=== PATIENT | female | born 1950 | race Asian ===

== ENCOUNTER 2018-09-30 20:32 | Inpatient (IN) | payer OTHER ==
[~2018-09-30] VITALS: Ht 144.8 cm; Wt 89.1 kg
[~2018-09-30 20:32] MED LIST: TRAM1TAB4 PO
[2018-09-30] MEDS ORDERED: ASPIRIN CHEWABLE 81 MG TABLET. PO ONE (21:00)
[2018-09-30] MEDS ORDERED: dilTIAZem IV PUSH 25 MG/5 ML VIAL IVP ONE (21:00)
--- NOTE | 2018-09-30 21:03 | PHYS DOC ---
Past Medical History Past Medical History: No Pertinent History Past Surgical History: No Surgical History Alcohol Use: None Drug Use: None Adult General Chief Complaint Chief Complaint: SHORTNESS OF BREATH HPI HPI Patient is a 68 year old female who presents with dyspnea. Patient has reportedly been having increasing dyspnea over the last month. Denies chest pain. No prior hx of similar symptoms. No hx available from the patient. Family member at bedside who speaks minimal Khmer. Phone call to another family member who states the pt has been having increasing symptoms over the last month. Lightheaded, dizzy. Shortness of breath. No recent travel. No Fever, chills, cough. Review of Systems Review of Systems Constitutional: Denies fever Eyes: Denies change in visual acuity HENT: Denies nasal congestion Respiratory: as documented above Cardiovascular: No additional information GI: no n/v, abdominal pain Musculoskeletal: Denies back pain Integument: Denies rash Neurologic: Denies headache Endocrine: Denies polyuria All other systems were reviewed and found to be within normal limits, except as documented in this note. Current Medications Current Medications Current Medications Medications (Trade) Dose Ordered Sig/Amaury Start Time Stop Time Status Last Admin Dose Admin Acetaminophen (Tylenol) 650 mg PRN Q4HRS PRN 09/30/18 22:45 10/01/18 22:44 Aspirin (Children'S Aspirin) 324 mg 1X ONCE 09/30/18 21:00 09/30/18 21:01 DC 09/30/18 21:07 324 MG Diltiazem HCl (Cardizem Iv Push) 10 mg 1X ONCE 09/30/18 21:00 09/30/18 21:01 DC 09/30/18 21:08 10 MG Diltiazem HCl 125 mg/Dextrose 125 ml @ 5 mls/hr 1X ONCE 09/30/18 22:00 10/01/18 22:59 09/30/18 22:11 5 MLS/HR Info (CONTRAST GIVEN -- Rx MONITORING) 1 each PRN DAILY PRN 09/30/18 23:00 10/02/18 22:59 Iohexol (Omnipaque 300 Mg/ml) 100 ml 1X ONCE 09/30/18 23:00 09/30/18 23:01 DC 09/30/18 23:12 100 ML Nitroglycerin (Nitro-Bid Oint) 1 inch 1X ONCE 09/30/18 22:00 09/30/18 22:00 DC Ondansetron HCl (Zofran) 4 mg PRN Q8HRS PRN 09/30/18 22:45 10/01/18 22:44 Allergies Allergies Allergies Coded Allergies Type Severity Reaction Last Updated Verified No Known Drug Allergies 04/26/15 No Physical Exam Physical Exam Constitutional: Well developed, well nourished, mild increased work of breathing HENT: Normocephalic, atraumatic, bilateral external ears normal, oropharynx moist Eyes: PERRLA, EOMI Neck: Normal range of motion Cardiovascular: tachycardic, irregular rhythm Lungs & Thorax: Bilateral breath sounds clear Abdomen: Bowel sounds normal, soft, no tenderness Skin: Warm, dry, no erythema Extremities: + edema bilateral LE's with Right > Left Neurologic: Alert and oriented X 3 Psychologic: Affect normal Current Patient Data Vital Signs Vital Signs Date Time Temp Pulse Resp B/P (MAP) Pulse Ox O2 Delivery O2 Flow Rate FiO2 09/30/18 22:35 115 22 125/83 (97) 93 Nasal Cannula 4.0 09/30/18 20:35 98.2 98.2 Lab Values Laboratory Tests Test 09/30/18 20:57 09/30/18 21:50 White Blood Count 5.1 x10^3/uL (4.0-11.0) Red Blood Count 5.31 x10^6/uL (3.50-5.40) Hemoglobin 15.8 g/dL (12.0-15.5) H Hematocrit 48.2 % (36.0-47.0) H Mean Corpuscular Volume 91 fL (79-100) Mean Corpuscular Hemoglobin 30 pg (25-35) Mean Corpuscular Hemoglobin Concent 33 g/dL (31-37) Red Cell Distribution Width 14.8 % (11.5-14.5) H Platelet Count 157 x10^3/uL (140-400) Neutrophils (%) (Auto) 55 % (31-73) Lymphocytes (%) (Auto) 36 % (24-48) Monocytes (%) (Auto) 7 % (0-9) Eosinophils (%) (Auto) 1 % (0-3) Basophils (%) (Auto) 2 % (0-3) Neutrophils # (Auto) 2.8 x10^3uL (1.8-7.7) Lymphocytes # (Auto) 1.8 x10^3/uL (1.0-4.8) Monocytes # (Auto) 0.4 x10^3/uL (0.0-1.1) Eosinophils # (Auto) 0.1 x10^3/uL (0.0-0.7) Basophils # (Auto) 0.1 x10^3/uL (0.0-0.2) Lactic Acid Level 1.9 mmol/L (0.4-2.0) Prothrombin Time 15.2 SEC (11.7-14.0) H Prothrombin Time INR 1.3 (0.8-1.1) H PTT 31 SEC (24-38) D-Dimer (Giselle) 3.07 ug/mlFEU (0.00-0.50) H Sodium Level 145 mmol/L (136-145) Potassium Level 4.1 mmol/L (3.5-5.1) Chloride Level 106 mmol/L (98-107) Carbon Dioxide Level 33 mmol/L (21-32) H Anion Gap 6 (6-14) Blood Urea Nitrogen 14 mg/dL (7-20) Creatinine 0.9 mg/dL (0.6-1.0) Estimated GFR (Cockcroft-Gault) 62.1 Glucose Level 143 mg/dL (70-99) H Calcium Level 8.9 mg/dL (8.5-10.1) Total Bilirubin 1.2 mg/dL (0.2-1.0) H Direct Bilirubin 0.4 mg/dL (0.0-0.2) H Aspartate Amino Transferase (AST) 22 U/L (15-37) Alanine Aminotransferase (ALT) 36 U/L (14-59) Alkaline Phosphatase 70 U/L (46-116) Troponin I Quantitative < 0.017 ng/mL (0.000-0.055) SS-Tjv-N-Type Natriuretic Peptide 4052 pg/mL (0-124) H Total Protein 7.2 g/dL (6.4-8.2) Albumin 3.5 g/dL (3.4-5.0) Procalcitonin < 0.10 ng/mL (0.00-0.10) Thyroid Stimulating Hormone (TSH) 2.647 uIU/mL (0.358-3.74) Laboratory Tests 09/30/18 20:57 Laboratory Tests 09/30/18 21:50 EKG EKG Atrial fibrillation with RVR, rate 167 Interpretation Time: 20:50 Radiology/Procedures Radiology/Procedures INDINGS: Low lung volumes and technique accentuates heart size and pulmonary vascularity. Moderate cardiomegaly. Right lung base airspace opacities likely pneumonia or atelectasis. IMPRESSION: Right lung base airspace opacities likely atelectasis or pneumonia. Follow-up to resolution. CTA Chest: IMPRESSION: 1. No evidence of central pulmonary embolism. 2. Enlarged appearing main pulmonary artery probably pulmonary arterial hypertension. 3. Cardiomegaly with reflux of contrast into the IVC and hepatic veins probably due to elevated right heart pressure. 4. Consolidation changes identified in the right middle lobe, right lower lobe lung within probably respiratory pneumonia or atelectasis. Mild to moderate right pleural effusion. Patchy airspace opacities identified in the left lingula and left lower lobe lung likely atelectasis or infiltrates. Course & Med Decision Making Course & Med Decision Making Pertinent Labs and Imaging studies reviewed. (See chart for details) 20:45: Patient is seen and examined. Mild increased work of breathing. Tachy on the monitor with a-fib. ACS work-up ordered. Diltiazem 10 mg IV ordered. SBP 170's. Patient presented to the emergency department with shortness of breath and mild hypoxia. She had edema in the lower extremities. She was found to have atrial fibrillation with a heart rate in the 160s on arrival. It is unclear if she has had A. fib in the past. In the ER, she was given a bolus dose of Cardizem which did not appreciably improve her heart rate. Following this, she was started on a diltiazem drip. Her troponin was not elevated. Her BNP was mildly elevated. Chest x-ray was questionable for pneumonia. CT angiography of the chest was completed because her d-dimer was elevated. This was revealing for probable pneumonia. No pulmonary embolism was present. The patient had no acute events in the emergency department. At the time of admission, her heart rate was improved to the 110's. Cardiology consult is requested. Rocephin and azithromycin were started for antibiotic coverage. Dragon Disclaimer Dragon Disclaimer This electronic medical record was generated, in whole or in part, using a voice recognition dictation system. Departure Departure Disposition: ADMITTED INPATIENT Condition: IMPROVED Referrals: NO PCP (PCP) ANDRES CASTREJON DO Sep 30, 2018 21:03
[2018-09-30 21:09] LABS: BASO # 0.1 x10^3/uL (0.0-0.2); BASO % 2 % (0-3); EOS # 0.1 x10^3/uL (0.0-0.7); EOS % 1 % (0-3); HEMATOCRIT 48.2 % (36.0-47.0); HEMOGLOBIN 15.8 g/dL (12.0-15.5); LYMPH # 1.8 x10^3/uL (1.0-4.8); LYMPH % 36 % (24-48); MEAN CORPUSCULAR HEMOGLOBIN 30 pg (25-35); MEAN CORPUSCULAR HGB CONC 33 g/dL (31-37); MEAN CORPUSCULAR VOLUME 91 fL (79-100); MONO # 0.4 x10^3/uL (0.0-1.1); MONO % 7 % (0-9); NEUT # 2.8 x10^3uL (1.8-7.7); NEUT % 55 % (31-73); PLATELET COUNT 157 x10^3/uL (140-400); RED BLOOD COUNT 5.31 x10^6/uL (3.50-5.40); RED CELL DISTRIBUTION WIDTH 14.8 % (11.5-14.5); WHITE BLOOD COUNT 5.1 x10^3/uL (4.0-11.0)
--- NOTE | 2018-09-30 21:15 | RAD ---
EXAM: CHEST 1 VIEW History: Dyspnea, tachycardia COMPARISON: 04/26/2015 TECHNIQUE: Single portable radiograph of the chest FINDINGS: Low lung volumes and technique accentuates heart size and pulmonary vascularity. Moderate cardiomegaly. Right lung base airspace opacities likely pneumonia or atelectasis. IMPRESSION: Right lung base airspace opacities likely atelectasis or pneumonia. Follow-up to resolution. Electronically signed by: Jagjit Dillon MD (09/30/2018 9:11 PM) [facility]
[2018-09-30] MEDS ORDERED: dilTIAZem INJ 125 MG in IV DEXTROSE 5% 100ML 100 ML IV ONE (22:00)
[2018-09-30] MEDS ORDERED: NITROGLYCERIN OINT 1 GM PACKET. TP ONE (22:00)
[2018-09-30 22:19] LABS: PROTHROMBIN TIME PATIENT 15.2 SEC (11.7-14.0)
[2018-09-30 22:24] LABS: CALCIUM 8.9 mg/dL (8.5-10.1); CREATININE 0.9 mg/dL (0.6-1.0); GFR 62.1; POTASSIUM 4.1 mmol/L (3.5-5.1)
[2018-09-30 22:25] LABS: D-DIMER 3.07 ug/mlFEU (0.00-0.50)
[2018-09-30 22:30] LABS: ALBUMIN 3.5 g/dL (3.4-5.0); DIRECT BILIRUBIN 0.4 mg/dL (0.0-0.2); TOTAL BILIRUBIN 1.2 mg/dL (0.2-1.0); TOTAL PROTEIN 7.2 g/dL (6.4-8.2)
[2018-09-30] MEDS ORDERED: ACETAMINOPHEN 325 MG TABLET. PO PRN (22:45)
[2018-09-30] MEDS ORDERED: ONDANSETRON PF 4 MG/2 ML VIAL. IV PRN (22:45)
[2018-09-30] MEDS ORDERED: CONTRAST GIVEN. MC PRN (23:00)
[2018-09-30] MEDS ORDERED: IOHEXOL 300 MG/ML 100ML VIAL. IV ONE (23:00)
[2018-09-30] MEDS ORDERED: cefTRIAXone IV Push 1 GM VIAL. IVP ONE (23:30)
[2018-09-30] MEDS ORDERED: AZITHRMYCN 500MG IVPB FOR OMNI 250 ML IV ONE (23:30)
--- NOTE | 2018-09-30 23:31 | RAD ---
Examination: CT angiography chest HISTORY: History of dyspnea, tachycardia COMPARISON: None available Technique: Axial CT angiographic images of the chest were performed with IV contrast. Coronal and sagittal 3-D MIP reformats are performed Exposure: One or more of the following individualized dose reduction techniques were utilized for this examination: 1. Automated exposure control 2. Adjustment of the mA and/or kV according to patient size 3. Use of iterative reconstruction technique FINDINGS: Moderate cardiomegaly. The caliber of the aorta grossly appears unremarkable. Main pulmonary artery likely pulmonary arterial hypertension. No evidence of filling defect identified in the main pulmonary artery, right and left main pulmonary arteries. The evaluation the distal segmental branches of the pulmonary arteries is limited. There is reflux of contrast into the hepatic veins and the IVC. Focal consolidation identified in the right middle lobe of the lung and right lower lobe of the lung with air bronchograms likely pneumonia or atelectasis. Patchy airspace opacities identified in the left lingula and left lower lobe lung likely atelectasis or infiltrates. Mild to moderate right-sided pleural effusion identified. The visualized liver, spleen, adrenals grossly appears unremarkable. Mild degenerative changes thoracic spine. IMPRESSION: 1. No evidence of central pulmonary embolism. 2. Enlarged appearing main pulmonary artery probably pulmonary arterial hypertension. 3. Cardiomegaly with reflux of contrast into the IVC and hepatic veins probably due to elevated right heart pressure. 4. Consolidation changes identified in the right middle lobe, right lower lobe lung within probably respiratory pneumonia or atelectasis. Mild to moderate right pleural effusion. Patchy airspace opacities identified in the left lingula and left lower lobe lung likely atelectasis or infiltrates. Electronically signed by: Jagjit Dillon MD (09/30/2018 11:28 PM) [facility]
[2018-10-01] VITALS (12 sets, daily range): BP systolic 101–147; BP diastolic 67–82
[2018-10-01] MEDS ORDERED: dilTIAZem INJ 125 MG in IV DEXTROSE 5% 100ML 100 ML IV PRN (04:15)
[2018-10-01 06:36] LABS: BASO # 0.1 x10^3/uL (0.0-0.2); BASO % 1 % (0-3); EOS % 1 % (0-3); HEMATOCRIT 43.5 % (36.0-47.0); LYMPH % 20 % (24-48); MEAN CORPUSCULAR HEMOGLOBIN 29 pg (25-35); MEAN CORPUSCULAR HGB CONC 32 g/dL (31-37); MEAN CORPUSCULAR VOLUME 91 fL (79-100); MONO # 0.4 x10^3/uL (0.0-1.1); MONO % 7 % (0-9); NEUT # 3.5 x10^3uL (1.8-7.7); NEUT % 70 % (31-73); PLATELET COUNT 144 x10^3/uL (140-400); RED BLOOD COUNT 4.77 x10^6/uL (3.50-5.40); RED CELL DISTRIBUTION WIDTH 14.4 % (11.5-14.5); WHITE BLOOD COUNT 4.9 x10^3/uL (4.0-11.0)
--- NOTE | 2018-10-01 06:41 | EKG ---
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
--- NOTE | 2018-10-01 06:41 | EKG ---
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
[2018-10-01 06:50] LABS: CALCIUM 8.6 mg/dL (8.5-10.1); CREATININE 0.9 mg/dL (0.6-1.0); GFR 62.1; POTASSIUM 4.1 mmol/L (3.5-5.1)
[2018-10-01 06:54] LABS: CHOLESTEROL/HDL RATIO 3.3
--- NOTE | 2018-10-01 07:40 | EKG ---
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
--- NOTE | 2018-10-01 10:12 | PDOC2 ---
LEONA PETER DIESEL FLEET MECHANIC 10/01/18 1012: CARDIAC CONSULT DATE OF CONSULT Date of Consult DATE: 10/01/18 TIME: 09:47 REASON FOR CONSULT Reason for Consult: AFIB RVR REFERRING PHYSICIAN Referring Physician: Ray SOURCE Source: Chart review, Patient HISTORY OF PRESENT ILLNESS HISTORY OF PRESENT ILLNESS This is a 68 yo Richa female admitted for complains of SOA. Pt has been having symptoms of palpitations for about a month. she could not speak solomon islander but her daughter in law is familiar of the details of her symptoms. Reports that she has been coughing for about a month and in the last weekend this has increased and so as her SOA. Positive for PND and wheezing and nonproductive cough. Denies any chills or reported fever. She was given antibiotics this weekend per the daughter in law but this was not working. Also noted with increasing leg edema. She has not see any PCP in the last 5 yrs. No prior VTE , CAD, arrhythmias. Prior to the antibiotics she has not been taking any medications. She was told of HTn in the past but no medications. Denies any bleeding or clotting history. No family hx of cardiopulmonary health problems. No tobacco, ETOH or recreational drug use. she has been increasingly getting weak, with REAL. No typical CP. No recent falls, injury or passing out. No hx of GI bleed, or head injury. PAST MEDICAL HISTORY Past Medical History HTN otherwise no other pertinent history PAST SURGICAL HISTORY Past Surgical History: No pertinent history FAMILY HISTORY Family History noncontributory to CV SOCIAL HISTORY Smoke: No ALCOHOL: none Drugs: None Lives: with Family (son) CURRENT MEDICATIONS CURRENT MEDICATIONS Current Medications Medications (Trade) Dose Ordered Sig/Amaury Route PRN Reason Start Time Stop Time Status Last Admin Dose Admin Aspirin (Children'S Aspirin) 324 mg 1X ONCE PO 09/30/18 21:00 09/30/18 21:01 DC 09/30/18 21:07 Diltiazem HCl (Cardizem Iv Push) 10 mg 1X ONCE IVP 09/30/18 21:00 09/30/18 21:01 DC 09/30/18 21:08 Diltiazem HCl 125 mg/Dextrose 125 ml @ 5 mls/hr 1X ONCE IV 09/30/18 22:00 10/01/18 22:59 09/30/18 22:11 Iohexol (Omnipaque 300 Mg/ml) 100 ml 1X ONCE IV 09/30/18 23:00 09/30/18 23:01 DC 09/30/18 23:12 Azithromycin 250 ml @ 250 mls/hr 1X ONCE IV 09/30/18 23:30 10/01/18 00:29 DC 10/01/18 02:06 Ceftriaxone Sodium (Rocephin) 1 gm ONCE ONCE IVP 09/30/18 23:30 09/30/18 23:31 DC 10/01/18 02:06 Diltiazem HCl 125 mg/Dextrose 125 ml @ 0 mls/hr CONT PRN IV SEE I/O RECORD 10/01/18 04:15 10/01/18 04:40 ALLERGIES ALLERGIES: Coded Allergies: No Known Drug Allergies (Unverified , 04/26/15) ROS Review of System Dtails through daughter in law, language barrier PHYSICAL EXAM General: Alert, Oriented X3, Cooperative, mild distress HEENT: Atraumatic, Mucous membr. moist/pink Lungs: Other (diffuse crackles) Heart: Other (AFIB RVR) Abdomen: Soft, No tenderness, Other (obese) Extremities: Other (1+ bilateral LE pitting edema) Skin: No breakdown, No significant lesion Neuro: Normal speech, Sensation intact Psych/Mental Status: Mental status NL, Other (flat affect) MUSCULOSKELETAL: Osteoarthritic changes both hands VITALS VITALS Vital Signs Date Time Temp Pulse Resp B/P (MAP) Pulse Ox O2 Delivery O2 Flow Rate FiO2 10/01/18 07:00 97.7 99 18 104/77 (86) 92 Nasal Cannula 4.0 97.7 LABS Lab: Laboratory Tests Test 09/30/18 20:57 09/30/18 21:50 10/01/18 01:40 10/01/18 06:22 White Blood Count 5.1 x10^3/uL (4.0-11.0) 4.9 x10^3/uL (4.0-11.0) Red Blood Count 5.31 x10^6/uL (3.50-5.40) 4.77 x10^6/uL (3.50-5.40) Hemoglobin 15.8 g/dL (12.0-15.5) 14.0 g/dL (12.0-15.5) Hematocrit 48.2 % (36.0-47.0) 43.5 % (36.0-47.0) Mean Corpuscular Volume 91 fL (79-100) 91 fL (79-100) Mean Corpuscular Hemoglobin 30 pg (25-35) 29 pg (25-35) Mean Corpuscular Hemoglobin Concent 33 g/dL (31-37) 32 g/dL (31-37) Red Cell Distribution Width 14.8 % (11.5-14.5) 14.4 % (11.5-14.5) Platelet Count 157 x10^3/uL (140-400) 144 x10^3/uL (140-400) Neutrophils (%) (Auto) 55 % (31-73) 70 % (31-73) Lymphocytes (%) (Auto) 36 % (24-48) 20 % (24-48) Monocytes (%) (Auto) 7 % (0-9) 7 % (0-9) Eosinophils (%) (Auto) 1 % (0-3) 1 % (0-3) Basophils (%) (Auto) 2 % (0-3) 1 % (0-3) Neutrophils # (Auto) 2.8 x10^3uL (1.8-7.7) 3.5 x10^3uL (1.8-7.7) Lymphocytes # (Auto) 1.8 x10^3/uL (1.0-4.8) 1.0 x10^3/uL (1.0-4.8) Monocytes # (Auto) 0.4 x10^3/uL (0.0-1.1) 0.4 x10^3/uL (0.0-1.1) Eosinophils # (Auto) 0.1 x10^3/uL (0.0-0.7) 0.0 x10^3/uL (0.0-0.7) Basophils # (Auto) 0.1 x10^3/uL (0.0-0.2) 0.1 x10^3/uL (0.0-0.2) Lactic Acid Level 1.9 mmol/L (0.4-2.0) Prothrombin Time 15.2 SEC (11.7-14.0) Prothromb Time International Ratio 1.3 (0.8-1.1) Activated Partial Thromboplast Time 31 SEC (24-38) D-Dimer (Giselle) 3.07 ug/mlFEU (0.00-0.50) Sodium Level 145 mmol/L (136-145) 144 mmol/L (136-145) Potassium Level 4.1 mmol/L (3.5-5.1) 4.1 mmol/L (3.5-5.1) Chloride Level 106 mmol/L (98-107) 107 mmol/L (98-107) Carbon Dioxide Level 33 mmol/L (21-32) 31 mmol/L (21-32) Anion Gap 6 (6-14) 6 (6-14) Blood Urea Nitrogen 14 mg/dL (7-20) 14 mg/dL (7-20) Creatinine 0.9 mg/dL (0.6-1.0) 0.9 mg/dL (0.6-1.0) Estimated GFR (Cockcroft-Gault) 62.1 62.1 Glucose Level 143 mg/dL (70-99) 111 mg/dL (70-99) Calcium Level 8.9 mg/dL (8.5-10.1) 8.6 mg/dL (8.5-10.1) Total Bilirubin 1.2 mg/dL (0.2-1.0) Direct Bilirubin 0.4 mg/dL (0.0-0.2) Aspartate Amino Transf (AST/SGOT) 22 U/L (15-37) Alanine Aminotransferase (ALT/SGPT) 36 U/L (14-59) Alkaline Phosphatase 70 U/L (46-116) Troponin I Quantitative < 0.017 ng/mL (0.000-0.055) < 0.017 ng/mL (0.000-0.055) 0.018 ng/mL (0.000-0.055) ZZ-Jef-W-Type Natriuretic Peptide 4052 pg/mL (0-124) Total Protein 7.2 g/dL (6.4-8.2) Albumin 3.5 g/dL (3.4-5.0) Procalcitonin < 0.10 ng/mL (0.00-0.10) Thyroid Stimulating Hormone (TSH) 2.647 uIU/mL (0.358-3.74) Magnesium Level 1.9 mg/dL (1.8-2.4) Triglycerides Level 45 mg/dL (0-150) Cholesterol Level 105 mg/dL (0-200) LDL Cholesterol, Calculated 64 mg/dL (0-100) VLDL Cholesterol, Calculated 9 mg/dL (0-40) Non-HDL Cholesterol Calculated 73 mg/dL (0-129) HDL Cholesterol 32 mg/dL (40-60) Cholesterol/HDL Ratio 3.3 ASSESSMENT/PLAN ASSESSMENT/PLAN 1. Accelerated HTN: improved with cardizem 2. Acute diastolic CHF/pulmonary HTN. NEW. Likely exacerbated by uncontrolled HTN and RVR. 3. AFIB RVR: rate improved with cardizem drip. NEW Recommendations 1. Transition cardizem to PO CD. Start on Eliquis for stroke prevention 2. TTE today. Lasix therapy. 3. Awaiting workup will consider for cardioversion possibly as an outpt JESUS COOPER MD 10/01/186: CARDIAC CONSULT ASSESSMENT/PLAN ASSESSMENT/PLAN Pt. seen and examined. AGree with above FURNACE PUNCHER note. Continue rate control. Rate not yet optimally controlled. Continue anticoagulation. Continue BP control. LEONA PETER APRN Oct 01, 2018 10:12 JESUS COOPER MD Oct 01, 2018 19:46
[2018-10-01] MEDS: APIXABAN 5 MG TABLET. PO SCH ×2 (10:34→21:31)
[2018-10-01] MEDS: POTASSIUM CHLORIDE 20 MEQ TABLET.ER. PO SCH (10:37)
[2018-10-01] MEDS: FUROSEMIDE 40 MG/4 ML VIAL. IVP SCH ×2 (10:40→16:41)
--- NOTE | 2018-10-01 11:27 | CARD ---
MR#: [id number] Date of Study: 10/01/2018 Ordering Physician: LEONA PETER, Referring Physician: MARK FINK, Tech: Elizabeth William APPROVED REPORT EXAM: Two-dimensional and M-mode echocardiogram with Doppler and color Doppler. Other Information Quality : GoodHR: 92bpm INDICATION Congenital Heart Disease 2D DIMENSIONS RVDd3.1 (2.9-3.5cm)Left Atrium(2D)4.8 (1.6-4.0cm) IVSd1.5 (0.7-1.1cm)Aortic Root(2D)3.1 (2.0-3.7cm) LVDd5.4 (3.9-5.9cm)LVOT Diameter2.2 (1.8-2.4cm) PWd1.3 (0.7-1.1cm)LVDs3.4 (2.5-4.0cm) FS (%) 36.7 %SV92.0 ml LVEF(%)66.0 (>50%) Aortic Valve AoV Peak Winston.169.9cm/sAoV VTI31.8cm AO Peak GR.11.5mmHgAO Mean GR.9mmHg AI P 1/2 [id number] TDI Lateral E' P. V11.07cm/sMedial E' P. V7.34cm/s Tricuspid Valve TR P. [id number]/sRAP [id number] TR Peak Gr.[id number] Pulmonary Vein S1 Hserxuff14.5cm/sS2 Ekgeddqb81.14cm/s D2 Pmplwnhm91.1cm/s LEFT VENTRICLE The left ventricle is normal size. There is moderate concentric left ventricular hypertrophy. The lef t ventricular systolic function is normal and the ejection fraction is within normal range. The Eject ion Fraction is >55%. There is normal LV segmental wall motion. Tissue Doppler imaging reveals modera te left ventricular diastolic dysfunction. RIGHT VENTRICLE The right ventricle is normal size. There is normal right ventricular wall thickness. The right ventr icular systolic function is normal. ATRIA The left atrium size is normal. The right atrium size is normal. The interatrial septum is intact wit h no evidence for an atrial septal defect or patent foramen ovale as noted on 2-D or Doppler imaging. AORTIC VALVE The aortic valve is calcified but opens well. Doppler and Color Flow revealed mild aortic regurgitati on. Calculated aortic valve area is 3.8 cm2 with maximum pressure gradient of 12 mmHg and mean pressu re gradient of 9 mmHg. MITRAL VALVE The mitral valve is thickened but opens well. There is no mitral valve stenosis. Doppler and Color-fl ow revealed trace mitral regurgitation. TRICUSPID VALVE The tricuspid valve is normal in structure and function. Doppler and Color Flow revealed trace tricus pid regurgitation. There is no tricuspid valve stenosis. PULMONIC VALVE The pulmonic valve is not well visualized. Doppler and Color Flow revealed mild pulmonic valvular reg urgitation. GREAT VESSELS The aortic root is normal in size. The IVC is dilated and collapses >50% with inspiration. PERICARDIAL EFFUSION There is small left pleural effusion. There is a small pericardial effusion. Critical Notification Critical Value: No <Conclusion> The left ventricular systolic function is normal and the ejection fraction is within normal range. Th e Ejection Fraction is >55%. There is normal LV segmental wall motion. Signed by : Michael Jarvis, Electronically Approved : 10/01/2018 11:26:27
--- NOTE | 2018-10-01 12:16 | PDOC ---
PULMONARY PROGRESS NOTES Vitals Vital Signs Date Time Temp Pulse Resp B/P (MAP) Pulse Ox O2 Delivery O2 Flow Rate FiO2 10/01/18 10:46 97.5 81 22 147/82 (103) 89 Nasal Cannula 4.0 97.5 Labs Laboratory Tests Test 09/30/18 20:57 09/30/18 21:50 10/01/18 01:40 10/01/18 06:22 White Blood Count 5.1 x10^3/uL (4.0-11.0) 4.9 x10^3/uL (4.0-11.0) Red Blood Count 5.31 x10^6/uL (3.50-5.40) 4.77 x10^6/uL (3.50-5.40) Hemoglobin 15.8 g/dL (12.0-15.5) 14.0 g/dL (12.0-15.5) Hematocrit 48.2 % (36.0-47.0) 43.5 % (36.0-47.0) Mean Corpuscular Volume 91 fL (79-100) 91 fL (79-100) Mean Corpuscular Hemoglobin 30 pg (25-35) 29 pg (25-35) Mean Corpuscular Hemoglobin Concent 33 g/dL (31-37) 32 g/dL (31-37) Red Cell Distribution Width 14.8 % (11.5-14.5) 14.4 % (11.5-14.5) Platelet Count 157 x10^3/uL (140-400) 144 x10^3/uL (140-400) Neutrophils (%) (Auto) 55 % (31-73) 70 % (31-73) Lymphocytes (%) (Auto) 36 % (24-48) 20 % (24-48) Monocytes (%) (Auto) 7 % (0-9) 7 % (0-9) Eosinophils (%) (Auto) 1 % (0-3) 1 % (0-3) Basophils (%) (Auto) 2 % (0-3) 1 % (0-3) Neutrophils # (Auto) 2.8 x10^3uL (1.8-7.7) 3.5 x10^3uL (1.8-7.7) Lymphocytes # (Auto) 1.8 x10^3/uL (1.0-4.8) 1.0 x10^3/uL (1.0-4.8) Monocytes # (Auto) 0.4 x10^3/uL (0.0-1.1) 0.4 x10^3/uL (0.0-1.1) Eosinophils # (Auto) 0.1 x10^3/uL (0.0-0.7) 0.0 x10^3/uL (0.0-0.7) Basophils # (Auto) 0.1 x10^3/uL (0.0-0.2) 0.1 x10^3/uL (0.0-0.2) Lactic Acid Level 1.9 mmol/L (0.4-2.0) Prothrombin Time 15.2 SEC (11.7-14.0) Prothromb Time International Ratio 1.3 (0.8-1.1) Activated Partial Thromboplast Time 31 SEC (24-38) D-Dimer (Giselle) 3.07 ug/mlFEU (0.00-0.50) Sodium Level 145 mmol/L (136-145) 144 mmol/L (136-145) Potassium Level 4.1 mmol/L (3.5-5.1) 4.1 mmol/L (3.5-5.1) Chloride Level 106 mmol/L (98-107) 107 mmol/L (98-107) Carbon Dioxide Level 33 mmol/L (21-32) 31 mmol/L (21-32) Anion Gap 6 (6-14) 6 (6-14) Blood Urea Nitrogen 14 mg/dL (7-20) 14 mg/dL (7-20) Creatinine 0.9 mg/dL (0.6-1.0) 0.9 mg/dL (0.6-1.0) Estimated GFR (Cockcroft-Gault) 62.1 62.1 Glucose Level 143 mg/dL (70-99) 111 mg/dL (70-99) Calcium Level 8.9 mg/dL (8.5-10.1) 8.6 mg/dL (8.5-10.1) Total Bilirubin 1.2 mg/dL (0.2-1.0) Direct Bilirubin 0.4 mg/dL (0.0-0.2) Aspartate Amino Transf (AST/SGOT) 22 U/L (15-37) Alanine Aminotransferase (ALT/SGPT) 36 U/L (14-59) Alkaline Phosphatase 70 U/L (46-116) Troponin I Quantitative < 0.017 ng/mL (0.000-0.055) < 0.017 ng/mL (0.000-0.055) 0.018 ng/mL (0.000-0.055) ZP-Exw-Y-Type Natriuretic Peptide 4052 pg/mL (0-124) Total Protein 7.2 g/dL (6.4-8.2) Albumin 3.5 g/dL (3.4-5.0) Procalcitonin < 0.10 ng/mL (0.00-0.10) Thyroid Stimulating Hormone (TSH) 2.647 uIU/mL (0.358-3.74) Magnesium Level 1.9 mg/dL (1.8-2.4) Triglycerides Level 45 mg/dL (0-150) Cholesterol Level 105 mg/dL (0-200) LDL Cholesterol, Calculated 64 mg/dL (0-100) VLDL Cholesterol, Calculated 9 mg/dL (0-40) Non-HDL Cholesterol Calculated 73 mg/dL (0-129) HDL Cholesterol 32 mg/dL (40-60) Cholesterol/HDL Ratio 3.3 Laboratory Tests Test 09/30/18 20:57 09/30/18 21:50 10/01/18 01:40 10/01/18 06:22 White Blood Count 5.1 x10^3/uL (4.0-11.0) 4.9 x10^3/uL (4.0-11.0) Red Blood Count 5.31 x10^6/uL (3.50-5.40) 4.77 x10^6/uL (3.50-5.40) Hemoglobin 15.8 g/dL (12.0-15.5) 14.0 g/dL (12.0-15.5) Hematocrit 48.2 % (36.0-47.0) 43.5 % (36.0-47.0) Mean Corpuscular Volume 91 fL (79-100) 91 fL (79-100) Mean Corpuscular Hemoglobin 30 pg (25-35) 29 pg (25-35) Mean Corpuscular Hemoglobin Concent 33 g/dL (31-37) 32 g/dL (31-37) Red Cell Distribution Width 14.8 % (11.5-14.5) 14.4 % (11.5-14.5) Platelet Count 157 x10^3/uL (140-400) 144 x10^3/uL (140-400) Neutrophils (%) (Auto) 55 % (31-73) 70 % (31-73) Lymphocytes (%) (Auto) 36 % (24-48) 20 % (24-48) Monocytes (%) (Auto) 7 % (0-9) 7 % (0-9) Eosinophils (%) (Auto) 1 % (0-3) 1 % (0-3) Basophils (%) (Auto) 2 % (0-3) 1 % (0-3) Neutrophils # (Auto) 2.8 x10^3uL (1.8-7.7) 3.5 x10^3uL (1.8-7.7) Lymphocytes # (Auto) 1.8 x10^3/uL (1.0-4.8) 1.0 x10^3/uL (1.0-4.8) Monocytes # (Auto) 0.4 x10^3/uL (0.0-1.1) 0.4 x10^3/uL (0.0-1.1) Eosinophils # (Auto) 0.1 x10^3/uL (0.0-0.7) 0.0 x10^3/uL (0.0-0.7) Basophils # (Auto) 0.1 x10^3/uL (0.0-0.2) 0.1 x10^3/uL (0.0-0.2) Lactic Acid Level 1.9 mmol/L (0.4-2.0) Prothrombin Time 15.2 SEC (11.7-14.0) Prothromb Time International Ratio 1.3 (0.8-1.1) Activated Partial Thromboplast Time 31 SEC (24-38) D-Dimer (Giselle) 3.07 ug/mlFEU (0.00-0.50) Sodium Level 145 mmol/L (136-145) 144 mmol/L (136-145) Potassium Level 4.1 mmol/L (3.5-5.1) 4.1 mmol/L (3.5-5.1) Chloride Level 106 mmol/L (98-107) 107 mmol/L (98-107) Carbon Dioxide Level 33 mmol/L (21-32) 31 mmol/L (21-32) Anion Gap 6 (6-14) 6 (6-14) Blood Urea Nitrogen 14 mg/dL (7-20) 14 mg/dL (7-20) Creatinine 0.9 mg/dL (0.6-1.0) 0.9 mg/dL (0.6-1.0) Estimated GFR (Cockcroft-Gault) 62.1 62.1 Glucose Level 143 mg/dL (70-99) 111 mg/dL (70-99) Calcium Level 8.9 mg/dL (8.5-10.1) 8.6 mg/dL (8.5-10.1) Total Bilirubin 1.2 mg/dL (0.2-1.0) Direct Bilirubin 0.4 mg/dL (0.0-0.2) Aspartate Amino Transf (AST/SGOT) 22 U/L (15-37) Alanine Aminotransferase (ALT/SGPT) 36 U/L (14-59) Alkaline Phosphatase 70 U/L (46-116) Troponin I Quantitative < 0.017 ng/mL (0.000-0.055) < 0.017 ng/mL (0.000-0.055) 0.018 ng/mL (0.000-0.055) QH-Mcx-S-Type Natriuretic Peptide 4052 pg/mL (0-124) Total Protein 7.2 g/dL (6.4-8.2) Albumin 3.5 g/dL (3.4-5.0) Procalcitonin < 0.10 ng/mL (0.00-0.10) Thyroid Stimulating Hormone (TSH) 2.647 uIU/mL (0.358-3.74) Magnesium Level 1.9 mg/dL (1.8-2.4) Triglycerides Level 45 mg/dL (0-150) Cholesterol Level 105 mg/dL (0-200) LDL Cholesterol, Calculated 64 mg/dL (0-100) VLDL Cholesterol, Calculated 9 mg/dL (0-40) Non-HDL Cholesterol Calculated 73 mg/dL (0-129) HDL Cholesterol 32 mg/dL (40-60) Cholesterol/HDL Ratio 3.3 Medications Active Scripts Medications Dose Route/Sig Max Daily Dose Days Date Category Tramadol-Acetaminophn 37.5-325 (Tramadol Hcl/Acetaminophen) 1 Each Tablet 1 Tab PO Q6H 07/14/16 Rx No Known Medications Prior To Admisstion (Info) Each 1 Each 04/26/15 Reported Impression . NOTE DICTATED AGREE WITH CURRENT RX ADD ROCEPHIN SUSPECT SEC PULMONARY HTN WILL NEED 02 AT HOME UPON D/C BINDU GRIJALVA MD Oct 01, 2018 12:16
--- NOTE | 2018-10-01 12:27 | CONS ---
DATE OF CONSULTATION: 10/01/2018 ATTENDING PHYSICIAN: Dr. Haro. REASON FOR CONSULTATION: The patient seen in pulmonary consultation at the request of Dr. Haro for hypoxemia, shortness of breath. HISTORY OF PRESENT ILLNESS: The patient is a 68-year-old female that has been in the [place] now for approximately 15 years. He has been having some symptoms of increasing shortness of breath over the last 1-2 weeks. She was actually seen in the Urgent Care center, was treated for what sounds like pneumonia, bronchitis, did not improve. She presents with paroxysmal nocturnal dyspnea, wheezing and cough. Her owbvysmn-eb-pkt who is at the bedside was translating. 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 The patient has never smoked. She was evaluated with a CT angiogram, which I reviewed. CT revealed no evidence of pulmonary emboli. There was cardiomegaly with evidence of elevated right heart filling pressure. The pulmonary arteries were markedly enlarged. There was consolidation identified in the right lower lobe and right middle lobe. There was also some patchy airspace opacities in the lingula. PAST MEDICAL HISTORY: Hypertension, otherwise no prior history. PAST SURGICAL HISTORY: None. FAMILY HISTORY: No family history of lung disorders. SOCIAL HISTORY: She has never smoked. REVIEW OF SYSTEMS: As indicated above, otherwise, a 10-point system was reviewed and negative. CONSTITUTIONAL: No fever or chills. EYES: No change in visual acuity. HEENT: No nasal congestion or sore throat. PULMONARY: As indicated above. Sleep hygiene reveals that she snores intermittently. No excessive daytime sleepiness. She awakens refreshed from her sleep. The family has not noted apnea spells. GASTROINTESTINAL: No nausea, vomiting, diarrhea. GENITOURINARY: No dysuria or frequency. MUSCULOSKELETAL: No localized muscle aches or joint pain. SKIN: No new skin rashes. NEUROLOGIC: No headaches, diplopia or blurred vision. PHYSICAL EXAMINATION: GENERAL: She is currently on 4 L of oxygen, saturation greater than 92%. HEENT: Eyes, the sclerae were nonicteric. NECK: Jugular venous distention could not be assessed secondary to body habitus. CHEST: Full expansion. LUNGS: Crackles, poor airway flow. CARDIOVASCULAR: Regular rate and rhythm with S1, S2, no S3. ABDOMEN: Obese. EXTREMITIES: 1+ edema. NEUROLOGIC: The patient was awake, alert, following commands. A detailed neuro exam was not performed. LABORATORY DATA: White count was normal, hemoglobin and hematocrit were noted. Electrolytes were noted. BNP was elevated. Troponin was not elevated. Procalcitonin was less than 0.10. IMPRESSION: 1. Acute hypoxemic respiratory failure, multifactorial. 2. Suspect severe secondary pulmonary hypertension. 3. Suspect obstructive sleep apnea. 4. Pneumonia, Gram-negative. 5. Morbid obesity. 6. Accelerated hypertension. 7. Kobfy-es-dcdfzve diastolic heart failure. 8. Atrial fibrillation with rapid ventricular response. PLAN: 1. Recommend diuresis. 2. Continue Cardizem. 3. Eliquis for anticoagulation. 4. Antibiotics. 5. Unfortunately her insurance carrier precludes a polysomnogram. 6. The patient instructed on the importance of weight reduction. I do appreciate the privilege in sharing in the patient's care. BINDU GRIJALVA MD DR: ANITA/ila JOB#: [id number] / [id number]
--- NOTE | 2018-10-01 18:41 | HP ---
ADMIT DATE: 10/01/2018 CHIEF COMPLAINT: Shortness of breath, palpitations, weakness. HISTORY OF PRESENT ILLNESS: The patient is a pleasant 68-year-old female who presented to the ER with shortness of breath, palpitation, weakness, describes it as 9/10. She has associated anxiety. This has been occurring for several days. Rates it at 9/10. While in the ER, she was noted to be in AFib with RVR. I have discussed the case with the ER physician. She also has accelerated hypertension and heart failure. We are going to admit the patient and consult Cardiology. PAST MEDICAL HISTORY: 1. Probable noncompliance. 2. Hypertension. ALLERGIES: None. FAMILY HISTORY: Hypertension. SOCIAL HISTORY: She does not drink, smoke or take drugs. MEDICATIONS: Reviewed, please refer to the MRAD. REVIEW OF SYSTEMS: GENERAL: No history of weight change, weakness or fevers. SKIN: No bruising, hair changes or rashes. EYES: No blurred, double or loss of vision. NOSE AND THROAT: No history of nosebleeds, hoarseness or sore throat. HEART: No history of palpitations, chest pain or shortness of breath on exertion. LUNGS: Denies cough, hemoptysis, wheezing or shortness of breath. GASTROINTESTINAL: Denies changes in appetite, nausea, vomiting, diarrhea or constipation. GENITOURINARY: No history of frequency, urgency, hesitancy or nocturia. NEUROLOGIC: Denies history of numbness, tingling, tremor or weakness. PSYCHIATRIC: No history of panic, anxiety or depression. ENDOCRINE: No history of heat or cold intolerance, polyuria or polydipsia. EXTREMITIES: Denies muscle weakness, joint pain, pain on walking or stiffness. PHYSICAL EXAMINATION: VITAL SIGNS: Temperature afebrile, pulse 110, respirations 18, blood pressure ranging from 234/144-139/98. HEART: Irregular, S1, S2. LUNGS: Clear to auscultation. ABDOMEN: Soft, distended, positive bowel sounds. EXTREMITIES: 1+ edema. SKIN: No rashes. ENDOCRINE: No thyromegaly. LYMPHATICS: No cervical nodes. HEMATOPOIETIC: No bruising. GENITOURINARY: Normal. LABORATORY DATA: Hematology is normal. Electrolytes are normal. EKG shows AFib. ASSESSMENT AND PLAN: Atrial fibrillation with rapid ventricular response, congestive heart failure and accelerated hypertension. The patient is being admitted. We will consult Cardiology. Serial enzymes, serial EKGs, IV antihypertensives, IV Cardizem, p.o. Eliquis home meds, frequent labs. PROGNOSIS: Guarded. KRISTOPHER GONZALES DO DR: LUIGI/ila JOB#: [id number] / [id number]
[2018-10-01] MEDS: cefTRIAXone IV Push 1 GM VIAL. IVP SCH (21:32)
[2018-10-02 03:15] VITALS: BP 143/67
[2018-10-02 07:00] VITALS: BP 127/78
[2018-10-02] MEDS: POTASSIUM CHLORIDE 20 MEQ TABLET.ER. PO SCH (08:28)
[2018-10-02] MEDS: FUROSEMIDE 40 MG/4 ML VIAL. IVP SCH ×2 (08:28→16:00)
--- NOTE | 2018-10-02 08:28 | PDOC ---
PULMONARY PROGRESS NOTES Subjective PT BETTER LESS SOA AND COUGH Vitals Vital Signs Date Time Temp Pulse Resp B/P (MAP) Pulse Ox O2 Delivery O2 Flow Rate FiO2 10/02/18 03:15 97.7 122 20 143/67 (92) 92 Nasal Cannula 4.0 97.7 ROS: No Nausea, No Chest Pain, No Abdominal Pain, No Increase Cough General: Alert Lungs: Clear Cardiovascular: S1, S2 Abdomen: Soft, Other (OBESE) Neuro Exam: Alert Extremities: Other (EDEMA) Skin: Warm Labs Laboratory Tests Test 09/30/18 20:57 09/30/18 21:50 10/01/18 01:40 10/01/18 06:22 White Blood Count 5.1 x10^3/uL (4.0-11.0) 4.9 x10^3/uL (4.0-11.0) Red Blood Count 5.31 x10^6/uL (3.50-5.40) 4.77 x10^6/uL (3.50-5.40) Hemoglobin 15.8 g/dL (12.0-15.5) 14.0 g/dL (12.0-15.5) Hematocrit 48.2 % (36.0-47.0) 43.5 % (36.0-47.0) Mean Corpuscular Volume 91 fL (79-100) 91 fL (79-100) Mean Corpuscular Hemoglobin 30 pg (25-35) 29 pg (25-35) Mean Corpuscular Hemoglobin Concent 33 g/dL (31-37) 32 g/dL (31-37) Red Cell Distribution Width 14.8 % (11.5-14.5) 14.4 % (11.5-14.5) Platelet Count 157 x10^3/uL (140-400) 144 x10^3/uL (140-400) Neutrophils (%) (Auto) 55 % (31-73) 70 % (31-73) Lymphocytes (%) (Auto) 36 % (24-48) 20 % (24-48) Monocytes (%) (Auto) 7 % (0-9) 7 % (0-9) Eosinophils (%) (Auto) 1 % (0-3) 1 % (0-3) Basophils (%) (Auto) 2 % (0-3) 1 % (0-3) Neutrophils # (Auto) 2.8 x10^3uL (1.8-7.7) 3.5 x10^3uL (1.8-7.7) Lymphocytes # (Auto) 1.8 x10^3/uL (1.0-4.8) 1.0 x10^3/uL (1.0-4.8) Monocytes # (Auto) 0.4 x10^3/uL (0.0-1.1) 0.4 x10^3/uL (0.0-1.1) Eosinophils # (Auto) 0.1 x10^3/uL (0.0-0.7) 0.0 x10^3/uL (0.0-0.7) Basophils # (Auto) 0.1 x10^3/uL (0.0-0.2) 0.1 x10^3/uL (0.0-0.2) Lactic Acid Level 1.9 mmol/L (0.4-2.0) Prothrombin Time 15.2 SEC (11.7-14.0) Prothromb Time International Ratio 1.3 (0.8-1.1) Activated Partial Thromboplast Time 31 SEC (24-38) D-Dimer (Giselle) 3.07 ug/mlFEU (0.00-0.50) Sodium Level 145 mmol/L (136-145) 144 mmol/L (136-145) Potassium Level 4.1 mmol/L (3.5-5.1) 4.1 mmol/L (3.5-5.1) Chloride Level 106 mmol/L (98-107) 107 mmol/L (98-107) Carbon Dioxide Level 33 mmol/L (21-32) 31 mmol/L (21-32) Anion Gap 6 (6-14) 6 (6-14) Blood Urea Nitrogen 14 mg/dL (7-20) 14 mg/dL (7-20) Creatinine 0.9 mg/dL (0.6-1.0) 0.9 mg/dL (0.6-1.0) Estimated GFR (Cockcroft-Gault) 62.1 62.1 Glucose Level 143 mg/dL (70-99) 111 mg/dL (70-99) Calcium Level 8.9 mg/dL (8.5-10.1) 8.6 mg/dL (8.5-10.1) Total Bilirubin 1.2 mg/dL (0.2-1.0) Direct Bilirubin 0.4 mg/dL (0.0-0.2) Aspartate Amino Transf (AST/SGOT) 22 U/L (15-37) Alanine Aminotransferase (ALT/SGPT) 36 U/L (14-59) Alkaline Phosphatase 70 U/L (46-116) Troponin I Quantitative < 0.017 ng/mL (0.000-0.055) < 0.017 ng/mL (0.000-0.055) 0.018 ng/mL (0.000-0.055) IJ-Csq-Q-Type Natriuretic Peptide 4052 pg/mL (0-124) Total Protein 7.2 g/dL (6.4-8.2) Albumin 3.5 g/dL (3.4-5.0) Procalcitonin < 0.10 ng/mL (0.00-0.10) Thyroid Stimulating Hormone (TSH) 2.647 uIU/mL (0.358-3.74) Magnesium Level 1.9 mg/dL (1.8-2.4) Triglycerides Level 45 mg/dL (0-150) Cholesterol Level 105 mg/dL (0-200) LDL Cholesterol, Calculated 64 mg/dL (0-100) VLDL Cholesterol, Calculated 9 mg/dL (0-40) Non-HDL Cholesterol Calculated 73 mg/dL (0-129) HDL Cholesterol 32 mg/dL (40-60) Cholesterol/HDL Ratio 3.3 Medications Active Scripts Medications Dose Route/Sig Max Daily Dose Days Date Category Tramadol-Acetaminophn 37.5-325 (Tramadol Hcl/Acetaminophen) 1 Each Tablet 1 Tab PO Q6H 07/14/16 Rx No Known Medications Prior To Admisstion (Info) Each 1 Each 04/26/15 Reported Impression . IMPRESSION: 1. Acute hypoxemic respiratory failure, multifactorial. 2. Suspect severe secondary pulmonary hypertension. 3. Suspect obstructive sleep apnea. 4. Pneumonia, Gram-negative. 5. Morbid obesity. 6. Accelerated hypertension. 7. Tnxim-sg-feokqau diastolic heart failure. 8. Atrial fibrillation with rapid ventricular response. Plan . SPOKE WITH DAUGHTER RN AT [facility] PT TO UNDER GO NOCT DESAT AND 6 MW PRIOR TO DC POSSIBLE OUTPT RIGHT HEARTH CATH WILL D/W CARD DIURESE FOR NOW AND ANTIBX REPEAT CT IN 6-8 WEEKS 1. Recommend diuresis. 2. Continue Cardizem. 3. Eliquis for anticoagulation. 4. Antibiotics. 5. Unfortunately her insurance carrier precludes a polysomnogram. 6. The patient instructed on the importance of weight reduction. BINDU GRIJALVA MD Oct 02, 2018 08:28
[2018-10-02] MEDS: APIXABAN 5 MG TABLET. PO SCH ×2 (08:29→21:07)
[2018-10-02 09:38] LABS: BASO # 0.1 x10^3/uL (0.0-0.2); BASO % 1 % (0-3); EOS % 1 % (0-3); HEMOGLOBIN 15.5 g/dL (12.0-15.5); LYMPH # 0.9 x10^3/uL (1.0-4.8); LYMPH % 17 % (24-48); MEAN CORPUSCULAR HEMOGLOBIN 30 pg (25-35); MEAN CORPUSCULAR HGB CONC 33 g/dL (31-37); MEAN CORPUSCULAR VOLUME 91 fL (79-100); MONO # 0.3 x10^3/uL (0.0-1.1); MONO % 5 % (0-9); NEUT # 4.3 x10^3uL (1.8-7.7); NEUT % 77 % (31-73); PLATELET COUNT 159 x10^3/uL (140-400); RED BLOOD COUNT 5.19 x10^6/uL (3.50-5.40); RED CELL DISTRIBUTION WIDTH 14.4 % (11.5-14.5); WHITE BLOOD COUNT 5.6 x10^3/uL (4.0-11.0)
[2018-10-02] MEDS ORDERED: DIGOXIN IV 500 MCG/2 ML AMPUL. IV ONE (10:00)
[2018-10-02 10:05] LABS: CALCIUM 9.2 mg/dL (8.5-10.1); CREATININE 0.8 mg/dL (0.6-1.0); GFR 71.1; POTASSIUM 3.6 mmol/L (3.5-5.1)
--- NOTE | 2018-10-02 10:36 | PDOC ---
LEONA PETER BRAILLE TYPIST 10/02/18 1036: CARDIO Progress Notes Date and Time Date of Service 10/02/2018 Time of Evaluation 1010 Subjective Subjective: No Chest Pain, No shortness of breath, No Palpitations, Other ( sitting up feeling better) Vitals Vitals Vital Signs Date Time Temp Pulse Resp B/P (MAP) Pulse Ox O2 Delivery O2 Flow Rate FiO2 10/02/18 10:19 140 10/02/18 08:29 143/67 10/02/18 07:00 98.8 18 92 Nasal Cannula 4.0 98.8 Weight Weight [ ] Input and Output Intake and Output Intake and Output 10/02/18 07:00 Intake Total 1000 ml Output Total 3450 ml Balance -2450 ml Intake Oral 1000 ml Output Urine Total 3450 ml Laboratory Labs Laboratory Tests Test 10/02/18 09:00 10/02/18 09:10 Sodium Level 146 mmol/L (136-145) Potassium Level 3.6 mmol/L (3.5-5.1) Chloride Level 100 mmol/L (98-107) Carbon Dioxide Level 39 mmol/L (21-32) Anion Gap 7 (6-14) Blood Urea Nitrogen 10 mg/dL (7-20) Creatinine 0.8 mg/dL (0.6-1.0) Estimated GFR (Cockcroft-Gault) 71.1 Glucose Level 103 mg/dL (70-99) Calcium Level 9.2 mg/dL (8.5-10.1) White Blood Count 5.6 x10^3/uL (4.0-11.0) Red Blood Count 5.19 x10^6/uL (3.50-5.40) Hemoglobin 15.5 g/dL (12.0-15.5) Hematocrit 47.0 % (36.0-47.0) Mean Corpuscular Volume 91 fL (79-100) Mean Corpuscular Hemoglobin 30 pg (25-35) Mean Corpuscular Hemoglobin Concent 33 g/dL (31-37) Red Cell Distribution Width 14.4 % (11.5-14.5) Platelet Count 159 x10^3/uL (140-400) Neutrophils (%) (Auto) 77 % (31-73) Lymphocytes (%) (Auto) 17 % (24-48) Monocytes (%) (Auto) 5 % (0-9) Eosinophils (%) (Auto) 1 % (0-3) Basophils (%) (Auto) 1 % (0-3) Neutrophils # (Auto) 4.3 x10^3uL (1.8-7.7) Lymphocytes # (Auto) 0.9 x10^3/uL (1.0-4.8) Monocytes # (Auto) 0.3 x10^3/uL (0.0-1.1) Eosinophils # (Auto) 0.0 x10^3/uL (0.0-0.7) Basophils # (Auto) 0.1 x10^3/uL (0.0-0.2) Magnesium Level 1.8 mg/dL (1.8-2.4) Microbiology Micro Microbiology 09/30/18 Blood Culture - Preliminary, Resulted NO GROWTH AFTER 1 DAY Physical Exam HEENT: Neck Supple W Full Motion Chest: Symmetric LUNGS: Other (faint basilar crackles) Heart: irregularly irregular (AFIB RVR) Abdomen: Soft N/T, Other (obese) Extremities: Other (1+ bilateral LE pitting edema) Neurology: alert, oriented, follow commands Assessment Assessment 1. Accelerated HTN: controlled. EF and WM nml 2. Acute diastolic CHF/pulmonary HTN. improved. 3. AFIB RVR: RVR remains refractory Recommendations 1. Increase cardziem. x1 digoxin. If remains in RVR then will consider BB. Eliquis for stroke prevention 2. Continue lasix therapy. 3. Will consider cardioversion as an outpt 4. Pulmonary following for PHTN and will need outpt SELVIN w/u JESUS COOPER MD 10/02/18 1406: CARDIO Progress Notes Plan Plan Pt. seen and examined. 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 Family and patient want medical therapy Continue cardizem and eliquis f/u on an outpt basis and consider CVN if needed. Thanks. Pls call with questions. LEONA PETER BRAILLE TYPIST Oct 02, 2018 10:36 JESUS COOPER MD Oct 02, 2018 14:06
--- NOTE | 2018-10-02 10:58 | PDOC ---
PROGRESS NOTES Chief Complaint Chief Complaint Afib with RVR History of Present Illness History of Present Illness Pt seen on Cardiac floor at bedside, sitting up, 4L NC, and accompanied by son who speaks mongolian. Afib with rate in 120's refractory to rate control meds. No current complaints. JOSE 10/01 with EF 55%, Per cardio- Cardizem IV switch to PO, lasix, eliquis, considering cardioversion as OP if continued non responsive rate to medications. Pulmonology on board for PNA on antibiotics. ROMI RN and son Followed by Cardio, pulm Vitals Vitals Vital Signs Date Time Temp Pulse Resp B/P (MAP) Pulse Ox O2 Delivery O2 Flow Rate FiO2 10/02/18 10:19 140 10/02/18 08:29 143/67 10/02/18 07:00 98.8 18 92 Nasal Cannula 4.0 98.8 Physical Exam General: Alert, Oriented X3, Cooperative, mild distress Heart: No murmurs, Other (AFIB RVR rate 120's) Lungs: Crackles Abdomen: Soft, No tenderness, Other (obese) Extremities: Other (1+ bilateral LE pitting edema) Skin: No breakdown, No significant lesion Labs LABS Laboratory Tests Test 10/02/18 09:00 10/02/18 09:10 Sodium Level 146 mmol/L (136-145) Potassium Level 3.6 mmol/L (3.5-5.1) Chloride Level 100 mmol/L (98-107) Carbon Dioxide Level 39 mmol/L (21-32) Anion Gap 7 (6-14) Blood Urea Nitrogen 10 mg/dL (7-20) Creatinine 0.8 mg/dL (0.6-1.0) Estimated GFR (Cockcroft-Gault) 71.1 Glucose Level 103 mg/dL (70-99) Calcium Level 9.2 mg/dL (8.5-10.1) White Blood Count 5.6 x10^3/uL (4.0-11.0) Red Blood Count 5.19 x10^6/uL (3.50-5.40) Hemoglobin 15.5 g/dL (12.0-15.5) Hematocrit 47.0 % (36.0-47.0) Mean Corpuscular Volume 91 fL (79-100) Mean Corpuscular Hemoglobin 30 pg (25-35) Mean Corpuscular Hemoglobin Concent 33 g/dL (31-37) Red Cell Distribution Width 14.4 % (11.5-14.5) Platelet Count 159 x10^3/uL (140-400) Neutrophils (%) (Auto) 77 % (31-73) Lymphocytes (%) (Auto) 17 % (24-48) Monocytes (%) (Auto) 5 % (0-9) Eosinophils (%) (Auto) 1 % (0-3) Basophils (%) (Auto) 1 % (0-3) Neutrophils # (Auto) 4.3 x10^3uL (1.8-7.7) Lymphocytes # (Auto) 0.9 x10^3/uL (1.0-4.8) Monocytes # (Auto) 0.3 x10^3/uL (0.0-1.1) Eosinophils # (Auto) 0.0 x10^3/uL (0.0-0.7) Basophils # (Auto) 0.1 x10^3/uL (0.0-0.2) Magnesium Level 1.8 mg/dL (1.8-2.4) Review of Systems Review of Systems General: Denies fever, chills, night sweats Cardio: Denies chest pain, palpitations has AFIB with RVR Pulm; Denies soa on 4LNC, Assessment and Plan Assessmemt and Plan Assessment Accelerated HTN: controlled. EF 55% Acute diastolic CHF pulmonary HTN AFIB RVR: RVR remains refractory rate 120's Obesity SELVIN? Plan Lasix Antibiotics Eliquis stroke prevention CBC BMP O2 Supplementation Rate control per cardio consider cardioversion as an outpt per cardio OP follow up for SELVIN Home O2 upon discharge PT/OT Home meds Appreciate Cardiology input Appreciate Pulmonology input Comment Review of Relevant I have reviewed the following items pepe (where applicable) has been applied. Labs Laboratory Tests Test 09/30/18 20:57 09/30/18 21:50 10/01/18 01:40 10/01/18 06:22 White Blood Count 5.1 x10^3/uL (4.0-11.0) 4.9 x10^3/uL (4.0-11.0) Red Blood Count 5.31 x10^6/uL (3.50-5.40) 4.77 x10^6/uL (3.50-5.40) Hemoglobin 15.8 g/dL (12.0-15.5) 14.0 g/dL (12.0-15.5) Hematocrit 48.2 % (36.0-47.0) 43.5 % (36.0-47.0) Mean Corpuscular Volume 91 fL (79-100) 91 fL (79-100) Mean Corpuscular Hemoglobin 30 pg (25-35) 29 pg (25-35) Mean Corpuscular Hemoglobin Concent 33 g/dL (31-37) 32 g/dL (31-37) Red Cell Distribution Width 14.8 % (11.5-14.5) 14.4 % (11.5-14.5) Platelet Count 157 x10^3/uL (140-400) 144 x10^3/uL (140-400) Neutrophils (%) (Auto) 55 % (31-73) 70 % (31-73) Lymphocytes (%) (Auto) 36 % (24-48) 20 % (24-48) Monocytes (%) (Auto) 7 % (0-9) 7 % (0-9) Eosinophils (%) (Auto) 1 % (0-3) 1 % (0-3) Basophils (%) (Auto) 2 % (0-3) 1 % (0-3) Neutrophils # (Auto) 2.8 x10^3uL (1.8-7.7) 3.5 x10^3uL (1.8-7.7) Lymphocytes # (Auto) 1.8 x10^3/uL (1.0-4.8) 1.0 x10^3/uL (1.0-4.8) Monocytes # (Auto) 0.4 x10^3/uL (0.0-1.1) 0.4 x10^3/uL (0.0-1.1) Eosinophils # (Auto) 0.1 x10^3/uL (0.0-0.7) 0.0 x10^3/uL (0.0-0.7) Basophils # (Auto) 0.1 x10^3/uL (0.0-0.2) 0.1 x10^3/uL (0.0-0.2) Lactic Acid Level 1.9 mmol/L (0.4-2.0) Prothrombin Time 15.2 SEC (11.7-14.0) Prothromb Time International Ratio 1.3 (0.8-1.1) Activated Partial Thromboplast Time 31 SEC (24-38) D-Dimer (Giselle) 3.07 ug/mlFEU (0.00-0.50) Sodium Level 145 mmol/L (136-145) 144 mmol/L (136-145) Potassium Level 4.1 mmol/L (3.5-5.1) 4.1 mmol/L (3.5-5.1) Chloride Level 106 mmol/L (98-107) 107 mmol/L (98-107) Carbon Dioxide Level 33 mmol/L (21-32) 31 mmol/L (21-32) Anion Gap 6 (6-14) 6 (6-14) Blood Urea Nitrogen 14 mg/dL (7-20) 14 mg/dL (7-20) Creatinine 0.9 mg/dL (0.6-1.0) 0.9 mg/dL (0.6-1.0) Estimated GFR (Cockcroft-Gault) 62.1 62.1 Glucose Level 143 mg/dL (70-99) 111 mg/dL (70-99) Calcium Level 8.9 mg/dL (8.5-10.1) 8.6 mg/dL (8.5-10.1) Total Bilirubin 1.2 mg/dL (0.2-1.0) Direct Bilirubin 0.4 mg/dL (0.0-0.2) Aspartate Amino Transf (AST/SGOT) 22 U/L (15-37) Alanine Aminotransferase (ALT/SGPT) 36 U/L (14-59) Alkaline Phosphatase 70 U/L (46-116) Troponin I Quantitative < 0.017 ng/mL (0.000-0.055) < 0.017 ng/mL (0.000-0.055) 0.018 ng/mL (0.000-0.055) LJ-Gej-X-Type Natriuretic Peptide 4052 pg/mL (0-124) Total Protein 7.2 g/dL (6.4-8.2) Albumin 3.5 g/dL (3.4-5.0) Procalcitonin < 0.10 ng/mL (0.00-0.10) Thyroid Stimulating Hormone (TSH) 2.647 uIU/mL (0.358-3.74) Magnesium Level 1.9 mg/dL (1.8-2.4) Triglycerides Level 45 mg/dL (0-150) Cholesterol Level 105 mg/dL (0-200) LDL Cholesterol, Calculated 64 mg/dL (0-100) VLDL Cholesterol, Calculated 9 mg/dL (0-40) Non-HDL Cholesterol Calculated 73 mg/dL (0-129) HDL Cholesterol 32 mg/dL (40-60) Cholesterol/HDL Ratio 3.3 Test 10/02/18 09:00 10/02/18 09:10 Sodium Level 146 mmol/L (136-145) Potassium Level 3.6 mmol/L (3.5-5.1) Chloride Level 100 mmol/L (98-107) Carbon Dioxide Level 39 mmol/L (21-32) Anion Gap 7 (6-14) Blood Urea Nitrogen 10 mg/dL (7-20) Creatinine 0.8 mg/dL (0.6-1.0) Estimated GFR (Cockcroft-Gault) 71.1 Glucose Level 103 mg/dL (70-99) Calcium Level 9.2 mg/dL (8.5-10.1) White Blood Count 5.6 x10^3/uL (4.0-11.0) Red Blood Count 5.19 x10^6/uL (3.50-5.40) Hemoglobin 15.5 g/dL (12.0-15.5) Hematocrit 47.0 % (36.0-47.0) Mean Corpuscular Volume 91 fL (79-100) Mean Corpuscular Hemoglobin 30 pg (25-35) Mean Corpuscular Hemoglobin Concent 33 g/dL (31-37) Red Cell Distribution Width 14.4 % (11.5-14.5) Platelet Count 159 x10^3/uL (140-400) Neutrophils (%) (Auto) 77 % (31-73) Lymphocytes (%) (Auto) 17 % (24-48) Monocytes (%) (Auto) 5 % (0-9) Eosinophils (%) (Auto) 1 % (0-3) Basophils (%) (Auto) 1 % (0-3) Neutrophils # (Auto) 4.3 x10^3uL (1.8-7.7) Lymphocytes # (Auto) 0.9 x10^3/uL (1.0-4.8) Monocytes # (Auto) 0.3 x10^3/uL (0.0-1.1) Eosinophils # (Auto) 0.0 x10^3/uL (0.0-0.7) Basophils # (Auto) 0.1 x10^3/uL (0.0-0.2) Magnesium Level 1.8 mg/dL (1.8-2.4) Laboratory Tests Test 10/02/18 09:00 10/02/18 09:10 Sodium Level 146 mmol/L (136-145) Potassium Level 3.6 mmol/L (3.5-5.1) Chloride Level 100 mmol/L (98-107) Carbon Dioxide Level 39 mmol/L (21-32) Anion Gap 7 (6-14) Blood Urea Nitrogen 10 mg/dL (7-20) Creatinine 0.8 mg/dL (0.6-1.0) Estimated GFR (Cockcroft-Gault) 71.1 Glucose Level 103 mg/dL (70-99) Calcium Level 9.2 mg/dL (8.5-10.1) White Blood Count 5.6 x10^3/uL (4.0-11.0) Red Blood Count 5.19 x10^6/uL (3.50-5.40) Hemoglobin 15.5 g/dL (12.0-15.5) Hematocrit 47.0 % (36.0-47.0) Mean Corpuscular Volume 91 fL (79-100) Mean Corpuscular Hemoglobin 30 pg (25-35) Mean Corpuscular Hemoglobin Concent 33 g/dL (31-37) Red Cell Distribution Width 14.4 % (11.5-14.5) Platelet Count 159 x10^3/uL (140-400) Neutrophils (%) (Auto) 77 % (31-73) Lymphocytes (%) (Auto) 17 % (24-48) Monocytes (%) (Auto) 5 % (0-9) Eosinophils (%) (Auto) 1 % (0-3) Basophils (%) (Auto) 1 % (0-3) Neutrophils # (Auto) 4.3 x10^3uL (1.8-7.7) Lymphocytes # (Auto) 0.9 x10^3/uL (1.0-4.8) Monocytes # (Auto) 0.3 x10^3/uL (0.0-1.1) Eosinophils # (Auto) 0.0 x10^3/uL (0.0-0.7) Basophils # (Auto) 0.1 x10^3/uL (0.0-0.2) Magnesium Level 1.8 mg/dL (1.8-2.4) Microbiology 09/30/18 Blood Culture - Preliminary, Resulted NO GROWTH AFTER 1 DAY Medications Current Medications Aspirin (Children'S Aspirin) 324 mg 1X ONCE PO Last administered on 09/30/18at 21:07; Start 09/30/18 at 21:00; Stop 09/30/18 at 21:01; Status DC Diltiazem HCl (Cardizem Iv Push) 10 mg 1X ONCE IVP Last administered on at 21:08; Start 09/30/18 at 21:00; Stop 09/30/18 at 21:01; Status DC Diltiazem HCl 125 mg/Dextrose 125 ml @ 5 mls/hr 1X ONCE IV Last administered on 09/30/18at 22:11; Start 09/30/18 at 22:00; Stop 10/01/18 at 22:59; Status DC Nitroglycerin (Nitro-Bid Oint) 1 inch 1X ONCE TP ; Start 09/30/18 at 22:00; Stop 09/30/18 at 22:00; Status DC Ondansetron HCl (Zofran) 4 mg PRN Q8HRS PRN IV NAUSEA/VOMITING; Start 09/30/18 at 22:45; Stop 10/01/18 at 22:44; Status DC Acetaminophen (Tylenol) 650 mg PRN Q4HRS PRN PO FEVER Last administered on 10/01at 21:31; Start 09/30/18 at 22:45; Stop 10/01/18 at 22:44; Status DC Iohexol (Omnipaque 300 Mg/ml) 100 ml 1X ONCE IV Last administered on at 23:12; Start 09/30/18 at 23:00; Stop 09/30/18 at 23:01; Status DC Info (CONTRAST GIVEN -- Rx MONITORING) 1 each PRN DAILY PRN MC SEE COMMENTS; Start 09/30/18 at 23:00; Stop 10/02/18 at 22:59 Ceftriaxone Sodium 50 ml @ 100 mls/hr 1X ONCE IV ; Start 09/30/18 at 23:30; Stop 09/30/18 at 23:59; Status UNV Azithromycin 250 ml @ 250 mls/hr 1X ONCE IV Last administered on 10/01/18at 02 :06; Start 09/30/18 at 23:30; Stop 10/01/18 at 00:29; Status DC Ceftriaxone Sodium (Rocephin) 1 gm ONCE ONCE IVP Last administered on at 02:06; Start 09/30/18 at 23:30; Stop 09/30/18 at 23:31; Status DC Diltiazem HCl 125 mg/Dextrose 125 ml @ 0 mls/hr CONT PRN IV SEE I/O RECORD Last administered on 10/01/18at 04:40; Start 10/01/18 at 04:15; Stop 10/01/18 at 10:03; Status DC Furosemide (Lasix) 40 mg [id number] IVP Last administered on 10/02/18at 08:28; Start 10/01/18 at 10:00 Potassium Chloride (Klor-Con) 20 meq [id number] PO Last administered on at 08:28; Start 10/01/18 at 10:00 Diltiazem HCl (Cardizem 24hr Cd) 180 mg DAILY PO Last administered on at 10:36; Start 10/01/18 at 10:30; Stop 10/02/18 at 06:49; Status DC Apixaban (Eliquis) 5 mg BID PO Last administered on 10/02/18at 08:29; Start 10/01/18 at 10:15 Info (Anti-Coagulation Monitoring By Pharmacy) 1 each PRN DAILY PRN MC SEE COMMENTS; Start 10/01/18 at 10:15 Ceftriaxone Sodium (Rocephin) 1 gm Q24H IVP Last administered on 10/01/18at 21: 32; Start 10/01/18 at 21:00 Diltiazem HCl (Cardizem 24hr Cd) 240 mg DAILY PO Last administered on at 08:29; Start 10/02/18 at 09:00 Lactobacillus Rhamnosus (Culturelle) 1 cap BID PO ; Start 10/02/18 at 21:00 Digoxin (Lanoxin) 500 mcg 1X ONCE IV Last administered on 10/02/18at 10:19; Start 10/02/18 at 10:00; Stop 10/02/18 at 10:05; Status DC Active Scripts Active Tramadol-Acetaminophn 37.5-325 (Tramadol Hcl/Acetaminophen) 1 Each Tablet 1 Tab PO Q6H Reported No Known Medications Prior To Admisstion (Info) Each 1 Each Vitals/I & O Vital Sign - Last 24 Hours 10/01/18 10/01/18 10/01/18 10/01/18 10:46 14:53 16:40 19:25 Temp 97.5 97.9 98.2 97.5 97.9 98.2 Pulse 81 90 82 109 Resp 22 22 18 B/P (MAP) 147/82 (103) 140/74 (96) 126/72 (90) 110/76 (87) Pulse Ox 89 92 94 O2 Delivery Nasal Cannula Nasal Cannula Nasal Cannula Nasal Cannula O2 Flow Rate 4.0 4.0 4.0 10/01/18 10/01/18 10/02/18 10/02/18 20:03 23:15 03:15 07:00 Temp 98.3 97.7 98.8 98.3 97.7 98.8 Pulse 122 122 92 Resp 18 20 18 B/P (MAP) 111/77 (88) 143/67 (92) 127/78 (94) Pulse Ox 94 92 92 O2 Delivery Nasal Cannula Nasal Cannula Nasal Cannula Nasal Cannula O2 Flow Rate 4.0 2.0 4.0 4.0 10/02/18 10/02/18 08:29 10:19 Pulse 122 140 B/P (MAP) 143/67 Intake and Output 10/01/18 10/01/18 10/02/18 15:00 23:00 07:00 Intake Total 800 ml 200 ml Output Total 750 ml 2300 ml 400 ml Balance -750 ml -1500 ml -200 ml KRISTOPHER GONZALES K III DO Oct 02, 2018 10:58
[2018-10-02 11:00] VITALS: BP 116/75
[2018-10-02] MEDS: ANTI-COAG MONITOR BY PHARMACY. MC PRN (12:41)
[2018-10-02 15:00] VITALS: BP 91/75
[2018-10-02 19:30] VITALS: BP 121/71
[2018-10-02] MEDS: LACTOBACILLUS RHAMNOSUS GG 1 CAPSULE. PO SCH (21:07)
[2018-10-02] MEDS: cefTRIAXone IV Push 1 GM VIAL. IVP SCH (21:08)
[2018-10-02 23:21] VITALS: BP 138/76
[2018-10-03 03:25] VITALS: BP 126/74
[2018-10-03 07:00] VITALS: BP 129/92
[2018-10-03 08:13] LABS: BASO # 0.1 x10^3/uL (0.0-0.2); BASO % 1 % (0-3); EOS # 0.1 x10^3/uL (0.0-0.7); EOS % 1 % (0-3); HEMATOCRIT 46.5 % (36.0-47.0); HEMOGLOBIN 15.2 g/dL (12.0-15.5); LYMPH # 0.9 x10^3/uL (1.0-4.8); LYMPH % 15 % (24-48); MEAN CORPUSCULAR HEMOGLOBIN 30 pg (25-35); MEAN CORPUSCULAR HGB CONC 33 g/dL (31-37); MEAN CORPUSCULAR VOLUME 91 fL (79-100); MONO # 0.4 x10^3/uL (0.0-1.1); MONO % 6 % (0-9); NEUT % 78 % (31-73); PLATELET COUNT 138 x10^3/uL (140-400); RED BLOOD COUNT 5.14 x10^6/uL (3.50-5.40); RED CELL DISTRIBUTION WIDTH 13.8 % (11.5-14.5); WHITE BLOOD COUNT 6.4 x10^3/uL (4.0-11.0)
[2018-10-03] MEDS ORDERED: ACETAMINOPHEN 325 MG TABLET. PO PRN (08:15)
[2018-10-03 08:40] LABS: CALCIUM 9.2 mg/dL (8.5-10.1); CREATININE 0.7 mg/dL (0.6-1.0); POTASSIUM 3.5 mmol/L (3.5-5.1)
[2018-10-03] MEDS: POTASSIUM CHLORIDE 20 MEQ TABLET.ER. PO SCH (08:57)
[2018-10-03] MEDS: APIXABAN 5 MG TABLET. PO SCH (08:58)
[2018-10-03] MEDS: LACTOBACILLUS RHAMNOSUS GG 1 CAPSULE. PO SCH (08:58)
[2018-10-03] MEDS: FUROSEMIDE 40 MG/4 ML VIAL. IVP SCH ×2 (08:59→11:36)
[2018-10-03] MEDS ORDERED: DIGOXIN IV 500 MCG/2 ML AMPUL. IV ONE (10:15)
[2018-10-03 10:48] VITALS: BP 125/78
--- NOTE | 2018-10-03 10:49 | PDOC ---
CARDIO Progress Notes Date and Time Date of Service 10/03/2018 Time of Evaluation 1000 Subjective Subjective: No Chest Pain, No shortness of breath, No Palpitations Vitals Vitals Vital Signs Date Time Temp Pulse Resp B/P (MAP) Pulse Ox O2 Delivery O2 Flow Rate FiO2 10/03/18 10:26 116 129/92 10/03/18 07:53 Nasal Cannula 4.0 10/03/18 07:00 97.5 18 94 97.5 Weight Weight [ ] Input and Output Intake and Output Intake and Output 10/03/18 07:00 Intake Total 300 ml Output Total 2100 ml Balance -1800 ml Intake Oral 300 ml Output Urine Total 2100 ml # Voids 2 Laboratory Labs Laboratory Tests Test 10/03/18 07:35 White Blood Count 6.4 x10^3/uL (4.0-11.0) Red Blood Count 5.14 x10^6/uL (3.50-5.40) Hemoglobin 15.2 g/dL (12.0-15.5) Hematocrit 46.5 % (36.0-47.0) Mean Corpuscular Volume 91 fL (79-100) Mean Corpuscular Hemoglobin 30 pg (25-35) Mean Corpuscular Hemoglobin Concent 33 g/dL (31-37) Red Cell Distribution Width 13.8 % (11.5-14.5) Platelet Count 138 x10^3/uL (140-400) Neutrophils (%) (Auto) 78 % (31-73) Lymphocytes (%) (Auto) 15 % (24-48) Monocytes (%) (Auto) 6 % (0-9) Eosinophils (%) (Auto) 1 % (0-3) Basophils (%) (Auto) 1 % (0-3) Neutrophils # (Auto) 5.0 x10^3uL (1.8-7.7) Lymphocytes # (Auto) 0.9 x10^3/uL (1.0-4.8) Monocytes # (Auto) 0.4 x10^3/uL (0.0-1.1) Eosinophils # (Auto) 0.1 x10^3/uL (0.0-0.7) Basophils # (Auto) 0.1 x10^3/uL (0.0-0.2) Sodium Level 143 mmol/L (136-145) Potassium Level 3.5 mmol/L (3.5-5.1) Chloride Level 100 mmol/L (98-107) Carbon Dioxide Level 40 mmol/L (21-32) Anion Gap 3 (6-14) Blood Urea Nitrogen 10 mg/dL (7-20) Creatinine 0.7 mg/dL (0.6-1.0) Estimated GFR (Cockcroft-Gault) 83.0 Glucose Level 98 mg/dL (70-99) Calcium Level 9.2 mg/dL (8.5-10.1) Microbiology Micro Microbiology 09/30/18 Blood Culture - Preliminary, Resulted NO GROWTH AFTER 2 DAYS Physical Exam HEENT: Neck Supple W Full Motion Chest: Symmetric LUNGS: Clear to Auscultation Heart: irregularly irregular (AFIB RVR) Abdomen: Soft N/T, Other (obese) Extremities: Other (1+ bilateral LE pitting edema) Neurology: alert, oriented, follow commands Assessment Assessment 1. Accelerated HTN: BP with labile episodes but much better. EF and WM nml 2. Acute diastolic CHF/pulmonary HTN. compensated 3. AFIB RVR: RVR remains refractory Recommendations 1. Responded well with Dig. Will start on po dig. Will continue on 240 mg of cardizem. Eliquis for stroke prevention. Unable to start on amiodarone with prolonged QTc. 2. Continue lasix therapy. 3. Will consider cardioversion as an outpt 4. Pulmonary following for PHTN and will need outpt SELVIN w/u 5. If rate is better this afternoon and tolerating ambulation without significant rise in HR then may DC Follow up in office in 3-4 weeks. LEONA PETER APRN Oct 03, 2018 10:49
[2018-10-03] MEDS ORDERED: POTASSIUM CHLORIDE 20 MEQ TABLET.ER. PO ONE (11:00)
[2018-10-03] MEDS ORDERED: FUROSEMIDE 40 MG TABLET. PO SCH (11:00)
[2018-10-03] MEDS ORDERED: DILTIAZEM HCL PO (11:41)
[2018-10-03] MEDS ORDERED: APIX5TAB PO (11:41)
--- NOTE | 2018-10-03 11:44 | PDOC ---
PULMONARY PROGRESS NOTES Subjective PT BETTER LESS SOA AND COUGH Vitals Vital Signs Date Time Temp Pulse Resp B/P (MAP) Pulse Ox O2 Delivery O2 Flow Rate FiO2 10/03/18 11:00 100 125/78 10/03/18 10:48 97.3 18 95 Nasal Cannula 4.0 97.3 ROS: No Nausea, No Chest Pain, No Abdominal Pain, No Increase Cough General: Alert Lungs: Clear Cardiovascular: S1, S2 Abdomen: Soft, Other (OBESE) Neuro Exam: Alert Extremities: Other (EDEMA) Skin: Warm Labs Laboratory Tests Test 10/02/18 09:00 10/02/18 09:10 10/03/18 07:35 Sodium Level 146 mmol/L (136-145) 143 mmol/L (136-145) Potassium Level 3.6 mmol/L (3.5-5.1) 3.5 mmol/L (3.5-5.1) Chloride Level 100 mmol/L (98-107) 100 mmol/L (98-107) Carbon Dioxide Level 39 mmol/L (21-32) 40 mmol/L (21-32) Anion Gap 7 (6-14) 3 (6-14) Blood Urea Nitrogen 10 mg/dL (7-20) 10 mg/dL (7-20) Creatinine 0.8 mg/dL (0.6-1.0) 0.7 mg/dL (0.6-1.0) Estimated GFR (Cockcroft-Gault) 71.1 83.0 Glucose Level 103 mg/dL (70-99) 98 mg/dL (70-99) Calcium Level 9.2 mg/dL (8.5-10.1) 9.2 mg/dL (8.5-10.1) White Blood Count 5.6 x10^3/uL (4.0-11.0) 6.4 x10^3/uL (4.0-11.0) Red Blood Count 5.19 x10^6/uL (3.50-5.40) 5.14 x10^6/uL (3.50-5.40) Hemoglobin 15.5 g/dL (12.0-15.5) 15.2 g/dL (12.0-15.5) Hematocrit 47.0 % (36.0-47.0) 46.5 % (36.0-47.0) Mean Corpuscular Volume 91 fL (79-100) 91 fL (79-100) Mean Corpuscular Hemoglobin 30 pg (25-35) 30 pg (25-35) Mean Corpuscular Hemoglobin Concent 33 g/dL (31-37) 33 g/dL (31-37) Red Cell Distribution Width 14.4 % (11.5-14.5) 13.8 % (11.5-14.5) Platelet Count 159 x10^3/uL (140-400) 138 x10^3/uL (140-400) Neutrophils (%) (Auto) 77 % (31-73) 78 % (31-73) Lymphocytes (%) (Auto) 17 % (24-48) 15 % (24-48) Monocytes (%) (Auto) 5 % (0-9) 6 % (0-9) Eosinophils (%) (Auto) 1 % (0-3) 1 % (0-3) Basophils (%) (Auto) 1 % (0-3) 1 % (0-3) Neutrophils # (Auto) 4.3 x10^3uL (1.8-7.7) 5.0 x10^3uL (1.8-7.7) Lymphocytes # (Auto) 0.9 x10^3/uL (1.0-4.8) 0.9 x10^3/uL (1.0-4.8) Monocytes # (Auto) 0.3 x10^3/uL (0.0-1.1) 0.4 x10^3/uL (0.0-1.1) Eosinophils # (Auto) 0.0 x10^3/uL (0.0-0.7) 0.1 x10^3/uL (0.0-0.7) Basophils # (Auto) 0.1 x10^3/uL (0.0-0.2) 0.1 x10^3/uL (0.0-0.2) Magnesium Level 1.8 mg/dL (1.8-2.4) 1.9 mg/dL (1.8-2.4) Laboratory Tests Test 10/03/18 07:35 White Blood Count 6.4 x10^3/uL (4.0-11.0) Red Blood Count 5.14 x10^6/uL (3.50-5.40) Hemoglobin 15.2 g/dL (12.0-15.5) Hematocrit 46.5 % (36.0-47.0) Mean Corpuscular Volume 91 fL (79-100) Mean Corpuscular Hemoglobin 30 pg (25-35) Mean Corpuscular Hemoglobin Concent 33 g/dL (31-37) Red Cell Distribution Width 13.8 % (11.5-14.5) Platelet Count 138 x10^3/uL (140-400) Neutrophils (%) (Auto) 78 % (31-73) Lymphocytes (%) (Auto) 15 % (24-48) Monocytes (%) (Auto) 6 % (0-9) Eosinophils (%) (Auto) 1 % (0-3) Basophils (%) (Auto) 1 % (0-3) Neutrophils # (Auto) 5.0 x10^3uL (1.8-7.7) Lymphocytes # (Auto) 0.9 x10^3/uL (1.0-4.8) Monocytes # (Auto) 0.4 x10^3/uL (0.0-1.1) Eosinophils # (Auto) 0.1 x10^3/uL (0.0-0.7) Basophils # (Auto) 0.1 x10^3/uL (0.0-0.2) Sodium Level 143 mmol/L (136-145) Potassium Level 3.5 mmol/L (3.5-5.1) Chloride Level 100 mmol/L (98-107) Carbon Dioxide Level 40 mmol/L (21-32) Anion Gap 3 (6-14) Blood Urea Nitrogen 10 mg/dL (7-20) Creatinine 0.7 mg/dL (0.6-1.0) Estimated GFR (Cockcroft-Gault) 83.0 Glucose Level 98 mg/dL (70-99) Calcium Level 9.2 mg/dL (8.5-10.1) Magnesium Level 1.9 mg/dL (1.8-2.4) Medications Active Scripts Medications Dose Route/Sig Max Daily Dose Days Date Category Tramadol-Acetaminophn 37.5-325 (Tramadol Hcl/Acetaminophen) 1 Each Tablet 1 Tab PO Q6H 07/14/16 Rx No Known Medications Prior To Admisstion (Info) Each 1 Each 04/26/15 Reported Impression . IMPRESSION: 1. Acute hypoxemic respiratory failure, multifactorial. 2. Suspect severe secondary pulmonary hypertension. 3. Suspect obstructive sleep apnea. 4. Pneumonia, Gram-negative. 5. Morbid obesity. 6. Accelerated hypertension. 7. [id number] diastolic heart failure. 8. Atrial fibrillation with rapid ventricular response. Plan . SPOKE WITH DAUGHTER AT BEDSIDE PT TO UNDER GO 6 MW PRIOR TO DC NOCT OX STUDY OP ECHO WITH MODERATE PULMONARY HTN(SECONDARY)/ NO NEED FOR RIGHT HEART CATH DIURESE FOR NOW AND ANTIBX REPEAT CT IN 6-8 WEEKS F/U WITH DR GRIJALVA IN FEW MONTHS 1. Eliquis for anticoagulation. 2 Antibiotics. 3. Unfortunately her insurance carrier precludes a polysomnogram. 4. The patient instructed on the importance of weight reduction. JEWEL CHRISTIANSEN MD Oct 03, 2018 11:44
--- NOTE | 2018-10-03 12:09 | PDOC ---
PROGRESS NOTES Chief Complaint Chief Complaint Afib with RVR History of Present Illness History of Present Illness Pt seen on Cardiac floor at bedside, sitting up, 4L NC, and accompanied by daughter who speaks ukrainian, pt speaks "jeri". Afib with rate in 100-108 refractory to rate control meds but seems to be improving. No current complaints, no acute overnight events. Per Cardio: JOSE 10/01 with EF 55%, Per cardio- Cardizem IV switch to PO, lasix, eliquis, considering cardioversion as OP if continued non responsive rate to medications, cleared to Pulmonology on board for PNA on antibiotics, plan to do 6mwt and ok to go if no desaturation. DW RN and daughter, hope to DC today if ok with pulmonology Followed by Dennis pulm Vitals Vitals Vital Signs Date Time Temp Pulse Resp B/P (MAP) Pulse Ox O2 Delivery O2 Flow Rate FiO2 10/03/18 11:00 100 125/78 10/03/18 10:48 97.3 18 95 Nasal Cannula 4.0 97.3 Physical Exam General: Alert, Oriented X3, Cooperative, mild distress Heart: No murmurs, Other (AFIB RVR rate 100's) Lungs: Crackles, Other (no wheezes appreciated on ascultation, on 4LNC) Abdomen: Soft, No tenderness, Other (obese) Extremities: No clubbing, No cyanosis, Other (1+ bilateral LE pitting edema) Skin: No breakdown, No significant lesion Labs LABS Laboratory Tests Test 10/03/18 07:35 White Blood Count 6.4 x10^3/uL (4.0-11.0) Red Blood Count 5.14 x10^6/uL (3.50-5.40) Hemoglobin 15.2 g/dL (12.0-15.5) Hematocrit 46.5 % (36.0-47.0) Mean Corpuscular Volume 91 fL (79-100) Mean Corpuscular Hemoglobin 30 pg (25-35) Mean Corpuscular Hemoglobin Concent 33 g/dL (31-37) Red Cell Distribution Width 13.8 % (11.5-14.5) Platelet Count 138 x10^3/uL (140-400) Neutrophils (%) (Auto) 78 % (31-73) Lymphocytes (%) (Auto) 15 % (24-48) Monocytes (%) (Auto) 6 % (0-9) Eosinophils (%) (Auto) 1 % (0-3) Basophils (%) (Auto) 1 % (0-3) Neutrophils # (Auto) 5.0 x10^3uL (1.8-7.7) Lymphocytes # (Auto) 0.9 x10^3/uL (1.0-4.8) Monocytes # (Auto) 0.4 x10^3/uL (0.0-1.1) Eosinophils # (Auto) 0.1 x10^3/uL (0.0-0.7) Basophils # (Auto) 0.1 x10^3/uL (0.0-0.2) Sodium Level 143 mmol/L (136-145) Potassium Level 3.5 mmol/L (3.5-5.1) Chloride Level 100 mmol/L (98-107) Carbon Dioxide Level 40 mmol/L (21-32) Anion Gap 3 (6-14) Blood Urea Nitrogen 10 mg/dL (7-20) Creatinine 0.7 mg/dL (0.6-1.0) Estimated GFR (Cockcroft-Gault) 83.0 Glucose Level 98 mg/dL (70-99) Calcium Level 9.2 mg/dL (8.5-10.1) Magnesium Level 1.9 mg/dL (1.8-2.4) Review of Systems Review of Systems General: Denies fever, chills, night sweats Cardio: AFIB, denies chest pain, dizziness Pulm: 4LNC, denies current soa, cough Assessment and Plan Assessmemt and Plan Assessment Accelerated HTN: controlled. EF 55% Acute diastolic CHF pulmonary HTN AFIB RVR: RVR remains refractory rate 100's Obesity SELVIN? Plan Lasix Antibiotics Eliquis stroke prevention CBC BMP 6MWT today O2 Supplementation Rate control per cardio consider cardioversion as an outpt per cardio OP follow up for SELVIN Home O2 upon discharge PT/OT Home meds Appreciate Cardiology input Appreciate Pulmonology input Hope to DC today if cleared by pulmonology Comment Review of Relevant I have reviewed the following items pepe (where applicable) has been applied. Labs Laboratory Tests Test 10/02/18 09:00 10/02/18 09:10 10/03/18 07:35 Sodium Level 146 mmol/L (136-145) 143 mmol/L (136-145) Potassium Level 3.6 mmol/L (3.5-5.1) 3.5 mmol/L (3.5-5.1) Chloride Level 100 mmol/L (98-107) 100 mmol/L (98-107) Carbon Dioxide Level 39 mmol/L (21-32) 40 mmol/L (21-32) Anion Gap 7 (6-14) 3 (6-14) Blood Urea Nitrogen 10 mg/dL (7-20) 10 mg/dL (7-20) Creatinine 0.8 mg/dL (0.6-1.0) 0.7 mg/dL (0.6-1.0) Estimated GFR (Cockcroft-Gault) 71.1 83.0 Glucose Level 103 mg/dL (70-99) 98 mg/dL (70-99) Calcium Level 9.2 mg/dL (8.5-10.1) 9.2 mg/dL (8.5-10.1) White Blood Count 5.6 x10^3/uL (4.0-11.0) 6.4 x10^3/uL (4.0-11.0) Red Blood Count 5.19 x10^6/uL (3.50-5.40) 5.14 x10^6/uL (3.50-5.40) Hemoglobin 15.5 g/dL (12.0-15.5) 15.2 g/dL (12.0-15.5) Hematocrit 47.0 % (36.0-47.0) 46.5 % (36.0-47.0) Mean Corpuscular Volume 91 fL (79-100) 91 fL (79-100) Mean Corpuscular Hemoglobin 30 pg (25-35) 30 pg (25-35) Mean Corpuscular Hemoglobin Concent 33 g/dL (31-37) 33 g/dL (31-37) Red Cell Distribution Width 14.4 % (11.5-14.5) 13.8 % (11.5-14.5) Platelet Count 159 x10^3/uL (140-400) 138 x10^3/uL (140-400) Neutrophils (%) (Auto) 77 % (31-73) 78 % (31-73) Lymphocytes (%) (Auto) 17 % (24-48) 15 % (24-48) Monocytes (%) (Auto) 5 % (0-9) 6 % (0-9) Eosinophils (%) (Auto) 1 % (0-3) 1 % (0-3) Basophils (%) (Auto) 1 % (0-3) 1 % (0-3) Neutrophils # (Auto) 4.3 x10^3uL (1.8-7.7) 5.0 x10^3uL (1.8-7.7) Lymphocytes # (Auto) 0.9 x10^3/uL (1.0-4.8) 0.9 x10^3/uL (1.0-4.8) Monocytes # (Auto) 0.3 x10^3/uL (0.0-1.1) 0.4 x10^3/uL (0.0-1.1) Eosinophils # (Auto) 0.0 x10^3/uL (0.0-0.7) 0.1 x10^3/uL (0.0-0.7) Basophils # (Auto) 0.1 x10^3/uL (0.0-0.2) 0.1 x10^3/uL (0.0-0.2) Magnesium Level 1.8 mg/dL (1.8-2.4) 1.9 mg/dL (1.8-2.4) Laboratory Tests Test 10/03/18 07:35 White Blood Count 6.4 x10^3/uL (4.0-11.0) Red Blood Count 5.14 x10^6/uL (3.50-5.40) Hemoglobin 15.2 g/dL (12.0-15.5) Hematocrit 46.5 % (36.0-47.0) Mean Corpuscular Volume 91 fL (79-100) Mean Corpuscular Hemoglobin 30 pg (25-35) Mean Corpuscular Hemoglobin Concent 33 g/dL (31-37) Red Cell Distribution Width 13.8 % (11.5-14.5) Platelet Count 138 x10^3/uL (140-400) Neutrophils (%) (Auto) 78 % (31-73) Lymphocytes (%) (Auto) 15 % (24-48) Monocytes (%) (Auto) 6 % (0-9) Eosinophils (%) (Auto) 1 % (0-3) Basophils (%) (Auto) 1 % (0-3) Neutrophils # (Auto) 5.0 x10^3uL (1.8-7.7) Lymphocytes # (Auto) 0.9 x10^3/uL (1.0-4.8) Monocytes # (Auto) 0.4 x10^3/uL (0.0-1.1) Eosinophils # (Auto) 0.1 x10^3/uL (0.0-0.7) Basophils # (Auto) 0.1 x10^3/uL (0.0-0.2) Sodium Level 143 mmol/L (136-145) Potassium Level 3.5 mmol/L (3.5-5.1) Chloride Level 100 mmol/L (98-107) Carbon Dioxide Level 40 mmol/L (21-32) Anion Gap 3 (6-14) Blood Urea Nitrogen 10 mg/dL (7-20) Creatinine 0.7 mg/dL (0.6-1.0) Estimated GFR (Cockcroft-Gault) 83.0 Glucose Level 98 mg/dL (70-99) Calcium Level 9.2 mg/dL (8.5-10.1) Magnesium Level 1.9 mg/dL (1.8-2.4) Microbiology 09/30/18 Blood Culture - Preliminary, Resulted NO GROWTH AFTER 2 DAYS Medications Current Medications Aspirin (Children'S Aspirin) 324 mg 1X ONCE PO Last administered on 09/30/18at 21:07; Start 09/30/18 at 21:00; Stop 09/30/18 at 21:01; Status DC Diltiazem HCl (Cardizem Iv Push) 10 mg 1X ONCE IVP Last administered on at 21:08; Start 09/30/18 at 21:00; Stop 09/30/18 at 21:01; Status DC Diltiazem HCl 125 mg/Dextrose 125 ml @ 5 mls/hr 1X ONCE IV Last administered on 09/30/18at 22:11; Start 09/30/18 at 22:00; Stop 10/01/18 at 22:59; Status DC Nitroglycerin (Nitro-Bid Oint) 1 inch 1X ONCE TP ; Start 09/30/18 at 22:00; Stop 09/30/18 at 22:00; Status DC Ondansetron HCl (Zofran) 4 mg PRN Q8HRS PRN IV NAUSEA/VOMITING; Start 09/30/18 at 22:45; Stop 10/01/18 at 22:44; Status DC Acetaminophen (Tylenol) 650 mg PRN Q4HRS PRN PO FEVER Last administered on 10/01at 21:31; Start 09/30/18 at 22:45; Stop 10/01/18 at 22:44; Status DC Iohexol (Omnipaque 300 Mg/ml) 100 ml 1X ONCE IV Last administered on at 23:12; Start 09/30/18 at 23:00; Stop 09/30/18 at 23:01; Status DC Info (CONTRAST GIVEN -- Rx MONITORING) 1 each PRN DAILY PRN MC SEE COMMENTS; Start 09/30/18 at 23:00; Stop 10/02/18 at 22:59; Status DC Ceftriaxone Sodium 50 ml @ 100 mls/hr 1X ONCE IV ; Start 09/30/18 at 23:30; Stop 09/30/18 at 23:59; Status UNV Azithromycin 250 ml @ 250 mls/hr 1X ONCE IV Last administered on 10/01/18at 02 :06; Start 09/30/18 at 23:30; Stop 10/01/18 at 00:29; Status DC Ceftriaxone Sodium (Rocephin) 1 gm ONCE ONCE IVP Last administered on at 02:06; Start 09/30/18 at 23:30; Stop 09/30/18 at 23:31; Status DC Diltiazem HCl 125 mg/Dextrose 125 ml @ 0 mls/hr CONT PRN IV SEE I/O RECORD Last administered on 10/01/18at 04:40; Start 10/01/18 at 04:15; Stop 10/01/18 at 10:03; Status DC Furosemide (Lasix) 40 mg BID94 IVP Last administered on 10/03/18at 08:59; Start 10/01/18 at 10:00; Stop 10/03/18 at 18:00 Potassium Chloride (Klor-Con) 20 meq DAILYWBKFT PO Last administered on 08:57; Start 10/01/18 at 10:00 Diltiazem HCl (Cardizem 24hr Cd) 180 mg DAILY PO Last administered on at 10:36; Start 10/01/18 at 10:30; Stop 10/02/18 at 06:49; Status DC Apixaban (Eliquis) 5 mg BID PO Last administered on 10/03/18 08:58; Start 10/01/18 at 10:15 Info (Anti-Coagulation Monitoring By Pharmacy) 1 each PRN DAILY PRN MC SEE COMMENTS Last administered on 10/02/18at 12:41; Start 10/01/18 at 10:15 Ceftriaxone Sodium (Rocephin) 1 gm Q24H IVP Last administered on 10/02/18 21: 08; Start 10/01/18 at 21:00 Diltiazem HCl (Cardizem 24hr Cd) 240 mg DAILY PO Last administered on 08:58; Start 10/02/18 at 09:00; Stop 10/03/18 at 10:49; Status DC Lactobacillus Rhamnosus (Culturelle) 1 cap BID PO Last administered on 08:58; Start 10/02/18 at 21:00 Digoxin (Lanoxin) 500 mcg 1X ONCE IV Last administered on 10/02/18 10:19; Start 10/02/18 at 10:00; Stop 10/02/18 at 10:05; Status DC Acetaminophen (Tylenol) 650 mg PRN Q6HRS PRN PO HEADACHE Last administered on 10/03/18 08:57; Start 10/03/18 at 08:15 Digoxin (Lanoxin) 250 mcg 1X ONCE IV Last administered on 10/03/18at 10:26; Start 10/03/18 at 10:15; Stop 10/03/18 at 10:16; Status DC Diltiazem HCl (Cardizem 24hr Cd) 300 mg DAILY PO ; Start 10/03/18 at 11:00 Furosemide (Lasix) 40 mg DAILY PO ; Start 10/03/18 at 11:00 Potassium Chloride (Klor-Con) 20 meq 1X ONCE PO ; Start 10/03/18 at 11:00; Stop 10/03/18 at 11:01; Status DC Active Scripts Active [Diltiazem Hcl] 240 MG Cap.er.24h 300 Mg PO DAILY 30 Days Eliquis (Apixaban) 5 Mg Tablet 5 Mg PO BID MDD 5 30 Days Tramadol-Acetaminophn 37.5-325 (Tramadol Hcl/Acetaminophen) 1 Each Tablet 1 Tab PO Q6H Reported No Known Medications Prior To Admisstion (Info) Each 1 Each Vitals/I & O Vital Sign - Last 24 Hours 10/02/18 10/02/18 10/02/18 10/02/18 13:00 15:00 19:30 20:00 Temp 97.1 97.7 97.1 97.7 Pulse 86 108 Resp 18 21 B/P (MAP) 91/75 (80) 121/71 (88) Pulse Ox 94 96 O2 Delivery Nasal Cannula Nasal Cannula Nasal Cannula Nasal Cannula O2 Flow Rate 4.0 4.0 4.0 4.0 10/02/18 10/03/18 10/03/18 10/03/18 23:21 03:25 07:00 07:53 Temp 98.0 98.3 97.5 98.0 98.3 97.5 Pulse 101 107 86 Resp 18 18 18 B/P (MAP) 138/76 (96) 126/74 (91) 129/92 (104) Pulse Ox 96 96 94 O2 Delivery Nasal Cannula Nasal Cannula Nasal Cannula Nasal Cannula O2 Flow Rate 4.0 4.0 4.0 10/03/18 10/03/18 10/03/18 10/03/18 08:58 10:26 10:48 11:00 Temp 97.3 97.3 Pulse 86 116 100 100 Resp 18 B/P (MAP) 129/92 129/92 125/78 (94) 125/78 Pulse Ox 95 O2 Delivery Nasal Cannula O2 Flow Rate 4.0 Intake and Output 10/02/18 10/02/18 10/03/18 15:00 23:00 07:00 Intake Total 300 ml Output Total 1100 ml 500 ml 500 ml Balance -1100 ml -500 ml -200 ml KRISTOPHER GONZALES III DO Oct 03, 2018 12:09
[2018-10-03] MEDS: ANTI-COAG MONITOR BY PHARMACY. MC PRN (14:30)
[2018-10-03 14:45] VITALS: BP 126/95
--- NOTE | 2018-10-03 15:09 | EKG ---
[facility] [address] [place] [address] Test Date: 2018-10-03 Test Time: 15:07:18 Pat Name: [facility] Department: Room: 208 1 Gender: F Casing In Line Feeder: AT : 1950 Requested By: LEONA PETER Order Number: [id number] Reading MD: Measurements Intervals [place] Rate: 92 P: AR: QRS: 6 QRSD: 92 T: 118 QT: 396 QTc: 495 Interpretive Statements IRREGULAR RHYTHM, NO P-WAVE FOUND R-S TRANSITION ZONE IN V LEADS DISPLACED TO THE LEFT ST & T ABNORMALITY, CONSIDER HIGH LATERAL ISCHEMIA OR LEFT VENTRICULAR STRAIN ABNORMAL ECG RI6.01 Compared to ECG 10/01/2018 07:31:03 T-wave abnormality now present Possible ischemia now present Atrial fibrillation no longer present
== END 2018-10-03 15:50 | disposition home or self-care (01) | DRG 871 ==
LOC: ER 20:32 → 2 NORTH 23:10
PROVIDERS: ADMIT Family Medicine; ATTEND Family Medicine
DX: A41.9 Sepsis, unspecified organism (principal); J15.6 Pneumonia due to other Gram-negative bacteria; I50.33 Acute on chronic diastolic (congestive) heart failure; J96.01 Acute respiratory failure with hypoxia; Z68.41 Body mass index [BMI] 40.0-44.9, adult; I48.91 Unspecified atrial fibrillation; I11.0 Hypertensive heart disease with heart failure; I27.21 Secondary pulmonary arterial hypertension; E66.01 Morbid (severe) obesity due to excess calories; F41.9 Anxiety disorder, unspecified; G47.33 Obstructive sleep apnea (adult) (pediatric); Z82.49 Family history of ischemic heart disease and other diseases of the circulatory system; Z79.01 Long term (current) use of anticoagulants; Z91.19 Patient's noncompliance with other medical treatment and regimen
CPT/HCPCS: 36415; 71045; 71275; 80048; 80061; 80076; 83605; 83735; 83880; 84145; 84443; 84484; 85025; 85379; 85610; 85730; 87040; 93005; 93306; 94618; 96365; 96375; J0456; J0696; J1160; J1940; J3490; Q9967; 99285-25

== ENCOUNTER → 2018-11-17 | Outpatient (CLI) | payer MEDICAID, OTHER ==
[~2018-11-17] MED LIST changes: +APIX5TAB PO; +DILTIAZEM HCL PO
[2018-11-17 13:29] LABS: BASO % 1 % (0-3); EOS # 0.1 x10^3/uL (0.0-0.7); EOS % 2 % (0-3); HEMATOCRIT 44.8 % (36.0-47.0); HEMOGLOBIN 15.2 g/dL (12.0-15.5); LYMPH # 1.6 x10^3/uL (1.0-4.8); LYMPH % 32 % (24-48); MEAN CORPUSCULAR HEMOGLOBIN 30 pg (25-35); MEAN CORPUSCULAR HGB CONC 34 g/dL (31-37); MEAN CORPUSCULAR VOLUME 88 fL (79-100); MONO # 0.3 x10^3/uL (0.0-1.1); MONO % 6 % (0-9); NEUT % 60 % (31-73); PLATELET COUNT 197 x10^3/uL (140-400); RED BLOOD COUNT 5.07 x10^6/uL (3.50-5.40); RED CELL DISTRIBUTION WIDTH 13.8 % (11.5-14.5); WHITE BLOOD COUNT 5.1 x10^3/uL (4.0-11.0)
[2018-11-17 13:40] LABS: CALCIUM 9.4 mg/dL (8.5-10.1); CREATININE 0.8 mg/dL (0.6-1.0); GFR 71.1; POTASSIUM 3.9 mmol/L (3.5-5.1)
--- NOTE | 2018-11-17 15:55 | CARD ---
MR#: [id number] Date of Study: 11/17/2018 Ordering Physician: JESUS COOPER, Referring Physician: JESUS COOPER, Tech: Elizabeth William APPROVED REPORT EXAM: Two-dimensional and M-mode echocardiogram with Doppler and color Doppler. Other Information Quality : AverageHR: 85bpm INDICATION Atrial Fibrillation 2D DIMENSIONS RVDd3.0 (2.9-3.5cm)Left Atrium(2D)4.6 (1.6-4.0cm) IVSd1.3 (0.7-1.1cm)Aortic Root(2D)2.6 (2.0-3.7cm) LVDd5.2 (3.9-5.9cm)LVOT Diameter2.3 (1.8-2.4cm) PWd1.0 (0.7-1.1cm)LVDs2.9 (2.5-4.0cm) FS (%) 43.8 %SV98.5 ml Aortic Valve AoV Peak Winston.154.0cm/sAoV VTI28.1cm AO Peak GR.9.5mmHgLVOT Peak Winston.119.9cm/s LVOT VTI 20.28cmAO Mean GR.5mmHg AMARILYS (VMAX)2.69jf0DHZ (VTI)2.93cm2 AI P 1/2 Frai253nt Pulmonary Valve PV Peak Yicxiggn273.8cm/sPV Peak Grad.5mmHg Tricuspid Valve TR P. Kvapvuei835on/sRAP MEYOTCKZ7lxRu TR Peak Gr.00obLmUSLY73tiBv LEFT VENTRICLE The left ventricle is normal size. There is mild concentric left ventricular hypertrophy. The left ve ntricular systolic function is normal and the ejection fraction is within normal range. The Ejection Fraction is 55-60%. There is normal LV segmental wall motion. Diastology indeterminent due to atrial fibrillation. RIGHT VENTRICLE The right ventricle is normal size. There is normal right ventricular wall thickness. The right ventr icular systolic function is normal. ATRIA The left atrium size is normal. The right atrium size is normal. The interatrial septum is intact wit h no evidence for an atrial septal defect or patent foramen ovale as noted on 2-D or Doppler imaging. AORTIC VALVE The aortic valve is calcified but opens well. Doppler and Color Flow revealed moderate aortic regurgi tation. There is no significant aortic valvular stenosis. Calculated aortic valve area is 2.93 cm2 wi th maximum pressure gradient of 10 mmHg and mean pressure gradient of 5 mmHg. MITRAL VALVE The mitral valve is thickened but opens well. There is no evidence of mitral valve prolapse. There is no mitral valve stenosis. Doppler and Color-flow revealed mild mitral regurgitation. TRICUSPID VALVE The tricuspid valve is normal in structure and function. Doppler and Color Flow revealed trace to mil d tricuspid regurgitation. There is no tricuspid valve stenosis. PULMONIC VALVE The pulmonic valve is not well visualized. Doppler and Color Flow revealed trace to mild pulmonic bibi vular regurgitation. GREAT VESSELS The aortic root is normal in size. The IVC is normal in size and collapses >50% with inspiration. PERICARDIAL EFFUSION There is no evidence of significant pericardial effusion. Critical Notification Critical Value: No <Conclusion> The left ventricle is normal size. The left ventricular systolic function is normal and the ejection fraction is within normal range. The Ejection Fraction is 55-60%. There is mild concentric left ventricular hypertrophy. There is no significant aortic valvular stenosis. Calculated aortic valve area is 2.93 cm2 with maximum pressure gradient of 10 mmHg and mean pressure gradient of 5 mmHg. Doppler and Color Flow revealed moderate aortic regurgitation. Doppler and Color-flow revealed mild mitral regurgitation. Doppler and Color Flow revealed trace to mild tricuspid regurgitation. Signed by : Stanley Rodríguez MD Electronically Approved : 11/17/2018 15:53:54
== END | disposition home or self-care (01) ==
LOC: ECHO 12:43
PROVIDERS: ATTEND Internal Medicine Cardiovascular Disease
DX: I48.0 Paroxysmal atrial fibrillation (principal); I08.8 Other rheumatic multiple valve diseases
CPT/HCPCS: 36415; 80048; 83880; 85025; 93306

== ENCOUNTER → 2019-05-04 | Outpatient (CLI) | payer MEDICAID ==
--- NOTE | 2019-05-04 16:32 | RAD ---
Examination: CT CHEST WO CONTRAST History: Hypoxemia, respiratory failure Comparison/Correlation: 09/30/2018 CTA of the chest Findings: Axial images of chest were obtained without contrast. Sagittal and coronal reformatted images were provided. Main pulmonary artery diameter 4.75 cm is present. Cardiomegaly noted. Linear atelectasis involving the lung bases noted. Mosaic attenuation of the lung ba. No dense consolidations. No suspicious pulmonary nodule or masses. No enlarged thoracic lymph nodes. No pleural or pericardial effusion. Nodular involvement of the adrenal glands is similar to prior exam. Moderate quantity of retained debris is noted in the stomach. Bony structures are unremarkable. Impression: No focal consolidation. Mosaic attenuation of lung ba which may represent small airways disease. Enlarged main pulmonary artery diameter of concern for pulmonary artery hypertension again seen. Cardiomegaly. PQRS Compliance Statement: One or more of the following individualized dose reduction techniques were utilized for this examination: 1. Automated exposure control 2. Adjustment of the mA and/or kV according to patient size 3. Use of iterative reconstruction technique Electronically signed by: Chuy Huston MD (05/04/2019 4:29 PM) [facility]
== END | disposition home or self-care (01) ==
LOC: CT 15:54
PROVIDERS: ATTEND Internal Medicine Pulmonary Disease
DX: J96.91 Respiratory failure, unspecified with hypoxia (principal); I51.7 Cardiomegaly; J98.11 Atelectasis; I27.20 Pulmonary hypertension, unspecified
CPT/HCPCS: 71250

== ENCOUNTER → 2019-06-26 | Outpatient (CLI) | payer MEDICAID ==
[2019-06-26 11:24] LABS: BASO # 0.1 x10^3/uL (0.0-0.2); BASO % 1 % (0-3); EOS # 0.1 x10^3/uL (0.0-0.7); EOS % 2 % (0-3); HEMATOCRIT 50.6 % (36.0-47.0); HEMOGLOBIN 16.6 g/dL (12.0-15.5); LYMPH # 1.4 x10^3/uL (1.0-4.8); LYMPH % 23 % (24-48); MEAN CORPUSCULAR HEMOGLOBIN 30 pg (25-35); MEAN CORPUSCULAR HGB CONC 33 g/dL (31-37); MEAN CORPUSCULAR VOLUME 90 fL (79-100); MONO # 0.5 x10^3/uL (0.0-1.1); MONO % 9 % (0-9); NEUT # 3.9 x10^3/uL (1.8-7.7); NEUT % 65 % (31-73); PLATELET COUNT 213 x10^3/uL (140-400); RED BLOOD COUNT 5.61 x10^6/uL (3.50-5.40); RED CELL DISTRIBUTION WIDTH 14.1 % (11.5-14.5)
[2019-06-26 11:38] LABS: ALBUMIN 4.1 g/dL (3.4-5.0); ALK PHOS 91 U/L (46-116); ALT (SGPT) 23 U/L (14-59); ANION GAP 9 (6-14); AST (SGOT) 16 U/L (15-37); BLOOD UREA NITROGEN 14 mg/dL (7-20); BUN/CREATININE RATIO 14 (6-20); CALCIUM 9.1 mg/dL (8.5-10.1); CARBON DIOXIDE 33 mmol/L (21-32); CHLORIDE 103 mmol/L (98-107); DIG 0.4 ng/mL (0.9-2.0); GFR 54.8; GLUCOSE 102 mg/dL (70-99); POTASSIUM 3.8 mmol/L (3.5-5.1); SODIUM 145 mmol/L (136-145); TOTAL BILIRUBIN 1.3 mg/dL (0.2-1.0); TOTAL PROTEIN 8.4 g/dL (6.4-8.2)
== END | disposition home or self-care (01) ==
LOC: LAB 10:48
PROVIDERS: ATTEND Internal Medicine Cardiovascular Disease
DX: I48.2 Chronic atrial fibrillation (principal)
CPT/HCPCS: 36415; 80053; 80162; 85025

== ENCOUNTER → 2019-09-08 | Outpatient (CLI) | payer MEDICAID ==
--- NOTE | 2019-09-09 16:32 | CARD ---
MR#: [id number] Date of Study: 09/08/2019 Ordering Physician: JESUS COOPER, Referring Physician: JESUS COOPER, Tech: Gaviota Cunningham SUELLEN APPROVED REPORT EXAM: Two-dimensional and M-mode echocardiogram with Doppler and color Doppler. Other Information Quality : Good Rhythm : Atrial Fibrillation INDICATION Atrial Fibrillation 2D DIMENSIONS RVDd3.2 (2.9-3.5cm)Left Atrium(2D)4.4 (1.6-4.0cm) IVSd0.9 (0.7-1.1cm)Aortic Root(2D)3.0 (2.0-3.7cm) LVDd5.0 (3.9-5.9cm)LVOT Diameter2.1 (1.8-2.4cm) PWd0.9 (0.7-1.1cm)LVDs3.2 (2.5-4.0cm) FS (%) 35.3 %SV74.5 ml LVEF(%)64.4 (>50%) Aortic Valve AoV Peak Winston.160.1cm/sAoV VTI27.9cm AO Peak GR.10.3mmHgLVOT Peak Winston.142.1cm/s LVOT VTI 29.40cmAO Mean GR.5mmHg AMARILYS (VMAX)3.39sw6JJY (VTI)3.82cm2 AI P 1/2 Suiq243te Mitral Valve MV E Jiulewtv01.8cm/sMV DECEL [id number] MV QCJ91foMKP (PHT)6.51cm2 TDI E/Lateral E'7.1E/Medial E'9.1 Tricuspid Valve TR P. Uhyxehtu269eb/sRAP TJOXTGSA7xgJt TR Peak Gr.51xzPyMVVX03meQr Pulmonary Vein S1 Acdwaait06.5cm/sD2 Pglntvfe13.9cm/s LEFT VENTRICLE The left ventricle is normal size. There is normal left ventricular wall thickness. The left ventricu lar systolic function is normal. The Ejection Fraction is 60-65%. There is normal LV segmental wall m otion. RIGHT VENTRICLE The right ventricle is normal size. The right ventricular systolic function is normal. ATRIA The left atrium is mildly dilated. The right atrium size is normal. The interatrial septum is intact with no evidence for an atrial septal defect or patent foramen ovale as noted on 2-D or Doppler imagi ng. AORTIC VALVE The aortic valve is moderately thickened but opens well. Doppler and Color Flow revealed mild to mode rate aortic regurgitation. There is no significant aortic valvular stenosis. MITRAL VALVE The mitral valve is calcified but opens well. There is no evidence of mitral valve prolapse. There is no mitral valve stenosis. Doppler and Color-flow revealed trace to mild mitral regurgitation. TRICUSPID VALVE The tricuspid valve is normal in structure and function. Doppler and Color Flow revealed mild eccentr ic tricuspid regurgitation. There is mild pulmonary hypertension. The PA pressure was estimated at 37 mmHg. There is no tricuspid valve stenosis. PULMONIC VALVE The pulmonic valve is not well visualized. Doppler and Color Flow revealed mild pulmonic valvular reg urgitation. There is no pulmonic valvular stenosis. GREAT VESSELS The aortic root is normal in size. The ascending aorta is moderately dilated at 3.7 cm. The IVC is no rmal in size and collapses >50% with inspiration. PERICARDIAL EFFUSION There is no evidence of significant pericardial effusion. Critical Notification Critical Value: No <Conclusion> The left ventricular systolic function is normal. The Ejection Fraction is 60-65%. There is normal LV segmental wall motion. Mild to moderate aortic regurgitation. Trace to mild mitral regurgitation. Mild eccentric tricuspid regurgitation. The PA pressure was estimated at 37 mmHg. There is no evidence of significant pericardial effusion. Signed by : Randal Nieves, Electronically Approved : 09/08/2019 12:41:08
== END ==
LOC: ECHO 11:07
PROVIDERS: ATTEND Internal Medicine Cardiovascular Disease
DX: I08.8 Other rheumatic multiple valve diseases (principal); I48.21 Permanent atrial fibrillation; I27.20 Pulmonary hypertension, unspecified; E66.9 Obesity, unspecified
CPT/HCPCS: 93306

== ENCOUNTER 2019-10-02 16:57 | Inpatient (IN) | payer MEDICAID ==
[~2019-10-02] VITALS: Ht 147.3 cm; Wt 81.6 kg
[2019-10-02 18:18] LABS: BASO % 1 % (0-3); EOS # 0.2 x10^3/uL (0.0-0.7); EOS % 3 % (0-3); HEMATOCRIT 45.5 % (36.0-47.0); HEMOGLOBIN 15.2 g/dL (12.0-15.5); LYMPH % 13 % (24-48); MEAN CORPUSCULAR HEMOGLOBIN 30 pg (25-35); MEAN CORPUSCULAR HGB CONC 33 g/dL (31-37); MEAN CORPUSCULAR VOLUME 90 fL (79-100); MONO # 0.6 x10^3/uL (0.0-1.1); MONO % 7 % (0-9); NEUT # 5.9 x10^3/uL (1.8-7.7); NEUT % 76 % (31-73); PLATELET COUNT 226 x10^3/uL (140-400); RED BLOOD COUNT 5.07 x10^6/uL (3.50-5.40); RED CELL DISTRIBUTION WIDTH 13.7 % (11.5-14.5); WHITE BLOOD COUNT 7.7 x10^3/uL (4.0-11.0)
[2019-10-02] MEDS ORDERED: IPRATRPIUM/ALBUTEROL 0.5/2.5MG 3 ML NEBU. NEB ONE (18:30)
[2019-10-02] MEDS ORDERED: AZITHROMYCIN 250 MG TABLET. PO ONE ×2 (19:00→20:00)
[2019-10-02] MEDS ORDERED: cefTRIAXone IV Push 1 GM VIAL. IVP ONE (19:00)
--- NOTE | 2019-10-02 19:04 | RAD ---
CHEST PA LATERAL History: Shortness of breath Comparison: September 30, 2018 chest x-ray. CT May 04, 2019. Findings: Right midlung consolidation. Cardiomegaly, unchanged. No pneumothorax. No pleural effusion. Patchy left basilar opacity. Impression: 1. Right midlung consolidation, concerning for pneumonia. Recommend follow-up to ensure resolution. 2. Patchy left basilar opacity, may represent atelectasis or additional consolidation. Electronically signed by: Larry Hannon DO (10/02/2019 7:01 PM) [facility]
[2019-10-02 19:10] LABS: INFLUENZA A PATIENT NEGATIVE (NEGATIVE); INFLUENZA B PATIENT NEGATIVE (NEGATIVE)
[2019-10-02] MEDS ORDERED: guaiFENesin DM 200MG/20MG 10 ML SYRUP PO PRN (19:30)
[2019-10-02] MEDS ORDERED: CALCIUM CARBONATE 500 MG TAB.CHEW PO PRN (19:30)
[2019-10-02] MEDS ORDERED: ALBUTEROL SULFATE 2.5 MG/3 ML NEBU. NEB PRN (19:30)
[2019-10-02] MEDS ORDERED: TEMAZEPAM 7.5 MG CAPSULE PO PRN (19:30)
[2019-10-02] MEDS ORDERED: traMADol 50 MG TABLET PO PRN (19:30)
[2019-10-02] MEDS ORDERED: ACETAMINOPHEN 325 MG TABLET. PO PRN (19:30)
[2019-10-02] MEDS ORDERED: BENZOCAINE/MENTHOL LOZENGE. PO PRN (19:30)
[2019-10-02] MEDS ORDERED: NON FORMULARY ITEM (Tramadol Hcl/Acetaminophen (Tramadol-Acetaminophn 37.5-325) 1 TAB) PO SCH (19:30)
[2019-10-02 19:31] LABS: CALCIUM 9.2 mg/dL (8.5-10.1); CREATININE 0.8 mg/dL (0.6-1.0); GFR 70.9; POTASSIUM 4.3 mmol/L (3.5-5.1)
[2019-10-02 19:37] LABS: ALBUMIN 3.6 g/dL (3.4-5.0); ALBUMIN/GLOBULIN RATIO 0.8 (1.0-1.7); TOTAL BILIRUBIN 1.1 mg/dL (0.2-1.0); TOTAL PROTEIN 8.2 g/dL (6.4-8.2)
[2019-10-02] MEDS ORDERED: FUROSEMIDE 20 MG/2 ML VIAL. IVP ONE ×2 (20:00→21:00)
--- NOTE | 2019-10-02 20:52 | PHYS DOC ---
Past Medical History Past Medical History: A-Fib, Hypertension Past Surgical History: No Surgical History Alcohol Use: None Drug Use: None Adult General Chief Complaint Chief Complaint: FLU SYMPTOM HPI HPI Patient is a 69 year old [place] female female with history of hypertension and A. fib who presents with shortness of breath, cough and wheezing for the past week with increased shortness breath and fatigue today. Ports generalized recent sweats.. Patient does not currently have a primary care physician has not been evaluated for her symptoms. Reports chest tightness, no chest pain. Patient is non-Irish speaking. Translation assisted by her son.[] Review of Systems Review of Systems ReView symptoms as per history of present illness. All other review symptoms are negative. All other systems were reviewed and found to be within normal limits, except as documented in this note. Current Medications Current Medications Current Medications Medications (Trade) Dose Ordered Sig/Amaury Start Time Stop Time Status Last Admin Dose Admin Acetaminophen (Tylenol) 325 mg PRN Q6HRS PRN 10/02/19 19:30 Albuterol Sulfate (Ventolin Neb Soln) 2.5 mg PRN Q4HRS PRN 10/02/19 19:30 Albuterol/ Ipratropium (Duoneb) 3 ml 1X ONCE 10/02/19 18:30 10/02/19 18:31 DC 10/02/19 18:44 3 ML Azithromycin (Zithromax) 500 mg 1X ONCE 10/02/19 19:00 10/02/19 19:01 DC 10/02/19 19:26 500 MG Calcium Carbonate/ Glycine (Tums) 500 mg PRN AFTMEALHC PRN 10/02/19 19:30 Ceftriaxone Sodium (Rocephin) 1 gm 1X ONCE 10/02/19 19:00 10/02/19 19:01 DC 10/02/19 19:26 1 GM Guaifenesin (Robitussin Dm) 10 ml PRN Q6HRS PRN 10/02/19 19:30 Non-Formulary Medication (Tramadol Hcl/ Acetaminophen (Tramadol-Acetaminophn 37.5-325)) 1 tab Q6H 10/02/19 19:30 UNV Temazepam (Restoril) 7.5 mg PRN QHS PRN 10/02/19 19:30 Throat Lozenges (Cepacol Sore Throat Lozenge) 1 criselda PRN Q2HRS PRN 10/02/19 19:30 Tramadol HCl (Ultram) 37.5 mg PRN Q6HRS PRN 10/02/19 19:30 Allergies Allergies Allergies Coded Allergies Type Severity Reaction Last Updated Verified No Known Drug Allergies 04/26/15 No Physical Exam Physical Exam Constitutional: Well developed, well nourished, no acute distress, non-toxic appearance. [] HENT: Normocephalic, atraumatic, bilateral external ears normal, oropharynx moist, no oral exudates, nose normal. [] Eyes: PERRLA, EOMI, conjunctiva normal, no discharge. [] Neck: Normal range of motion, no tenderness, supple, no stridor. [] Cardiovascular:Heart rate regular rhythm, no murmur [] Lungs & Thorax: Patient's nonlabored, coarse breath sounds throughout rales pre sent.[] Abdomen: Bowel sounds normal, soft, no tenderness, no masses, no pulsatile masses. [] Skin: Warm, dry, no erythema, no rash. [] Back: No tenderness. [] Extremities: No tenderness, no clubbing, ROM intact, no edema. [] Neurologic: Alert and oriented, normal motor function, normal sensory function, no focal deficits noted. [] Psychologic: Affect normal, judgement normal, mood normal. [] Current Patient Data Vital Signs Vital Signs Date Time Temp Pulse Resp B/P (MAP) Pulse Ox O2 Delivery O2 Flow Rate FiO2 10/02/19 18:47 93 Room Air 10/02/19 17:51 76 18 131/70 (90) 10/02/19 17:25 98.0 98.0 Lab Values Laboratory Tests Test 10/02/19 17:43 10/02/19 18:30 10/02/19 19:00 White Blood Count 7.7 x10^3/uL (4.0-11.0) Red Blood Count 5.07 x10^6/uL (3.50-5.40) Hemoglobin 15.2 g/dL (12.0-15.5) Hematocrit 45.5 % (36.0-47.0) Mean Corpuscular Volume 90 fL (79-100) Mean Corpuscular Hemoglobin 30 pg (25-35) Mean Corpuscular Hemoglobin Concent 33 g/dL (31-37) Red Cell Distribution Width 13.7 % (11.5-14.5) Platelet Count 226 x10^3/uL (140-400) Neutrophils (%) (Auto) 76 % (31-73) H Lymphocytes (%) (Auto) 13 % (24-48) L Monocytes (%) (Auto) 7 % (0-9) Eosinophils (%) (Auto) 3 % (0-3) Basophils (%) (Auto) 1 % (0-3) Neutrophils # (Auto) 5.9 x10^3/uL (1.8-7.7) Lymphocytes # (Auto) 1.0 x10^3/uL (1.0-4.8) Monocytes # (Auto) 0.6 x10^3/uL (0.0-1.1) Eosinophils # (Auto) 0.2 x10^3/uL (0.0-0.7) Basophils # (Auto) 0.0 x10^3/uL (0.0-0.2) Influenza Type A Antigen Negative (NEGATIVE) Influenza Type B Antigen Negative (NEGATIVE) Sodium Level 141 mmol/L (136-145) Potassium Level 4.3 mmol/L (3.5-5.1) Chloride Level 103 mmol/L (98-107) Carbon Dioxide Level 32 mmol/L (21-32) Anion Gap 6 (6-14) Blood Urea Nitrogen 10 mg/dL (7-20) Creatinine 0.8 mg/dL (0.6-1.0) Estimated GFR (Cockcroft-Gault) 70.9 BUN/Creatinine Ratio 13 (6-20) Glucose Level 116 mg/dL (70-99) H Calcium Level 9.2 mg/dL (8.5-10.1) Total Bilirubin 1.1 mg/dL (0.2-1.0) H Aspartate Amino Transferase (AST) 16 U/L (15-37) Alanine Aminotransferase (ALT) 21 U/L (14-59) Alkaline Phosphatase 80 U/L (46-116) TC-Tem-S-Type Natriuretic Peptide 1281 pg/mL (0-124) H Total Protein 8.2 g/dL (6.4-8.2) Albumin 3.6 g/dL (3.4-5.0) Albumin/Globulin Ratio 0.8 (1.0-1.7) L Laboratory Tests 10/02/19 17:43 Laboratory Tests 10/02/19 19:00 EKG EKG [EKG: A. fib rate controlled.] Radiology/Procedures Radiology/Procedures [Chest x-ray: R pulmonary infiltrate with pulmonary vascular congestion] Course & Med Decision Making Course & Med Decision Making Pertinent Labs and Imaging studies reviewed. (See chart for details) [Breathing treatment, Lasix and antibiotics given. Will admit to the hospitalist service.] Dragon Disclaimer Dragon Disclaimer This electronic medical record was generated, in whole or in part, using a voice recognition dictation system. Departure Departure Impression: Primary Impression: Congestive heart failure Additional Impressions: Atrial fibrillation Pneumonia Disposition: ADMITTED INPATIENT Condition: STABLE Referrals: Jacob PINA MD (PCP) Problem Qualifiers CORNELIUS KIRKLAND DO Oct 02, 2019 20:52
[2019-10-02] MEDS: APIXABAN 5 MG TABLET. PO SCH (21:00)
[2019-10-02 21:30] VITALS: BP 133/88
[2019-10-02] MEDS: FAMOTIDINE 20 MG TABLET. PO SCH (21:53)
[2019-10-02] MEDS: BENZONATATE 100 MG CAPSULE. PO SCH (21:53)
[2019-10-02 23:15] VITALS: BP 112/56
[2019-10-02] MEDS ORDERED: FURO20TA3 PO (23:45)
[2019-10-02] MEDS ORDERED: DIGO125T3 PO (23:47)
[2019-10-03 03:40] VITALS: BP 131/80
[2019-10-03 04:51] LABS: BASO # 0.1 x10^3/uL (0.0-0.2); BASO % 1 % (0-3); EOS # 0.1 x10^3/uL (0.0-0.7); EOS % 1 % (0-3); HEMATOCRIT 46.2 % (36.0-47.0); HEMOGLOBIN 15.4 g/dL (12.0-15.5); LYMPH # 0.9 x10^3/uL (1.0-4.8); LYMPH % 11 % (24-48); MEAN CORPUSCULAR HEMOGLOBIN 30 pg (25-35); MEAN CORPUSCULAR HGB CONC 33 g/dL (31-37); MEAN CORPUSCULAR VOLUME 90 fL (79-100); MONO # 0.6 x10^3/uL (0.0-1.1); MONO % 7 % (0-9); NEUT # 6.7 x10^3/uL (1.8-7.7); NEUT % 81 % (31-73); PLATELET COUNT 223 x10^3/uL (140-400); RED BLOOD COUNT 5.13 x10^6/uL (3.50-5.40); RED CELL DISTRIBUTION WIDTH 13.6 % (11.5-14.5); WHITE BLOOD COUNT 8.3 x10^3/uL (4.0-11.0)
[2019-10-03 05:04] LABS: CALCIUM 9.2 mg/dL (8.5-10.1); CREATININE 0.7 mg/dL (0.6-1.0); GFR 82.7; POTASSIUM 3.9 mmol/L (3.5-5.1)
[2019-10-03 07:00] VITALS: BP 130/84
[2019-10-03] MEDS: IPRATRPIUM/ALBUTEROL 0.5/2.5MG 3 ML NEBU. NEB SCH ×2 (07:57→11:45)
[2019-10-03] MEDS: BENZONATATE 100 MG CAPSULE. PO SCH ×2 (08:32→14:57)
[2019-10-03] MEDS: FAMOTIDINE 20 MG TABLET. PO SCH (08:33)
[2019-10-03] MEDS: APIXABAN 5 MG TABLET. PO SCH (08:33)
[2019-10-03] MEDS ORDERED: AZITHROMYCIN 250 MG TABLET. PO SCH (09:00)
[2019-10-03] MEDS ORDERED: CETIRIZINE HCL 10 MG TABLET. PO SCH (09:00)
[2019-10-03] MEDS ORDERED: FLU VAX QS 2019-20 (36MOS+)/PF 0.5 ML SYRINGE. VAX IM ONE (09:00)
[2019-10-03] MEDS ORDERED: FUROSEMIDE 20 MG/2 ML VIAL. IVP SCH (09:00)
[2019-10-03] MEDS ORDERED: ANTI-COAG MONITOR BY PHARMACY. MC PRN (09:30)
[2019-10-03 11:00] VITALS: BP 89/76
[2019-10-03] MEDS ORDERED: BENZ-8 PO (11:59)
[2019-10-03] MEDS ORDERED: AMOX1TAB58 PO (11:59)
[2019-10-03] MEDS ORDERED: ALBU2.5V8 NEB (11:59)
--- NOTE | 2019-10-03 12:04 | PDOC1 ---
History and Physical Date of Admission Date of Admission DATE: 10/03/19 TIME: 12:00 Identification/Chief Complaint Chief Complaint cough soa Source Source: Caregiver, Chart review, Patient History of Present Illness History of Present Illness 69 female, son translates for me, soa and cough triage note: * PT TO ED POV WITH SON FOR C/O NON-PRODUCTIVE COUGH, CP AFTER COUGH, SUBJECTIVE FEVER, AND SOA FOR ONE WEEK. 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 and HTN Past Medical History Cardiovascular: AFIB, HTN Past Surgical History Past Surgical History: No pertinent history Family History Family History: Hypertension Social History Smoke: No ALCOHOL: none Drugs: None Current Problem List Problem List Problems Medical Problems: (1) Atrial fibrillation Status: Acute (2) Congestive heart failure Status: Acute (3) Pneumonia Status: Acute Current Medications Current Medications Current Medications Albuterol/ Ipratropium (Duoneb) 3 ml 1X ONCE NEB Last administered on 10/02/19at 18:44; Start 10/02/19 at 18:30; Stop 10/02/19 at 18:31; Status DC Ceftriaxone Sodium (Rocephin) 1 gm 1X ONCE IVP Last administered on 10/02/19at 19:26; Start 10/02/19 at 19:00; Stop 10/02/19 at 19:01; Status DC Azithromycin (Zithromax) 500 mg 1X ONCE PO Last administered on 10/02/19at 19:26; Start 10/02/19 at 19:00; Stop 10/02/19 at 19:01; Status DC Benzonatate (Tessalon Perle) 100 mg [id number] PO Last administered on 10/03/19at 08:32; Start 10/02/19 at 21:00 Guaifenesin (Robitussin Dm) 10 ml PRN Q6HRS PRN PO COUGH; Start 10/02/19 at 19:30 Calcium Carbonate/ Glycine (Tums) 500 mg PRN AFTMEALHC PRN PO INDIGESTION; Start 10/02/19 at 19:30 Temazepam (Restoril) 7.5 mg PRN QHS PRN PO INSOMNIA; Start 10/02/19 at 19:30 Apixaban (Eliquis) 5 mg BID PO Last administered on 10/03/19at 08:33; Start 10/02/19 at 21:00 Non-Formulary Medication (Tramadol Hcl/ Acetaminophen (Tramadol-Acetaminophn 37.5-325)) 1 tab Q6H PO ; Start 10/02/19 at 19:30; Status UNV Diltiazem HCl (Cardizem 24hr Cd) 300 mg DAILY PO Last administered on 10/03/19at 08:33; Start 10/03/19 at 09:00 Albuterol Sulfate (Ventolin Neb Soln) 2.5 mg PRN Q4HRS PRN NEB SHORTNESS OF BREATH; Start 10/02/19 at 19:30 Ceftriaxone Sodium (Rocephin) 1 gm Q24H IVP ; Start 10/03/19 at 18:00 Azithromycin (Zithromax) 250 mg DAILY PO Last administered on 10/03/19at 08:33; Start 10/03/19 at 09:00 Azithromycin (Zithromax) 500 mg 1X ONCE PO ; Start 10/02/19 at 20:00; Stop 10/02/19 at 20:01; Status Cancel Throat Lozenges (Cepacol Sore Throat Lozenge) 1 criselda PRN Q2HRS PRN PO SORE THROAT; Start 10/02/19 at 19:30 Cetirizine HCl (ZyrTEC) 10 mg DAILY PO Last administered on 10/03/19at 08:33; Start 10/03/19 at 09:00 Famotidine (Pepcid) 20 mg BID PO Last administered on 10/03/19at 08:33; Start 10/02/19 at 21:00 Tramadol HCl (Ultram) 37.5 mg PRN Q6HRS PRN PO MODERATE PAIN; Start 10/02/19 at 19:30 Acetaminophen (Tylenol) 325 mg PRN Q6HRS PRN PO MILD PAIN 1-3; Start 10/02/19 at 19:30 Furosemide (Lasix) 40 mg 1X ONCE IVP Last administered on 10/02/19at 20:27; Start 10/02/19 at 20:00; Stop 10/02/19 at 20:26; Status DC Furosemide (Lasix) 20 mg 1X ONCE IVP ; Start 10/02/19 at 21:00; Stop 10/02/19 at 21:01; Status DC Albuterol/ Ipratropium (Duoneb) 3 ml RTQID NEB Last administered on 10/03/19at 11:45; Start 10/03/19 at 08:00; Stop 10/04/19 at 07:59 Furosemide (Lasix) 20 mg BID92 IVP Last administered on 10/03/19at 08:32; Start 10/03/19 at 09:00 Influenza Virus Vaccine Quadrival (Afluria Quad 2019-20 (3yr Up) Syringe) 0.5 ml ONCE ONCE VAX IM Last administered on 10/03/19at 11:25; Start 10/03/19 at 09:00; Stop 10/03/19 at 09:01; Status DC Info (Anti-Coagulation Monitoring By Pharmacy) 1 each PRN DAILY PRN MC SEE COMMENTS Last administered on 10/03/19at 09:26; Start 10/03/19 at 09:30 Lactobacillus Rhamnosus (Culturelle) 1 cap BID PO ; Start 10/03/19 at 21:00 Active Scripts Active [Diltiazem Hcl] 240 MG Cap.er.24h 300 Mg PO DAILY 30 Days Eliquis (Apixaban) 5 Mg Tablet 5 Mg PO BID MDD 5 30 Days Tramadol-Acetaminophn 37.5-325 (Tramadol Hcl/Acetaminophen) 1 Each Tablet 1 Tab PO Q6H Reported Digoxin 125 Mcg Tablet 125 Mcg PO DAILY Furosemide 20 Mg Tablet 1 Tab PO DAILY No Known Medications Prior To Admisstion (Info) Each 1 Each MC Allergies Allergies: Coded Allergies: No Known Drug Allergies (Unverified , 04/26/15) ROS Review of System as per HPI, all else is neg Physical Exam General: Alert, Oriented X3, Cooperative, No acute distress HEENT: Atraumatic, PERRLA, EOMI Lungs: Clear to auscultation, Normal air movement Heart: S1S2, RRR, no thrills, no rubs, no gallops, no murmurs Cardiovascular: S1, S2 Breasts: Normal, Rt breast nml w/o mass, Lt breast nml w/o mass, Nipples normal Abdomen: Normal bowel sounds, Soft, No tenderness, No hepatosplenomegaly, No masses Rectal Exam: not examined PELVIC: Nml ext genitalia Extremities: No clubbing, No cyanosis, No edema, Normal pulses, No tenderness/swelling Skin: No rashes, No breakdown, No significant lesion Neuro: Normal gait, Normal speech, Strength at 5/5 X4 ext, Normal tone, Sensation intact, Cranial nerves 3-12 NL, Reflexes 2+ Psych/Mental Status: Mental status NL, Mood NL Vitals Vitals Vital Signs Date Time Temp Pulse Resp B/P (MAP) Pulse Ox O2 Delivery O2 Flow Rate FiO2 10/03/19 11:46 96 Room Air 10/03/19 08:33 102 131/80 10/03/19 07:00 97.5 22 97.5 Labs Labs Laboratory Tests Test 10/02/19 17:43 10/02/19 18:30 10/02/19 19:00 10/03/19 03:30 White Blood Count 7.7 x10^3/uL (4.0-11.0) 8.3 x10^3/uL (4.0-11.0) Red Blood Count 5.07 x10^6/uL (3.50-5.40) 5.13 x10^6/uL (3.50-5.40) Hemoglobin 15.2 g/dL (12.0-15.5) 15.4 g/dL (12.0-15.5) Hematocrit 45.5 % (36.0-47.0) 46.2 % (36.0-47.0) Mean Corpuscular Volume 90 fL (79-100) 90 fL (79-100) Mean Corpuscular Hemoglobin 30 pg (25-35) 30 pg (25-35) Mean Corpuscular Hemoglobin Concent 33 g/dL (31-37) 33 g/dL (31-37) Red Cell Distribution Width 13.7 % (11.5-14.5) 13.6 % (11.5-14.5) Platelet Count 226 x10^3/uL (140-400) 223 x10^3/uL (140-400) Neutrophils (%) (Auto) 76 % (31-73) 81 % (31-73) Lymphocytes (%) (Auto) 13 % (24-48) 11 % (24-48) Monocytes (%) (Auto) 7 % (0-9) 7 % (0-9) Eosinophils (%) (Auto) 3 % (0-3) 1 % (0-3) Basophils (%) (Auto) 1 % (0-3) 1 % (0-3) Neutrophils # (Auto) 5.9 x10^3/uL (1.8-7.7) 6.7 x10^3/uL (1.8-7.7) Lymphocytes # (Auto) 1.0 x10^3/uL (1.0-4.8) 0.9 x10^3/uL (1.0-4.8) Monocytes # (Auto) 0.6 x10^3/uL (0.0-1.1) 0.6 x10^3/uL (0.0-1.1) Eosinophils # (Auto) 0.2 x10^3/uL (0.0-0.7) 0.1 x10^3/uL (0.0-0.7) Basophils # (Auto) 0.0 x10^3/uL (0.0-0.2) 0.1 x10^3/uL (0.0-0.2) Influenza Type A Antigen Negative (NEGATIVE) Influenza Type B Antigen Negative (NEGATIVE) Sodium Level 141 mmol/L (136-145) 142 mmol/L (136-145) Potassium Level 4.3 mmol/L (3.5-5.1) 3.9 mmol/L (3.5-5.1) Chloride Level 103 mmol/L (98-107) 103 mmol/L (98-107) Carbon Dioxide Level 32 mmol/L (21-32) 31 mmol/L (21-32) Anion Gap 6 (6-14) 8 (6-14) Blood Urea Nitrogen 10 mg/dL (7-20) 11 mg/dL (7-20) Creatinine 0.8 mg/dL (0.6-1.0) 0.7 mg/dL (0.6-1.0) Estimated GFR (Cockcroft-Gault) 70.9 82.7 BUN/Creatinine Ratio 13 (6-20) Glucose Level 116 mg/dL (70-99) 109 mg/dL (70-99) Calcium Level 9.2 mg/dL (8.5-10.1) 9.2 mg/dL (8.5-10.1) Total Bilirubin 1.1 mg/dL (0.2-1.0) Aspartate Amino Transf (AST/SGOT) 16 U/L (15-37) Alanine Aminotransferase (ALT/SGPT) 21 U/L (14-59) Alkaline Phosphatase 80 U/L (46-116) AH-Bsz-S-Type Natriuretic Peptide 1281 pg/mL (0-124) Total Protein 8.2 g/dL (6.4-8.2) Albumin 3.6 g/dL (3.4-5.0) Albumin/Globulin Ratio 0.8 (1.0-1.7) Laboratory Tests Test 10/02/19 17:43 10/02/19 18:30 10/02/19 19:00 10/03/19 03:30 White Blood Count 7.7 x10^3/uL (4.0-11.0) 8.3 x10^3/uL (4.0-11.0) Red Blood Count 5.07 x10^6/uL (3.50-5.40) 5.13 x10^6/uL (3.50-5.40) Hemoglobin 15.2 g/dL (12.0-15.5) 15.4 g/dL (12.0-15.5) Hematocrit 45.5 % (36.0-47.0) 46.2 % (36.0-47.0) Mean Corpuscular Volume 90 fL (79-100) 90 fL (79-100) Mean Corpuscular Hemoglobin 30 pg (25-35) 30 pg (25-35) Mean Corpuscular Hemoglobin Concent 33 g/dL (31-37) 33 g/dL (31-37) Red Cell Distribution Width 13.7 % (11.5-14.5) 13.6 % (11.5-14.5) Platelet Count 226 x10^3/uL (140-400) 223 x10^3/uL (140-400) Neutrophils (%) (Auto) 76 % (31-73) 81 % (31-73) Lymphocytes (%) (Auto) 13 % (24-48) 11 % (24-48) Monocytes (%) (Auto) 7 % (0-9) 7 % (0-9) Eosinophils (%) (Auto) 3 % (0-3) 1 % (0-3) Basophils (%) (Auto) 1 % (0-3) 1 % (0-3) Neutrophils # (Auto) 5.9 x10^3/uL (1.8-7.7) 6.7 x10^3/uL (1.8-7.7) Lymphocytes # (Auto) 1.0 x10^3/uL (1.0-4.8) 0.9 x10^3/uL (1.0-4.8) Monocytes # (Auto) 0.6 x10^3/uL (0.0-1.1) 0.6 x10^3/uL (0.0-1.1) Eosinophils # (Auto) 0.2 x10^3/uL (0.0-0.7) 0.1 x10^3/uL (0.0-0.7) Basophils # (Auto) 0.0 x10^3/uL (0.0-0.2) 0.1 x10^3/uL (0.0-0.2) Influenza Type A Antigen Negative (NEGATIVE) Influenza Type B Antigen Negative (NEGATIVE) Sodium Level 141 mmol/L (136-145) 142 mmol/L (136-145) Potassium Level 4.3 mmol/L (3.5-5.1) 3.9 mmol/L (3.5-5.1) Chloride Level 103 mmol/L (98-107) 103 mmol/L (98-107) Carbon Dioxide Level 32 mmol/L (21-32) 31 mmol/L (21-32) Anion Gap 6 (6-14) 8 (6-14) Blood Urea Nitrogen 10 mg/dL (7-20) 11 mg/dL (7-20) Creatinine 0.8 mg/dL (0.6-1.0) 0.7 mg/dL (0.6-1.0) Estimated GFR (Cockcroft-Gault) 70.9 82.7 BUN/Creatinine Ratio 13 (6-20) Glucose Level 116 mg/dL (70-99) 109 mg/dL (70-99) Calcium Level 9.2 mg/dL (8.5-10.1) 9.2 mg/dL (8.5-10.1) Total Bilirubin 1.1 mg/dL (0.2-1.0) Aspartate Amino Transf (AST/SGOT) 16 U/L (15-37) Alanine Aminotransferase (ALT/SGPT) 21 U/L (14-59) Alkaline Phosphatase 80 U/L (46-116) JL-Fjf-W-Type Natriuretic Peptide 1281 pg/mL (0-124) Total Protein 8.2 g/dL (6.4-8.2) Albumin 3.6 g/dL (3.4-5.0) Albumin/Globulin Ratio 0.8 (1.0-1.7) VTE Prophylaxis Ordered VTE Prophylaxis Devices: Yes VTE Pharmacological Prophylaxi: Yes Assessment/Plan Assessment/Plan RML CAP HX afib on cardizem and eliquis CHF, CP Full code fall risk PLAn: PO augmentin and tessalon perle and pro air on chart COnt cardiac meds await cards rounds wants to go home RONALD JERRY MD Oct 03, 2019 12:04
--- NOTE | 2019-10-03 13:48 | PDOC2 ---
CONSULT Date of Consult Date of Consult DATE: 10/03/19 TIME: 13:48 Reason for Consult Reason for Consult: Atrial fibrillation Referring Physician Referring Physician: Dr. Marquez Identification/Chief Complaint Chief Complaint Shortness of breath Source Source: Chart review, Patient History of Present Illness Reason for Visit: 69-year-old female with history of atrial fibrillation presented with cough, shortness of breath and fatigue. She was diagnosed with pneumonia and admitted for further management. She was in atrial fibrillation and her BNP level was elevated prompting cardiology consultation. She is presently feeling better. She denied any chest pain, orthopnea/PND, palpitations or syncope. Past Medical History Cardiovascular: AFIB, HTN Past Surgical History Past Surgical History: No pertinent history Family History Family History: Hypertension Social History No ALCOHOL: none Drugs: None Lives: with Family Current Problem List Problem List Problems Medical Problems: (1) Atrial fibrillation Status: Acute (2) Congestive heart failure Status: Acute (3) Pneumonia Status: Acute Current Medications Current Medications Current Medications Albuterol/ Ipratropium (Duoneb) 3 ml 1X ONCE NEB Last administered on 10/02/19at 18:44; Start 10/02/19 at 18:30; Stop 10/02/19 at 18:31; Status DC Ceftriaxone Sodium (Rocephin) 1 gm 1X ONCE IVP Last administered on 10/02/19at 19:26; Start 10/02/19 at 19:00; Stop 10/02/19 at 19:01; Status DC Azithromycin (Zithromax) 500 mg 1X ONCE PO Last administered on 10/02/19at 19:26; Start 10/02/19 at 19:00; Stop 10/02/19 at 19:01; Status DC Benzonatate (Tessalon Perle) 100 mg [id number] PO Last administered on 10/03/19at 08:32; Start 10/02/19 at 21:00 Guaifenesin (Robitussin Dm) 10 ml PRN Q6HRS PRN PO COUGH; Start 10/02/19 at 19: 30 Calcium Carbonate/ Glycine (Tums) 500 mg PRN AFTMEALHC PRN PO INDIGESTION; Start 10/02/19 at 19:30 Temazepam (Restoril) 7.5 mg PRN QHS PRN PO INSOMNIA; Start 10/02/19 at 19:30 Apixaban (Eliquis) 5 mg BID PO Last administered on 10/03/19 08:33; Start 10/02/19 at 21:00 Non-Formulary Medication (Tramadol Hcl/ Acetaminophen (Tramadol-Acetaminophn 37.5-325)) 1 tab Q6H PO ; Start 10/02/19 at 19:30; Status UNV Diltiazem HCl (Cardizem 24hr Cd) 300 mg DAILY PO Last administered on 10/03/19at 08:33; Start 10/03/19 at 09:00 Albuterol Sulfate (Ventolin Neb Soln) 2.5 mg PRN Q4HRS PRN NEB SHORTNESS OF BREATH; Start 10/02/19 at 19:30 Ceftriaxone Sodium (Rocephin) 1 gm Q24H IVP ; Start 10/03/19 at 18:00 Azithromycin (Zithromax) 250 mg DAILY PO Last administered on 10/03/19at 08:33; Start 10/03/19 at 09:00 Azithromycin (Zithromax) 500 mg 1X ONCE PO ; Start 10/02/19 at 20:00; Stop 10/02/19 at 20:01; Status Cancel Throat Lozenges (Cepacol Sore Throat Lozenge) 1 criselda PRN Q2HRS PRN PO SORE THROAT; Start 10/02/19 at 19:30 Cetirizine HCl (ZyrTEC) 10 mg DAILY PO Last administered on 10/03/19at 08:33; Start 10/03/19 at 09:00 Famotidine (Pepcid) 20 mg BID PO Last administered on 10/03/19at 08:33; Start 10/02/19 at 21:00 Tramadol HCl (Ultram) 37.5 mg PRN Q6HRS PRN PO MODERATE PAIN; Start 10/02/19 at 19:30 Acetaminophen (Tylenol) 325 mg PRN Q6HRS PRN PO MILD PAIN 1-3; Start 10/02/19 at 19:30 Furosemide (Lasix) 40 mg 1X ONCE IVP Last administered on 10/02/19at 20:27; Start 10/02/19 at 20:00; Stop 10/02/19 at 20:26; Status DC Furosemide (Lasix) 20 mg 1X ONCE IVP ; Start 10/02/19 at 21:00; Stop 10/02/19 at 21:01; Status DC Albuterol/ Ipratropium (Duoneb) 3 ml RTQID NEB Last administered on 10/03/19at 11:45; Start 10/03/19 at 08:00; Stop 10/04/19 at 07:59 Furosemide (Lasix) 20 mg [id number] IVP Last administered on 10/03/19at 08:32; Start 10/03/19 at 09:00 Influenza Virus Vaccine Quadrival (Afluria Quad 2019-20 (3yr Up) Syringe) 0.5 ml ONCE ONCE VAX IM Last administered on 10/03/19at 11:25; Start 10/03/19 at 09:00; Stop 10/03/19 at 09:01; Status DC Info (Anti-Coagulation Monitoring By Pharmacy) 1 each PRN DAILY PRN MC SEE COMMENTS Last administered on 10/03/19at 09:26; Start 10/03/19 at 09:30 Lactobacillus Rhamnosus (Culturelle) 1 cap BID PO ; Start 10/03/19 at 21:00 Active Scripts Active Augmentin 500-125 Tablet (Amoxicillin/Potassium Clav) 1 Each Tablet 1 Tab PO BID 7 Days Benzonatate 100 Mg Capsule 100 Mg PO [id number] Proair Hfa (Albuterol Sulfate) 8.5 Gm Hfa.aer.ad 2.5 Mg NEB PRN Q4HRS PRN 30 Days [Diltiazem Hcl] 240 MG Cap.er.24h 300 Mg PO DAILY 30 Days Eliquis (Apixaban) 5 Mg Tablet 5 Mg PO BID MDD 5 30 Days Tramadol-Acetaminophn 37.5-325 (Tramadol Hcl/Acetaminophen) 1 Each Tablet 1 Tab PO Q6H Reported Digoxin 125 Mcg Tablet 125 Mcg PO DAILY Furosemide 20 Mg Tablet 1 Tab PO DAILY No Known Medications Prior To Admisstion (Info) Each 1 Each MC Allergies Allergies: Coded Allergies: No Known Drug Allergies (Unverified , 04/26/15) ROS PSYCHOLOGICAL ROS: No: Hallucinations Eyes: No Loss of vision HEENT: No: Epistaxis Respiratory: YES: Cough, Shortness of breath; No: Hemoptysis Cardiovascular: No Chest Pain Gastrointestinal: No Vomiting Genitourinary: No Hematuria Neurological: No Seizures Skin: No Rash Physical Exam General: Alert, Oriented X3 HEENT: Atraumatic Lungs: Other (scattered crepitations bilaterally) Heart: Other (heart rate irregular) Abdomen: Soft, No tenderness Extremities: No edema Psych/Mental Status: Mood NL Vitals VITALS Vital Signs Date Time Temp Pulse Resp B/P (MAP) Pulse Ox O2 Delivery O2 Flow Rate FiO2 10/03/19 11:46 96 Room Air 10/03/19 11:00 97.6 89 22 89/76 (80) 97.6 Labs Labs Laboratory Tests Test 10/02/19 17:43 10/02/19 18:30 10/02/19 19:00 10/03/19 03:30 White Blood Count 7.7 x10^3/uL (4.0-11.0) 8.3 x10^3/uL (4.0-11.0) Red Blood Count 5.07 x10^6/uL (3.50-5.40) 5.13 x10^6/uL (3.50-5.40) Hemoglobin 15.2 g/dL (12.0-15.5) 15.4 g/dL (12.0-15.5) Hematocrit 45.5 % (36.0-47.0) 46.2 % (36.0-47.0) Mean Corpuscular Volume 90 fL (79-100) 90 fL (79-100) Mean Corpuscular Hemoglobin 30 pg (25-35) 30 pg (25-35) Mean Corpuscular Hemoglobin Concent 33 g/dL (31-37) 33 g/dL (31-37) Red Cell Distribution Width 13.7 % (11.5-14.5) 13.6 % (11.5-14.5) Platelet Count 226 x10^3/uL (140-400) 223 x10^3/uL (140-400) Neutrophils (%) (Auto) 76 % (31-73) 81 % (31-73) Lymphocytes (%) (Auto) 13 % (24-48) 11 % (24-48) Monocytes (%) (Auto) 7 % (0-9) 7 % (0-9) Eosinophils (%) (Auto) 3 % (0-3) 1 % (0-3) Basophils (%) (Auto) 1 % (0-3) 1 % (0-3) Neutrophils # (Auto) 5.9 x10^3/uL (1.8-7.7) 6.7 x10^3/uL (1.8-7.7) Lymphocytes # (Auto) 1.0 x10^3/uL (1.0-4.8) 0.9 x10^3/uL (1.0-4.8) Monocytes # (Auto) 0.6 x10^3/uL (0.0-1.1) 0.6 x10^3/uL (0.0-1.1) Eosinophils # (Auto) 0.2 x10^3/uL (0.0-0.7) 0.1 x10^3/uL (0.0-0.7) Basophils # (Auto) 0.0 x10^3/uL (0.0-0.2) 0.1 x10^3/uL (0.0-0.2) Influenza Type A Antigen Negative (NEGATIVE) Influenza Type B Antigen Negative (NEGATIVE) Sodium Level 141 mmol/L (136-145) 142 mmol/L (136-145) Potassium Level 4.3 mmol/L (3.5-5.1) 3.9 mmol/L (3.5-5.1) Chloride Level 103 mmol/L (98-107) 103 mmol/L (98-107) Carbon Dioxide Level 32 mmol/L (21-32) 31 mmol/L (21-32) Anion Gap 6 (6-14) 8 (6-14) Blood Urea Nitrogen 10 mg/dL (7-20) 11 mg/dL (7-20) Creatinine 0.8 mg/dL (0.6-1.0) 0.7 mg/dL (0.6-1.0) Estimated GFR (Cockcroft-Gault) 70.9 82.7 BUN/Creatinine Ratio 13 (6-20) Glucose Level 116 mg/dL (70-99) 109 mg/dL (70-99) Calcium Level 9.2 mg/dL (8.5-10.1) 9.2 mg/dL (8.5-10.1) Total Bilirubin 1.1 mg/dL (0.2-1.0) Aspartate Amino Transf (AST/SGOT) 16 U/L (15-37) Alanine Aminotransferase (ALT/SGPT) 21 U/L (14-59) Alkaline Phosphatase 80 U/L (46-116) AX-Rgm-V-Type Natriuretic Peptide 1281 pg/mL (0-124) Total Protein 8.2 g/dL (6.4-8.2) Albumin 3.6 g/dL (3.4-5.0) Albumin/Globulin Ratio 0.8 (1.0-1.7) Laboratory Tests Test 10/02/19 17:43 10/02/19 18:30 10/02/19 19:00 10/03/19 03:30 White Blood Count 7.7 x10^3/uL (4.0-11.0) 8.3 x10^3/uL (4.0-11.0) Red Blood Count 5.07 x10^6/uL (3.50-5.40) 5.13 x10^6/uL (3.50-5.40) Hemoglobin 15.2 g/dL (12.0-15.5) 15.4 g/dL (12.0-15.5) Hematocrit 45.5 % (36.0-47.0) 46.2 % (36.0-47.0) Mean Corpuscular Volume 90 fL (79-100) 90 fL (79-100) Mean Corpuscular Hemoglobin 30 pg (25-35) 30 pg (25-35) Mean Corpuscular Hemoglobin Concent 33 g/dL (31-37) 33 g/dL (31-37) Red Cell Distribution Width 13.7 % (11.5-14.5) 13.6 % (11.5-14.5) Platelet Count 226 x10^3/uL (140-400) 223 x10^3/uL (140-400) Neutrophils (%) (Auto) 76 % (31-73) 81 % (31-73) Lymphocytes (%) (Auto) 13 % (24-48) 11 % (24-48) Monocytes (%) (Auto) 7 % (0-9) 7 % (0-9) Eosinophils (%) (Auto) 3 % (0-3) 1 % (0-3) Basophils (%) (Auto) 1 % (0-3) 1 % (0-3) Neutrophils # (Auto) 5.9 x10^3/uL (1.8-7.7) 6.7 x10^3/uL (1.8-7.7) Lymphocytes # (Auto) 1.0 x10^3/uL (1.0-4.8) 0.9 x10^3/uL (1.0-4.8) Monocytes # (Auto) 0.6 x10^3/uL (0.0-1.1) 0.6 x10^3/uL (0.0-1.1) Eosinophils # (Auto) 0.2 x10^3/uL (0.0-0.7) 0.1 x10^3/uL (0.0-0.7) Basophils # (Auto) 0.0 x10^3/uL (0.0-0.2) 0.1 x10^3/uL (0.0-0.2) Influenza Type A Antigen Negative (NEGATIVE) Influenza Type B Antigen Negative (NEGATIVE) Sodium Level 141 mmol/L (136-145) 142 mmol/L (136-145) Potassium Level 4.3 mmol/L (3.5-5.1) 3.9 mmol/L (3.5-5.1) Chloride Level 103 mmol/L (98-107) 103 mmol/L (98-107) Carbon Dioxide Level 32 mmol/L (21-32) 31 mmol/L (21-32) Anion Gap 6 (6-14) 8 (6-14) Blood Urea Nitrogen 10 mg/dL (7-20) 11 mg/dL (7-20) Creatinine 0.8 mg/dL (0.6-1.0) 0.7 mg/dL (0.6-1.0) Estimated GFR (Cockcroft-Gault) 70.9 82.7 BUN/Creatinine Ratio 13 (6-20) Glucose Level 116 mg/dL (70-99) 109 mg/dL (70-99) Calcium Level 9.2 mg/dL (8.5-10.1) 9.2 mg/dL (8.5-10.1) Total Bilirubin 1.1 mg/dL (0.2-1.0) Aspartate Amino Transf (AST/SGOT) 16 U/L (15-37) Alanine Aminotransferase (ALT/SGPT) 21 U/L (14-59) Alkaline Phosphatase 80 U/L (46-116) PV-Vvw-T-Type Natriuretic Peptide 1281 pg/mL (0-124) Total Protein 8.2 g/dL (6.4-8.2) Albumin 3.6 g/dL (3.4-5.0) Albumin/Globulin Ratio 0.8 (1.0-1.7) Assessment/Plan Assessment/Plan 1. Community-acquired pneumonia: Continue antibiotics per primary team 2. Persistent atrial fibrillation: Heart rate slightly elevated probably secondary to pneumonia. Resume home medication digoxin for better control. 2-D echo in August 2019 showed LVEF 60-65%. Continue eliquis for stroke prophylaxis. 3. Elevated BNP level probably secondary to pneumonia. Chest x-ray and physical exam not consistent with congestive heart failure. Okay for discharge from cardiac standpoint. Follow-up with our office as previously scheduled. Thank you for your consultation. SERVANDO TABOR MD Oct 03, 2019 13:48
--- NOTE | 2019-10-03 15:30 | NUR ---
Discharge Note: KAVITA,SAO2 [place] Discharge instructions and discharge home medications reviewed family member and translated to patient and a copy given. All questions have been answered and understanding verbalized. Prescriptions for augmentin, tessalon perle, and albuterol given to patient. The following instructions and handouts were given: Pneumonia Discontinued lines and drains: Peripheral IV intact. Patient discharged to Home with self care with Family Member via Wheelchair
[2019-10-03] MEDS ORDERED: cefTRIAXone IV Push 1 GM VIAL. IVP SCH (18:00)
[2019-10-03] MEDS ORDERED: LACTOBACILLUS RHAMNOSUS GG 1 CAPSULE. PO SCH (21:00)
--- NOTE | 2019-10-04 15:12 | EKG ---
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
== END 2019-10-03 15:30 | disposition home or self-care (01) | DRG 194 ==
LOC: ER 16:57 → 2 NORTH 19:58
PROVIDERS: ADMIT Internal Medicine; ATTEND Internal Medicine
DX: J18.9 Pneumonia, unspecified organism (principal); I48.19 Other persistent atrial fibrillation; I10 Essential (primary) hypertension; Z91.81 History of falling; Z82.49 Family history of ischemic heart disease and other diseases of the circulatory system
CPT/HCPCS: 36415; 71046; 80048; 80053; 83880; 85025; 87804; 90471; 90686; 93005; 94640; J0696; J1940; J7620; Q0144; G0378

== ENCOUNTER 2021-01-05 21:12 | Inpatient (IN) | payer MEDICAID ==
[~2021-01-05] VITALS: Ht 152.4 cm; Wt 101.4 kg
[~2021-01-05 21:12] MED LIST changes: +ALBU2.5V8 NEB; +AMOX1TAB58 PO; +BENZ-8 PO; +DIGO125T3 PO; +FURO20TA3 PO
[2021-01-05] MEDS ORDERED: dilTIAZem IV PUSH 25 MG/5 ML VIAL IVP ONE (22:00)
[2021-01-05 22:03] LABS: BASO % 0 % (0-3); EOS % 0 % (0-3); HEMATOCRIT 53.2 % (36.0-47.0); HEMOGLOBIN 17.2 g/dL (12.0-15.5); LYMPH # 0.4 x10^3/uL (1.0-4.8); LYMPH % 6 % (24-48); MEAN CORPUSCULAR HEMOGLOBIN 30 pg (25-35); MEAN CORPUSCULAR HGB CONC 32 g/dL (31-37); MEAN CORPUSCULAR VOLUME 91 fL (79-100); MONO # 0.3 x10^3/uL (0.0-1.1); MONO % 4 % (0-9); NEUT # 6.7 x10^3/uL (1.8-7.7); NEUT % 90 % (31-73); PLATELET COUNT 119 x10^3/uL (140-400); RED BLOOD COUNT 5.83 x10^6/uL (3.50-5.40); RED CELL DISTRIBUTION WIDTH 14.7 % (11.5-14.5); WHITE BLOOD COUNT 7.4 x10^3/uL (4.0-11.0)
--- NOTE | 2021-01-05 22:06 | ED.ADGEN ---
Past Medical History Past Medical History: A-Fib, Hypertension Past Surgical History: No Surgical History Smoking Status: Never Smoker Alcohol Use: None Drug Use: None General Adult EDM: Chief Complaint: SHORTNESS OF BREATH HPI: HPI: Patient is a 70 year old female brought back emergently for elevated heart rate and O2 sats. Was 60% on room air. Patient did smoke screening and history provided by translating system patient has been feeling worse more short of breath since this morning. Had a fever and a cough. Does not use home oxygen. Per patient's [id number] patient has been worsening over the past few days with cough, fevers, shortness of breath. Has had multiple members of their family tested positive for Covid. Patient has a history of CHF, A. fib, hypertension. Patient's daughter states she has been compliant on her medications as far she knows but has had decreased p.o. intake recently. Review of Systems: Review of Systems: All other systems within normal limits except for as noted in the HPI Current Medications: Current Medications Medications (Trade) Dose Ordered Sig/Amaury Start Time Stop Time Status Last Admin Dose Admin Dexamethasone Sodium Phosphate (Decadron) 10 mg 1X ONCE 01/05/21 22:30 01/05/21 22:31 DC 01/05/21 21:58 10 MG Diltiazem HCl (Cardizem Iv Push) 20 mg 1X ONCE 01/05/21 22:00 01/05/21 22:01 DC 01/05/21 21:55 20 MG Diltiazem HCl 125 mg/Sodium Chloride 125 ml @ 5 mls/hr 1X ONCE 01/05/21 22:30 01/06/21 23:29 01/05/21 22:24 5 MLS/HR Allergies: Allergies: Allergies Coded Allergies Type Severity Reaction Last Updated Verified No Known Drug Allergies 04/26/15 No Physical Exam: PE: Constitutional: Well developed, well nourished, acute distress, ill-appearing [] HENT: Normocephalic, atraumatic, bilateral external ears normal, nose normal. [] Eyes: PERRLA, conjunctiva normal, no discharge. [] Neck: No rigidity, supple, no stridor. [] Cardiovascular: Tachycardic with a regular rhythm, brisk cap refill [] Lungs & Thorax: Tachypneic in the 40s to 50s breaths per minute [] Abdomen: Soft, nondistended. Skin: Warm, dry, no erythema, no rash. [] Back: Unremarkable Extremities: No deformities, range of motion grossly intact, no lower extremity edema [] Neurologic: Alert and oriented X 3, no focal deficits noted. [] Psychologic: Affect normal, judgement normal, mood normal. [] Current Patient Data: Labs: Laboratory Tests Test 01/05/21 15:33 01/05/21 21:44 01/05/21 21:52 Urine Collection Type Unknown Urine Color Yellow Urine Clarity Clear Urine pH 5.5 (<5.0-8.0) Urine Specific [place] 1.010 (1.000-1.030) Urine Protein Negative mg/dL (NEG-TRACE) Urine Glucose (UA) Negative mg/dL (NEG) Urine Ketones (Stick) Negative mg/dL (NEG) Urine Blood Negative (NEG) Urine Nitrite Negative (NEG) Urine Bilirubin Negative (NEG) Urine Urobilinogen Dipstick 0.2 mg/dL (0.2 mg/dL) Urine Leukocyte Esterase Negative (NEG) Urine RBC Rare /HPF (0-2) Urine WBC Rare /HPF (0-4) Urine Squamous Epithelial Cells Few /LPF Urine Amorphous Sediment Present /HPF Urine Bacteria 0 /HPF (0-FEW) Urine Hyaline Casts Few /HPF Urine Mucus Slight /LPF O2 Saturation 85 % (92-99) L Arterial Blood pH 7.32 (7.35-7.45) L Arterial Blood pCO2 at Patient Temp 47 mmHg (35-46) H Arterial Blood pO2 at Patient Temp 51 mmHg (65-108) L Arterial Blood HCO3 24 mmol/L (21-28) FiO2 100 White Blood Count 7.4 x10^3/uL (4.0-11.0) Red Blood Count 5.83 x10^6/uL (3.50-5.40) H Hemoglobin 17.2 g/dL (12.0-15.5) H Hematocrit 53.2 % (36.0-47.0) H Mean Corpuscular Volume 91 fL (79-100) Mean Corpuscular Hemoglobin 30 pg (25-35) Mean Corpuscular Hemoglobin Concent 32 g/dL (31-37) Red Cell Distribution Width 14.7 % (11.5-14.5) H Platelet Count 119 x10^3/uL (140-400) L Neutrophils (%) (Auto) 90 % (31-73) H Lymphocytes (%) (Auto) 6 % (24-48) L Monocytes (%) (Auto) 4 % (0-9) Eosinophils (%) (Auto) 0 % (0-3) Basophils (%) (Auto) 0 % (0-3) Neutrophils # (Auto) 6.7 x10^3/uL (1.8-7.7) Lymphocytes # (Auto) 0.4 x10^3/uL (1.0-4.8) L Monocytes # (Auto) 0.3 x10^3/uL (0.0-1.1) Eosinophils # (Auto) 0.0 x10^3/uL (0.0-0.7) Basophils # (Auto) 0.0 x10^3/uL (0.0-0.2) Segmented Neutrophils % 81 % (35-66) H Band Neutrophils % 10 % (0-9) H Lymphocytes % 4 % (24-48) L Monocytes % 5 % (0-10) Platelet Estimate Decreased (ADEQUATE) D-Dimer (Giselle) 1.21 ug/mlFEU (0.00-0.50) H Sodium Level 139 mmol/L (136-145) Potassium Level 5.0 mmol/L (3.5-5.1) Chloride Level 96 mmol/L (98-107) L Carbon Dioxide Level 31 mmol/L (21-32) Anion Gap 12 (6-14) Blood Urea Nitrogen 25 mg/dL (7-20) H Creatinine 1.7 mg/dL (0.6-1.0) H Estimated GFR (Cockcroft-Gault) 29.6 BUN/Creatinine Ratio 15 (6-20) Glucose Level 182 mg/dL (70-99) H Lactic Acid Level 5.3 mmol/L (0.4-2.0) *H Calcium Level 8.5 mg/dL (8.5-10.1) Magnesium Level 2.0 mg/dL (1.8-2.4) Total Bilirubin 1.9 mg/dL (0.2-1.0) H Aspartate Amino Transferase (AST) 38 U/L (15-37) H Alanine Aminotransferase (ALT) 29 U/L (14-59) Alkaline Phosphatase 87 U/L (46-116) Troponin I Quantitative 0.031 ng/mL (0.000-0.055) MX-Amq-R-Type Natriuretic Peptide 4647 pg/mL (0-124) H Total Protein 7.4 g/dL (6.4-8.2) Albumin 3.2 g/dL (3.4-5.0) L Albumin/Globulin Ratio 0.8 (1.0-1.7) L Laboratory Tests 01/05/21 21:52 Laboratory Tests 01/05/21 21:52 Vital Signs: Vital Signs Date Time Temp Pulse Resp B/P (MAP) Pulse Ox O2 Delivery O2 Flow Rate FiO2 01/05/21 22:40 122 138/67 (90) 85 BiPAP/CPAP 01/05/21 21:17 99.8 44 99.8 EKG: EKG: Regular regular rhythm, heart rate 119 bpm, lateral ST depression [] Heart Score: C/O Chest Pain: N/A Risk Factors: Risk Factors: DM, Current or recent (<one month) smoker, HTN, HLP, family history of CAD, obesity. Risk Scores: Score 0 - 3: 2.5% MACE over next 6 weeks - Discharge Home Score 4 - 6: 20.3% MACE over next 6 weeks - Admit for Clinical Observation Score 7 - 10: 72.7% MACE over next 6 weeks - Early Invasive Strategies Radiology/Procedures: Radiology/Procedures: XR CHEST 1V 01/05/2021 10:23 PM INDICATION: Hypoxic COMPARISON: 10/02/2019 TECHNIQUE: Portable frontal view of the chest is provided. FINDINGS: The cardiomediastinal silhouette is similar in appearance. Improved aeration of the right upper lobe. Mild perihilar interstitial airspace disease noted. No significant pleural effusions or pneumothorax. No suspicious osseous abnormality. IMPRESSION: Cardiomegaly with perihilar interstitial changes as may be seen with congestive heart failure. Interstitial pneumonitis may have similar appearance. Short-term follow-up radiographic assessment could be of benefit. [] Course & Med Decision Making: Course & Med Decision Making Pertinent Labs and Imaging studies reviewed. (See chart for details) Patient tolerating BiPAP well and oxygen titration proving. Placed on diltiazem drip maintaining heart rate below 120 with a steady blood pressure. Transfer to the ICU. Gentle hydration due to history of CHF. Given dexamethasone and swab for COVID-19. Transfer to the ICU under Dr. Haro's care [] Total critical care time: 75 min The time involved in the performance of separately reportable/billable procedures was not counted toward critical care time. Due to a high probability of clinically significant, life-threatening deterioration the patient required a high level of care to intervene emergently and I personally spent this critical time directly and personally managing the p atient. The critical care time included obtaining a history, examination of the patient, assessment of vital signs, ordering and review of studies, arranging urgent treatment with development of a management plan, evaluation of patient's response to treatment, frequent reassessment, and discussions with other providers and/or family members. Patient's oxygen saturation dropping when she is asleep to lower 80s. Discussed intubation with patient, patient does not want to and she is fearful when patient woke up on talking to her oxygen saturation went to 90 to 91%. History of sleep apnea. Asked patient to take some deep breaths and we will hold off on intubation until absolutely necessary since patient tolerating BiPAP without any air leak Dragon Disclaimer: Dragjudi Disclaimer: This electronic medical record was generated, in whole or in part, using a voice recognition dictation system. Departure Departure Impression: Primary Impression: Atrial fibrillation with RVR Additional Impressions: Person under investigation for COVID-19 Respiratory failure with hypoxia Disposition: 09 ADMITTED INPT THIS HOSP Admitting Physician: RAJESH Condition: CRITICAL Referrals: Jacob PINA MD (PCP) Problem Qualifiers LEAH TENA MD Jan 05, 2021 22:06
[2021-01-05 22:13] LABS: CALCIUM 8.5 mg/dL (8.5-10.1); CREATININE 1.7 mg/dL (0.6-1.0); GFR 29.6
[2021-01-05 22:19] LABS: ALBUMIN 3.2 g/dL (3.4-5.0); ALBUMIN/GLOBULIN RATIO 0.8 (1.0-1.7); TOTAL BILIRUBIN 1.9 mg/dL (0.2-1.0); TOTAL PROTEIN 7.4 g/dL (6.4-8.2)
[2021-01-05 22:23] LABS: % BANDS 10 % (0-9); % LYMPHS 4 % (24-48); % MONOS 5 % (0-10); % SEGS 81 % (35-66); PLT ESTIMATE DECREASED (ADEQUATE)
--- NOTE | 2021-01-05 22:27 | RAD ---
XR CHEST 1V 01/05/2021 10:23 PM INDICATION: Hypoxic COMPARISON: 10/02/2019 TECHNIQUE: Portable frontal view of the chest is provided. FINDINGS: The cardiomediastinal silhouette is similar in appearance. Improved aeration of the right upper lobe. Mild perihilar interstitial airspace disease noted. No significant pleural effusions or pneumothorax. No suspicious osseous abnormality. IMPRESSION: Cardiomegaly with perihilar interstitial changes as may be seen with congestive heart failure. Inters titial pneumonitis may have similar appearance. Short-term follow-up radiographic assessment could be of benefit. Electronically signed by: Neeta Rosales MD (01/05/2021 10:25 PM) [facility]
[2021-01-05] MEDS ORDERED: DEXAMETHASONE SOD PHOS 20 MG/5 ML VIAL. IV ONE (22:30)
[2021-01-05] MEDS ORDERED: IPRATRPIUM/ALBUTEROL 0.5/2.5MG 3 ML NEBU. NEB ONE (23:00)
[2021-01-05] MEDS ORDERED: IV NORMAL SALINE 500ML BAG 500 ML IV ONE (23:00)
--- NOTE | 2021-01-05 23:09 | EKG ---
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
[2021-01-05] MEDS ORDERED: ACETAMINOPHEN 325 MG TABLET. PO PRN (23:30)
[2021-01-05] MEDS ORDERED: ONDANSETRON PF 4 MG/2 ML VIAL. IV PRN (23:30)
[2021-01-05] MEDS: IV NORMAL SALINE 1000ML BAG 1,000 ML IV SCH (23:58)
[2021-01-06] VITALS (33 sets, daily range): BP systolic 84–123; BP diastolic 57–87
[2021-01-06] MEDS ORDERED: ATROPINE 0.5 MG/5 ML DISP.SYRINGE. IV PRN (00:30)
[2021-01-06] MEDS ORDERED: DEXMEDETOMIDINE 400 MCG in IV NORMAL SALINE 100ML 96 ML IV PRN (00:30)
[2021-01-06] MEDS ORDERED: MIDAZOLAM HCL/PF 5 MG/5 ML VIAL. NS ONE (00:30)
[2021-01-06] MEDS ORDERED: fentaNYL PF VIAL 100 MCG/2 ML VIAL IV PRN (00:30)
[2021-01-06] MEDS ORDERED: SUCCINYLCHOLINE 200 MG/10 ML VIAL. IV ONE (00:30)
[2021-01-06] MEDS ORDERED: IV NORMAL SALINE 500ML BAG 500 ML IV PRN (00:30)
[2021-01-06] MEDS ORDERED: ETOMIDATE 20 MG/10 ML VIAL. IV ONE (00:30)
[2021-01-06 01:53] LABS: HCO3 ABG 24 mmol/L (21-28); PCO2 ABG 47 mmHg (35-46); PO2 ABG 51 mmHg (65-108)
[2021-01-06 01:54] LABS: FIO2 ABG 100; SAT O2 ABG 85 % (92-99)
[2021-01-06 01:59] LABS: FIO2 ABG 100; HCO3 ABG 24 mmol/L (21-28); PCO2 ABG 51 mmHg (35-46); PO2 ABG 50 mmHg (65-108); SAT O2 ABG 83 % (92-99)
--- NOTE | 2021-01-06 04:26 | EKG ---
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
[2021-01-06 04:36] LABS: BASE EXCESS ABG 0 mmol/L (-3-3); HCO3 ABG 28 mmol/L (21-28); PCO2 ABG 56 mmHg (35-46); PO2 ABG 57 mmHg (65-108); SAT O2 ABG 88 % (92-99)
[2021-01-06 04:56] LABS: BASO % 0 % (0-3); EOS % 0 % (0-3); HEMATOCRIT 51.1 % (36.0-47.0); HEMOGLOBIN 16.5 g/dL (12.0-15.5); LYMPH # 0.3 x10^3/uL (1.0-4.8); LYMPH % 5 % (24-48); MEAN CORPUSCULAR HEMOGLOBIN 30 pg (25-35); MEAN CORPUSCULAR HGB CONC 32 g/dL (31-37); MEAN CORPUSCULAR VOLUME 92 fL (79-100); MONO # 0.2 x10^3/uL (0.0-1.1); MONO % 3 % (0-9); NEUT # 5.9 x10^3/uL (1.8-7.7); NEUT % 93 % (31-73); PLATELET COUNT 115 x10^3/uL (140-400); RED BLOOD COUNT 5.57 x10^6/uL (3.50-5.40); WHITE BLOOD COUNT 6.3 x10^3/uL (4.0-11.0)
[2021-01-06 05:15] LABS: ALBUMIN 2.8 g/dL (3.4-5.0); ALBUMIN/GLOBULIN RATIO 0.7 (1.0-1.7); CALCIUM 7.7 mg/dL (8.5-10.1); CREATININE 1.5 mg/dL (0.6-1.0); GFR 34.2; POTASSIUM 4.9 mmol/L (3.5-5.1); TOTAL BILIRUBIN 1.7 mg/dL (0.2-1.0); TOTAL PROTEIN 6.8 g/dL (6.4-8.2)
[2021-01-06 06:48] LABS: FIO2 ABG 100
[2021-01-06 07:47] LABS: BASE EXCESS ABG -1 mmol/L (-3-3); HCO3 ABG 26 mmol/L (21-28); PCO2 ABG 50 mmHg (35-46); PO2 ABG 57 mmHg (65-108); SAT O2 ABG 89 % (92-99)
[2021-01-06] MEDS: IPRATRPIUM/ALBUTEROL 0.5/2.5MG 3 ML NEBU. NEB SCH ×4 (08:00→20:00)
[2021-01-06 08:15] LABS: FIO2 ABG 100
--- NOTE | 2021-01-06 09:42 | PDOC ---
PULMONARY PROGRESS NOTES DATE: 01/06/21 TIME: 09:42 Vitals Vital Signs Date Time Temp Pulse Resp B/P (MAP) Pulse Ox O2 Delivery O2 Flow Rate FiO2 01/06/21 09:00 88 26 116/80 (92) 93 BiPAP/CPAP 01/06/21 08:00 98.0 98.0 General: Alert Lungs: Crackles, Other Cardiovascular: S1, S2 Abdomen: Soft, Other Extremities: Other Labs Laboratory Tests Test 01/05/21 21:44 01/05/21 21:52 01/06/21 00:03 01/06/21 00:55 O2 Saturation 85 % (92-99) 83 % (92-99) Arterial Blood pH 7.32 (7.35-7.45) 7.28 (7.35-7.45) Arterial Blood pCO2 at Patient Temp 47 mmHg (35-46) 51 mmHg (35-46) Arterial Blood pO2 at Patient Temp 51 mmHg (65-108) 50 mmHg (65-108) Arterial Blood HCO3 24 mmol/L (21-28) 24 mmol/L (21-28) FiO2 100 100 White Blood Count 7.4 x10^3/uL (4.0-11.0) Red Blood Count 5.83 x10^6/uL (3.50-5.40) Hemoglobin 17.2 g/dL (12.0-15.5) Hematocrit 53.2 % (36.0-47.0) Mean Corpuscular Volume 91 fL (79-100) Mean Corpuscular Hemoglobin 30 pg (25-35) Mean Corpuscular Hemoglobin Concent 32 g/dL (31-37) Red Cell Distribution Width 14.7 % (11.5-14.5) Platelet Count 119 x10^3/uL (140-400) Neutrophils (%) (Auto) 90 % (31-73) Lymphocytes (%) (Auto) 6 % (24-48) Monocytes (%) (Auto) 4 % (0-9) Eosinophils (%) (Auto) 0 % (0-3) Basophils (%) (Auto) 0 % (0-3) Neutrophils # (Auto) 6.7 x10^3/uL (1.8-7.7) Lymphocytes # (Auto) 0.4 x10^3/uL (1.0-4.8) Monocytes # (Auto) 0.3 x10^3/uL (0.0-1.1) Eosinophils # (Auto) 0.0 x10^3/uL (0.0-0.7) Basophils # (Auto) 0.0 x10^3/uL (0.0-0.2) Segmented Neutrophils % 81 % (35-66) Band Neutrophils % 10 % (0-9) Lymphocytes % 4 % (24-48) Monocytes % 5 % (0-10) Platelet Estimate Decreased (ADEQUATE) D-Dimer (Giselle) 1.21 ug/mlFEU (0.00-0.50) Sodium Level 139 mmol/L (136-145) Potassium Level 5.0 mmol/L (3.5-5.1) Chloride Level 96 mmol/L (98-107) Carbon Dioxide Level 31 mmol/L (21-32) Anion Gap 12 (6-14) Blood Urea Nitrogen 25 mg/dL (7-20) Creatinine 1.7 mg/dL (0.6-1.0) Estimated GFR (Cockcroft-Gault) 29.6 BUN/Creatinine Ratio 15 (6-20) Glucose Level 182 mg/dL (70-99) Lactic Acid Level 5.3 mmol/L (0.4-2.0) 2.4 mmol/L (0.4-2.0) Calcium Level 8.5 mg/dL (8.5-10.1) Magnesium Level 2.0 mg/dL (1.8-2.4) Total Bilirubin 1.9 mg/dL (0.2-1.0) Aspartate Amino Transf (AST/SGOT) 38 U/L (15-37) Alanine Aminotransferase (ALT/SGPT) 29 U/L (14-59) Alkaline Phosphatase 87 U/L (46-116) Troponin I Quantitative 0.031 ng/mL (0.000-0.055) RN-Pij-W-Type Natriuretic Peptide 4647 pg/mL (0-124) Total Protein 7.4 g/dL (6.4-8.2) Albumin 3.2 g/dL (3.4-5.0) Albumin/Globulin Ratio 0.8 (1.0-1.7) Test 01/06/21 03:00 01/06/21 04:00 01/06/21 07:43 O2 Saturation 88 % (92-99) 89 % (92-99) Arterial Blood pH 7.32 (7.35-7.45) 7.34 (7.35-7.45) Arterial Blood pCO2 at Patient Temp 56 mmHg (35-46) 50 mmHg (35-46) Arterial Blood pO2 at Patient Temp 57 mmHg (65-108) 57 mmHg (65-108) Arterial Blood HCO3 28 mmol/L (21-28) 26 mmol/L (21-28) Arterial Blood Base Excess 0 mmol/L (-3-3) -1 mmol/L (-3-3) FiO2 100 100 White Blood Count 6.3 x10^3/uL (4.0-11.0) Red Blood Count 5.57 x10^6/uL (3.50-5.40) Hemoglobin 16.5 g/dL (12.0-15.5) Hematocrit 51.1 % (36.0-47.0) Mean Corpuscular Volume 92 fL (79-100) Mean Corpuscular Hemoglobin 30 pg (25-35) Mean Corpuscular Hemoglobin Concent 32 g/dL (31-37) Red Cell Distribution Width 15.0 % (11.5-14.5) Platelet Count 115 x10^3/uL (140-400) Neutrophils (%) (Auto) 93 % (31-73) Lymphocytes (%) (Auto) 5 % (24-48) Monocytes (%) (Auto) 3 % (0-9) Eosinophils (%) (Auto) 0 % (0-3) Basophils (%) (Auto) 0 % (0-3) Neutrophils # (Auto) 5.9 x10^3/uL (1.8-7.7) Lymphocytes # (Auto) 0.3 x10^3/uL (1.0-4.8) Monocytes # (Auto) 0.2 x10^3/uL (0.0-1.1) Eosinophils # (Auto) 0.0 x10^3/uL (0.0-0.7) Basophils # (Auto) 0.0 x10^3/uL (0.0-0.2) Sodium Level 139 mmol/L (136-145) Potassium Level 4.9 mmol/L (3.5-5.1) Chloride Level 99 mmol/L (98-107) Carbon Dioxide Level 26 mmol/L (21-32) Anion Gap 14 (6-14) Blood Urea Nitrogen 32 mg/dL (7-20) Creatinine 1.5 mg/dL (0.6-1.0) Estimated GFR (Cockcroft-Gault) 34.2 BUN/Creatinine Ratio 21 (6-20) Glucose Level 179 mg/dL (70-99) Calcium Level 7.7 mg/dL (8.5-10.1) Total Bilirubin 1.7 mg/dL (0.2-1.0) Aspartate Amino Transf (AST/SGOT) 39 U/L (15-37) Alanine Aminotransferase (ALT/SGPT) 28 U/L (14-59) Alkaline Phosphatase 72 U/L (46-116) Troponin I Quantitative 0.073 ng/mL (0.000-0.055) Total Protein 6.8 g/dL (6.4-8.2) Albumin 2.8 g/dL (3.4-5.0) Albumin/Globulin Ratio 0.7 (1.0-1.7) Laboratory Tests Test 01/05/21 21:44 01/05/21 21:52 01/06/21 00:03 01/06/21 00:55 O2 Saturation 85 % (92-99) 83 % (92-99) Arterial Blood pH 7.32 (7.35-7.45) 7.28 (7.35-7.45) Arterial Blood pCO2 at Patient Temp 47 mmHg (35-46) 51 mmHg (35-46) Arterial Blood pO2 at Patient Temp 51 mmHg (65-108) 50 mmHg (65-108) Arterial Blood HCO3 24 mmol/L (21-28) 24 mmol/L (21-28) FiO2 100 100 White Blood Count 7.4 x10^3/uL (4.0-11.0) Red Blood Count 5.83 x10^6/uL (3.50-5.40) Hemoglobin 17.2 g/dL (12.0-15.5) Hematocrit 53.2 % (36.0-47.0) Mean Corpuscular Volume 91 fL (79-100) Mean Corpuscular Hemoglobin 30 pg (25-35) Mean Corpuscular Hemoglobin Concent 32 g/dL (31-37) Red Cell Distribution Width 14.7 % (11.5-14.5) Platelet Count 119 x10^3/uL (140-400) Neutrophils (%) (Auto) 90 % (31-73) Lymphocytes (%) (Auto) 6 % (24-48) Monocytes (%) (Auto) 4 % (0-9) Eosinophils (%) (Auto) 0 % (0-3) Basophils (%) (Auto) 0 % (0-3) Neutrophils # (Auto) 6.7 x10^3/uL (1.8-7.7) Lymphocytes # (Auto) 0.4 x10^3/uL (1.0-4.8) Monocytes # (Auto) 0.3 x10^3/uL (0.0-1.1) Eosinophils # (Auto) 0.0 x10^3/uL (0.0-0.7) Basophils # (Auto) 0.0 x10^3/uL (0.0-0.2) Segmented Neutrophils % 81 % (35-66) Band Neutrophils % 10 % (0-9) Lymphocytes % 4 % (24-48) Monocytes % 5 % (0-10) Platelet Estimate Decreased (ADEQUATE) D-Dimer (Giselle) 1.21 ug/mlFEU (0.00-0.50) Sodium Level 139 mmol/L (136-145) Potassium Level 5.0 mmol/L (3.5-5.1) Chloride Level 96 mmol/L (98-107) Carbon Dioxide Level 31 mmol/L (21-32) Anion Gap 12 (6-14) Blood Urea Nitrogen 25 mg/dL (7-20) Creatinine 1.7 mg/dL (0.6-1.0) Estimated GFR (Cockcroft-Gault) 29.6 BUN/Creatinine Ratio 15 (6-20) Glucose Level 182 mg/dL (70-99) Lactic Acid Level 5.3 mmol/L (0.4-2.0) 2.4 mmol/L (0.4-2.0) Calcium Level 8.5 mg/dL (8.5-10.1) Magnesium Level 2.0 mg/dL (1.8-2.4) Total Bilirubin 1.9 mg/dL (0.2-1.0) Aspartate Amino Transf (AST/SGOT) 38 U/L (15-37) Alanine Aminotransferase (ALT/SGPT) 29 U/L (14-59) Alkaline Phosphatase 87 U/L (46-116) Troponin I Quantitative 0.031 ng/mL (0.000-0.055) LK-Zhu-M-Type Natriuretic Peptide 4647 pg/mL (0-124) Total Protein 7.4 g/dL (6.4-8.2) Albumin 3.2 g/dL (3.4-5.0) Albumin/Globulin Ratio 0.8 (1.0-1.7) Test 01/06/21 03:00 01/06/21 04:00 01/06/21 07:43 O2 Saturation 88 % (92-99) 89 % (92-99) Arterial Blood pH 7.32 (7.35-7.45) 7.34 (7.35-7.45) Arterial Blood pCO2 at Patient Temp 56 mmHg (35-46) 50 mmHg (35-46) Arterial Blood pO2 at Patient Temp 57 mmHg (65-108) 57 mmHg (65-108) Arterial Blood HCO3 28 mmol/L (21-28) 26 mmol/L (21-28) Arterial Blood Base Excess 0 mmol/L (-3-3) -1 mmol/L (-3-3) FiO2 100 100 White Blood Count 6.3 x10^3/uL (4.0-11.0) Red Blood Count 5.57 x10^6/uL (3.50-5.40) Hemoglobin 16.5 g/dL (12.0-15.5) Hematocrit 51.1 % (36.0-47.0) Mean Corpuscular Volume 92 fL (79-100) Mean Corpuscular Hemoglobin 30 pg (25-35) Mean Corpuscular Hemoglobin Concent 32 g/dL (31-37) Red Cell Distribution Width 15.0 % (11.5-14.5) Platelet Count 115 x10^3/uL (140-400) Neutrophils (%) (Auto) 93 % (31-73) Lymphocytes (%) (Auto) 5 % (24-48) Monocytes (%) (Auto) 3 % (0-9) Eosinophils (%) (Auto) 0 % (0-3) Basophils (%) (Auto) 0 % (0-3) Neutrophils # (Auto) 5.9 x10^3/uL (1.8-7.7) Lymphocytes # (Auto) 0.3 x10^3/uL (1.0-4.8) Monocytes # (Auto) 0.2 x10^3/uL (0.0-1.1) Eosinophils # (Auto) 0.0 x10^3/uL (0.0-0.7) Basophils # (Auto) 0.0 x10^3/uL (0.0-0.2) Sodium Level 139 mmol/L (136-145) Potassium Level 4.9 mmol/L (3.5-5.1) Chloride Level 99 mmol/L (98-107) Carbon Dioxide Level 26 mmol/L (21-32) Anion Gap 14 (6-14) Blood Urea Nitrogen 32 mg/dL (7-20) Creatinine 1.5 mg/dL (0.6-1.0) Estimated GFR (Cockcroft-Gault) 34.2 BUN/Creatinine Ratio 21 (6-20) Glucose Level 179 mg/dL (70-99) Calcium Level 7.7 mg/dL (8.5-10.1) Total Bilirubin 1.7 mg/dL (0.2-1.0) Aspartate Amino Transf (AST/SGOT) 39 U/L (15-37) Alanine Aminotransferase (ALT/SGPT) 28 U/L (14-59) Alkaline Phosphatase 72 U/L (46-116) Troponin I Quantitative 0.073 ng/mL (0.000-0.055) Total Protein 6.8 g/dL (6.4-8.2) Albumin 2.8 g/dL (3.4-5.0) Albumin/Globulin Ratio 0.7 (1.0-1.7) Medications Active Scripts Medications Dose Route/Sig Max Daily Dose Days Date Category Augmentin 500-125 Tablet (Amoxicillin/Potassium Clav) 1 Each Tablet 1 Tab PO BID 7 10/03/19 Rx Benzonatate 100 Mg Capsule 100 Mg PO [id number] 10/03/19 Rx Proair Hfa (Albuterol Sulfate) 8.5 Gm Hfa.aer.ad 2.5 Mg NEB PRN Q4HRS PRN 30 10/03/19 Rx Digoxin 125 Mcg Tablet 125 Mcg PO DAILY 10/02/19 Reported Furosemide 20 Mg Tablet 1 Tab PO DAILY 10/02/19 Reported [Diltiazem Hcl] 240 MG Cap.er.24h 300 Mg PO DAILY 30 10/03/18 Rx Eliquis (Apixaban) 5 Mg Tablet 5 Mg PO BID MDD 5 30 10/03/18 Rx Tramadol-Acetaminophn 37.5-325 (Tramadol Hcl/Acetaminophen) 1 Each Tablet 1 Tab PO Q6H 07/14/16 Rx No Known Medications Prior To Admisstion (Info) Each 1 Each 04/26/15 Reported Impression . Full note dictated Acute hypoxemic respiratory failure suspect CHF Difficult to rule out COVID-19, await SARS Covid 2 next empiric antibiotics for possible bacterial pneumonia BINDU GRIJALVA MD Jan 06, 2021 09:42
--- NOTE | 2021-01-06 11:58 | PDOC1 ---
History and Physical Date of Service: DOS: DATE: 01/06/21 TIME: 11:55 Chief Complaint: Problems: (1) Pyelonephritis (2) Elbow sprain (3) Shoulder pain (4) CAP (community acquired pneumonia) (5) Atrial fibrillation with RVR (6) Respiratory failure with hypoxia (7) Person under investigation for COVID-19 Chief Complain: Shortness of breath History of Present Illness: HPI: This is an elderly collaboration lady who presents with shortness of breath when she got to the ER she was 60% sat on room air She has been exposed to several family members who have had COVID-19 She had a fever and a cough as well I discussed the case with ER physician patient is be admitted to the ICU We plan to rule out COVID-19 and treat her with IV antibiotics breathing treatments oxygen etc. Past Medical/Surgical History: PMH/PSH: Carmen whittington hypertension Allergies: Allergies: Coded Allergies: No Known Drug Allergies (Unverified , 04/26/15) Family History: Family History: Hypertension COVID-19 in the family Social History: Social History: She does not drink smoke or take drug Current Medications: Current Medications Current Medications Diltiazem HCl (Cardizem Iv Push) 20 mg 1X ONCE IVP Last administered on 01/05/21at 21:55; Start 01/05/21 at 22:00; Stop 01/05/21 at 22:01; Status DC Dexamethasone Sodium Phosphate (Decadron) 10 mg 1X ONCE IV Last administered on 01/05/21at 21:58; Start 01/05/21 at 22:30; Stop 01/05/21 at 22:31; Status DC Diltiazem HCl 125 mg/Sodium Chloride 125 ml @ 5 mls/hr 1X ONCE IV Last administered on 01/05/21at 22:24; Start 01/05/21 at 22:30; Stop 01/06/21 at 23:29 Sodium Chloride 500 ml @ 500 mls/hr 1X ONCE IV Last administered on 01/05/21at 23:01; Start 01/05/21 at 23:00; Stop 01/05/21 at 23:59; Status DC Albuterol/ Ipratropium (Duoneb) 3 ml 1X ONCE NEB ; Start 01/05/21 at 23:00; Stop 01/05/21 at 23:01; Status DC Ondansetron HCl (Zofran) 4 mg PRN Q8HRS PRN IV NAUSEA/VOMITING 1ST CHOICE; Start 01/05/21 at 23:30; Stop 01/06/21 at 23:29 Sodium Chloride 1,000 ml @ 75 mls/hr [id number] IV Last administered on 01/05/21at 23:58; Start 01/05/21 at 23:45; Stop 01/06/21 at 23:44 Acetaminophen (Tylenol) 650 mg PRN Q4HRS PRN PO FEVER > 100.3'F; Start 01/05/21 at 23:30; Stop 01/06/21 at 23:29 Albuterol/ Ipratropium (Duoneb) 3 ml RTQID NEB ; Start 01/06/21 at 08:00; Stop 01/07/21 at 07:59 Etomidate (Amidate) 30 mg 1X ONCE IV ; Start 01/06/21 at 00:30; Stop 01/06/21 at 00:31; Status DC Succinylcholine Chloride (Anectine) 100 mg 1X ONCE IV ; Start 01/06/21 at 00:30; Stop 01/06/21 at 00:31; Status DC Midazolam HCl (Versed) 5 mg 1X ONCE NS ; Start 01/06/21 at 00:30; Stop 01/06/21 at 00:31; Status DC Dexmedetomidine HCl 400 mcg/ Sodium Chloride 100 ml @ 0 mls/hr CONT PRN IV PER PROTOCOL; Start 01/06/21 at 00:30 Fentanyl Citrate (Fentanyl 2ml Vial) 25 mcg PRN Q1HR PRN IV SEVERE PAIN 7-10; Start 01/06/21 at 00:30 Lorazepam (Ativan Inj) 0.5 mg PRN Q2HRS PRN IV AGITATION; Start 01/06/21 at 00:30 Sodium Chloride 500 ml @ 500 mls/hr 1X PRN PRN IV SEE COMMENTS; Start 01/06/21 at 00:30 Atropine Sulfate (ATROPINE 0.5mg SYRINGE) 0.5 mg PRN Q5MIN PRN IV SEE COMMENTS; Start 01/06/21 at 00:30 Diltiazem HCl 125 mg/Sodium Chloride 125 ml @ 5 mls/hr CONT PRN IV SEE I/O RECORD Last administered on 01/06/21at 10:02; Start 01/06/21 at 08:30 Active Scripts Active Augmentin 500-125 Tablet (Amoxicillin/Potassium Clav) 1 Each Tablet 1 Tab PO BID 7 Days Benzonatate 100 Mg Capsule 100 Mg PO [id number] Proair Hfa (Albuterol Sulfate) 8.5 Gm Hfa.aer.ad 2.5 Mg NEB PRN Q4HRS PRN 30 Days [Diltiazem Hcl] 240 MG Cap.er.24h 300 Mg PO DAILY 30 Days Eliquis (Apixaban) 5 Mg Tablet 5 Mg PO BID MDD 5 30 Days Tramadol-Acetaminophn 37.5-325 (Tramadol Hcl/Acetaminophen) 1 Each Tablet 1 Tab PO Q6H Reported Digoxin 125 Mcg Tablet 125 Mcg PO DAILY Furosemide 20 Mg Tablet 1 Tab PO DAILY No Known Medications Prior To Admisstion (Info) Each 1 Each ROS: Review of Systems Review of System REVIEW OF SYSTEMS: GENERAL: Denies weakness SKIN: No bruising, hair changes or rashes. EYES: No blurred, double or loss of vision. NOSE AND THROAT: No history of nosebleeds, hoarseness or sore throat. HEART: No history of palpitations, chest pain or shortness of breath on exertion. LUNGS: Complains of cough shortness of breath and fevers GASTROINTESTINAL: Denies changes in appetite, nausea, vomiting, diarrhea or constipation. GENITOURINARY: No history of frequency, urgency, hesitancy or nocturia. NEUROLOGIC: Denies history of numbness, tingling, or tremor. PSYCHIATRIC: No history of panic, anxiety or depression. ENDOCRINE: No history of heat or cold intolerance, polyuria or polydipsia. EXTREMITIES: Denies joint pain, pain on walking or stiffness. Physical Exam: Vital Signs: Vital Signs Date Time Temp Pulse Resp B/P (MAP) Pulse Ox O2 Delivery O2 Flow Rate FiO2 01/06/21 11:00 87 26 102/87 (92) 94 BiPAP/CPAP 01/06/21 08:00 98.0 98.0 Physcial Exam: GEN: Very weak HEENT: Normal cephalic, atraumatic, external auditory canals are patent EYES: Extraocular muscles are intact, pupil are equally round and reactive to light and accommodation MUSCULOSKELETAL: Well developed , well nourished, good range of motion ENDOCRINE: No thyromegaly was palpated LYMPHATICS: No cervical chain or axillary nodes were noted HEMATOPOIETIC: No bruising NECK: Supple, no JVD, no thyromegaly was noted LUNGS: Coarse breath sounds HEART: RRR, S!, S2 present. Peripheral pulses intact, no obvious murmurs noted ABDOMEN: Soft, nontender. Positive bowel sounds, no organomegaly, normal b owel sounds EXTREMITIES: Without clubbing, cyanosis, or edema. Pedal pulses intact. Negative Homans sign NEUROLOGIC: Normal speech and tone. A&O x 3, moves all extremities, no obvious focal deficits PSYCHIATRIC: Normal affect, normal mood. Stable SKIN: No ulcerations or rashes, good skin turgor, no jaundice VASCULAR: Good capillary refill, neurovascular bundle appears to be intact Labs: Labs: Laboratory Tests Test 01/05/21 21:44 01/05/21 21:52 01/06/21 00:03 01/06/21 00:55 O2 Saturation 85 % (92-99) 83 % (92-99) Arterial Blood pH 7.32 (7.35-7.45) 7.28 (7.35-7.45) Arterial Blood pCO2 at Patient Temp 47 mmHg (35-46) 51 mmHg (35-46) Arterial Blood pO2 at Patient Temp 51 mmHg (65-108) 50 mmHg (65-108) Arterial Blood HCO3 24 mmol/L (21-28) 24 mmol/L (21-28) FiO2 100 100 White Blood Count 7.4 x10^3/uL (4.0-11.0) Red Blood Count 5.83 x10^6/uL (3.50-5.40) Hemoglobin 17.2 g/dL (12.0-15.5) Hematocrit 53.2 % (36.0-47.0) Mean Corpuscular Volume 91 fL (79-100) Mean Corpuscular Hemoglobin 30 pg (25-35) Mean Corpuscular Hemoglobin Concent 32 g/dL (31-37) Red Cell Distribution Width 14.7 % (11.5-14.5) Platelet Count 119 x10^3/uL (140-400) Neutrophils (%) (Auto) 90 % (31-73) Lymphocytes (%) (Auto) 6 % (24-48) Monocytes (%) (Auto) 4 % (0-9) Eosinophils (%) (Auto) 0 % (0-3) Basophils (%) (Auto) 0 % (0-3) Neutrophils # (Auto) 6.7 x10^3/uL (1.8-7.7) Lymphocytes # (Auto) 0.4 x10^3/uL (1.0-4.8) Monocytes # (Auto) 0.3 x10^3/uL (0.0-1.1) Eosinophils # (Auto) 0.0 x10^3/uL (0.0-0.7) Basophils # (Auto) 0.0 x10^3/uL (0.0-0.2) Segmented Neutrophils % 81 % (35-66) Band Neutrophils % 10 % (0-9) Lymphocytes % 4 % (24-48) Monocytes % 5 % (0-10) Platelet Estimate Decreased (ADEQUATE) D-Dimer (Giselle) 1.21 ug/mlFEU (0.00-0.50) Sodium Level 139 mmol/L (136-145) Potassium Level 5.0 mmol/L (3.5-5.1) Chloride Level 96 mmol/L (98-107) Carbon Dioxide Level 31 mmol/L (21-32) Anion Gap 12 (6-14) Blood Urea Nitrogen 25 mg/dL (7-20) Creatinine 1.7 mg/dL (0.6-1.0) Estimated GFR (Cockcroft-Gault) 29.6 BUN/Creatinine Ratio 15 (6-20) Glucose Level 182 mg/dL (70-99) Lactic Acid Level 5.3 mmol/L (0.4-2.0) 2.4 mmol/L (0.4-2.0) Calcium Level 8.5 mg/dL (8.5-10.1) Magnesium Level 2.0 mg/dL (1.8-2.4) Total Bilirubin 1.9 mg/dL (0.2-1.0) Aspartate Amino Transf (AST/SGOT) 38 U/L (15-37) Alanine Aminotransferase (ALT/SGPT) 29 U/L (14-59) Alkaline Phosphatase 87 U/L (46-116) Troponin I Quantitative 0.031 ng/mL (0.000-0.055) [id number]-Type Natriuretic Peptide 4647 pg/mL (0-124) Total Protein 7.4 g/dL (6.4-8.2) Albumin 3.2 g/dL (3.4-5.0) Albumin/Globulin Ratio 0.8 (1.0-1.7) Test 01/06/21 03:00 01/06/21 04:00 01/06/21 07:43 O2 Saturation 88 % (92-99) 89 % (92-99) Arterial Blood pH 7.32 (7.35-7.45) 7.34 (7.35-7.45) Arterial Blood pCO2 at Patient Temp 56 mmHg (35-46) 50 mmHg (35-46) Arterial Blood pO2 at Patient Temp 57 mmHg (65-108) 57 mmHg (65-108) Arterial Blood HCO3 28 mmol/L (21-28) 26 mmol/L (21-28) Arterial Blood Base Excess 0 mmol/L (-3-3) -1 mmol/L (-3-3) FiO2 100 100 White Blood Count 6.3 x10^3/uL (4.0-11.0) Red Blood Count 5.57 x10^6/uL (3.50-5.40) Hemoglobin 16.5 g/dL (12.0-15.5) Hematocrit 51.1 % (36.0-47.0) Mean Corpuscular Volume 92 fL (79-100) Mean Corpuscular Hemoglobin 30 pg (25-35) Mean Corpuscular Hemoglobin Concent 32 g/dL (31-37) Red Cell Distribution Width 15.0 % (11.5-14.5) Platelet Count 115 x10^3/uL (140-400) Neutrophils (%) (Auto) 93 % (31-73) Lymphocytes (%) (Auto) 5 % (24-48) Monocytes (%) (Auto) 3 % (0-9) Eosinophils (%) (Auto) 0 % (0-3) Basophils (%) (Auto) 0 % (0-3) Neutrophils # (Auto) 5.9 x10^3/uL (1.8-7.7) Lymphocytes # (Auto) 0.3 x10^3/uL (1.0-4.8) Monocytes # (Auto) 0.2 x10^3/uL (0.0-1.1) Eosinophils # (Auto) 0.0 x10^3/uL (0.0-0.7) Basophils # (Auto) 0.0 x10^3/uL (0.0-0.2) Sodium Level 139 mmol/L (136-145) Potassium Level 4.9 mmol/L (3.5-5.1) Chloride Level 99 mmol/L (98-107) Carbon Dioxide Level 26 mmol/L (21-32) Anion Gap 14 (6-14) Blood Urea Nitrogen 32 mg/dL (7-20) Creatinine 1.5 mg/dL (0.6-1.0) Estimated GFR (Cockcroft-Gault) 34.2 BUN/Creatinine Ratio 21 (6-20) Glucose Level 179 mg/dL (70-99) Calcium Level 7.7 mg/dL (8.5-10.1) Total Bilirubin 1.7 mg/dL (0.2-1.0) Aspartate Amino Transf (AST/SGOT) 39 U/L (15-37) Alanine Aminotransferase (ALT/SGPT) 28 U/L (14-59) Alkaline Phosphatase 72 U/L (46-116) Troponin I Quantitative 0.073 ng/mL (0.000-0.055) Total Protein 6.8 g/dL (6.4-8.2) Albumin 2.8 g/dL (3.4-5.0) Albumin/Globulin Ratio 0.7 (1.0-1.7) Laboratory Tests Test 01/05/21 21:44 01/05/21 21:52 01/06/21 00:03 01/06/21 00:55 O2 Saturation 85 % (92-99) 83 % (92-99) Arterial Blood pH 7.32 (7.35-7.45) 7.28 (7.35-7.45) Arterial Blood pCO2 at Patient Temp 47 mmHg (35-46) 51 mmHg (35-46) Arterial Blood pO2 at Patient Temp 51 mmHg (65-108) 50 mmHg (65-108) Arterial Blood HCO3 24 mmol/L (21-28) 24 mmol/L (21-28) FiO2 100 100 White Blood Count 7.4 x10^3/uL (4.0-11.0) Red Blood Count 5.83 x10^6/uL (3.50-5.40) Hemoglobin 17.2 g/dL (12.0-15.5) Hematocrit 53.2 % (36.0-47.0) Mean Corpuscular Volume 91 fL (79-100) Mean Corpuscular Hemoglobin 30 pg (25-35) Mean Corpuscular Hemoglobin Concent 32 g/dL (31-37) Red Cell Distribution Width 14.7 % (11.5-14.5) Platelet Count 119 x10^3/uL (140-400) Neutrophils (%) (Auto) 90 % (31-73) Lymphocytes (%) (Auto) 6 % (24-48) Monocytes (%) (Auto) 4 % (0-9) Eosinophils (%) (Auto) 0 % (0-3) Basophils (%) (Auto) 0 % (0-3) Neutrophils # (Auto) 6.7 x10^3/uL (1.8-7.7) Lymphocytes # (Auto) 0.4 x10^3/uL (1.0-4.8) Monocytes # (Auto) 0.3 x10^3/uL (0.0-1.1) Eosinophils # (Auto) 0.0 x10^3/uL (0.0-0.7) Basophils # (Auto) 0.0 x10^3/uL (0.0-0.2) Segmented Neutrophils % 81 % (35-66) Band Neutrophils % 10 % (0-9) Lymphocytes % 4 % (24-48) Monocytes % 5 % (0-10) Platelet Estimate Decreased (ADEQUATE) D-Dimer (Giselle) 1.21 ug/mlFEU (0.00-0.50) Sodium Level 139 mmol/L (136-145) Potassium Level 5.0 mmol/L (3.5-5.1) Chloride Level 96 mmol/L (98-107) Carbon Dioxide Level 31 mmol/L (21-32) Anion Gap 12 (6-14) Blood Urea Nitrogen 25 mg/dL (7-20) Creatinine 1.7 mg/dL (0.6-1.0) Estimated GFR (Cockcroft-Gault) 29.6 BUN/Creatinine Ratio 15 (6-20) Glucose Level 182 mg/dL (70-99) Lactic Acid Level 5.3 mmol/L (0.4-2.0) 2.4 mmol/L (0.4-2.0) Calcium Level 8.5 mg/dL (8.5-10.1) Magnesium Level 2.0 mg/dL (1.8-2.4) Total Bilirubin 1.9 mg/dL (0.2-1.0) Aspartate Amino Transf (AST/SGOT) 38 U/L (15-37) Alanine Aminotransferase (ALT/SGPT) 29 U/L (14-59) Alkaline Phosphatase 87 U/L (46-116) Troponin I Quantitative 0.031 ng/mL (0.000-0.055) MX-Gvt-T-Type Natriuretic Peptide 4647 pg/mL (0-124) Total Protein 7.4 g/dL (6.4-8.2) Albumin 3.2 g/dL (3.4-5.0) Albumin/Globulin Ratio 0.8 (1.0-1.7) Test 01/06/21 03:00 01/06/21 04:00 01/06/21 07:43 O2 Saturation 88 % (92-99) 89 % (92-99) Arterial Blood pH 7.32 (7.35-7.45) 7.34 (7.35-7.45) Arterial Blood pCO2 at Patient Temp 56 mmHg (35-46) 50 mmHg (35-46) Arterial Blood pO2 at Patient Temp 57 mmHg (65-108) 57 mmHg (65-108) Arterial Blood HCO3 28 mmol/L (21-28) 26 mmol/L (21-28) Arterial Blood Base Excess 0 mmol/L (-3-3) -1 mmol/L (-3-3) FiO2 100 100 White Blood Count 6.3 x10^3/uL (4.0-11.0) Red Blood Count 5.57 x10^6/uL (3.50-5.40) Hemoglobin 16.5 g/dL (12.0-15.5) Hematocrit 51.1 % (36.0-47.0) Mean Corpuscular Volume 92 fL (79-100) Mean Corpuscular Hemoglobin 30 pg (25-35) Mean Corpuscular Hemoglobin Concent 32 g/dL (31-37) Red Cell Distribution Width 15.0 % (11.5-14.5) Platelet Count 115 x10^3/uL (140-400) Neutrophils (%) (Auto) 93 % (31-73) Lymphocytes (%) (Auto) 5 % (24-48) Monocytes (%) (Auto) 3 % (0-9) Eosinophils (%) (Auto) 0 % (0-3) Basophils (%) (Auto) 0 % (0-3) Neutrophils # (Auto) 5.9 x10^3/uL (1.8-7.7) Lymphocytes # (Auto) 0.3 x10^3/uL (1.0-4.8) Monocytes # (Auto) 0.2 x10^3/uL (0.0-1.1) Eosinophils # (Auto) 0.0 x10^3/uL (0.0-0.7) Basophils # (Auto) 0.0 x10^3/uL (0.0-0.2) Sodium Level 139 mmol/L (136-145) Potassium Level 4.9 mmol/L (3.5-5.1) Chloride Level 99 mmol/L (98-107) Carbon Dioxide Level 26 mmol/L (21-32) Anion Gap 14 (6-14) Blood Urea Nitrogen 32 mg/dL (7-20) Creatinine 1.5 mg/dL (0.6-1.0) Estimated GFR (Cockcroft-Gault) 34.2 BUN/Creatinine Ratio 21 (6-20) Glucose Level 179 mg/dL (70-99) Calcium Level 7.7 mg/dL (8.5-10.1) Total Bilirubin 1.7 mg/dL (0.2-1.0) Aspartate Amino Transf (AST/SGOT) 39 U/L (15-37) Alanine Aminotransferase (ALT/SGPT) 28 U/L (14-59) Alkaline Phosphatase 72 U/L (46-116) Troponin I Quantitative 0.073 ng/mL (0.000-0.055) Total Protein 6.8 g/dL (6.4-8.2) Albumin 2.8 g/dL (3.4-5.0) Albumin/Globulin Ratio 0.7 (1.0-1.7) Images: Images Chest x-ray showing pleural effusion Assessment/Plan Assessment/Plan Respiratory failure Plan ICU monitoring IV antibiotics O2 per nasal cannula Beta agonist COVID-19 swab Trend labs Subspecialist consults please see orders Home meds DVT prophylaxis Full code Prognosis guarded Justifications for Admission Other Justification KRISTOPHER GONZALES III DO Jan 06, 2021 11:58
[2021-01-06] MEDS ORDERED: DOXYCYCLINE HYCLATE 100 MG in IV DEXTROSE 5% 100ML 100 ML IV ONE (13:00)
[2021-01-06] MEDS: cefTRIAXone IV Push 1 GM VIAL. IVP SCH (13:07)
[2021-01-06] MEDS: methylPREDNISolone SOD SUCC PF 125 MG/2 ML VIAL. IV SCH ×2 (13:08→21:06)
[2021-01-06] MEDS: IV NORMAL SALINE 1000ML BAG 1,000 ML IV SCH (13:08)
[2021-01-06] MEDS ORDERED: FUROSEMIDE 40 MG/4 ML VIAL. IVP ONE (13:15)
[2021-01-06] MEDS: ANTI-COAG MONITOR BY PHARMACY. MC PRN (13:41)
--- NOTE | 2021-01-06 14:07 | PDOC2 ---
LEONA PETER SOCIAL MEDIA SPECIALIST 01/06/21 1407: CARDIAC CONSULT DATE OF CONSULT Date of Consult DATE: 01/06/21 TIME: 13:35 REASON FOR CONSULT Reason for Consult: afib rvr, chf REFERRING PHYSICIAN Referring Physician: Jte SOURCE Source: Chart review, Patient HISTORY OF PRESENT ILLNESS HISTORY OF PRESENT ILLNESS This is a 70 yo female admitted for complains of shortness of breath. She was noted in ED with O2 sat in the 60s. I could not get much details from pt as she is utilizing the bipap. I talked to Ayana her daughter and told me that she has been SOA since and actually used oxygen supplement in the last 2 days and still SOA. Positive for coughing and fever as high as at 101. Pt was then brought to her daughter and noted her fingertips slightly blue and does not look good and was sent to ED. No appetite, weak and reported that she went to her niece 2 weekends ago who was later noted with covid-19. Her son was tested positive on Saturday. She has been compliant with her medications. No recent falls or injury. She takes digoxin and eliquis for her AFIB. PAST MEDICAL HISTORY Cardiovascular: AFIB, CHF, HTN Pulmonary: Asthma GI: No pertinent hx Heme/Onc: No pertinent hx Hepatobiliary: No pertinent hx Psych: No pertinent hx Musculoskeletal: Osteoarthritis Rheumatologic: No pertinent hx Infectious disease: No pertinent hx ENT: No pertinent hx Renal/: No pertinent hx Endocrine: No pertinent hx Dermatology: No pertinent hx PAST SURGICAL HISTORY Past Surgical History: No pertinent history FAMILY HISTORY Family History noncontributory to CV SOCIAL HISTORY Smoke: No ALCOHOL: none Drugs: None Lives: with Family CURRENT MEDICATIONS CURRENT MEDICATIONS Current Medications Medications (Trade) Dose Ordered Sig/Amaury Route PRN Reason Start Time Stop Time Status Last Admin Dose Admin Diltiazem HCl (Cardizem Iv Push) 20 mg 1X ONCE IVP 01/05/21 22:00 01/05/21 22:01 DC 01/05/21 21:55 Dexamethasone Sodium Phosphate (Decadron) 10 mg 1X ONCE IV 01/05/21 22:30 01/05/21 22:31 DC 01/05/21 21:58 Diltiazem HCl 125 mg/Sodium Chloride 125 ml @ 5 mls/hr 1X ONCE IV 01/05/21 22:30 01/06/21 23:29 01/05/21 22:24 Sodium Chloride 500 ml @ 500 mls/hr 1X ONCE IV 01/05/21 23:00 01/05/21 23:59 DC 01/05/21 23:01 Sodium Chloride 1,000 ml @ 75 mls/hr [id number] IV 01/05/21 23:45 01/06/21 23:44 01/06/21 13:08 Diltiazem HCl 125 mg/Sodium Chloride 125 ml @ 5 mls/hr CONT PRN IV SEE I/O RECORD 01/06/21 08:30 01/06/21 10:02 Methylprednisolone Sodium Succinate (SOLU-Medrol 125MG VIAL) 60 mg BID IV 01/06/21 13:00 01/06/21 13:08 Ceftriaxone Sodium (Rocephin) 1 gm Q24H IVP 01/06/21 13:00 01/06/21 13:07 Doxycycline Hyclate 100 mg/ Dextrose 100 ml @ 50 mls/hr 1X ONCE IV 01/06/21 13:00 01/06/21 14:59 01/06/21 13:08 Furosemide (Lasix) 40 mg 1X ONCE IVP 01/06/21 13:15 01/06/21 13:17 DC 01/06/21 13:15 ALLERGIES ALLERGIES: Coded Allergies: No Known Drug Allergies (Unverified , 04/26/15) ROS Review of System limited, on bipap PHYSICAL EXAM General: Alert, Oriented X3, Cooperative, moderate distress HEENT: Atraumatic, Mucous membr. moist/pink Lungs: Other (diminished, bipap in place) Heart: Other (AFIB) Abdomen: Soft Extremities: No cyanosis Skin: No breakdown, No significant lesion Neuro: Normal speech, Sensation intact Psych/Mental Status: Mental status NL, Other (lethargic) MUSCULOSKELETAL: Osteoarthritic changes both hands VITALS/I&O VITALS/I&O: Vital Signs Date Time Temp Pulse Resp B/P (MAP) Pulse Ox O2 Delivery O2 Flow Rate FiO2 01/06/21 12:00 Bi-pap 01/06/21 11:00 87 26 102/87 (92) 94 01/06/21 08:00 98.0 98.0 I & O 01/05/21 01/05/21 01/06/21 15:00 23:00 07:00 Intake Total 503 ml Balance 503 ml LABS Lab: Laboratory Tests Test 01/05/21 21:44 01/05/21 21:52 01/06/21 00:03 01/06/21 00:55 O2 Saturation 85 % (92-99) L 83 % (92-99) L Arterial Blood pH 7.32 (7.35-7.45) L 7.28 (7.35-7.45) L Arterial Blood pCO2 at Patient Temp 47 mmHg (35-46) H 51 mmHg (35-46) H Arterial Blood pO2 at Patient Temp 51 mmHg (65-108) L 50 mmHg (65-108) *L Arterial Blood HCO3 24 mmol/L (21-28) 24 mmol/L (21-28) FiO2 100 100 White Blood Count 7.4 x10^3/uL (4.0-11.0) Red Blood Count 5.83 x10^6/uL (3.50-5.40) H Hemoglobin 17.2 g/dL (12.0-15.5) H Hematocrit 53.2 % (36.0-47.0) H Mean Corpuscular Volume 91 fL (79-100) Mean Corpuscular Hemoglobin 30 pg (25-35) Mean Corpuscular Hemoglobin Concent 32 g/dL (31-37) Red Cell Distribution Width 14.7 % (11.5-14.5) H Platelet Count 119 x10^3/uL (140-400) L Neutrophils (%) (Auto) 90 % (31-73) H Lymphocytes (%) (Auto) 6 % (24-48) L Monocytes (%) (Auto) 4 % (0-9) Eosinophils (%) (Auto) 0 % (0-3) Basophils (%) (Auto) 0 % (0-3) Neutrophils # (Auto) 6.7 x10^3/uL (1.8-7.7) Lymphocytes # (Auto) 0.4 x10^3/uL (1.0-4.8) L Monocytes # (Auto) 0.3 x10^3/uL (0.0-1.1) Eosinophils # (Auto) 0.0 x10^3/uL (0.0-0.7) Basophils # (Auto) 0.0 x10^3/uL (0.0-0.2) Segmented Neutrophils % 81 % (35-66) H Band Neutrophils % 10 % (0-9) H Lymphocytes % 4 % (24-48) L Monocytes % 5 % (0-10) Platelet Estimate Decreased (ADEQUATE) D-Dimer (Giselle) 1.21 ug/mlFEU (0.00-0.50) H Sodium Level 139 mmol/L (136-145) Potassium Level 5.0 mmol/L (3.5-5.1) Chloride Level 96 mmol/L (98-107) L Carbon Dioxide Level 31 mmol/L (21-32) Anion Gap 12 (6-14) Blood Urea Nitrogen 25 mg/dL (7-20) H Creatinine 1.7 mg/dL (0.6-1.0) H Estimated GFR (Cockcroft-Gault) 29.6 BUN/Creatinine Ratio 15 (6-20) Glucose Level 182 mg/dL (70-99) H Lactic Acid Level 5.3 mmol/L (0.4-2.0) *H 2.4 mmol/L (0.4-2.0) H Calcium Level 8.5 mg/dL (8.5-10.1) Magnesium Level 2.0 mg/dL (1.8-2.4) Total Bilirubin 1.9 mg/dL (0.2-1.0) H Aspartate Amino Transferase (AST) 38 U/L (15-37) H Alanine Aminotransferase (ALT) 29 U/L (14-59) Alkaline Phosphatase 87 U/L (46-116) Troponin I Quantitative 0.031 ng/mL (0.000-0.055) EI-Upp-X-Type Natriuretic Peptide 4647 pg/mL (0-124) H Total Protein 7.4 g/dL (6.4-8.2) Albumin 3.2 g/dL (3.4-5.0) L Albumin/Globulin Ratio 0.8 (1.0-1.7) L Test 01/06/21 03:00 01/06/21 04:00 01/06/21 07:43 O2 Saturation 88 % (92-99) L 89 % (92-99) L Arterial Blood pH 7.32 (7.35-7.45) L 7.34 (7.35-7.45) L Arterial Blood pCO2 at Patient Temp 56 mmHg (35-46) H 50 mmHg (35-46) H Arterial Blood pO2 at Patient Temp 57 mmHg (65-108) L 57 mmHg (65-108) L Arterial Blood HCO3 28 mmol/L (21-28) 26 mmol/L (21-28) Arterial Blood Base Excess 0 mmol/L (-3-3) -1 mmol/L (-3-3) FiO2 100 100 White Blood Count 6.3 x10^3/uL (4.0-11.0) Red Blood Count 5.57 x10^6/uL (3.50-5.40) H Hemoglobin 16.5 g/dL (12.0-15.5) H Hematocrit 51.1 % (36.0-47.0) H Mean Corpuscular Volume 92 fL (79-100) Mean Corpuscular Hemoglobin 30 pg (25-35) Mean Corpuscular Hemoglobin Concent 32 g/dL (31-37) Red Cell Distribution Width 15.0 % (11.5-14.5) H Platelet Count 115 x10^3/uL (140-400) L Neutrophils (%) (Auto) 93 % (31-73) H Lymphocytes (%) (Auto) 5 % (24-48) L Monocytes (%) (Auto) 3 % (0-9) Eosinophils (%) (Auto) 0 % (0-3) Basophils (%) (Auto) 0 % (0-3) Neutrophils # (Auto) 5.9 x10^3/uL (1.8-7.7) Lymphocytes # (Auto) 0.3 x10^3/uL (1.0-4.8) L Monocytes # (Auto) 0.2 x10^3/uL (0.0-1.1) Eosinophils # (Auto) 0.0 x10^3/uL (0.0-0.7) Basophils # (Auto) 0.0 x10^3/uL (0.0-0.2) Sodium Level 139 mmol/L (136-145) Potassium Level 4.9 mmol/L (3.5-5.1) Chloride Level 99 mmol/L (98-107) Carbon Dioxide Level 26 mmol/L (21-32) Anion Gap 14 (6-14) Blood Urea Nitrogen 32 mg/dL (7-20) H Creatinine 1.5 mg/dL (0.6-1.0) H Estimated GFR (Cockcroft-Gault) 34.2 BUN/Creatinine Ratio 21 (6-20) H Glucose Level 179 mg/dL (70-99) H Calcium Level 7.7 mg/dL (8.5-10.1) L Total Bilirubin 1.7 mg/dL (0.2-1.0) H Aspartate Amino Transferase (AST) 39 U/L (15-37) H Alanine Aminotransferase (ALT) 28 U/L (14-59) Alkaline Phosphatase 72 U/L (46-116) Troponin I Quantitative 0.073 ng/mL (0.000-0.055) Total Protein 6.8 g/dL (6.4-8.2) Albumin 2.8 g/dL (3.4-5.0) L Albumin/Globulin Ratio 0.7 (1.0-1.7) L Laboratory Tests 01/05/21 21:52 01/06/21 04:00 Laboratory Tests 01/05/21 21:52 01/06/21 04:00 ECHOCARDIOGRAM ECHOCARDIOGRAM <Conclusion> The left ventricular systolic function is normal. The Ejection Fraction is 60-65%. There is normal LV segmental wall motion. Mild to moderate aortic regurgitation. Trace to mild mitral regurgitation. Mild eccentric tricuspid regurgitation. The PA pressure was estimated at 37 mmHg. There is no evidence of significant pericardial effusion. DATE: 09/08/19 1207 STRESS TEST STRESS TEST Conclusion 1. Regadenoson cardioisotope stress test did not show any evidence of ischemia or infarct. 2. Low normal left ventricle systolic function with ejection fraction calculated at 51%. 3. Low risk for cardiac events. DATE: 05/12/20 1108 ASSESSMENT/PLAN ASSESSMENT/PLAN 1. Acute respiratory failure: highly suspect covid-19 pneumonia. Exposed to niece and son tested positive 2. Persistent AFIB with RVR: recent MCOT with 100% burden 3. Sepsis/fever 4. JUSTINE: prerenal 5. Acute diastolic CHF 6. HTN: controlled 7. Mild troponin elevation: suspect demand mediated, type 2 8. Obesity Recommendations 1. IVF while unable to eat. DC cardizem and start on metoprolol PO. IV PRN. Eliquis for stroke prevention 2. TTE as an outpt once recovered 3. Bipap in place 4. Lasix PRN, x1 dose today 5. Antibiotics ongoing JESUS COOPER MD 01/06/21 1735: CARDIAC CONSULT ASSESSMENT/PLAN ASSESSMENT/PLAN The patient was seen and interviewed as well as examined at the bedside. The chart was reviewed. The case was discussed. Agree with the plan of care. LEONA PETER APRN Jan 06, 2021 14:07 JESUS COOPER MD Jan 06, 2021 17:35
--- NOTE | 2021-01-06 15:07 | CONS ---
DATE OF CONSULTATION: 01/06/2021 ATTENDING PHYSICIAN: Jacob Haro DO CONSULTING PHYSICIAN: Bindu Grijalva MD REASON FOR CONSULTATION: The patient is seen in pulmonary consultation at the request of Dr. Haro for abnormal x-ray. HISTORY OF PRESENT ILLNESS: The patient is a 70-year-old that does not speak Upper Sorbian. There are no family members at the bedside. I have reviewed the current documentation in the Emergency Room record indicates that the patient now was brought to the Emergency Room for decrease saturation. She had O2 saturation of 60%. The patient does have a history of tobacco use. She had a fever and a cough. There are some family members that tested positive for COVID. She was admitted. She had a chest x-ray, which revealed bilateral infiltrates. I was asked to see her in consultation. Her SARS-CoV-2 is currently pending. The patient is currently on BiPAP. She does not appear to be in any respiratory distress. I reviewed her labs. Her white count is normal. Arterial blood gas revealed a pH of 7.32, PaCO2 47, pO2 of 51. Initially, this morning, pH 7.34, PaCO2 of 50 and pO2 of 57 on 100% BiPAP. D-dimer was elevated. Electrolytes were noted. BUN was elevated, creatinine was elevated. Lactic acid level initially was elevated. Troponin was initially not elevated, it is currently elevated. Chest x-ray was personally reviewed. There is cardiomegaly with perihilar interstitial changes compatible with pulmonary edema or atypical viral pneumonia. PAST MEDICAL HISTORY: Otherwise remarkable for chronic AFib, previous history of heart failure. PAST SURGICAL HISTORY: None. ALLERGIES: No known drug allergies. SOCIAL HISTORY: Apparently, the patient smokes. REVIEW OF SYSTEMS: Unobtainable secondary to the patient's condition. CURRENT MEDICATIONS: List was reviewed. She is currently receiving IV Cardizem drip for atrial fibrillation with rapid ventricular response. She is receiving dexamethasone x 1, fentanyl p.r.n. for pain, nebulized treatments. PHYSICAL EXAMINATION: VITAL SIGNS: Noted. Since admission, she has been afebrile. BMI was 37. GENERAL: The patient is on BiPAP, in no respiratory distress. HEENT: Eyes, the sclerae were nonicteric. NECK: Jugular venous distention could not be assessed secondary to body habitus. CHEST: Full expansion. LUNGS: Adequate flow with no wheezes. CARDIOVASCULAR: Regular rate and rhythm with S1, S2, no S3. ABDOMEN: Soft. EXTREMITIES: No clubbing, cyanosis. Minimal edema. LABORATORY DATA: As indicated above. IMPRESSION: 1. Acute hypoxemic respiratory failure. 2. Abnormal x-ray compatible with pulmonary edema, possible COVID-19. 3. Obesity. 4. Acute on chronic systolic and diastolic heart failure. 5. Possible bacterial pneumonia. 6. Atrial fibrillation with rapid ventricular response. 7. History of tobacco dependent, suspect chronic obstructive pulmonary disease. PLAN: 1. Continue current BiPAP. 2. Initiate steroids and empiric antibiotics. 3. Follow up on SARS-CoV-2. 4. Follow Cardiology input. We will defer Cardizem use to Cardiology. 5. P.r.n. sedation. 6. Nebulized treatments. I do appreciate the privilege in sharing in the patient's care. Total cumulative critical care time from 11:25 a.m. to 12:16 p.m. BINDU GRIJALVA MD DR: ANITA/ila JOB#: [id number] / [id number]
[2021-01-06 15:43] LABS: BILIRUBIN,URINE NEGATIVE (NEG); CLARITY,URINE CLEAR; COLOR,URINE YELLOW; NITRITE,URINE NEGATIVE (NEG); PH,URINE 5.5 (<5.0-8.0); PROTEIN,URINE NEGATIVE (NEG-TRACE); UROBILINOGEN,URINE 0.2 mg/dL (0.2 mg/dL)
[2021-01-06 16:23] LABS: AMORPHOUS SEDIMENT,UR PRESENT /HPF; HYALINE CASTS, URINE FEW /HPF; RBC,URINE RARE /HPF (0-2); WBC,URINE RARE /HPF (0-4)
[2021-01-06 16:26] LABS: BACTERIA,URINE 0 /HPF (0-FEW)
[2021-01-06] MEDS ORDERED: STERILE WATER for RESP 1,000 ML BAG. INH PRN (16:45)
[2021-01-06] MEDS ORDERED: APIXABAN 5 MG TABLET. PO SCH ×2 (21:00)
[2021-01-06] MEDS: DOXYCYCLINE HYCLATE 100 MG in IV DEXTROSE 5% 100ML 100 ML IV SCH (21:05)
[2021-01-06] MEDS: APIXABAN 5 MG TABLET. PO SCH (21:06)
[2021-01-06] MEDS: METOPROLOL TART IMMED RELEASE 25 MG TABLET. PO SCH (21:06)
[2021-01-07] VITALS (35 sets, daily range): BP systolic 79–140; BP diastolic 57–89
[2021-01-07] MEDS ORDERED: PROPOFOL 100 ML IV PRN (05:30)
[2021-01-07] MEDS ORDERED: SUCCINYLCHOLINE 200 MG/10 ML VIAL. ONE (05:47)
[2021-01-07] MEDS ORDERED: ETOMIDATE 20 MG/10 ML VIAL. IV ONE ×2 (05:47→06:45)
[2021-01-07] MEDS: MIDAZOLAM 100mg/100ml NS BAG 100 ML IV PRN (06:21)
[2021-01-07] MEDS ORDERED: SUCCINYLCHOLINE 200 MG/10 ML VIAL. IV ONE (06:45)
[2021-01-07 06:56] LABS: BASE EXCESS ABG 2 mmol/L (-3-3); HCO3 ABG 29 mmol/L (21-28); PCO2 ABG 52 mmHg (35-46); SAT O2 ABG 82 % (92-99)
[2021-01-07 06:58] LABS: FIO2 ABG 100; PO2 ABG 47 mmHg (65-108)
[2021-01-07] MEDS ORDERED: NOREPINEPHRINE VIAL 8 MG in IV DEXTROSE 5% 250 ML IV PRN (07:00)
--- NOTE | 2021-01-07 07:04 | RAD ---
XR CHEST 1V, XR ABDOMEN 1V INDICATION: Reason: ETT PLACEMENT / Spl. Instructions: / History: . COMPARISON STUDY: 01/05/2021. FINDINGS: Rotation to the right Endotracheal tube terminates 1 cm above the moni. Enteric tube terminates in the stomach. Lungs: Progression of diffuse bilateral opacities. Pleura: No pleural effusion or pneumothorax. Heart and Mediastinum: The cardiomediastinal silhouette is normal. The great vessels of the thorax ar e normal. Abdomen: Paucity of bowel gas. No free air. IMPRESSION: Endotracheal tube terminates 1 cm above the moni. Enteric tube terminates in the stomach. Progression of diffuse bilateral opacities Electronically signed by: Mio Michelle MD (01/07/2021 7:02 AM) [id number]
--- NOTE | 2021-01-07 09:33 | PDOC ---
CARDIOLOGY PROGRESS NOTE SUBJECTIVE: Intubated due to worsening resp failure. No new CV issues. HR stable. OBJECTIVE: Vital Signs/I&O: Vital Signs Date Time Temp Pulse Resp B/P (MAP) Pulse Ox O2 Delivery O2 Flow Rate FiO2 01/07/21 08:05 99 Ventilator 01/07/21 08:00 100 132/86 (101) 01/07/21 06:59 26 01/07/21 04:02 40.0 01/07/21 04:00 98.6 98.6 I & O 01/06/21 01/06/21 01/07/21 15:00 23:00 07:00 Intake Total 150 ml 983 ml 200 ml Output Total 245 ml 700 ml 265 ml Balance -95 ml 283 ml -65 ml Objective: Exam deferred due to covid precautions. CURRENT MEDICATIONS: Current Medications Medications (Trade) Dose Ordered Sig/Amaury Route PRN Reason Start Time Stop Time Status Last Admin Dose Admin Methylprednisolone Sodium Succinate (SOLU-Medrol 125MG VIAL) 60 mg BID IV 01/06/21 13:00 01/06/21 21:06 Ceftriaxone Sodium (Rocephin) 1 gm Q24H IVP 01/06/21 13:00 01/06/21 13:07 Doxycycline Hyclate 100 mg/ Dextrose 100 ml @ 50 mls/hr Q12HR IV 01/06/21 21:00 01/06/21 21:05 Doxycycline Hyclate 100 mg/ Dextrose 100 ml @ 50 mls/hr 1X ONCE IV 01/06/21 13:00 01/06/21 14:59 DC 01/06/21 13:08 Furosemide (Lasix) 40 mg 1X ONCE IVP 01/06/21 13:15 01/06/21 13:17 DC 01/06/21 13:15 Info (Anti-Coagulation Monitoring By Pharmacy) 1 each PRN DAILY PRN MC SEE COMMENTS 01/06/21 13:45 01/06/21 13:41 Metoprolol Tartrate (Lopressor) 25 mg BID PO 01/06/21 21:00 01/06/21 21:06 Apixaban (Eliquis) 5 mg BID PO 01/06/21 21:00 01/06/21 21:06 Fentanyl Citrate 30 ml @ 0 mls/hr CONT PRN IV SEE PROTOCOL 01/07/21 05:30 01/07/21 06:29 Midazolam HCl 100 ml @ 0 mls/hr CONT PRN IV SEE PROTOCOL 01/07/21 05:30 01/07/21 06:21 Succinylcholine Chloride (Anectine) 100 mg 1X ONCE IV 01/07/21 06:45 01/07/21 06:46 DC 01/07/21 06:43 Etomidate (Amidate) 12 mg 1X ONCE IV 01/07/21 06:45 01/07/21 06:46 DC 01/07/21 06:42 Norepinephrine Bitartrate 8 mg/ Dextrose 258 ml @ 8.388 mls/ hr CONT PRN IV PER PROTOCOL 01/07/21 07:00 01/07/21 07:18 DIAGNOSTIC TESTING: Labs reviewed. ASSESSMENT: 1. Afib with RVR in the setting of resp failure and COVID 2. Diastolic HF 3. HTN 4. JUSTINE 5. Type 2 NSTEMI PLAN: 1. Continue tx of sepsis. 2. No aggressive rate control. May hold anticoagulation given acuity if any procedures needed. 3. Supportive care. Justicifation of Admission Dx: Justifications for Admission: Justification of Admission Dx: Yes CHF: Cardiac Arrhythmias JESUS COOPER MD Jan 07, 2021 09:33
[2021-01-07] MEDS: DOXYCYCLINE HYCLATE 100 MG in IV DEXTROSE 5% 100ML 100 ML IV SCH ×2 (09:53→21:28)
[2021-01-07] MEDS: IV NORMAL SALINE 1000ML BAG 1,000 ML IV SCH (09:54)
[2021-01-07] MEDS ORDERED: VANCOMYCIN 2 GM in IV NORMAL SALINE 500ML BAG 500 ML IV ONE (10:00)
[2021-01-07] MEDS: METOPROLOL TART IMMED RELEASE 25 MG TABLET. PO SCH ×2 (10:12→21:27)
[2021-01-07] MEDS: methylPREDNISolone SOD SUCC PF 125 MG/2 ML VIAL. IV SCH ×2 (10:13→21:28)
[2021-01-07] MEDS: APIXABAN 5 MG TABLET. PO SCH ×2 (10:13→21:26)
[2021-01-07] MEDS ORDERED: PHENYLEPHRINE 10 MG/ML VIAL. ONE (10:18)
[2021-01-07] MEDS ORDERED: SEVOFLURANE > 120 MINUTES. IH ONE (10:18)
[2021-01-07] MEDS ORDERED: ONDANSETRON PF 4 MG/2 ML VIAL. ONE (10:18)
[2021-01-07] MEDS ORDERED: PROPOFOL 10 MG/ML (20ML) VIAL. IV ONE (10:18)
[2021-01-07] MEDS ORDERED: REMDESIVIR LOAD in IV NORMAL SALINE 250ML TV IV ONE (11:00)
[2021-01-07] MEDS: FUROSEMIDE 40 MG/4 ML VIAL. IVP PRN (11:13)
--- NOTE | 2021-01-07 11:49 | PDOC ---
[facility] PROGRESS NOTE Date of Service DOS: DATE: 01/07/21 TIME: 11:47 Chief Complaint Chief Complaint Fulminant respiratory failure secondary to COVID-19 requiring intubation A. fib hypertension History of Present Illness History of Present Illness 01/07/2021 Patient seen and examined in the COVID-19 ICU She had to be intubated this morning She is currently on assist-control/26/450 with 100% FiO2 and 10 of PEEP Has SCDs in [place] to bedside drainage Sedated with fentanyl Versed and also on IV doxycycline OG feeds running at 20 cc an hour Chart reviewed Discussed with RN She remains critically ill Vitals/I&O Vitals/I&O: Vital Signs Date Time Temp Pulse Resp B/P (MAP) Pulse Ox O2 Delivery O2 Flow Rate FiO2 01/07/21 11:16 100 Ventilator 01/07/21 11:00 106 26 122/82 (95) 01/07/21 08:00 99.9 99.9 01/07/21 04:02 40.0 I & O 01/06/21 01/06/21 01/07/21 15:00 23:00 07:00 Intake Total 150 ml 983 ml 200 ml Output Total 245 ml 700 ml 265 ml Balance -95 ml 283 ml -65 ml Physical Exam General: Other (Sedated on the vent) Heart: Other (AFIB) Lungs: Crackles, Other Abdomen: Soft Extremities: No cyanosis Skin: No breakdown, No significant lesion Labs Labs: Laboratory Tests Test 01/07/21 07:00 O2 Saturation 82 % (92-99) Arterial Blood pH 7.37 (7.35-7.45) Arterial Blood pCO2 at Patient Temp 52 mmHg (35-46) Arterial Blood pO2 at Patient Temp 47 mmHg (65-108) Arterial Blood HCO3 29 mmol/L (21-28) Arterial Blood Base Excess 2 mmol/L (-3-3) FiO2 100 Review of Systems Review of Systems: Unable to obtain she is sedated on the ventilator Assessment and Plan Assessmemt and Plan Problems Medical Problems: (1) Person under investigation for COVID-19 Status: Acute (2) Respiratory failure with hypoxia Status: Acute Fulminant respiratory failure secondary to COVID-19 requiring intubation A. fib hypertension Plan ICU monitoring Vent weaning Covid protocol IV antibiotics IV steroids IV remdesivir IV doxycycline Vitamins and minerals Beta agonist Aspirin Trend labs DVT prophylaxis Full code Home meds if possible Prognosis extremely guarded at best I am concerned she may not survive CC time 31 minutes Comment Review of Relevant I have reviewed the following items pepe (where applicable) has been applied. Medications: Current Medications Medications (Trade) Dose Ordered Sig/Amaury Route PRN Reason Start Time Stop Time Status Last Admin Dose Admin Methylprednisolone Sodium Succinate (SOLU-Medrol 125MG VIAL) 60 mg BID IV 01/06/21 13:00 01/07/21 10:13 Ceftriaxone Sodium (Rocephin) 1 gm Q24H IVP 01/06/21 13:00 01/06/21 13:07 Doxycycline Hyclate 100 mg/ Dextrose 100 ml @ 50 mls/hr Q12HR IV 01/06/21 21:00 01/07/21 09:53 Doxycycline Hyclate 100 mg/ Dextrose 100 ml @ 50 mls/hr 1X ONCE IV 01/06/21 13:00 01/06/21 14:59 DC 01/06/21 13:08 Furosemide (Lasix) 40 mg 1X ONCE IVP 01/06/21 13:15 01/06/21 13:17 DC 01/06/21 13:15 Info (Anti-Coagulation Monitoring By Pharmacy) 1 each PRN DAILY PRN MC SEE COMMENTS 01/06/21 13:45 01/06/21 13:41 Metoprolol Tartrate (Lopressor) 25 mg BID PO 01/06/21 21:00 01/07/21 10:12 Apixaban (Eliquis) 5 mg BID PO 01/06/21 21:00 01/07/21 10:13 Fentanyl Citrate 30 ml @ 0 mls/hr CONT PRN IV SEE PROTOCOL 01/07/21 05:30 01/07/21 06:29 Midazolam HCl 100 ml @ 0 mls/hr CONT PRN IV SEE PROTOCOL 01/07/21 05:30 01/07/21 06:21 Succinylcholine Chloride (Anectine) 100 mg 1X ONCE IV 01/07/21 06:45 01/07/21 06:46 DC 01/07/21 06:43 Etomidate (Amidate) 12 mg 1X ONCE IV 01/07/21 06:45 01/07/21 06:46 DC 01/07/21 06:42 Norepinephrine Bitartrate 8 mg/ Dextrose 258 ml @ 8.388 mls/ hr CONT PRN IV PER PROTOCOL 01/07/21 07:00 01/07/21 07:18 Sodium Chloride 1,000 ml @ 75 mls/hr [id number] IV 01/07/21 09:30 01/07/21 09:54 Furosemide (Lasix) 40 mg PRN Q6HRS PRN IVP Fluid Overload 01/07/21 09:30 01/07/21 11:13 Justifications for Admission Other Justification KRISTOPHER GONZALES III DO Jan 07, 2021 11:49
--- NOTE | 2021-01-07 12:39 | PDOC ---
PULMONARY PROGRESS NOTES DATE: 01/07/21 TIME: 12:37 Vitals Vital Signs Date Time Temp Pulse Resp B/P (MAP) Pulse Ox O2 Delivery O2 Flow Rate FiO2 01/07/21 12:00 Mechanical Ventilator 01/07/21 12:00 104 136/82 (100) 01/07/21 11:16 100 01/07/21 11:00 26 01/07/21 08:00 99.9 99.9 01/07/21 04:02 40.0 General: Alert Lungs: Crackles, Other Cardiovascular: S1, S2 Abdomen: Soft, Other Extremities: Other Labs Laboratory Tests Test 01/05/21 15:33 01/05/21 21:44 01/05/21 21:52 01/05/21 23:42 Urine Collection Type Unknown Urine Color Yellow Urine Clarity Clear Urine pH 5.5 (<5.0-8.0) Urine Specific [place] 1.010 (1.000-1.030) Urine Protein Negative mg/dL (NEG-TRACE) Urine Glucose (UA) Negative mg/dL (NEG) Urine Ketones (Stick) Negative mg/dL (NEG) Urine Blood Negative (NEG) Urine Nitrite Negative (NEG) Urine Bilirubin Negative (NEG) Urine Urobilinogen Dipstick 0.2 mg/dL (0.2 mg/dL) Urine Leukocyte Esterase Negative (NEG) Urine RBC Rare /HPF (0-2) Urine WBC Rare /HPF (0-4) Urine Squamous Epithelial Cells Few /LPF Urine Amorphous Sediment Present /HPF Urine Bacteria 0 /HPF (0-FEW) Urine Hyaline Casts Few /HPF Urine Mucus Slight /LPF O2 Saturation 85 % (92-99) Arterial Blood pH 7.32 (7.35-7.45) Arterial Blood pCO2 at Patient Temp 47 mmHg (35-46) Arterial Blood pO2 at Patient Temp 51 mmHg (65-108) Arterial Blood HCO3 24 mmol/L (21-28) FiO2 100 White Blood Count 7.4 x10^3/uL (4.0-11.0) Red Blood Count 5.83 x10^6/uL (3.50-5.40) Hemoglobin 17.2 g/dL (12.0-15.5) Hematocrit 53.2 % (36.0-47.0) Mean Corpuscular Volume 91 fL (79-100) Mean Corpuscular Hemoglobin 30 pg (25-35) Mean Corpuscular Hemoglobin Concent 32 g/dL (31-37) Red Cell Distribution Width 14.7 % (11.5-14.5) Platelet Count 119 x10^3/uL (140-400) Neutrophils (%) (Auto) 90 % (31-73) Lymphocytes (%) (Auto) 6 % (24-48) Monocytes (%) (Auto) 4 % (0-9) Eosinophils (%) (Auto) 0 % (0-3) Basophils (%) (Auto) 0 % (0-3) Neutrophils # (Auto) 6.7 x10^3/uL (1.8-7.7) Lymphocytes # (Auto) 0.4 x10^3/uL (1.0-4.8) Monocytes # (Auto) 0.3 x10^3/uL (0.0-1.1) Eosinophils # (Auto) 0.0 x10^3/uL (0.0-0.7) Basophils # (Auto) 0.0 x10^3/uL (0.0-0.2) Segmented Neutrophils % 81 % (35-66) Band Neutrophils % 10 % (0-9) Lymphocytes % 4 % (24-48) Monocytes % 5 % (0-10) Platelet Estimate Decreased (ADEQUATE) D-Dimer (Giselle) 1.21 ug/mlFEU (0.00-0.50) Sodium Level 139 mmol/L (136-145) Potassium Level 5.0 mmol/L (3.5-5.1) Chloride Level 96 mmol/L (98-107) Carbon Dioxide Level 31 mmol/L (21-32) Anion Gap 12 (6-14) Blood Urea Nitrogen 25 mg/dL (7-20) Creatinine 1.7 mg/dL (0.6-1.0) Estimated GFR (Cockcroft-Gault) 29.6 BUN/Creatinine Ratio 15 (6-20) Glucose Level 182 mg/dL (70-99) Lactic Acid Level 5.3 mmol/L (0.4-2.0) Calcium Level 8.5 mg/dL (8.5-10.1) Magnesium Level 2.0 mg/dL (1.8-2.4) Total Bilirubin 1.9 mg/dL (0.2-1.0) Aspartate Amino Transf (AST/SGOT) 38 U/L (15-37) Alanine Aminotransferase (ALT/SGPT) 29 U/L (14-59) Alkaline Phosphatase 87 U/L (46-116) Troponin I Quantitative 0.031 ng/mL (0.000-0.055) YM-Bfg-O-Type Natriuretic Peptide 4647 pg/mL (0-124) Total Protein 7.4 g/dL (6.4-8.2) Albumin 3.2 g/dL (3.4-5.0) Albumin/Globulin Ratio 0.8 (1.0-1.7) Coronavirus (PCR) Detected (Not Detected) Test 01/06/21 00:03 01/06/21 00:55 01/06/21 03:00 01/06/21 04:00 O2 Saturation 83 % (92-99) 88 % (92-99) Arterial Blood pH 7.28 (7.35-7.45) 7.32 (7.35-7.45) Arterial Blood pCO2 at Patient Temp 51 mmHg (35-46) 56 mmHg (35-46) Arterial Blood pO2 at Patient Temp 50 mmHg (65-108) 57 mmHg (65-108) Arterial Blood HCO3 24 mmol/L (21-28) 28 mmol/L (21-28) FiO2 100 100 Lactic Acid Level 2.4 mmol/L (0.4-2.0) Arterial Blood Base Excess 0 mmol/L (-3-3) White Blood Count 6.3 x10^3/uL (4.0-11.0) Red Blood Count 5.57 x10^6/uL (3.50-5.40) Hemoglobin 16.5 g/dL (12.0-15.5) Hematocrit 51.1 % (36.0-47.0) Mean Corpuscular Volume 92 fL (79-100) Mean Corpuscular Hemoglobin 30 pg (25-35) Mean Corpuscular Hemoglobin Concent 32 g/dL (31-37) Red Cell Distribution Width 15.0 % (11.5-14.5) Platelet Count 115 x10^3/uL (140-400) Neutrophils (%) (Auto) 93 % (31-73) Lymphocytes (%) (Auto) 5 % (24-48) Monocytes (%) (Auto) 3 % (0-9) Eosinophils (%) (Auto) 0 % (0-3) Basophils (%) (Auto) 0 % (0-3) Neutrophils # (Auto) 5.9 x10^3/uL (1.8-7.7) Lymphocytes # (Auto) 0.3 x10^3/uL (1.0-4.8) Monocytes # (Auto) 0.2 x10^3/uL (0.0-1.1) Eosinophils # (Auto) 0.0 x10^3/uL (0.0-0.7) Basophils # (Auto) 0.0 x10^3/uL (0.0-0.2) Sodium Level 139 mmol/L (136-145) Potassium Level 4.9 mmol/L (3.5-5.1) Chloride Level 99 mmol/L (98-107) Carbon Dioxide Level 26 mmol/L (21-32) Anion Gap 14 (6-14) Blood Urea Nitrogen 32 mg/dL (7-20) Creatinine 1.5 mg/dL (0.6-1.0) Estimated GFR (Cockcroft-Gault) 34.2 BUN/Creatinine Ratio 21 (6-20) Glucose Level 179 mg/dL (70-99) Calcium Level 7.7 mg/dL (8.5-10.1) Total Bilirubin 1.7 mg/dL (0.2-1.0) Aspartate Amino Transf (AST/SGOT) 39 U/L (15-37) Alanine Aminotransferase (ALT/SGPT) 28 U/L (14-59) Alkaline Phosphatase 72 U/L (46-116) Troponin I Quantitative 0.073 ng/mL (0.000-0.055) Total Protein 6.8 g/dL (6.4-8.2) Albumin 2.8 g/dL (3.4-5.0) Albumin/Globulin Ratio 0.7 (1.0-1.7) Test 01/06/21 07:43 01/07/21 07:00 O2 Saturation 89 % (92-99) 82 % (92-99) Arterial Blood pH 7.34 (7.35-7.45) 7.37 (7.35-7.45) Arterial Blood pCO2 at Patient Temp 50 mmHg (35-46) 52 mmHg (35-46) Arterial Blood pO2 at Patient Temp 57 mmHg (65-108) 47 mmHg (65-108) Arterial Blood HCO3 26 mmol/L (21-28) 29 mmol/L (21-28) Arterial Blood Base Excess -1 mmol/L (-3-3) 2 mmol/L (-3-3) FiO2 100 100 Laboratory Tests Test 01/07/21 07:00 O2 Saturation 82 % (92-99) Arterial Blood pH 7.37 (7.35-7.45) Arterial Blood pCO2 at Patient Temp 52 mmHg (35-46) Arterial Blood pO2 at Patient Temp 47 mmHg (65-108) Arterial Blood HCO3 29 mmol/L (21-28) Arterial Blood Base Excess 2 mmol/L (-3-3) FiO2 100 Medications Active Scripts Medications Dose Route/Sig Max Daily Dose Days Date Category Augmentin 500-125 Tablet (Amoxicillin/Potassium Clav) 1 Each Tablet 1 Tab PO BID 7 10/03/19 Rx Benzonatate 100 Mg Capsule 100 Mg PO [id number] 10/03/19 Rx Proair Hfa (Albuterol Sulfate) 8.5 Gm Hfa.aer.ad 2.5 Mg NEB PRN Q4HRS PRN 30 10/03/19 Rx Digoxin 125 Mcg Tablet 125 Mcg PO DAILY 10/02/19 Reported Furosemide 20 Mg Tablet 1 Tab PO DAILY 10/02/19 Reported [Diltiazem Hcl] 240 MG Cap.er.24h 300 Mg PO DAILY 30 10/03/18 Rx Eliquis (Apixaban) 5 Mg Tablet 5 Mg PO BID MDD 5 30 10/03/18 Rx Tramadol-Acetaminophn 37.5-325 (Tramadol Hcl/Acetaminophen) 1 Each Tablet 1 Tab PO Q6H 07/14/16 Rx No Known Medications Prior To Admisstion (Info) Each 1 Each 04/26/15 Reported Impression . IMPRESSION: 1. Acute hypoxemic respiratory failure. 2. Abnormal x-ray compatible with a viral pneumonia 3. Obesity. 4. Acute on chronic systolic and diastolic heart failure. 5. Possible bacterial pneumonia. 6. Atrial fibrillation with rapid ventricular response. 7. History of tobacco dependent, suspect chronic obstructive pulmonary disease. 8. SARS Covid 2+ compatible with COVID-19 Plan . Updated 01/07 Overnight events noted Patient intubated overnight secondary to poor oxygenation We will initiate remdesivir Continue steroids Continue empiric antibiotics Follow cardiology input Critical care time from 10:05 AM to 10:37 AM. Discussed with RN PLAN: 1. Continue current BiPAP. 2. Initiate steroids and empiric antibiotics. 3. Follow up on SARS-CoV-2. 4. Follow Cardiology input. We will defer Cardizem use to Cardiology. 5. P.r.n. sedation. 6. Nebulized treatments. I do appreciate the privilege in sharing in the patient's care. Total cumulative critical care time from 11:25 a.m. to 12:16 p.m. BINDU GRIJALVA MD Jan 07, 2021 12:39
[2021-01-07] MEDS: cefTRIAXone IV Push 1 GM VIAL. IVP SCH (13:51)
[2021-01-07 14:27] LABS: CALCIUM 8.4 mg/dL (8.5-10.1); CREATININE 1.3 mg/dL (0.6-1.0); GFR 40.4; MAGNESIUM 1.9 mg/dL (1.8-2.4); PHOSPHORUS 1.2 mg/dL (2.6-4.7); POTASSIUM 3.8 mmol/L (3.5-5.1)
[2021-01-07] MEDS ORDERED: ACETAMINOPHEN 325 MG TABLET. PO PRN (16:00)
[2021-01-07] MEDS: VANCOMYCIN PER PHARMACY MC PRN (16:31)
--- NOTE | 2021-01-07 17:05 | RAD ---
AP portable chest 01/07/2021. Reason for exam: PICC line placement. Comparison is made with a study of earlier in the day. ET and NG remain in place. A left-sided PICC line is now seen. Its tip is near the brachiocephalic ve in confluence at the upper SVC. Extensive bilateral infiltrates or edema persist. IMPRESSION: Placement of PICC line as described above. Electronically signed by: Stalney Tobin Jr., MD (01/07/2021 5:03 PM) [facility]
[2021-01-07] MEDS ORDERED: DEXTROSE 50% 25 GM / 50ML DISP.SYRIN. IV PRN (19:15)
[2021-01-08] VITALS (23 sets, daily range): BP systolic 98–119; BP diastolic 60–74
[2021-01-08] MEDS: INSULIN LISPRO 300 UNITS/3 ML VIAL. SQ SCH ×5 (00:57→23:41)
[2021-01-08] MEDS: MIDAZOLAM 100mg/100ml NS BAG 100 ML IV PRN (00:59)
[2021-01-08] MEDS: IV NORMAL SALINE 1000ML BAG 1,000 ML IV SCH (06:12)
[2021-01-08] MEDS: methylPREDNISolone SOD SUCC PF 125 MG/2 ML VIAL. IV SCH ×2 (08:29→20:32)
[2021-01-08] MEDS: REMDESIVIR 100mg in NORMAL SALINE 250ML X 4 DAYS IV SCH (08:29)
[2021-01-08] MEDS: FAMOTIDINE 20 MG/2 ML VIAL IVP SCH (08:29)
[2021-01-08] MEDS: APIXABAN 5 MG TABLET. PO SCH ×2 (08:32→20:31)
[2021-01-08] MEDS: DOXYCYCLINE HYCLATE 100 MG in IV DEXTROSE 5% 100ML 100 ML IV SCH ×2 (08:33→20:33)
[2021-01-08] MEDS: METOPROLOL TART IMMED RELEASE 25 MG TABLET. PO SCH ×2 (08:33→20:32)
[2021-01-08 08:43] LABS: BASE EXCESS ABG 4 mmol/L (-3-3); HCO3 ABG 29 mmol/L (21-28); PCO2 ABG 42 mmHg (35-46); SAT O2 ABG 71 % (92-99)
[2021-01-08 09:08] LABS: CREATININE 1.1 mg/dL (0.6-1.0)
[2021-01-08 09:11] LABS: PO2 ABG < 42 mmHg (65-108)
[2021-01-08] MEDS: VANCOMYCIN PER PHARMACY MC PRN (09:28)
--- NOTE | 2021-01-08 11:42 | PDOC ---
PULMONARY PROGRESS NOTES DATE: 01/08/21 TIME: 11:37 Subjective Patient currently on assist control ventilation, i.e. ratio 1:1, 10 PEEP 100% FiO2 Saturation monitor indicates 97%, does not correlate with ABG T-max yesterday 100.2. Vitals Vital Signs Date Time Temp Pulse Resp B/P (MAP) Pulse Ox O2 Delivery O2 Flow Rate FiO2 01/08/21 11:15 100 Ventilator 01/08/21 10:00 92 26 104/71 (82) 01/08/21 08:00 98.1 98.1 General: Alert Lungs: Crackles, Other Cardiovascular: S1, S2 Abdomen: Soft, Other Extremities: Other Labs Laboratory Tests Test 01/07/21 07:00 01/07/21 13:20 01/08/21 00:44 01/08/21 05:21 O2 Saturation 82 % (92-99) Arterial Blood pH 7.37 (7.35-7.45) Arterial Blood pCO2 at Patient Temp 52 mmHg (35-46) Arterial Blood pO2 at Patient Temp 47 mmHg (65-108) Arterial Blood HCO3 29 mmol/L (21-28) Arterial Blood Base Excess 2 mmol/L (-3-3) FiO2 100 Sodium Level 140 mmol/L (136-145) Potassium Level 3.8 mmol/L (3.5-5.1) Chloride Level 103 mmol/L (98-107) Carbon Dioxide Level 28 mmol/L (21-32) Anion Gap 9 (6-14) Blood Urea Nitrogen 45 mg/dL (7-20) Creatinine 1.3 mg/dL (0.6-1.0) Estimated GFR (Cockcroft-Gault) 40.4 Glucose Level 189 mg/dL (70-99) Calcium Level 8.4 mg/dL (8.5-10.1) Phosphorus Level 1.2 mg/dL (2.6-4.7) Magnesium Level 1.9 mg/dL (1.8-2.4) Glucose (Fingerstick) 189 mg/dL (70-99) 162 mg/dL (70-99) Test 01/08/21 08:00 01/08/21 08:35 O2 Saturation 71 % (92-99) Arterial Blood pH 7.45 (7.35-7.45) Arterial Blood pCO2 at Patient Temp 42 mmHg (35-46) Arterial Blood pO2 at Patient Temp < 42 mmHg (65-108) Arterial Blood HCO3 29 mmol/L (21-28) Arterial Blood Base Excess 4 mmol/L (-3-3) FiO2 100/vent Creatinine 1.1 mg/dL (0.6-1.0) Estimated GFR (Cockcroft-Gault) 49.0 Laboratory Tests Test 01/07/21 13:20 01/08/21 00:44 01/08/21 05:21 01/08/21 08:00 Sodium Level 140 mmol/L (136-145) Potassium Level 3.8 mmol/L (3.5-5.1) Chloride Level 103 mmol/L (98-107) Carbon Dioxide Level 28 mmol/L (21-32) Anion Gap 9 (6-14) Blood Urea Nitrogen 45 mg/dL (7-20) Creatinine 1.3 mg/dL (0.6-1.0) Estimated GFR (Cockcroft-Gault) 40.4 Glucose Level 189 mg/dL (70-99) Calcium Level 8.4 mg/dL (8.5-10.1) Phosphorus Level 1.2 mg/dL (2.6-4.7) Magnesium Level 1.9 mg/dL (1.8-2.4) Glucose (Fingerstick) 189 mg/dL (70-99) 162 mg/dL (70-99) O2 Saturation 71 % (92-99) Arterial Blood pH 7.45 (7.35-7.45) Arterial Blood pCO2 at Patient Temp 42 mmHg (35-46) Arterial Blood pO2 at Patient Temp < 42 mmHg (65-108) Arterial Blood HCO3 29 mmol/L (21-28) Arterial Blood Base Excess 4 mmol/L (-3-3) FiO2 100/vent Test 01/08/21 08:35 Creatinine 1.1 mg/dL (0.6-1.0) Estimated GFR (Cockcroft-Gault) 49.0 Medications Active Scripts Medications Dose Route/Sig Max Daily Dose Days Date Category Augmentin 500-125 Tablet (Amoxicillin/Potassium Clav) 1 Each Tablet 1 Tab PO BID 7 10/03/19 Rx Benzonatate 100 Mg Capsule 100 Mg PO [id number] 10/03/19 Rx Proair Hfa (Albuterol Sulfate) 8.5 Gm Hfa.aer.ad 2.5 Mg NEB PRN Q4HRS PRN 30 10/03/19 Rx Digoxin 125 Mcg Tablet 125 Mcg PO DAILY 10/02/19 Reported Furosemide 20 Mg Tablet 1 Tab PO DAILY 10/02/19 Reported [Diltiazem Hcl] 240 MG Cap.er.24h 300 Mg PO DAILY 30 10/03/18 Rx Eliquis (Apixaban) 5 Mg Tablet 5 Mg PO BID MDD 5 30 10/03/18 Rx Tramadol-Acetaminophn 37.5-325 (Tramadol Hcl/Acetaminophen) 1 Each Tablet 1 Tab PO Q6H 07/14/16 Rx No Known Medications Prior To Admisstion (Info) Each 1 Each 04/26/15 Reported Impression . IMPRESSION: 1. Acute hypoxemic respiratory failure. 2. Abnormal x-ray compatible with a viral pneumonia 3. Obesity. 4. Acute on chronic systolic and diastolic heart failure. 5. Possible bacterial pneumonia. 6. Atrial fibrillation with rapid ventricular response. 7. History of tobacco dependent, suspect chronic obstructive pulmonary disease. 8. SARS Covid 2+ compatible with COVID-19 9. Fever secondary to above Plan . Updated 01/08 Patient intubated on 01/07 ABG noted Increase i.e. ratio to 2-1 increase PEEP to 12 Continue current support Started on remdesivir 01/07 Follow cardiology input Empiric antibiotics Follow RASS score for sedation Total cumulative critical care time from 9:15 AM to 9:50 AM Updated 01/07 Overnight events noted Patient intubated overnight secondary to poor oxygenation We will initiate remdesivir Continue steroids Continue empiric antibiotics Follow cardiology input Critical care time from 10:05 AM to 10:37 AM. Discussed with BINDU STANLEY MD Jan 08, 2021 11:42
--- NOTE | 2021-01-08 12:44 | PDOC ---
[employer] PROGRESS NOTE Date of Service DOS: DATE: 01/08/21 TIME: 12:43 Chief Complaint Chief Complaint Fulminant respiratory failure secondary to COVID-19 requiring intubation A. fib hypertension History of Present Illness History of Present Illness 01/08/2021 Patient seen and examined in the [place] [id number] ICU She is in respiratory isolation On the vent AC//1 100% FiO2 with 12 of PEEP He has SCDs on Has [place] to bedside drainage Sedated with fentanyl Versed OG feeds running at 40 cc an hour Has an art line Discussed with RN Chart reviewed She remains critically ill 01/07/2021 Patient seen and examined in the [place] [address] ICU She had to be intubated this morning She is currently on assist-control/ with 100% FiO2 and 10 of PEEP Has SCDs in Smith to bedside drainage Sedated with fentanyl Versed and also on IV doxycycline OG feeds running at 20 cc an hour Chart reviewed Discussed with RN She remains critically ill Vitals/I&O Vitals/I&O: Vital Signs Date Time Temp Pulse Resp B/P (MAP) Pulse Ox O2 Delivery O2 Flow Rate FiO2 01/08/21 12:00 98.6 86 26 104/68 (80) 100 Ventilator 98.6 I & O 01/07/21 01/07/21 01/08/21 15:00 23:00 07:00 Intake Total 100 ml 1175 ml Output Total 700 ml 465 ml 335 ml Balance -600 ml 710 ml -335 ml Physical Exam General: Other (Sedated on the vent) Heart: Other (AFIB) Lungs: Crackles, Other Abdomen: Soft Extremities: No cyanosis Skin: No breakdown, No significant lesion Labs Labs: Laboratory Tests Test 01/07/21 13:20 01/08/21 00:44 01/08/21 05:21 01/08/21 08:00 Sodium Level 140 mmol/L (136-145) Potassium Level 3.8 mmol/L (3.5-5.1) Chloride Level 103 mmol/L (98-107) Carbon Dioxide Level 28 mmol/L (21-32) Anion Gap 9 (6-14) Blood Urea Nitrogen 45 mg/dL (7-20) Creatinine 1.3 mg/dL (0.6-1.0) Estimated GFR (Cockcroft-Gault) 40.4 Glucose Level 189 mg/dL (70-99) Calcium Level 8.4 mg/dL (8.5-10.1) Phosphorus Level 1.2 mg/dL (2.6-4.7) Magnesium Level 1.9 mg/dL (1.8-2.4) Glucose (Fingerstick) 189 mg/dL (70-99) 162 mg/dL (70-99) O2 Saturation 71 % (92-99) Arterial Blood pH 7.45 (7.35-7.45) Arterial Blood pCO2 at Patient Temp 42 mmHg (35-46) Arterial Blood pO2 at Patient Temp < 42 mmHg (65-108) Arterial Blood HCO3 29 mmol/L (21-28) Arterial Blood Base Excess 4 mmol/L (-3-3) FiO2 100/vent Test 01/08/21 08:35 01/08/21 11:41 Creatinine 1.1 mg/dL (0.6-1.0) Estimated GFR (Cockcroft-Gault) 49.0 Glucose (Fingerstick) 198 mg/dL (70-99) Assessment and Plan Assessmemt and Plan Problems Medical Problems: (1) Person under investigation for COVID-19 Status: Acute (2) Respiratory failure with hypoxia Status: Acute Fulminant respiratory failure secondary to COVID-19 requiring intubation A. fib hypertension Plan ICU monitoring Vent weaning Covid protocol IV antibiotics IV steroids IV remdesivir IV doxycycline Vitamins and minerals Beta agonist Aspirin Trend labs DVT prophylaxis Full code Home meds if possible Prognosis seems poor as she is requiring 100% oxygen and 12 of PEEP but will give it some time CC time 32 minutes Comment Review of Relevant I have reviewed the following items pepe (where applicable) has been applied. Medications: Current Medications Medications (Trade) Dose Ordered Sig/Amaury Route PRN Reason Start Time Stop Time Status Last Admin Dose Admin Remdesivir 100 mg/ Sodium Chloride 230 ml @ 460 mls/hr Q24H IV 01/08/21 09:00 01/11/21 09:29 01/08/21 08:29 Famotidine (Pepcid Vial) 20 mg DAILY IVP 01/08/21 09:00 01/08/21 08:29 Acetaminophen (Tylenol) 650 mg PRN Q6HRS PRN PO MILD PAIN / TEMP > 100.3'F 01/07/21 16:00 01/07/21 16:51 Insulin Human Lispro (HumaLOG) 0-5 UNITS Q6HRS SQ 01/08/21 00:00 01/08/21 11:49 Justifications for Admission Other Justification KRISTOPHER GONZALES III DO Jan 08, 2021 12:44
[2021-01-08] MEDS: cefTRIAXone IV Push 1 GM VIAL. IVP SCH (13:19)
[2021-01-08] MEDS: POTASSIUM PHOSPHATE DIBASIC IV SCH ×2 (13:33→16:01)
[2021-01-08] MEDS: NS IV SCH ×2 (13:33→16:01)
[2021-01-08] MEDS: VANCOMYCIN 1.25 GM in IV NORMAL SALINE 250ML 250 ML IV SCH (17:13)
[2021-01-09] VITALS (24 sets, daily range): BP systolic 111–139; BP diastolic 68–82
[2021-01-09] MEDS: IV NORMAL SALINE 1000ML BAG 1,000 ML IV SCH ×3 (02:22→19:47)
[2021-01-09] MEDS: MIDAZOLAM 100mg/100ml NS BAG 100 ML IV PRN (02:24)
[2021-01-09] MEDS: INSULIN LISPRO 300 UNITS/3 ML VIAL. SQ SCH ×3 (06:30→17:28)
[2021-01-09 06:52] LABS: CREATININE 0.9 mg/dL (0.6-1.0); GFR 61.7
[2021-01-09] MEDS: methylPREDNISolone SOD SUCC PF 125 MG/2 ML VIAL. IV SCH ×2 (07:31→20:43)
[2021-01-09] MEDS: MULTIVITAMINS,THERAPEUTIC 5 ML ORAL LIQUID. FT SCH (07:31)
[2021-01-09] MEDS: APIXABAN 5 MG TABLET. PO SCH ×2 (07:31→20:43)
[2021-01-09] MEDS: METOPROLOL TART IMMED RELEASE 25 MG TABLET. PO SCH ×2 (07:31→20:43)
[2021-01-09] MEDS: FAMOTIDINE 20 MG/2 ML VIAL IVP SCH (07:31)
[2021-01-09] MEDS: DOXYCYCLINE HYCLATE 100 MG in IV DEXTROSE 5% 100ML 100 ML IV SCH ×2 (07:32→20:44)
[2021-01-09 09:07] LABS: BASE EXCESS ABG 0 mmol/L (-3-3); HCO3 ABG 22 mmol/L (21-28); PCO2 ABG 31 mmHg (35-46); PO2 ABG 226 mmHg (65-108); SAT O2 ABG 99 % (92-99)
[2021-01-09 09:11] LABS: FIO2 ABG 100%+12
[2021-01-09] MEDS: REMDESIVIR 100mg in NORMAL SALINE 250ML X 4 DAYS IV SCH (09:22)
--- NOTE | 2021-01-09 11:06 | PDOC ---
PULMONARY PROGRESS NOTES DATE: 01/09/21 TIME: 11:04 Subjective Patient currently on assist control ventilation, i.e. ratio 1:1, 10 PEEP 90% FiO2 Vitals Vital Signs Date Time Temp Pulse Resp B/P (MAP) Pulse Ox O2 Delivery O2 Flow Rate FiO2 01/09/21 10:00 98 26 119/74 (89) 100 Ventilator 01/09/21 08:00 99.0 99.0 01/09/21 01:19 40.0 Comments visual exam done due to covid 19 no resp distress no leg edema Lungs: Crackles, Other Cardiovascular: S1, S2 Abdomen: Soft, Other Extremities: Other Labs Laboratory Tests Test 01/07/21 13:20 01/08/21 00:44 01/08/21 05:21 01/08/21 08:00 Sodium Level 140 mmol/L (136-145) Potassium Level 3.8 mmol/L (3.5-5.1) Chloride Level 103 mmol/L (98-107) Carbon Dioxide Level 28 mmol/L (21-32) Anion Gap 9 (6-14) Blood Urea Nitrogen 45 mg/dL (7-20) Creatinine 1.3 mg/dL (0.6-1.0) Estimated GFR (Cockcroft-Gault) 40.4 Glucose Level 189 mg/dL (70-99) Calcium Level 8.4 mg/dL (8.5-10.1) Phosphorus Level 1.2 mg/dL (2.6-4.7) Magnesium Level 1.9 mg/dL (1.8-2.4) Glucose (Fingerstick) 189 mg/dL (70-99) 162 mg/dL (70-99) O2 Saturation 71 % (92-99) Arterial Blood pH 7.45 (7.35-7.45) Arterial Blood pCO2 at Patient Temp 42 mmHg (35-46) Arterial Blood pO2 at Patient Temp < 42 mmHg (65-108) Arterial Blood HCO3 29 mmol/L (21-28) Arterial Blood Base Excess 4 mmol/L (-3-3) FiO2 100/vent Test 01/08/21 08:35 01/08/21 11:41 01/08/21 23:34 01/09/21 06:15 Creatinine 1.1 mg/dL (0.6-1.0) 0.9 mg/dL (0.6-1.0) Estimated GFR (Cockcroft-Gault) 49.0 61.7 Glucose (Fingerstick) 198 mg/dL (70-99) 224 mg/dL (70-99) Phosphorus Level 3.0 mg/dL (2.6-4.7) Test 01/09/21 06:25 01/09/21 09:00 Glucose (Fingerstick) 165 mg/dL (70-99) O2 Saturation 99 % (92-99) Arterial Blood pH 7.48 (7.35-7.45) Arterial Blood pCO2 at Patient Temp 31 mmHg (35-46) Arterial Blood pO2 at Patient Temp 226 mmHg (65-108) Arterial Blood HCO3 22 mmol/L (21-28) Arterial Blood Base Excess 0 mmol/L (-3-3) FiO2 100%+12 Laboratory Tests Test 01/08/21 11:41 01/08/21 23:34 01/09/21 06:15 01/09/21 06:25 Glucose (Fingerstick) 198 mg/dL (70-99) 224 mg/dL (70-99) 165 mg/dL (70-99) Creatinine 0.9 mg/dL (0.6-1.0) Estimated GFR (Cockcroft-Gault) 61.7 Phosphorus Level 3.0 mg/dL (2.6-4.7) Test 01/09/21 09:00 O2 Saturation 99 % (92-99) Arterial Blood pH 7.48 (7.35-7.45) Arterial Blood pCO2 at Patient Temp 31 mmHg (35-46) Arterial Blood pO2 at Patient Temp 226 mmHg (65-108) Arterial Blood HCO3 22 mmol/L (21-28) Arterial Blood Base Excess 0 mmol/L (-3-3) FiO2 100%+12 Medications Active Scripts Medications Dose Route/Sig Max Daily Dose Days Date Category Augmentin 500-125 Tablet (Amoxicillin/Potassium Clav) 1 Each Tablet 1 Tab PO BID 7 10/03/19 Rx Benzonatate 100 Mg Capsule 100 Mg PO [id number] 10/03/19 Rx Proair Hfa (Albuterol Sulfate) 8.5 Gm Hfa.aer.ad 2.5 Mg NEB PRN Q4HRS PRN 30 10/03/19 Rx Digoxin 125 Mcg Tablet 125 Mcg PO DAILY 10/02/19 Reported Furosemide 20 Mg Tablet 1 Tab PO DAILY 10/02/19 Reported [Diltiazem Hcl] 240 MG Cap.er.24h 300 Mg PO DAILY 30 10/03/18 Rx Eliquis (Apixaban) 5 Mg Tablet 5 Mg PO BID MDD 5 30 10/03/18 Rx Tramadol-Acetaminophn 37.5-325 (Tramadol Hcl/Acetaminophen) 1 Each Tablet 1 Tab PO Q6H 07/14/16 Rx No Known Medications Prior To Admisstion (Info) Each 1 Each 04/26/15 Reported Comments cxr 01/07 diffuse lung infilt Impression . IMPRESSION: 1. Acute hypoxemic respiratory failure.due to covid 19 viral pneumonia/ ARDS 2. Abnormal x-ray compatible with a viral pneumonia 3. Obesity. 4. Acute on chronic systolic and diastolic heart failure. 5. Possible bacterial pneumonia. 6. Atrial fibrillation with rapid ventricular response. 7. History of tobacco dependent, suspect chronic obstructive pulmonary disease. 8. SARS Covid 2+ compatible with COVID-19 9. Fever secondary to above Plan . Updated 01/09 Patient intubated on 01/07 AC mode ABG noted decrease i.e. ratio to 1-1 , wean PEEP/ FIO2 Continue current support Started on remdesivir 01/07 Follow cardiology input Empiric antibiotics Follow RASS score for sedation Total cumulative critical care time from 9:15 AM to 9:50 AM Updated 01/07 Overnight events noted Patient intubated overnight secondary to poor oxygenation We will initiate remdesivir Continue steroids Continue empiric antibiotics Follow cardiology input Critical care time from 10:05 AM to 10:37 AM. Discussed with JEWEL LOVE MD Jan 09, 2021 11:06
--- NOTE | 2021-01-09 12:06 | PDOC ---
[facility] [facility] PROGRESS NOTE Date of Service DOS: DATE: 01/09/21 TIME: 12:04 Chief Complaint Chief Complaint Fulminant respiratory failure secondary to COVID-19 requiring intubation A. fib hypertension History of Present Illness History of Present Illness 01/09/2021 Patient seen and examined in the [place] [address] ICU She remains ventilated AC//450/70 percent with 10 of PEEP She is DNR but chemical code still Sedated with fentanyl and Versed Has an art line in place Smith to bedside drainage SCDs on OG at 40 cc an hour Discussed with RN Discussed with case management She remains critically ill Chart reviewed 01/08/2021 Patient seen and examined in the [place] [address] ICU She is in respiratory isolation On the vent AC///1 100% FiO2 with 12 of PEEP He has SCDs on Has Smith to bedside drainage Sedated with fentanyl Versed OG feeds running at 40 cc an hour Has an art line Discussed with RN Chart reviewed She remains critically ill 01/07/2021 Patient seen and examined in the [place] [address] ICU She had to be intubated this morning She is currently on assist-control//450 with 100% FiO2 and 10 of PEEP Has SCDs in Smith to bedside drainage Sedated with fentanyl Versed and also on IV doxycycline OG feeds running at 20 cc an hour Chart reviewed Discussed with RN She remains critically ill Vitals/I&O Vitals/I&O: Vital Signs Date Time Temp Pulse Resp B/P (MAP) Pulse Ox O2 Delivery O2 Flow Rate FiO2 01/09/21 11:00 88 26 115/69 (84) 98 Ventilator 01/09/21 08:00 99.0 99.0 01/09/21 01:19 40.0 I & O 01/08/21 01/08/21 01/09/21 15:00 23:00 07:00 Intake Total 530 ml 1911 ml 1153 ml Output Total 450 ml 325 ml 500 ml Balance 80 ml 1586 ml 653 ml Physical Exam General: Other (Sedated on the vent) Heart: Other (AFIB) Lungs: Crackles, Other Abdomen: Soft Extremities: No cyanosis Skin: No breakdown, No significant lesion Labs Labs: Laboratory Tests Test 01/08/21 23:34 01/09/21 06:15 01/09/21 06:25 01/09/21 09:00 Glucose (Fingerstick) 224 mg/dL (70-99) 165 mg/dL (70-99) Creatinine 0.9 mg/dL (0.6-1.0) Estimated GFR (Cockcroft-Gault) 61.7 Phosphorus Level 3.0 mg/dL (2.6-4.7) O2 Saturation 99 % (92-99) Arterial Blood pH 7.48 (7.35-7.45) Arterial Blood pCO2 at Patient Temp 31 mmHg (35-46) Arterial Blood pO2 at Patient Temp 226 mmHg (65-108) Arterial Blood HCO3 22 mmol/L (21-28) Arterial Blood Base Excess 0 mmol/L (-3-3) FiO2 100%+12 Test 01/09/21 11:54 Glucose (Fingerstick) 194 mg/dL (70-99) Assessment and Plan Assessmemt and Plan Problems Medical Problems: (1) Person under investigation for COVID-19 Status: Acute (2) Respiratory failure with hypoxia Status: Acute Fulminant respiratory failure secondary to COVID-19 requiring intubation A. fib hypertension Obesity Acute on chronic systolic and diastolic heart failure A. fib with RVR Fevers ICU monitoring Vent weaning Covid protocol IV antibiotics IV steroids IV remdesivir IV doxycycline Vitamins and minerals Beta agonist Aspirin Trend labs DVT prophylaxis Full code Home meds if possible Prognosis seems poor but somewhat improved over the past 24 hours that she is down to 70% on her FiO2 requirements Appreciate subspecialist input CC time 35 minutes Comment Review of Relevant I have reviewed the following items pepe (where applicable) has been applied. Medications: Current Medications Medications (Trade) Dose Ordered Sig/Amaury Route PRN Reason Start Time Stop Time Status Last Admin Dose Admin Vancomycin HCl 1.25 gm/Sodium Chloride 250 ml @ 167 mls/hr Q24H IV 01/08/21 17:00 01/08/21 17:13 Potassium Phosphate 10 mmol/ Sodium Chloride 103.3333 ml @ 51.667 m... Q2H IV 01/08/21 14:00 01/08/21 17:59 DC 01/08/21 16:01 Multivitamins/ Minerals Therapeutic (Centrum Multivit-Mineral Liq) 5 ml DAILY FT 01/09/21 09:00 01/09/21 07:31 Justifications for Admission Other Justification KRISTOPHER GONZALES III DO Jan 09, 2021 12:06
[2021-01-09] MEDS: cefTRIAXone IV Push 1 GM VIAL. IVP SCH (13:12)
[2021-01-09] MEDS: VANCOMYCIN 1.25 GM in IV NORMAL SALINE 250ML 250 ML IV SCH (16:49)
[2021-01-09] MEDS: VANCOMYCIN PER PHARMACY MC PRN (17:00)
[2021-01-10] VITALS (25 sets, daily range): BP systolic 109–146; BP diastolic 68–84
[2021-01-10] MEDS: INSULIN LISPRO 300 UNITS/3 ML VIAL. SQ SCH ×5 (00:08→23:52)
[2021-01-10 01:23] LABS: CALCIUM 7.4 mg/dL (8.5-10.1); GFR 54.7; POTASSIUM 4.2 mmol/L (3.5-5.1)
[2021-01-10] MEDS ORDERED: VANCOMYCIN 1.25 GM in IV NORMAL SALINE 250ML 250 ML IV SCH (05:00)
[2021-01-10] MEDS: MIDAZOLAM 100mg/100ml NS BAG 100 ML IV PRN (06:43)
[2021-01-10] MEDS: IV NORMAL SALINE 1000ML BAG 1,000 ML IV SCH ×2 (07:19→15:34)
[2021-01-10] MEDS: DOXYCYCLINE HYCLATE 100 MG in IV DEXTROSE 5% 100ML 100 ML IV SCH (07:28)
[2021-01-10] MEDS: METOPROLOL TART IMMED RELEASE 25 MG TABLET. PO SCH ×2 (07:28→21:33)
[2021-01-10] MEDS: MULTIVITAMINS,THERAPEUTIC 5 ML ORAL LIQUID. FT SCH (07:29)
[2021-01-10] MEDS: APIXABAN 5 MG TABLET. PO SCH ×2 (07:29→21:33)
[2021-01-10] MEDS: FAMOTIDINE 20 MG/2 ML VIAL IVP SCH (07:30)
[2021-01-10] MEDS: methylPREDNISolone SOD SUCC PF 125 MG/2 ML VIAL. IV SCH ×2 (07:30→21:32)
[2021-01-10 08:13] LABS: BASE EXCESS ABG 1 mmol/L (-3-3); HCO3 ABG 25 mmol/L (21-28); PCO2 ABG 38 mmHg (35-46); PO2 ABG 54 mmHg (65-108); SAT O2 ABG 87 % (92-99)
[2021-01-10 09:02] LABS: FIO2 ABG 70% VENT
[2021-01-10] MEDS: REMDESIVIR 100mg in NORMAL SALINE 250ML X 4 DAYS IV SCH (09:29)
--- NOTE | 2021-01-10 10:19 | CONS ---
DATE OF CONSULTATION: 01/10/2021 REFERRING PHYSICIAN: Dr. Petty. REASON FOR CONSULTATION: Bacteremia. HISTORY OF PRESENT ILLNESS: A 70-year-old female who presented to the ER on 01/05/2021 with shortness of breath, fever and cough. The patient was found to have COVID-19. She has been exposed to family members with COVID-19. She was admitted to ICU, started on steroids, remdesivir, supportive treatment. Blood cultures done on admission, were positive for 2/4 bottles for staph. She is currently on IV vancomycin, ceftriaxone and doxycycline. Repeat blood culture negative from 01/06/2021. The patient continues to remain on ventilator. Fever has improved. ID consultation has been requested for further antibiotic management. PAST MEDICAL HISTORY: AFib, hypertension. ALLERGIES: No known drug allergies. FAMILY HISTORY: As per HPI. SOCIAL HISTORY: History of smoking documented. No drugs, no alcohol. CURRENT MEDICATIONS: Vancomycin, ceftriaxone and doxycycline. Other medications reviewed in medication list. REVIEW OF SYSTEMS: Unable to obtain. PHYSICAL EXAMINATION: VITAL SIGNS: Temperature 99.2, T-max 99.6, pulse 102, respiratory rate 26, blood pressure 142/80, oxygen saturation 95% on 70% FiO2. GENERAL: Intubated, sedated female. HEENT: Normocephalic, atraumatic. ETT present. No conjunctival petechia. Anicteric. OGT present. NECK: Supple. LUNGS: Decreased breath sound at the bases, otherwise no wheezing. HEART: S1, S2. ABDOMEN: Soft, obese. Bowel sounds present. EXTREMITIES: No edema, no cyanosis. GENITOURINARY: Smith in place. CENTRAL NERVOUS SYSTEM: Intubated. DERMATOLOGIC: Warm and dry. No generalized rash. LINES: Left-sided PICC line, right out line looks clean. LABORATORY DATA: WBC 6.3, hemoglobin 16.5, hematocrit 51.1, platelets 115. Sodium 143, potassium 4.2, chloride 110, bicarbonate 24, BUN 36, creatinine 1.0, glucose 203, calcium 7.4. Vancomycin 7.0. UA negative. COVID-19 positive. IMAGING: Chest x-ray shows extensive bilateral infiltrates. KUB reviewed. MICRO: 01/05/2021, 2/4 bottles positive for Staph hominis and Staph epidermidis. Repeat blood cultures 01/06/2021 negative so far. IMPRESSION: 1. COVID-19 pneumonia. Present on admission. 2. Acute hypoxic respiratory failure. Suspected bacterial pneumonia. 3. Bacteremia, 2/4 bottles present on admission, Staph epidermidis, Staph hominis. Likely contaminant. Repeat blood cultures negative so far. 4. Obesity. 5. Acute on chronic systolic and diastolic heart failure. 6. Atrial fibrillation with rapid ventricular response. 7. History of tobacco dependence. 8. Mild thrombocytopenia. 9. Elevated D-dimer. 10. Hypertension. RECOMMENDATIONS: 1. Continue supportive care. 2. On remdesivir and steroids per primary team 3. Discontinue IV vancomycin, ceftriaxone and doxycycline. 4. Start Zyvox and Zosyn. 5. Monitor platelet counts closely. 6. Monitor labs and cultures. 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 Thank you Dr. Petty for allowing me to participate in this patient's care. If you have any questions, do not hesitate to contact me. ADRIÁN VELASCO MD DR: CONNIE/ila JOB#: [id number] / [id number] ABDIEL
--- NOTE | 2021-01-10 10:39 | PDOC ---
LEONA PETER DRY HEAT ROOM ATTENDANT 01/10/21 1039: CARDIO Progress Notes Date and Time Date of Service 01/10/2021 Time of Evaluation 1010 Subjective Subjective: Other (intubated) Vitals Vitals Vital Signs Date Time Temp Pulse Resp B/P (MAP) Pulse Ox O2 Delivery O2 Flow Rate FiO2 01/10/21 10:00 86 26 146/84 (104) 98 Ventilator 01/10/21 08:00 99.2 99.2 Weight Weight [ ] Input and Output Intake and Output Intake and Output 01/10/21 07:00 Intake Total 4335 ml Output Total 1450 ml Balance 2885 ml IV Total 1536 ml Tube Feeding 1634 ml Blood Product IV Normal Saline Flush 765 ml Other 400 ml Output Urine Total 1450 ml Laboratory Labs Laboratory Tests Test 01/09/21 11:54 01/09/21 16:20 01/09/21 17:26 01/09/21 23:57 Glucose (Fingerstick) 194 mg/dL (70-99) 158 mg/dL (70-99) 214 mg/dL (70-99) Vancomycin Level Trough 7.0 mcg/mL (10.0-20.0) Vancomycin Last Dose Date 01/08/21 Vancomycin Last Dose Time 1700 Test 01/10/21 01:00 01/10/21 05:57 01/10/21 08:00 Sodium Level 143 mmol/L (136-145) Potassium Level 4.2 mmol/L (3.5-5.1) Chloride Level 110 mmol/L (98-107) Carbon Dioxide Level 24 mmol/L (21-32) Anion Gap 9 (6-14) Blood Urea Nitrogen 36 mg/dL (7-20) Creatinine 1.0 mg/dL (0.6-1.0) Estimated GFR (Cockcroft-Gault) 54.7 Glucose Level 203 mg/dL (70-99) Calcium Level 7.4 mg/dL (8.5-10.1) Magnesium Level 2.0 mg/dL (1.8-2.4) Glucose (Fingerstick) 213 mg/dL (70-99) O2 Saturation 87 % (92-99) Arterial Blood pH 7.44 (7.35-7.45) Arterial Blood pCO2 at Patient Temp 38 mmHg (35-46) Arterial Blood pO2 at Patient Temp 54 mmHg (65-108) Arterial Blood HCO3 25 mmol/L (21-28) Arterial Blood Base Excess 1 mmol/L (-3-3) FiO2 70% vent Microbiology Micro Microbiology 01/06/21 Blood Culture - Preliminary, Resulted NO GROWTH AFTER 3 DAYS Physical Exam HEENT: Neck Supple W Full Motion Chest: Symmetric LUNGS: Other (intubated with vent) Heart: irregularly irregular (AFIB) Abdomen: Soft N/T Extremities: No Edema Neurology: other (sedated) Assessment Assessment 1. Acute respiratory failure: covid-19 pneumonia 2. Persistent AFIB with RVR: recent MCOT with 100% burden. Rate controlled 3. Sepsis/fever 4. JUSTINE: prerenal 5. Acute diastolic CHF: compensated 6. HTN: controlled 7. Mild troponin elevation: suspect demand mediated, type 2 8. Obesity Recommendations 1. Cardiac castro stable. Continue metoprolol for rate control. Eliquis for stroke prevention 2. TTE as an outpt once recovered 3. Pulmonary optimization, covid-19 treatment 4. Lasix PRN 5. Supportive care Justicifation of Admission Dx: Justifications for Admission: Justification of Admission Dx: Yes CHF: Cardiac Arrhythmias JESUS COOPER MD 01/10/21 1707: CARDIO Progress Notes Plan Plan Patient seen and examined from the door. Agree with above nurse practitioner note. Supportive care. LEONA PETER APRN Jan 10, 2021 10:39 JESUS COOPER MD Jan 10, 2021 17:07
--- NOTE | 2021-01-10 10:55 | PDOC ---
PULMONARY PROGRESS NOTES DATE: 01/10/21 TIME: 10:52 Subjective Patient currently on assist control ventilation, i.e. ratio 1:1, 10 PEEP 70% FiO2 Vitals Vital Signs Date Time Temp Pulse Resp B/P (MAP) Pulse Ox O2 Delivery O2 Flow Rate FiO2 01/10/21 10:00 86 26 146/84 (104) 98 Ventilator 01/10/21 08:00 99.2 99.2 Comments visual exam done due to covid 19 no resp distress no leg edema Labs Laboratory Tests Test 01/08/21 11:41 01/08/21 23:34 01/09/21 06:15 01/09/21 06:25 Glucose (Fingerstick) 198 mg/dL (70-99) 224 mg/dL (70-99) 165 mg/dL (70-99) Creatinine 0.9 mg/dL (0.6-1.0) Estimated GFR (Cockcroft-Gault) 61.7 Phosphorus Level 3.0 mg/dL (2.6-4.7) Test 01/09/21 09:00 01/09/21 11:54 01/09/21 16:20 01/09/21 17:26 O2 Saturation 99 % (92-99) Arterial Blood pH 7.48 (7.35-7.45) Arterial Blood pCO2 at Patient Temp 31 mmHg (35-46) Arterial Blood pO2 at Patient Temp 226 mmHg (65-108) Arterial Blood HCO3 22 mmol/L (21-28) Arterial Blood Base Excess 0 mmol/L (-3-3) FiO2 100%+12 Glucose (Fingerstick) 194 mg/dL (70-99) 158 mg/dL (70-99) Vancomycin Level Trough 7.0 mcg/mL (10.0-20.0) Vancomycin Last Dose Date 01/08/21 Vancomycin Last Dose Time 1700 Test 01/09/21 23:57 01/10/21 01:00 01/10/21 05:57 01/10/21 08:00 Glucose (Fingerstick) 214 mg/dL (70-99) 213 mg/dL (70-99) Sodium Level 143 mmol/L (136-145) Potassium Level 4.2 mmol/L (3.5-5.1) Chloride Level 110 mmol/L (98-107) Carbon Dioxide Level 24 mmol/L (21-32) Anion Gap 9 (6-14) Blood Urea Nitrogen 36 mg/dL (7-20) Creatinine 1.0 mg/dL (0.6-1.0) Estimated GFR (Cockcroft-Gault) 54.7 Glucose Level 203 mg/dL (70-99) Calcium Level 7.4 mg/dL (8.5-10.1) Magnesium Level 2.0 mg/dL (1.8-2.4) O2 Saturation 87 % (92-99) Arterial Blood pH 7.44 (7.35-7.45) Arterial Blood pCO2 at Patient Temp 38 mmHg (35-46) Arterial Blood pO2 at Patient Temp 54 mmHg (65-108) Arterial Blood HCO3 25 mmol/L (21-28) Arterial Blood Base Excess 1 mmol/L (-3-3) FiO2 70% vent Laboratory Tests Test 01/09/21 11:54 01/09/21 16:20 01/09/21 17:26 01/09/21 23:57 Glucose (Fingerstick) 194 mg/dL (70-99) 158 mg/dL (70-99) 214 mg/dL (70-99) Vancomycin Level Trough 7.0 mcg/mL (10.0-20.0) Vancomycin Last Dose Date 01/08/21 Vancomycin Last Dose Time 1700 Test 01/10/21 01:00 01/10/21 05:57 01/10/21 08:00 Sodium Level 143 mmol/L (136-145) Potassium Level 4.2 mmol/L (3.5-5.1) Chloride Level 110 mmol/L (98-107) Carbon Dioxide Level 24 mmol/L (21-32) Anion Gap 9 (6-14) Blood Urea Nitrogen 36 mg/dL (7-20) Creatinine 1.0 mg/dL (0.6-1.0) Estimated GFR (Cockcroft-Gault) 54.7 Glucose Level 203 mg/dL (70-99) Calcium Level 7.4 mg/dL (8.5-10.1) Magnesium Level 2.0 mg/dL (1.8-2.4) Glucose (Fingerstick) 213 mg/dL (70-99) O2 Saturation 87 % (92-99) Arterial Blood pH 7.44 (7.35-7.45) Arterial Blood pCO2 at Patient Temp 38 mmHg (35-46) Arterial Blood pO2 at Patient Temp 54 mmHg (65-108) Arterial Blood HCO3 25 mmol/L (21-28) Arterial Blood Base Excess 1 mmol/L (-3-3) FiO2 70% vent Medications Active Scripts Medications Dose Route/Sig Max Daily Dose Days Date Category Augmentin 500-125 Tablet (Amoxicillin/Potassium Clav) 1 Each Tablet 1 Tab PO BID 7 10/03/19 Rx Benzonatate 100 Mg Capsule 100 Mg PO FCE033 10/03/19 Rx Proair Hfa (Albuterol Sulfate) 8.5 Gm Hfa.aer.ad 2.5 Mg NEB PRN Q4HRS PRN 30 10/03/19 Rx Digoxin 125 Mcg Tablet 125 Mcg PO DAILY 10/02/19 Reported Furosemide 20 Mg Tablet 1 Tab PO DAILY 10/02/19 Reported [Diltiazem Hcl] 240 MG Cap.er.24h 300 Mg PO DAILY 30 10/03/18 Rx Eliquis (Apixaban) 5 Mg Tablet 5 Mg PO BID MDD 5 30 10/03/18 Rx Tramadol-Acetaminophn 37.5-325 (Tramadol Hcl/Acetaminophen) 1 Each Tablet 1 Tab PO Q6H 07/14/16 Rx No Known Medications Prior To Admisstion (Info) Each 1 Each 04/26/15 Reported Comments cxr 01/07 diffuse lung infilt Impression . IMPRESSION: 1. Acute hypoxemic respiratory failure.due to covid 19 viral pneumonia/ ARDS 2. Abnormal x-ray compatible with a viral pneumonia 3. Obesity. 4. Acute on chronic diastolic heart failure. 5. Possible bacterial pneumonia. 6. Atrial fibrillation with rapid ventricular response. 7. History of tobacco dependent, suspect chronic obstructive pulmonary disease. 8. SARS Covid 2+ compatible with COVID-19 9. Fever secondary to above Plan . Updated 01/10 Patient intubated on 01/07 AC mode ABG noted, increase FIO2 80%, I:E. ratio to 1-1 ,10 OF PEEP Continue current support Started on remdesivir 01/07 IV SOLUMEDROL Follow cardiology input Empiric antibiotics Follow RASS score for sedation Total cumulative critical care time from 9:15 AM to 9:50 AM Updated 01/07 Overnight events noted Patient intubated overnight secondary to poor oxygenation We will initiate remdesivir Continue steroids Continue empiric antibiotics Follow cardiology input Critical care time from 10:05 AM to 10:37 AM. Discussed with JEWEL LOVE MD Jan 10, 2021 10:55
--- NOTE | 2021-01-10 10:59 | PDOC ---
[facility] [facility] PROGRESS NOTE Date of Service DOS: DATE: 01/10/21 TIME: 10:57 Chief Complaint Chief Complaint Fulminant respiratory failure secondary to COVID-19 requiring intubation A. fib hypertension Asthma Chronic anticoagulation Arrhythmias Arthritis History of Present Illness History of Present Illness 01/10/2021 Patient seen and examined in the [place] [address] ICU She is still mechanically ventilated AC/26/450/70 percent with 10 of PEEP On IV Zosyn and Zyvox Sedated Discussed with RN Discussed with case management Chart reviewed She remains very critically ill 01/09/2021 Patient seen and examined in the [place] [address] ICU She remains ventilated AC/26/450/70 percent with 10 of PEEP She is DNR but chemical code still Sedated with fentanyl and Versed Has an art line in place Smith to bedside drainage SCDs on OG at 40 cc an hour Discussed with RN Discussed with case management She remains critically ill Chart reviewed 01/08/2021 Patient seen and examined in the [place] [address] ICU She is in respiratory isolation On the vent AC/26/450/1 100% FiO2 with 12 of PEEP He has SCDs on Has Smith to bedside drainage Sedated with fentanyl Versed OG feeds running at 40 cc an hour Has an art line Discussed with RN Chart reviewed She remains critically ill 01/07/2021 Patient seen and examined in the [place] [address] ICU She had to be intubated this morning She is currently on assist-control/26/450 with 100% FiO2 and 10 of PEEP Has SCDs in Smith to bedside drainage Sedated with fentanyl Versed and also on IV doxycycline OG feeds running at 20 cc an hour Chart reviewed Discussed with RN She remains critically ill Vitals/I&O Vitals/I&O: Vital Signs Date Time Temp Pulse Resp B/P (MAP) Pulse Ox O2 Delivery O2 Flow Rate FiO2 01/10/21 10:00 86 26 146/84 (104) 98 Ventilator 01/10/21 08:00 99.2 99.2 I & O 01/09/21 01/09/21 01/10/21 15:00 23:00 07:00 Intake Total 530 ml 2430 ml 1375 ml Output Total 450 ml 500 ml 500 ml Balance 80 ml 1930 ml 875 ml Physical Exam General: Other (Sedated on the vent) Heart: Other (AFIB) Abdomen: Soft Extremities: No cyanosis Skin: No breakdown, No significant lesion Labs Labs: Laboratory Tests Test 01/09/21 11:54 01/09/21 16:20 01/09/21 17:26 01/09/21 23:57 Glucose (Fingerstick) 194 mg/dL (70-99) 158 mg/dL (70-99) 214 mg/dL (70-99) Vancomycin Level Trough 7.0 mcg/mL (10.0-20.0) Vancomycin Last Dose Date 01/08/21 Vancomycin Last Dose Time 1700 Test 01/10/21 01:00 01/10/21 05:57 01/10/21 08:00 Sodium Level 143 mmol/L (136-145) Potassium Level 4.2 mmol/L (3.5-5.1) Chloride Level 110 mmol/L (98-107) Carbon Dioxide Level 24 mmol/L (21-32) Anion Gap 9 (6-14) Blood Urea Nitrogen 36 mg/dL (7-20) Creatinine 1.0 mg/dL (0.6-1.0) Estimated GFR (Cockcroft-Gault) 54.7 Glucose Level 203 mg/dL (70-99) Calcium Level 7.4 mg/dL (8.5-10.1) Magnesium Level 2.0 mg/dL (1.8-2.4) Glucose (Fingerstick) 213 mg/dL (70-99) O2 Saturation 87 % (92-99) Arterial Blood pH 7.44 (7.35-7.45) Arterial Blood pCO2 at Patient Temp 38 mmHg (35-46) Arterial Blood pO2 at Patient Temp 54 mmHg (65-108) Arterial Blood HCO3 25 mmol/L (21-28) Arterial Blood Base Excess 1 mmol/L (-3-3) FiO2 70% vent Review of Systems Review of Systems: Unable to obtain Assessment and Plan Assessmemt and Plan Problems Medical Problems: (1) Person under investigation for COVID-19 Status: Acute (2) Respiratory failure with hypoxia Status: Acute Assessment Fulminant respiratory failure secondary to COVID-19 requiring intubation A-fib with RVR Hypertension Asthma Chronic anticoagulation Arrhythmias Arthritis Obesity Acute on chronic systolic and diastolic heart failure Fevers Plan ICU monitoring Vent weaning Covid protocol IV antibiotics IV steroids IV remdesivir IV doxycycline Vitamins and minerals Beta agonist Aspirin Trend labs DVT prophylaxis Full code Home meds if possible Prognosis extremely guarded Appreciate subspecialist input CC time 32 minutes Comment Review of Relevant I have reviewed the following items pepe (where applicable) has been applied. Medications: Current Medications Medications (Trade) Dose Ordered Sig/Amaury Route PRN Reason Start Time Stop Time Status Last Admin Dose Admin Vancomycin HCl (Vancomycin Trough Level) 1 each 1X ONCE MC 01/09/21 16:30 01/09/21 16:31 DC 01/09/21 16:30 Vancomycin HCl 1.25 gm/Sodium Chloride 250 ml @ 167 mls/hr Q12H IV 01/10/21 05:00 01/10/21 09:27 DC 01/10/21 05:55 Justifications for Admission Other Justification KRISTOPHER GONZALES III DO Jan 10, 2021 10:59
[2021-01-10] MEDS: PIPERACILLIN/TAZOBACTAM 3.375 GM in IV NORMAL SALINE 50ML 50 ML IV SCH ×3 (12:27→23:49)
[2021-01-11] VITALS (24 sets, daily range): BP systolic 120–146; BP diastolic 71–88
[2021-01-11] MEDS: PIPERACILLIN/TAZOBACTAM 3.375 GM in IV NORMAL SALINE 50ML 50 ML IV SCH ×3 (06:39→17:31)
[2021-01-11] MEDS: IV NORMAL SALINE 1000ML BAG 1,000 ML IV SCH (06:39)
[2021-01-11] MEDS: INSULIN LISPRO 300 UNITS/3 ML VIAL. SQ SCH ×3 (06:40→17:31)
[2021-01-11] MEDS: FAMOTIDINE 20 MG/2 ML VIAL IVP SCH (07:27)
[2021-01-11] MEDS: MULTIVITAMINS,THERAPEUTIC 5 ML ORAL LIQUID. FT SCH (07:27)
[2021-01-11] MEDS: APIXABAN 5 MG TABLET. PO SCH ×2 (07:27→21:48)
[2021-01-11] MEDS: methylPREDNISolone SOD SUCC PF 125 MG/2 ML VIAL. IV SCH ×2 (07:27→21:50)
[2021-01-11] MEDS: METOPROLOL TART IMMED RELEASE 25 MG TABLET. PO SCH ×2 (07:28→21:49)
--- NOTE | 2021-01-11 07:48 | PDOC ---
Infectious Disease Note Subjective: Subjective Intubated/sedated FiO2 down to 70% Vital Signs: Vital Signs Vital Signs Date Time Temp Pulse Resp B/P (MAP) Pulse Ox O2 Delivery O2 Flow Rate FiO2 01/11/21 07:46 Mechanical Ventilator 01/11/21 07:28 96 137/63 01/11/21 07:00 26 97 01/11/21 04:00 98.4 98.4 01/11/21 01:23 40.0 Physical Exam: PHYSICAL EXAM GENERAL: Intubated, sedated female. HEENT: Normocephalic, atraumatic. ETT present. No conjunctival petechia. Anicteric. OGT present. NECK: Supple. LUNGS: Decreased breath sound at the bases, otherwise no wheezing. HEART: S1, S2. ABDOMEN: Soft, obese. Bowel sounds present. EXTREMITIES: No edema, no cyanosis. GENITOURINARY: Smith in place. CENTRAL NERVOUS SYSTEM: Intubated. DERMATOLOGIC: Warm and dry. No generalized rash. LINES: Left-sided PICC line, right out line looks clean. Medications: Inpatient Meds: Medications reviewed. Labs: Lab Laboratory Tests Test 01/10/21 08:00 01/10/21 12:02 01/10/21 17:28 01/10/21 23:29 O2 Saturation 87 % (92-99) Arterial Blood pH 7.44 (7.35-7.45) Arterial Blood pCO2 at Patient Temp 38 mmHg (35-46) Arterial Blood pO2 at Patient Temp 54 mmHg (65-108) Arterial Blood HCO3 25 mmol/L (21-28) Arterial Blood Base Excess 1 mmol/L (-3-3) FiO2 70% vent Glucose (Fingerstick) 175 mg/dL (70-99) 200 mg/dL (70-99) 227 mg/dL (70-99) Test 01/11/21 04:48 01/11/21 06:33 Creatinine 1.0 mg/dL (0.6-1.0) Estimated GFR (Cockcroft-Gault) 54.7 Glucose (Fingerstick) 208 mg/dL (70-99) Objective: Assessment: 1. COVID-19 pneumonia. Present on admission. 2. Acute hypoxic respiratory failure. Suspected bacterial pneumonia. 3. Bacteremia, 2/4 bottles present on admission, Staph epidermidis, Staph hominis. Likely contaminant. Repeat blood cultures negative so far. 4. Obesity. 5. Acute on chronic systolic and diastolic heart failure. 6. Atrial fibrillation with rapid ventricular response. 7. History of tobacco dependence. 8. Mild thrombocytopenia. 9. Elevated D-dimer. 10. Hypertension. Plan: Plan of Care 1. Continue supportive care. 2. On remdesivir and steroids per primary team 3. Cont Zyvox and Zosyn. 4. Monitor platelet counts closely. 5.Monitor labs and cultures. Critically ill. ADRIÁN VELASCO MD Jan 11, 2021 07:48
[2021-01-11 08:26] LABS: CALCIUM 7.9 mg/dL (8.5-10.1); GFR 54.7; POTASSIUM 4.3 mmol/L (3.5-5.1)
--- NOTE | 2021-01-11 08:34 | PDOC ---
LEONA PETER FRESH WORK INSPECTOR 01/11/21 0834: CARDIO Progress Notes Date and Time Date of Service 01/11/2021 Time of Evaluation 1050 Subjective Subjective: Other (intubated) Vitals Vitals Vital Signs Date Time Temp Pulse Resp B/P (MAP) Pulse Ox O2 Delivery O2 Flow Rate FiO2 01/11/21 08:00 99.2 99 26 126/77 (93) 98 Ventilator 99.2 01/11/21 01:23 40.0 Weight Weight [ ] Input and Output Intake and Output Intake and Output 01/11/21 07:00 Intake Total 4553 ml Output Total 1435 ml Balance 3118 ml IV Total 1591 ml Tube Feeding 1552 ml Blood Product IV Normal Saline Flush 810 ml Other 600 ml Output Urine Total 1435 ml Laboratory Labs Laboratory Tests Test 01/10/21 12:02 01/10/21 17:28 01/10/21 23:29 01/11/21 04:48 Glucose (Fingerstick) 175 mg/dL (70-99) 200 mg/dL (70-99) 227 mg/dL (70-99) Sodium Level 144 mmol/L (136-145) Potassium Level 4.3 mmol/L (3.5-5.1) Chloride Level 110 mmol/L (98-107) Carbon Dioxide Level 24 mmol/L (21-32) Anion Gap 10 (6-14) Blood Urea Nitrogen 34 mg/dL (7-20) Creatinine 1.0 mg/dL (0.6-1.0) Estimated GFR (Cockcroft-Gault) 54.7 Glucose Level 222 mg/dL (70-99) Calcium Level 7.9 mg/dL (8.5-10.1) Test 01/11/21 06:33 Glucose (Fingerstick) 208 mg/dL (70-99) Microbiology Micro Microbiology 01/06/21 Blood Culture - Preliminary, Resulted NO GROWTH AFTER 4 DAYS Physical Exam HEENT: Neck Supple W Full Motion Chest: Symmetric LUNGS: Other (intubated with vent) Heart: irregularly irregular (AFIB) Abdomen: Soft N/T Extremities: No Edema Neurology: other (sedated) Assessment Assessment 1. Acute respiratory failure: covid-19 pneumonia 2. Persistent AFIB with RVR: recent MCOT with 100% burden. Rate remains controlled 3. Sepsis/fever 4. JUSTINE: prerenal 5. Acute diastolic CHF: compensated 6. HTN: controlled 7. Mild troponin elevation: suspect demand mediated, type 2 8. Obesity Recommendations 1. Cardiac castro stable. Continue metoprolol for rate control. Eliquis for stroke prevention 2. TTE as an outpt once recovered 3. Pulmonary optimization, covid-19 treatment 4. Lasix PRN 5. Supportive care Justicifation of Admission Dx: Justifications for Admission: Justification of Admission Dx: Yes CHF: Cardiac Arrhythmias JESUS COOPER MD 01/11/21 1157: CARDIO Progress Notes Plan Plan Pt. seen and examined. Agree with above [employer] SALES REPRESENTATIVE note. Supportive care. LEONA PETER APRN Jan 11, 2021 08:34 JESUS COOPER MD Jan 11, 2021 11:57
[2021-01-11 08:35] LABS: BASO % 0 % (0-3); EOS % 0 % (0-3); HEMOGLOBIN 15.1 g/dL (12.0-15.5); LYMPH # 0.2 x10^3/uL (1.0-4.8); LYMPH % 2 % (24-48); MEAN CORPUSCULAR HEMOGLOBIN 30 pg (25-35); MEAN CORPUSCULAR HGB CONC 33 g/dL (31-37); MEAN CORPUSCULAR VOLUME 90 fL (79-100); MONO # 0.3 x10^3/uL (0.0-1.1); MONO % 2 % (0-9); NEUT # 10.4 x10^3/uL (1.8-7.7); NEUT % 95 % (31-73); PLATELET COUNT 164 x10^3/uL (140-400); RED CELL DISTRIBUTION WIDTH 14.9 % (11.5-14.5); WHITE BLOOD COUNT 10.9 x10^3/uL (4.0-11.0)
[2021-01-11] MEDS: REMDESIVIR 100mg in NORMAL SALINE 250ML X 4 DAYS IV SCH (09:02)
[2021-01-11 09:04] LABS: BASE EXCESS ABG -1 mmol/L (-3-3); HCO3 ABG 23 mmol/L (21-28); PCO2 ABG 37 mmHg (35-46); PO2 ABG 65 mmHg (65-108); SAT O2 ABG 92 % (92-99)
[2021-01-11 09:10] LABS: FIO2 ABG 80
--- NOTE | 2021-01-11 10:12 | PDOC ---
PULMONARY PROGRESS NOTES DATE: 01/11/21 TIME: 10:11 Subjective Patient currently on assist control ventilation, i.e. ratio 1:1, 10 PEEP 80% FiO2 Vitals Vital Signs Date Time Temp Pulse Resp B/P (MAP) Pulse Ox O2 Delivery O2 Flow Rate FiO2 01/11/21 10:00 96 26 128/74 (92) 96 Ventilator 01/11/21 08:00 99.2 99.2 01/11/21 01:23 40.0 Comments visual exam done due to covid 19 no resp distress no leg edema Labs Laboratory Tests Test 01/09/21 11:54 01/09/21 16:20 01/09/21 17:26 01/09/21 23:57 Glucose (Fingerstick) 194 mg/dL (70-99) 158 mg/dL (70-99) 214 mg/dL (70-99) Vancomycin Level Trough 7.0 mcg/mL (10.0-20.0) Vancomycin Last Dose Date 01/08/21 Vancomycin Last Dose Time 1700 Test 01/10/21 01:00 01/10/21 05:57 01/10/21 08:00 01/10/21 12:02 Sodium Level 143 mmol/L (136-145) Potassium Level 4.2 mmol/L (3.5-5.1) Chloride Level 110 mmol/L (98-107) Carbon Dioxide Level 24 mmol/L (21-32) Anion Gap 9 (6-14) Blood Urea Nitrogen 36 mg/dL (7-20) Creatinine 1.0 mg/dL (0.6-1.0) Estimated GFR (Cockcroft-Gault) 54.7 Glucose Level 203 mg/dL (70-99) Calcium Level 7.4 mg/dL (8.5-10.1) Magnesium Level 2.0 mg/dL (1.8-2.4) Glucose (Fingerstick) 213 mg/dL (70-99) 175 mg/dL (70-99) O2 Saturation 87 % (92-99) Arterial Blood pH 7.44 (7.35-7.45) Arterial Blood pCO2 at Patient Temp 38 mmHg (35-46) Arterial Blood pO2 at Patient Temp 54 mmHg (65-108) Arterial Blood HCO3 25 mmol/L (21-28) Arterial Blood Base Excess 1 mmol/L (-3-3) FiO2 70% vent Test 01/10/21 17:28 01/10/21 23:29 01/11/21 04:48 01/11/21 06:33 Glucose (Fingerstick) 200 mg/dL (70-99) 227 mg/dL (70-99) 208 mg/dL (70-99) White Blood Count 10.9 x10^3/uL (4.0-11.0) Red Blood Count 5.10 x10^6/uL (3.50-5.40) Hemoglobin 15.1 g/dL (12.0-15.5) Hematocrit 46.0 % (36.0-47.0) Mean Corpuscular Volume 90 fL (79-100) Mean Corpuscular Hemoglobin 30 pg (25-35) Mean Corpuscular Hemoglobin Concent 33 g/dL (31-37) Red Cell Distribution Width 14.9 % (11.5-14.5) Platelet Count 164 x10^3/uL (140-400) Neutrophils (%) (Auto) 95 % (31-73) Lymphocytes (%) (Auto) 2 % (24-48) Monocytes (%) (Auto) 2 % (0-9) Eosinophils (%) (Auto) 0 % (0-3) Basophils (%) (Auto) 0 % (0-3) Neutrophils # (Auto) 10.4 x10^3/uL (1.8-7.7) Lymphocytes # (Auto) 0.2 x10^3/uL (1.0-4.8) Monocytes # (Auto) 0.3 x10^3/uL (0.0-1.1) Eosinophils # (Auto) 0.0 x10^3/uL (0.0-0.7) Basophils # (Auto) 0.0 x10^3/uL (0.0-0.2) Sodium Level 144 mmol/L (136-145) Potassium Level 4.3 mmol/L (3.5-5.1) Chloride Level 110 mmol/L (98-107) Carbon Dioxide Level 24 mmol/L (21-32) Anion Gap 10 (6-14) Blood Urea Nitrogen 34 mg/dL (7-20) Creatinine 1.0 mg/dL (0.6-1.0) Estimated GFR (Cockcroft-Gault) 54.7 Glucose Level 222 mg/dL (70-99) Calcium Level 7.9 mg/dL (8.5-10.1) Test 01/11/21 09:00 O2 Saturation 92 % (92-99) Arterial Blood pH 7.41 (7.35-7.45) Arterial Blood pCO2 at Patient Temp 37 mmHg (35-46) Arterial Blood pO2 at Patient Temp 65 mmHg (65-108) Arterial Blood HCO3 23 mmol/L (21-28) Arterial Blood Base Excess -1 mmol/L (-3-3) FiO2 80 Laboratory Tests Test 01/10/21 12:02 01/10/21 17:28 01/10/21 23:29 01/11/21 04:48 Glucose (Fingerstick) 175 mg/dL (70-99) 200 mg/dL (70-99) 227 mg/dL (70-99) White Blood Count 10.9 x10^3/uL (4.0-11.0) Red Blood Count 5.10 x10^6/uL (3.50-5.40) Hemoglobin 15.1 g/dL (12.0-15.5) Hematocrit 46.0 % (36.0-47.0) Mean Corpuscular Volume 90 fL (79-100) Mean Corpuscular Hemoglobin 30 pg (25-35) Mean Corpuscular Hemoglobin Concent 33 g/dL (31-37) Red Cell Distribution Width 14.9 % (11.5-14.5) Platelet Count 164 x10^3/uL (140-400) Neutrophils (%) (Auto) 95 % (31-73) Lymphocytes (%) (Auto) 2 % (24-48) Monocytes (%) (Auto) 2 % (0-9) Eosinophils (%) (Auto) 0 % (0-3) Basophils (%) (Auto) 0 % (0-3) Neutrophils # (Auto) 10.4 x10^3/uL (1.8-7.7) Lymphocytes # (Auto) 0.2 x10^3/uL (1.0-4.8) Monocytes # (Auto) 0.3 x10^3/uL (0.0-1.1) Eosinophils # (Auto) 0.0 x10^3/uL (0.0-0.7) Basophils # (Auto) 0.0 x10^3/uL (0.0-0.2) Sodium Level 144 mmol/L (136-145) Potassium Level 4.3 mmol/L (3.5-5.1) Chloride Level 110 mmol/L (98-107) Carbon Dioxide Level 24 mmol/L (21-32) Anion Gap 10 (6-14) Blood Urea Nitrogen 34 mg/dL (7-20) Creatinine 1.0 mg/dL (0.6-1.0) Estimated GFR (Cockcroft-Gault) 54.7 Glucose Level 222 mg/dL (70-99) Calcium Level 7.9 mg/dL (8.5-10.1) Test 01/11/21 06:33 01/11/21 09:00 Glucose (Fingerstick) 208 mg/dL (70-99) O2 Saturation 92 % (92-99) Arterial Blood pH 7.41 (7.35-7.45) Arterial Blood pCO2 at Patient Temp 37 mmHg (35-46) Arterial Blood pO2 at Patient Temp 65 mmHg (65-108) Arterial Blood HCO3 23 mmol/L (21-28) Arterial Blood Base Excess -1 mmol/L (-3-3) FiO2 80 Medications Active Scripts Medications Dose Route/Sig Max Daily Dose Days Date Category Augmentin 500-125 Tablet (Amoxicillin/Potassium Clav) 1 Each Tablet 1 Tab PO BID 7 10/03/19 Rx Benzonatate 100 Mg Capsule 100 Mg PO PIQ299 10/03/19 Rx Proair Hfa (Albuterol Sulfate) 8.5 Gm Hfa.aer.ad 2.5 Mg NEB PRN Q4HRS PRN 30 10/03/19 Rx Digoxin 125 Mcg Tablet 125 Mcg PO DAILY 10/02/19 Reported Furosemide 20 Mg Tablet 1 Tab PO DAILY 10/02/19 Reported [Diltiazem Hcl] 240 MG Cap.er.24h 300 Mg PO DAILY 30 10/03/18 Rx Eliquis (Apixaban) 5 Mg Tablet 5 Mg PO BID MDD 5 30 10/03/18 Rx Tramadol-Acetaminophn 37.5-325 (Tramadol Hcl/Acetaminophen) 1 Each Tablet 1 Tab PO Q6H 07/14/16 Rx No Known Medications Prior To Admisstion (Info) Each 1 Each 04/26/15 Reported Comments cxr 01/07 diffuse lung infilt Impression . IMPRESSION: 1. Acute hypoxemic respiratory failure.due to covid 19 viral pneumonia/ ARDS 2. Abnormal x-ray compatible with a viral pneumonia 3. Obesity. 4. Acute on chronic diastolic heart failure. 5. Possible bacterial pneumonia. 6. Atrial fibrillation with rapid ventricular response. 7. History of tobacco dependent, suspect chronic obstructive pulmonary disease. 8. SARS Covid 2+ compatible with COVID-19 9. Fever secondary to above Plan . Updated 01/11 Patient intubated on 01/07 AC mode ABG noted, increased FIO2 80%, I:E. ratio to 1-1 ,10 OF PEEP not much room to wean today Continue current support Started on remdesivir 01/07 IV SOLUMEDROL Follow cardiology input Empiric antibiotics Follow RASS score for sedation Total cumulative critical care time from 9:15 AM to 9:50 AM Updated 01/10 Patient intubated on 01/07 AC mode ABG noted, increase FIO2 80%, I:E. ratio to 1-1 ,10 OF PEEP Continue current support Started on remdesivir 01/07 IV SOLUMEDROL Follow cardiology input Empiric antibiotics Follow RASS score for sedation Total cumulative critical care time from 9:15 AM to 9:50 AM Updated 01/07 Overnight events noted Patient intubated overnight secondary to poor oxygenation We will initiate remdesivir Continue steroids Continue empiric antibiotics Follow cardiology input Critical care time from 10:05 AM to 10:37 AM. Discussed with JEWEL LOVE MD Jan 11, 2021 10:12
[2021-01-11] MEDS: MIDAZOLAM 100mg/100ml NS BAG 100 ML IV PRN (10:26)
--- NOTE | 2021-01-11 10:51 | PDOC ---
[employer] PROGRESS NOTE Date of Service DOS: DATE: 01/11/21 TIME: 10:50 Chief Complaint Chief Complaint Fulminant respiratory failure secondary to COVID-19 requiring intubation A. fib hypertension Asthma Chronic anticoagulation Arrhythmias Arthritis History of Present Illness History of Present Illness 01/11/2021 Patient seen and examined in the [place] [address] ICU She still requires mechanical ventilation AC/26/450/80 percent with 10 of PEEP OG running at 40 cc an hour Has mitts on for patient safety Smith to bedside drainage Chart reviewed Discussed with case management Discussed with RN She remains critically ill 01/10/2021 Patient seen and examined in the [place] [address] ICU She is still mechanically ventilated AC/26/450/70 percent with 10 of PEEP On IV Zosyn and Zyvox Sedated Discussed with RN Discussed with case management Chart reviewed She remains very critically ill 01/09/2021 Patient seen and examined in the [place] [address] ICU She remains ventilated AC/26/450/70 percent with 10 of PEEP She is DNR but chemical code still Sedated with fentanyl and Versed Has an art line in place Smith to bedside drainage SCDs on OG at 40 cc an hour Discussed with RN Discussed with case management She remains critically ill Chart reviewed 01/08/2021 Patient seen and examined in the [place] [address] ICU She is in respiratory isolation On the vent AC/26/450/1 100% FiO2 with 12 of PEEP He has SCDs on Has Smith to bedside drainage Sedated with fentanyl Versed OG feeds running at 40 cc an hour Has an art line Discussed with RN Chart reviewed She remains critically ill 01/07/2021 Patient seen and examined in the [place] [address] ICU She had to be intubated this morning She is currently on assist-control/26/450 with 100% FiO2 and 10 of PEEP Has SCDs in Smith to bedside drainage Sedated with fentanyl Versed and also on IV doxycycline OG feeds running at 20 cc an hour Chart reviewed Discussed with RN She remains critically ill Vitals/I&O Vitals/I&O: Vital Signs Date Time Temp Pulse Resp B/P (MAP) Pulse Ox O2 Delivery O2 Flow Rate FiO2 01/11/21 10:00 96 26 128/74 (92) 96 Ventilator 01/11/21 08:00 99.2 99.2 01/11/21 01:23 40.0 I & O 01/10/21 01/10/21 01/11/21 15:00 23:00 07:00 Intake Total 830 ml 1977 ml 1746 ml Output Total 500 ml 500 ml 435 ml Balance 330 ml 1477 ml 1311 ml Physical Exam Physical Exam: GENERAL: Intubated, sedated female. HEENT: Normocephalic, atraumatic. ETT present. No conjunctival petechia. Anicteric. OGT present. NECK: Supple. LUNGS: Decreased breath sound at the bases, otherwise no wheezing. HEART: S1, S2. ABDOMEN: Soft, obese. Bowel sounds present. EXTREMITIES: No edema, no cyanosis. GENITOURINARY: Smith in place. CENTRAL NERVOUS SYSTEM: Intubated. DERMATOLOGIC: Warm and dry. No generalized rash. LINES: Left-sided PICC line, right out line looks clean. General: Other (Sedated on the vent) Heart: Other (AFIB) Abdomen: Soft Extremities: No cyanosis Skin: No breakdown, No significant lesion Labs Labs: Laboratory Tests Test 01/10/21 12:02 01/10/21 17:28 01/10/21 23:29 01/11/21 04:48 Glucose (Fingerstick) 175 mg/dL (70-99) 200 mg/dL (70-99) 227 mg/dL (70-99) White Blood Count 10.9 x10^3/uL (4.0-11.0) Red Blood Count 5.10 x10^6/uL (3.50-5.40) Hemoglobin 15.1 g/dL (12.0-15.5) Hematocrit 46.0 % (36.0-47.0) Mean Corpuscular Volume 90 fL (79-100) Mean Corpuscular Hemoglobin 30 pg (25-35) Mean Corpuscular Hemoglobin Concent 33 g/dL (31-37) Red Cell Distribution Width 14.9 % (11.5-14.5) Platelet Count 164 x10^3/uL (140-400) Neutrophils (%) (Auto) 95 % (31-73) Lymphocytes (%) (Auto) 2 % (24-48) Monocytes (%) (Auto) 2 % (0-9) Eosinophils (%) (Auto) 0 % (0-3) Basophils (%) (Auto) 0 % (0-3) Neutrophils # (Auto) 10.4 x10^3/uL (1.8-7.7) Lymphocytes # (Auto) 0.2 x10^3/uL (1.0-4.8) Monocytes # (Auto) 0.3 x10^3/uL (0.0-1.1) Eosinophils # (Auto) 0.0 x10^3/uL (0.0-0.7) Basophils # (Auto) 0.0 x10^3/uL (0.0-0.2) Sodium Level 144 mmol/L (136-145) Potassium Level 4.3 mmol/L (3.5-5.1) Chloride Level 110 mmol/L (98-107) Carbon Dioxide Level 24 mmol/L (21-32) Anion Gap 10 (6-14) Blood Urea Nitrogen 34 mg/dL (7-20) Creatinine 1.0 mg/dL (0.6-1.0) Estimated GFR (Cockcroft-Gault) 54.7 Glucose Level 222 mg/dL (70-99) Calcium Level 7.9 mg/dL (8.5-10.1) Test 01/11/21 06:33 01/11/21 09:00 Glucose (Fingerstick) 208 mg/dL (70-99) O2 Saturation 92 % (92-99) Arterial Blood pH 7.41 (7.35-7.45) Arterial Blood pCO2 at Patient Temp 37 mmHg (35-46) Arterial Blood pO2 at Patient Temp 65 mmHg (65-108) Arterial Blood HCO3 23 mmol/L (21-28) Arterial Blood Base Excess -1 mmol/L (-3-3) FiO2 80 Assessment and Plan Assessmemt and Plan Problems Medical Problems: (1) Person under investigation for COVID-19 Status: Acute (2) Respiratory failure with hypoxia Status: Acute Assessment Fulminant respiratory failure secondary to COVID-19 requiring intubation A-fib with RVR Hypertension Asthma Chronic anticoagulation Arrhythmias Arthritis Obesity Acute on chronic systolic and diastolic heart failure Fevers Plan ICU monitoring Vent weaning Covid protocol IV antibiotics IV steroids IV remdesivir IV doxycycline Vitamins and minerals Beta agonist Aspirin Trend labs DVT prophylaxis Full code Home meds Prognosis extremely guarded Appreciate subspecialist input CC time 31 minutes Comment Review of Relevant I have reviewed the following items pepe (where applicable) has been applied. Medications: Current Medications Medications (Trade) Dose Ordered Sig/Amaury Route PRN Reason Start Time Stop Time Status Last Admin Dose Admin Linezolid/Dextrose 300 ml @ 300 mls/hr Q12HR IV 01/10/21 21:00 01/11/21 07:29 Piperacillin Sod/ Tazobactam Sod 3.375 gm/Sodium Chloride 50 ml @ 100 mls/hr Q6HRS IV 01/10/21 12:00 01/11/21 06:39 Justifications for Admission Other Justification KRISTOPHER GONZALES III DO Jan 11, 2021 10:51
[2021-01-11] MEDS: ANTI-COAG MONITOR BY PHARMACY. MC PRN (12:37)
[2021-01-12] VITALS (25 sets, daily range): BP systolic 118–152; BP diastolic 72–88
[2021-01-12] MEDS: PIPERACILLIN/TAZOBACTAM 3.375 GM in IV NORMAL SALINE 50ML 50 ML IV SCH ×5 (00:43→23:51)
[2021-01-12] MEDS: INSULIN LISPRO 300 UNITS/3 ML VIAL. SQ SCH ×5 (00:45→23:53)
[2021-01-12] MEDS: IV NORMAL SALINE 1000ML BAG 1,000 ML IV SCH ×3 (00:45→22:50)
[2021-01-12 08:33] LABS: BASE EXCESS ABG -2 mmol/L (-3-3); HCO3 ABG 22 mmol/L (21-28); PCO2 ABG 35 mmHg (35-46); PO2 ABG 78 mmHg (65-108); SAT O2 ABG 96 % (92-99)
--- NOTE | 2021-01-12 08:33 | PDOC ---
Infectious Disease Note Subjective: Subjective Intubated/sedated Vital Signs: Vital Signs Vital Signs Date Time Temp Pulse Resp B/P (MAP) Pulse Ox O2 Delivery O2 Flow Rate FiO2 01/12/21 07:43 99 Ventilator 01/12/21 06:00 102 26 126/76 (93) 01/12/21 04:00 99.4 99.4 01/11/21 21:50 40.0 Physical Exam: PHYSICAL EXAM GENERAL: Intubated, sedated female. HEENT: Normocephalic, atraumatic. ETT present. No conjunctival petechia. Anicteric. OGT present. NECK: Supple. LUNGS: Decreased breath sound at the bases, otherwise no wheezing. HEART: S1, S2. ABDOMEN: Soft, obese. Bowel sounds present. EXTREMITIES: No edema, no cyanosis. GENITOURINARY: Smith in place. CENTRAL NERVOUS SYSTEM: Intubated. DERMATOLOGIC: Warm and dry. No generalized rash. LINES: Left-sided PICC line, right out line looks clean. Medications: Inpatient Meds: Medications reviewed. Labs: Lab Laboratory Tests Test 01/11/21 09:00 01/11/21 11:20 01/11/21 11:49 01/11/21 17:25 O2 Saturation 92 % (92-99) Arterial Blood pH 7.41 (7.35-7.45) Arterial Blood pCO2 at Patient Temp 37 mmHg (35-46) Arterial Blood pO2 at Patient Temp 65 mmHg (65-108) Arterial Blood HCO3 23 mmol/L (21-28) Arterial Blood Base Excess -1 mmol/L (-3-3) FiO2 80 Glucose (Fingerstick) 205 mg/dL (70-99) 246 mg/dL (70-99) 180 mg/dL (70-99) Test 01/12/21 00:24 01/12/21 05:52 Glucose (Fingerstick) 224 mg/dL (70-99) 230 mg/dL (70-99) Objective: Assessment: 1. COVID-19 pneumonia. Present on admission. 2. Acute hypoxic respiratory failure. Suspected bacterial pneumonia. 3. Bacteremia, 2/4 bottles present on admission, Staph epidermidis, Staph hominis. Likely contaminant. Repeat blood cultures negative so far. 4. Obesity. 5. Acute on chronic systolic and diastolic heart failure. 6. Atrial fibrillation with rapid ventricular response. 7. History of tobacco dependence. 8. Mild thrombocytopenia. improved 9. Elevated D-dimer. 10. Hypertension. Plan: Plan of Care 1. Continue supportive care. 2. s/p remdesivir ,on steroids per primary team 3. Cont Zyvox and Zosyn. January 10 4. Monitor labs and cultures. Critically ill. ADRIÁN VELASCO MD Jan 12, 2021 08:33
[2021-01-12 08:34] LABS: FIO2 ABG 80 Vent
[2021-01-12] MEDS: MULTIVITAMINS,THERAPEUTIC 5 ML ORAL LIQUID. FT SCH (08:59)
[2021-01-12] MEDS: FAMOTIDINE 20 MG/2 ML VIAL IVP SCH (08:59)
[2021-01-12] MEDS: methylPREDNISolone SOD SUCC PF 125 MG/2 ML VIAL. IV SCH ×2 (08:59→20:40)
[2021-01-12] MEDS: APIXABAN 5 MG TABLET. PO SCH ×2 (08:59→20:40)
[2021-01-12] MEDS: MIDAZOLAM 100mg/100ml NS BAG 100 ML IV PRN (09:00)
[2021-01-12] MEDS: METOPROLOL TART IMMED RELEASE 25 MG TABLET. PO SCH ×2 (09:00→20:40)
--- NOTE | 2021-01-12 10:47 | PDOC ---
[employer] PROGRESS NOTE Date of Service DOS: DATE: 01/12/21 TIME: 10:46 Chief Complaint Chief Complaint Fulminant respiratory failure secondary to COVID-19 requiring intubation A. fib hypertension Asthma Chronic anticoagulation Arrhythmias Arthritis History of Present Illness History of Present Illness 01/12/2021 Patient seen and examined in the [place] [address] ICU She still requires mechanical ventilation AC/26/450/80 percent with 10 of PEEP Sedated with Versed and fentanyl Has an art line with blood pressure 137/75 Smith to bedside drainage JOHN hose in place OG running at 40 cc an hour Discussed with RN Discussed with case management Chart reviewed She remains critically ill 01/11/2021 Patient seen and examined in the [place] [address] ICU She still requires mechanical ventilation AC/26/450/80 percent with 10 of PEEP OG running at 40 cc an hour Has mitts on for patient safety Smith to bedside drainage Chart reviewed Discussed with case management Discussed with RN She remains critically ill 01/10/2021 Patient seen and examined in the [place] [address] ICU She is still mechanically ventilated AC/26/450/70 percent with 10 of PEEP On IV Zosyn and Zyvox Sedated Discussed with RN Discussed with case management Chart reviewed She remains very critically ill 01/09/2021 Patient seen and examined in the [place] [address] ICU She remains ventilated AC/26/450/70 percent with 10 of PEEP She is DNR but chemical code still Sedated with fentanyl and Versed Has an art line in place Smith to bedside drainage SCDs on OG at 40 cc an hour Discussed with RN Discussed with case management She remains critically ill Chart reviewed 01/08/2021 Patient seen and examined in the [place] [address] ICU She is in respiratory isolation On the vent AC/26/450/1 100% FiO2 with 12 of PEEP He has SCDs on Has Smith to bedside drainage Sedated with fentanyl Versed OG feeds running at 40 cc an hour Has an art line Discussed with RN Chart reviewed She remains critically ill 01/07/2021 Patient seen and examined in the [place] [address] ICU She had to be intubated this morning She is currently on assist-control/26/450 with 100% FiO2 and 10 of PEEP Has SCDs in Smith to bedside drainage Sedated with fentanyl Versed and also on IV doxycycline OG feeds running at 20 cc an hour Chart reviewed Discussed with RN She remains critically ill Vitals/I&O Vitals/I&O: Vital Signs Date Time Temp Pulse Resp B/P (MAP) Pulse Ox O2 Delivery O2 Flow Rate FiO2 01/12/21 10:41 96 Ventilator 01/12/21 10:00 100 26 152/88 (109) 01/12/21 09:31 40.0 01/12/21 04:00 99.4 99.4 I & O 01/11/21 01/11/21 01/12/21 15:00 23:00 07:00 Intake Total 550 ml 2343 ml 1325 ml Output Total 500 ml 475 ml 425 ml Balance 50 ml 1868 ml 900 ml Physical Exam Physical Exam: GENERAL: Intubated, sedated female. HEENT: Normocephalic, atraumatic. ETT present. No conjunctival petechia. Anicteric. OGT present. NECK: Supple. LUNGS: Decreased breath sound at the bases, otherwise no wheezing. HEART: S1, S2. ABDOMEN: Soft, obese. Bowel sounds present. EXTREMITIES: No edema, no cyanosis. GENITOURINARY: Smith in place. CENTRAL NERVOUS SYSTEM: Intubated. DERMATOLOGIC: Warm and dry. No generalized rash. LINES: Left-sided PICC line, right out line looks clean. General: Other (Sedated on the vent) Heart: Other (AFIB) Lungs: Crackles Abdomen: Soft Extremities: No cyanosis Skin: No breakdown, No significant lesion Labs Labs: Laboratory Tests Test 01/11/21 11:20 01/11/21 11:49 01/11/21 17:25 01/12/21 00:24 Glucose (Fingerstick) 205 mg/dL (70-99) 246 mg/dL (70-99) 180 mg/dL (70-99) 224 mg/dL (70-99) Test 01/12/21 05:52 01/12/21 08:29 Glucose (Fingerstick) 230 mg/dL (70-99) O2 Saturation 96 % (92-99) Arterial Blood pH 7.42 (7.35-7.45) Arterial Blood pCO2 at Patient Temp 35 mmHg (35-46) Arterial Blood pO2 at Patient Temp 78 mmHg (65-108) Arterial Blood HCO3 22 mmol/L (21-28) Arterial Blood Base Excess -2 mmol/L (-3-3) FiO2 80 vent Assessment and Plan Assessmemt and Plan Problems Medical Problems: (1) Person under investigation for COVID-19 Status: Acute (2) Respiratory failure with hypoxia Status: Acute Assessment Fulminant respiratory failure secondary to COVID-19 requiring intubation A-fib with RVR Hypertension Asthma Chronic anticoagulation Arrhythmias Arthritis Obesity Acute on chronic systolic and diastolic heart failure Fevers Plan ICU monitoring Vent weaning Covid protocol IV antibiotics IV steroids IV remdesivir IV doxycycline Vitamins and minerals Beta agonist Aspirin Trend labs DVT prophylaxis Full code Home meds Prognosis extremely guarded Appreciate subspecialist input CC time 33 minutes Comment Review of Relevant I have reviewed the following items pepe (where applicable) has been applied. Justifications for Admission Other Justification KRISTOPHER GONZALES III DO Jan 12, 2021 10:47
--- NOTE | 2021-01-12 10:55 | PDOC ---
PULMONARY PROGRESS NOTES DATE: 01/12/21 TIME: 10:53 Subjective Patient currently on assist control ventilation, i.e. ratio 1:1, 10 PEEP 80% FiO2 Vitals Vital Signs Date Time Temp Pulse Resp B/P (MAP) Pulse Ox O2 Delivery O2 Flow Rate FiO2 01/12/21 10:41 96 Ventilator 01/12/21 10:00 100 26 152/88 (109) 01/12/21 09:31 40.0 01/12/21 04:00 99.4 99.4 Comments visual exam done due to covid 19 no resp distress no leg edema Labs Laboratory Tests Test 01/10/21 12:02 01/10/21 17:28 01/10/21 23:29 01/11/21 04:48 Glucose (Fingerstick) 175 mg/dL (70-99) 200 mg/dL (70-99) 227 mg/dL (70-99) White Blood Count 10.9 x10^3/uL (4.0-11.0) Red Blood Count 5.10 x10^6/uL (3.50-5.40) Hemoglobin 15.1 g/dL (12.0-15.5) Hematocrit 46.0 % (36.0-47.0) Mean Corpuscular Volume 90 fL (79-100) Mean Corpuscular Hemoglobin 30 pg (25-35) Mean Corpuscular Hemoglobin Concent 33 g/dL (31-37) Red Cell Distribution Width 14.9 % (11.5-14.5) Platelet Count 164 x10^3/uL (140-400) Neutrophils (%) (Auto) 95 % (31-73) Lymphocytes (%) (Auto) 2 % (24-48) Monocytes (%) (Auto) 2 % (0-9) Eosinophils (%) (Auto) 0 % (0-3) Basophils (%) (Auto) 0 % (0-3) Neutrophils # (Auto) 10.4 x10^3/uL (1.8-7.7) Lymphocytes # (Auto) 0.2 x10^3/uL (1.0-4.8) Monocytes # (Auto) 0.3 x10^3/uL (0.0-1.1) Eosinophils # (Auto) 0.0 x10^3/uL (0.0-0.7) Basophils # (Auto) 0.0 x10^3/uL (0.0-0.2) Sodium Level 144 mmol/L (136-145) Potassium Level 4.3 mmol/L (3.5-5.1) Chloride Level 110 mmol/L (98-107) Carbon Dioxide Level 24 mmol/L (21-32) Anion Gap 10 (6-14) Blood Urea Nitrogen 34 mg/dL (7-20) Creatinine 1.0 mg/dL (0.6-1.0) Estimated GFR (Cockcroft-Gault) 54.7 Glucose Level 222 mg/dL (70-99) Calcium Level 7.9 mg/dL (8.5-10.1) Test 01/11/21 06:33 01/11/21 09:00 01/11/21 11:20 01/11/21 11:49 Glucose (Fingerstick) 208 mg/dL (70-99) 205 mg/dL (70-99) 246 mg/dL (70-99) O2 Saturation 92 % (92-99) Arterial Blood pH 7.41 (7.35-7.45) Arterial Blood pCO2 at Patient Temp 37 mmHg (35-46) Arterial Blood pO2 at Patient Temp 65 mmHg (65-108) Arterial Blood HCO3 23 mmol/L (21-28) Arterial Blood Base Excess -1 mmol/L (-3-3) FiO2 80 Test 01/11/21 17:25 01/12/21 00:24 01/12/21 05:52 01/12/21 08:29 Glucose (Fingerstick) 180 mg/dL (70-99) 224 mg/dL (70-99) 230 mg/dL (70-99) O2 Saturation 96 % (92-99) Arterial Blood pH 7.42 (7.35-7.45) Arterial Blood pCO2 at Patient Temp 35 mmHg (35-46) Arterial Blood pO2 at Patient Temp 78 mmHg (65-108) Arterial Blood HCO3 22 mmol/L (21-28) Arterial Blood Base Excess -2 mmol/L (-3-3) FiO2 80 vent Laboratory Tests Test 01/11/21 11:20 01/11/21 11:49 01/11/21 17:25 01/12/21 00:24 Glucose (Fingerstick) 205 mg/dL (70-99) 246 mg/dL (70-99) 180 mg/dL (70-99) 224 mg/dL (70-99) Test 01/12/21 05:52 01/12/21 08:29 Glucose (Fingerstick) 230 mg/dL (70-99) O2 Saturation 96 % (92-99) Arterial Blood pH 7.42 (7.35-7.45) Arterial Blood pCO2 at Patient Temp 35 mmHg (35-46) Arterial Blood pO2 at Patient Temp 78 mmHg (65-108) Arterial Blood HCO3 22 mmol/L (21-28) Arterial Blood Base Excess -2 mmol/L (-3-3) FiO2 80 vent Medications Active Scripts Medications Dose Route/Sig Max Daily Dose Days Date Category Augmentin 500-125 Tablet (Amoxicillin/Potassium Clav) 1 Each Tablet 1 Tab PO BID 7 10/03/19 Rx Benzonatate 100 Mg Capsule 100 Mg PO [id number] 10/03/19 Rx Proair Hfa (Albuterol Sulfate) 8.5 Gm Hfa.aer.ad 2.5 Mg NEB PRN Q4HRS PRN 30 10/03/19 Rx Digoxin 125 Mcg Tablet 125 Mcg PO DAILY 10/02/19 Reported Furosemide 20 Mg Tablet 1 Tab PO DAILY 10/02/19 Reported [Diltiazem Hcl] 240 MG Cap.er.24h 300 Mg PO DAILY 30 10/03/18 Rx Eliquis (Apixaban) 5 Mg Tablet 5 Mg PO BID MDD 5 30 10/03/18 Rx Tramadol-Acetaminophn 37.5-325 (Tramadol Hcl/Acetaminophen) 1 Each Tablet 1 Tab PO Q6H 07/14/16 Rx No Known Medications Prior To Admisstion (Info) Each 1 Each 04/26/15 Reported Comments cxr 01/07 diffuse lung infilt Impression . IMPRESSION: 1. Acute hypoxemic respiratory failure.due to covid 19 viral pneumonia/ ARDS 2. Abnormal x-ray compatible with a viral pneumonia 3. Obesity. 4. Acute on chronic diastolic heart failure. 5. Possible bacterial pneumonia. 6. Atrial fibrillation with rapid ventricular response. 7. History of tobacco dependent, suspect chronic obstructive pulmonary disease. 8. SARS Covid 2+ compatible with COVID-19 9. Fever secondary to above, resolved Plan . Updated 01/12 Patient intubated on 01/07 AC mode ABG noted, reduce FIO2 75%, I:E. ratio to 1-1 , reduce PEEP to 9 Continue current support Started on remdesivir 01/07 IV SOLUMEDROL Follow cardiology input Empiric antibiotics Follow RASS score for sedation Total cumulative critical care time from 9:15 AM to 9:50 AM Updated 01/11 Patient intubated on 01/07 AC mode ABG noted, increased FIO2 80%, I:E. ratio to 1-1 ,10 OF PEEP not much room to wean today Continue current support Started on remdesivir 01/07 IV SOLUMEDROL Follow cardiology input Empiric antibiotics Follow RASS score for sedation Total cumulative critical care time from 9:15 AM to 9:50 AM Updated 01/10 Patient intubated on 01/07 AC mode ABG noted, increase FIO2 80%, I:E. ratio to 1-1 ,10 OF PEEP Continue current support Started on remdesivir 01/07 IV SOLUMEDROL Follow cardiology input Empiric antibiotics Follow RASS score for sedation Total cumulative critical care time from 9:15 AM to 9:50 AM JEWEL CHRISTIANSEN MD Jan 12, 2021 10:55
--- NOTE | 2021-01-12 11:21 | PDOC ---
NESSA CHIN PRODUCTION FINISHER 01/12/21 1121: CARDIO Progress Notes Date and Time Date of Service 01/12/21 Time of Evaluation 1115 Subjective Subjective: Other (intubated) Vitals Vitals Vital Signs Date Time Temp Pulse Resp B/P (MAP) Pulse Ox O2 Delivery O2 Flow Rate FiO2 01/12/21 10:41 96 Ventilator 01/12/21 10:00 100 26 152/88 (109) 01/12/21 09:31 40.0 01/12/21 04:00 99.4 99.4 Weight Weight [ ] Input and Output Intake and Output Intake and Output 01/12/21 07:00 Intake Total 4218 ml Output Total 1400 ml Balance 2818 ml IV Total 1667 ml Tube Feeding 1361 ml Blood Product IV Normal Saline Flush 790 ml Other 400 ml Output Urine Total 1400 ml Gastric Drainage Total 0 ml Laboratory Labs Laboratory Tests Test 01/11/21 11:20 01/11/21 11:49 01/11/21 17:25 01/12/21 00:24 Glucose (Fingerstick) 205 mg/dL (70-99) 246 mg/dL (70-99) 180 mg/dL (70-99) 224 mg/dL (70-99) Test 01/12/21 05:52 01/12/21 08:29 Glucose (Fingerstick) 230 mg/dL (70-99) O2 Saturation 96 % (92-99) Arterial Blood pH 7.42 (7.35-7.45) Arterial Blood pCO2 at Patient Temp 35 mmHg (35-46) Arterial Blood pO2 at Patient Temp 78 mmHg (65-108) Arterial Blood HCO3 22 mmol/L (21-28) Arterial Blood Base Excess -2 mmol/L (-3-3) FiO2 80 vent Microbiology Micro Microbiology 01/06/21 Blood Culture - Final, Complete NO GROWTH AFTER 5 DAYS Physical Exam HEENT: Neck Supple W Full Motion Chest: Symmetric LUNGS: Other (intubated with vent) Heart: irregularly irregular (AFIB) Abdomen: Other (nondistended ) Extremities: No Edema Neurology: other (sedated) Assessment Assessment 1. Acute respiratory failure: covid-19 pneumonia 2. Persistent AFIB with RVR: recent MCOT with 100% burden. Rate remains controlled 3. Sepsis/fever 4. JUSTINE: prerenal 5. Acute diastolic CHF: compensated 6. HTN: controlled 7. Mild troponin elevation: suspect demand mediated, type 2 8. Obesity Recommendations Continue metoprolol for rate control. Eliquis for stroke prevention Outpt echo once recovered from COVID Ongoing pulmonary optimization, covid-19 treatment Lasix PRN Supportive care Justicifation of Admission Dx: Justifications for Admission: Justification of Admission Dx: Yes CHF: Cardiac Arrhythmias JESUS COOPER MD 01/13/21 0839: CARDIO Progress Notes Plan Plan The patient was seen and interviewed as well as examined at the bedside. The chart was reviewed. The case was discussed. Agree with the plan of care. NESSA CHIN APRN Jan 12, 2021 11:21 JESUS COOPER MD Jan 13, 2021 08:39
[2021-01-13] VITALS (23 sets, daily range): BP systolic 110–150; BP diastolic 64–87
[2021-01-13] MEDS: PIPERACILLIN/TAZOBACTAM 3.375 GM in IV NORMAL SALINE 50ML 50 ML IV SCH ×3 (06:00→18:32)
[2021-01-13] MEDS: INSULIN LISPRO 300 UNITS/3 ML VIAL. SQ SCH ×3 (06:00→18:32)
[2021-01-13] MEDS: MIDAZOLAM 100mg/100ml NS BAG 100 ML IV PRN (06:01)
--- NOTE | 2021-01-13 06:17 | RAD ---
Chest AP portable at 0433: Reason for examination: Ventilator patient. Follow-up exam. Comparison is made to previous study dated 01/07/2021. Endotracheal tube, left PICC line and NG tube remain present. Heart size continues size. Mediastinum is unchanged. Lung ba show continued presence of diffuse bilateral infiltrates but these show farnaz dence of interval improvement. No definite pleural effusions are seen. No acute bony abnormalities ar e present. IMPRESSION: Continued presence of diffuse bilateral lung opacities but with some interval improvement evident. Electronically signed by: Lakshmi Cason MD (01/13/2021 6:14 AM) [facility]
[2021-01-13 07:30] LABS: CALCIUM 7.8 mg/dL (8.5-10.1); CREATININE 0.9 mg/dL (0.6-1.0); GFR 61.7; POTASSIUM 4.1 mmol/L (3.5-5.1)
[2021-01-13 07:42] LABS: BASO % 0 % (0-3); EOS % 0 % (0-3); HEMATOCRIT 45.9 % (36.0-47.0); HEMOGLOBIN 14.9 g/dL (12.0-15.5); LYMPH # 0.3 x10^3/uL (1.0-4.8); LYMPH % 3 % (24-48); MEAN CORPUSCULAR HEMOGLOBIN 30 pg (25-35); MEAN CORPUSCULAR HGB CONC 32 g/dL (31-37); MEAN CORPUSCULAR VOLUME 91 fL (79-100); MONO # 0.6 x10^3/uL (0.0-1.1); MONO % 6 % (0-9); NEUT # 10.1 x10^3/uL (1.8-7.7); NEUT % 91 % (31-73); PLATELET COUNT 179 x10^3/uL (140-400); RED BLOOD COUNT 5.04 x10^6/uL (3.50-5.40); RED CELL DISTRIBUTION WIDTH 14.6 % (11.5-14.5)
[2021-01-13 08:17] LABS: BASE EXCESS ABG -1 mmol/L (-3-3); HCO3 ABG 23 mmol/L (21-28); PCO2 ABG 38 mmHg (35-46); PO2 ABG 58 mmHg (65-108); SAT O2 ABG 89 % (92-99)
--- NOTE | 2021-01-13 08:35 | PDOC ---
Infectious Disease Note Subjective: Subjective Intubated/sedated Fio2 80% Vital Signs: Vital Signs Vital Signs Date Time Temp Pulse Resp B/P (MAP) Pulse Ox O2 Delivery O2 Flow Rate FiO2 01/13/21 08:05 93 Ventilator 01/13/21 07:00 105 26 119/64 (82) 01/13/21 04:00 98.1 98.1 01/12/21 21:19 40.0 Physical Exam: PHYSICAL EXAM GENERAL: Intubated, sedated female. HEENT: Normocephalic, atraumatic. ETT present. No conjunctival petechia. Anicteric. OGT present. NECK: Supple. LUNGS: Decreased breath sound at the bases, otherwise no wheezing. HEART: S1, S2. ABDOMEN: Soft, obese. Bowel sounds present. EXTREMITIES: No edema, no cyanosis. GENITOURINARY: Smith in place. CENTRAL NERVOUS SYSTEM: Intubated. DERMATOLOGIC: Warm and dry. No generalized rash. LINES: Left-sided PICC line, right out line looks clean. Medications: Inpatient Meds: Medications reviewed. Labs: Lab Laboratory Tests Test 01/12/21 11:52 01/12/21 17:55 01/13/21 06:08 01/13/21 06:15 Glucose (Fingerstick) 217 mg/dL (70-99) 185 mg/dL (70-99) 182 mg/dL (70-99) White Blood Count 11.0 x10^3/uL (4.0-11.0) Red Blood Count 5.04 x10^6/uL (3.50-5.40) Hemoglobin 14.9 g/dL (12.0-15.5) Hematocrit 45.9 % (36.0-47.0) Mean Corpuscular Volume 91 fL (79-100) Mean Corpuscular Hemoglobin 30 pg (25-35) Mean Corpuscular Hemoglobin Concent 32 g/dL (31-37) Red Cell Distribution Width 14.6 % (11.5-14.5) Platelet Count 179 x10^3/uL (140-400) Neutrophils (%) (Auto) 91 % (31-73) Lymphocytes (%) (Auto) 3 % (24-48) Monocytes (%) (Auto) 6 % (0-9) Eosinophils (%) (Auto) 0 % (0-3) Basophils (%) (Auto) 0 % (0-3) Neutrophils # (Auto) 10.1 x10^3/uL (1.8-7.7) Lymphocytes # (Auto) 0.3 x10^3/uL (1.0-4.8) Monocytes # (Auto) 0.6 x10^3/uL (0.0-1.1) Eosinophils # (Auto) 0.0 x10^3/uL (0.0-0.7) Basophils # (Auto) 0.0 x10^3/uL (0.0-0.2) Sodium Level 142 mmol/L (136-145) Potassium Level 4.1 mmol/L (3.5-5.1) Chloride Level 111 mmol/L (98-107) Carbon Dioxide Level 23 mmol/L (21-32) Anion Gap 8 (6-14) Blood Urea Nitrogen 35 mg/dL (7-20) Creatinine 0.9 mg/dL (0.6-1.0) Estimated GFR (Cockcroft-Gault) 61.7 Glucose Level 204 mg/dL (70-99) Calcium Level 7.8 mg/dL (8.5-10.1) Objective: Assessment: 1. COVID-19 pneumonia. Present on admission. 2. Acute hypoxic respiratory failure. Suspected bacterial pneumonia. 3. Bacteremia, 2/4 bottles present on admission, Staph epidermidis, Staph hominis. Likely contaminant. Repeat blood cultures negative so far. 4. Obesity. 5. Acute on chronic systolic and diastolic heart failure. 6. Atrial fibrillation with rapid ventricular response. 7. History of tobacco dependence. 8. Mild thrombocytopenia. improved 9. Elevated D-dimer. 10. Hypertension. Plan: Plan of Care 1. Continue supportive care. 2. S/P remdesivir ,on steroids per primary team 3. Cont Zyvox and Zosyn. January 10 4. Monitor labs and cultures. Critically ill. ADRIÁN VELASCO MD Jan 13, 2021 08:35
[2021-01-13 09:25] LABS: FIO2 ABG 75/VENT
[2021-01-13] MEDS: FAMOTIDINE 20 MG/2 ML VIAL IVP SCH (09:28)
[2021-01-13] MEDS: APIXABAN 5 MG TABLET. PO SCH ×2 (09:28→20:33)
[2021-01-13] MEDS: METOPROLOL TART IMMED RELEASE 25 MG TABLET. PO SCH ×2 (09:32→20:33)
[2021-01-13] MEDS: ANTI-COAG MONITOR BY PHARMACY. MC PRN (09:38)
[2021-01-13] MEDS: MULTIVITAMINS,THERAPEUTIC 5 ML ORAL LIQUID. FT SCH (09:38)
[2021-01-13] MEDS: methylPREDNISolone SOD SUCC PF 125 MG/2 ML VIAL. IV SCH ×2 (09:38→20:33)
--- NOTE | 2021-01-13 10:00 | PDOC ---
PULMONARY PROGRESS NOTES DATE: 01/13/21 TIME: 09:58 Subjective Patient currently on assist control ventilation, i.e. ratio 1:1, 10 PEEP 80% FiO2 Vitals Vital Signs Date Time Temp Pulse Resp B/P (MAP) Pulse Ox O2 Delivery O2 Flow Rate FiO2 01/13/21 09:41 26 95 Ventilator 01/13/21 09:32 112 121/73 01/13/21 04:00 98.1 98.1 01/12/21 21:19 40.0 Comments visual exam done due to covid 19 no resp distress no leg edema Labs Laboratory Tests Test 01/11/21 11:20 01/11/21 11:49 01/11/21 17:25 01/12/21 00:24 Glucose (Fingerstick) 205 mg/dL (70-99) 246 mg/dL (70-99) 180 mg/dL (70-99) 224 mg/dL (70-99) Test 01/12/21 05:52 01/12/21 08:29 01/12/21 11:52 01/12/21 17:55 Glucose (Fingerstick) 230 mg/dL (70-99) 217 mg/dL (70-99) 185 mg/dL (70-99) O2 Saturation 96 % (92-99) Arterial Blood pH 7.42 (7.35-7.45) Arterial Blood pCO2 at Patient Temp 35 mmHg (35-46) Arterial Blood pO2 at Patient Temp 78 mmHg (65-108) Arterial Blood HCO3 22 mmol/L (21-28) Arterial Blood Base Excess -2 mmol/L (-3-3) FiO2 80 vent Test 01/13/21 06:08 01/13/21 06:15 01/13/21 08:00 Glucose (Fingerstick) 182 mg/dL (70-99) White Blood Count 11.0 x10^3/uL (4.0-11.0) Red Blood Count 5.04 x10^6/uL (3.50-5.40) Hemoglobin 14.9 g/dL (12.0-15.5) Hematocrit 45.9 % (36.0-47.0) Mean Corpuscular Volume 91 fL (79-100) Mean Corpuscular Hemoglobin 30 pg (25-35) Mean Corpuscular Hemoglobin Concent 32 g/dL (31-37) Red Cell Distribution Width 14.6 % (11.5-14.5) Platelet Count 179 x10^3/uL (140-400) Neutrophils (%) (Auto) 91 % (31-73) Lymphocytes (%) (Auto) 3 % (24-48) Monocytes (%) (Auto) 6 % (0-9) Eosinophils (%) (Auto) 0 % (0-3) Basophils (%) (Auto) 0 % (0-3) Neutrophils # (Auto) 10.1 x10^3/uL (1.8-7.7) Lymphocytes # (Auto) 0.3 x10^3/uL (1.0-4.8) Monocytes # (Auto) 0.6 x10^3/uL (0.0-1.1) Eosinophils # (Auto) 0.0 x10^3/uL (0.0-0.7) Basophils # (Auto) 0.0 x10^3/uL (0.0-0.2) Sodium Level 142 mmol/L (136-145) Potassium Level 4.1 mmol/L (3.5-5.1) Chloride Level 111 mmol/L (98-107) Carbon Dioxide Level 23 mmol/L (21-32) Anion Gap 8 (6-14) Blood Urea Nitrogen 35 mg/dL (7-20) Creatinine 0.9 mg/dL (0.6-1.0) Estimated GFR (Cockcroft-Gault) 61.7 Glucose Level 204 mg/dL (70-99) Calcium Level 7.8 mg/dL (8.5-10.1) O2 Saturation 89 % (92-99) Arterial Blood pH 7.41 (7.35-7.45) Arterial Blood pCO2 at Patient Temp 38 mmHg (35-46) Arterial Blood pO2 at Patient Temp 58 mmHg (65-108) Arterial Blood HCO3 23 mmol/L (21-28) Arterial Blood Base Excess -1 mmol/L (-3-3) FiO2 75/vent Laboratory Tests Test 01/12/21 11:52 01/12/21 17:55 01/13/21 06:08 01/13/21 06:15 Glucose (Fingerstick) 217 mg/dL (70-99) 185 mg/dL (70-99) 182 mg/dL (70-99) White Blood Count 11.0 x10^3/uL (4.0-11.0) Red Blood Count 5.04 x10^6/uL (3.50-5.40) Hemoglobin 14.9 g/dL (12.0-15.5) Hematocrit 45.9 % (36.0-47.0) Mean Corpuscular Volume 91 fL (79-100) Mean Corpuscular Hemoglobin 30 pg (25-35) Mean Corpuscular Hemoglobin Concent 32 g/dL (31-37) Red Cell Distribution Width 14.6 % (11.5-14.5) Platelet Count 179 x10^3/uL (140-400) Neutrophils (%) (Auto) 91 % (31-73) Lymphocytes (%) (Auto) 3 % (24-48) Monocytes (%) (Auto) 6 % (0-9) Eosinophils (%) (Auto) 0 % (0-3) Basophils (%) (Auto) 0 % (0-3) Neutrophils # (Auto) 10.1 x10^3/uL (1.8-7.7) Lymphocytes # (Auto) 0.3 x10^3/uL (1.0-4.8) Monocytes # (Auto) 0.6 x10^3/uL (0.0-1.1) Eosinophils # (Auto) 0.0 x10^3/uL (0.0-0.7) Basophils # (Auto) 0.0 x10^3/uL (0.0-0.2) Sodium Level 142 mmol/L (136-145) Potassium Level 4.1 mmol/L (3.5-5.1) Chloride Level 111 mmol/L (98-107) Carbon Dioxide Level 23 mmol/L (21-32) Anion Gap 8 (6-14) Blood Urea Nitrogen 35 mg/dL (7-20) Creatinine 0.9 mg/dL (0.6-1.0) Estimated GFR (Cockcroft-Gault) 61.7 Glucose Level 204 mg/dL (70-99) Calcium Level 7.8 mg/dL (8.5-10.1) Test 01/13/21 08:00 O2 Saturation 89 % (92-99) Arterial Blood pH 7.41 (7.35-7.45) Arterial Blood pCO2 at Patient Temp 38 mmHg (35-46) Arterial Blood pO2 at Patient Temp 58 mmHg (65-108) Arterial Blood HCO3 23 mmol/L (21-28) Arterial Blood Base Excess -1 mmol/L (-3-3) FiO2 75/vent Medications Active Scripts Medications Dose Route/Sig Max Daily Dose Days Date Category Augmentin 500-125 Tablet (Amoxicillin/Potassium Clav) 1 Each Tablet 1 Tab PO BID 7 10/03/19 Rx Benzonatate 100 Mg Capsule 100 Mg PO TPO373 10/03/19 Rx Proair Hfa (Albuterol Sulfate) 8.5 Gm Hfa.aer.ad 2.5 Mg NEB PRN Q4HRS PRN 30 10/03/19 Rx Digoxin 125 Mcg Tablet 125 Mcg PO DAILY 10/02/19 Reported Furosemide 20 Mg Tablet 1 Tab PO DAILY 10/02/19 Reported [Diltiazem Hcl] 240 MG Cap.er.24h 300 Mg PO DAILY 30 10/03/18 Rx Eliquis (Apixaban) 5 Mg Tablet 5 Mg PO BID MDD 5 30 10/03/18 Rx Tramadol-Acetaminophn 37.5-325 (Tramadol Hcl/Acetaminophen) 1 Each Tablet 1 Tab PO Q6H 07/14/16 Rx No Known Medications Prior To Admisstion (Info) Each 1 Each 04/26/15 Reported Comments cxr 01/13 IMPRESSION: Continued presence of diffuse bilateral lung opacities but with some interval improvement evident. Electronically signed by: Lakshmi Cason MD (01/13/2021 6:14 AM) [facility] Impression . IMPRESSION: 1. Acute hypoxemic respiratory failure.due to covid 19 viral pneumonia/ ARDS 2. Abnormal x-ray compatible with a viral pneumonia, mild improvement 01/13 3. Obesity. 4. Acute on chronic diastolic heart failure. 5. Possible bacterial pneumonia. 6. Atrial fibrillation with rapid ventricular response. 7. History of tobacco dependent, suspect chronic obstructive pulmonary disease. 8. SARS Covid 2+ compatible with COVID-19 9. Fever secondary to above, resolved Plan . Updated 01/13 Patient intubated on 01/07 AC mode ABG noted, reduce FIO2 80%, I:E. ratio to 1-1 , PEEP of 9 Continue current support Started on remdesivir 01/07 IV SOLUMEDROL Follow cardiology input Empiric antibiotics Follow RASS score for sedation Total cumulative critical care time from 9:15 AM to 9:45 AM Updated 01/12 Patient intubated on 01/07 AC mode ABG noted, reduce FIO2 75%, I:E. ratio to 1-1 , reduce PEEP to 9 Continue current support Started on remdesivir 01/07 IV SOLUMEDROL Follow cardiology input Empiric antibiotics Follow RASS score for sedation Total cumulative critical care time from 9:15 AM to 9:50 AM Updated 01/11 Patient intubated on 01/07 AC mode ABG noted, increased FIO2 80%, I:E. ratio to 1-1 ,10 OF PEEP not much room to wean today Continue current support Started on remdesivir 01/07 IV SOLUMEDROL Follow cardiology input Empiric antibiotics Follow RASS score for sedation Total cumulative critical care time from 9:15 AM to 9:50 AM Updated 01/10 Patient intubated on 01/07 AC mode ABG noted, increase FIO2 80%, I:E. ratio to 1-1 ,10 OF PEEP Continue current support Started on remdesivir 01/07 IV SOLUMEDROL Follow cardiology input Empiric antibiotics Follow RASS score for sedation Total cumulative critical care time from 9:15 AM to 9:50 AM JEWEL CHRISTIANSEN MD Jan 13, 2021 10:00
[2021-01-13 10:39] LABS: % LYMPHS 2 % (24-48); % MONOS 2 % (0-10); % SEGS 96 % (35-66)
[2021-01-13 10:40] LABS: PLT ESTIMATE ADEQUATE (ADEQUATE)
--- NOTE | 2021-01-13 12:19 | PDOC ---
[employer] PROGRESS NOTE Date of Service DOS: DATE: 01/13/21 TIME: 12:18 Chief Complaint Chief Complaint Fulminant respiratory failure secondary to COVID-19 requiring intubation A. fib hypertension Asthma Chronic anticoagulation Arrhythmias Arthritis History of Present Illness History of Present Illness 01/13/2021 Patient seen and examined in the [place] [address] ICU Her blood gases are not as good today She still requiring mechanical ventilation AC/26/450/80 percent with 9 of PEEP Sedated with fentanyl Versed Receiving IV Zyvox currently Has an art line Has a Smith to bedside drainage Discussed with RN Discussed with Dr. Petty I called her [id number] and explained the situation and educated her about vent weaning per her request Discussed with case management Chart reviewed She remains critically ill 01/12/2021 Patient seen and examined in the [facility] [address] ICU She still requires mechanical ventilation AC/26/450/80 percent with 10 of PEEP Sedated with Versed and fentanyl Has an art line with blood pressure 137/75 Smith to bedside drainage JOHN hose in place OG running at 40 cc an hour Discussed with RN Discussed with case management Chart reviewed She remains critically ill 01/11/2021 Patient seen and examined in the [place] [address] ICU She still requires mechanical ventilation AC/26/450/80 percent with 10 of PEEP OG running at 40 cc an hour Has mitts on for patient safety Smith to bedside drainage Chart reviewed Discussed with case management Discussed with RN She remains critically ill 01/10/2021 Patient seen and examined in the [facility] [address] ICU She is still mechanically ventilated AC/26/450/70 percent with 10 of PEEP On IV Zosyn and Zyvox Sedated Discussed with RN Discussed with case management Chart reviewed She remains very critically ill 01/09/2021 Patient seen and examined in the [facility] [place] [address] ICU She remains ventilated AC/26/450/70 percent with 10 of PEEP She is DNR but chemical code still Sedated with fentanyl and Versed Has an art line in place Smith to bedside drainage SCDs on OG at 40 cc an hour Discussed with RN Discussed with case management She remains critically ill Chart reviewed 01/08/2021 Patient seen and examined in the [place] [place] [address] ICU She is in respiratory isolation On the vent AC/26/450/1 100% FiO2 with 12 of PEEP He has SCDs on Has Smith to bedside drainage Sedated with fentanyl Versed OG feeds running at 40 cc an hour Has an art line Discussed with RN Chart reviewed She remains critically ill 01/07/2021 Patient seen and examined in the [facility] [address] ICU She had to be intubated this morning She is currently on assist-control/ with 100% FiO2 and 10 of PEEP Has SCDs in Smith to bedside drainage Sedated with fentanyl Versed and also on IV doxycycline OG feeds running at 20 cc an hour Chart reviewed Discussed with RN She remains critically ill Vitals/I&O Vitals/I&O: Vital Signs Date Time Temp Pulse Resp B/P (MAP) Pulse Ox O2 Delivery O2 Flow Rate FiO2 01/13/21 11:59 96 Ventilator 01/13/21 11:00 90 26 134/78 (96) 01/13/21 08:00 98.6 98.6 01/12/21 21:19 40.0 I & O 01/12/21 01/12/21 01/13/21 15:00 23:00 07:00 Intake Total 200 ml 858 ml 988 ml Output Total 535 ml 400 ml 450 ml Balance -335 ml 458 ml 538 ml Physical Exam Physical Exam: GENERAL: Intubated, sedated female. HEENT: Normocephalic, atraumatic. ETT present. No conjunctival petechia. Anicteric. OGT present. NECK: Supple. LUNGS: Decreased breath sound at the bases, otherwise no wheezing. HEART: S1, S2. ABDOMEN: Soft, obese. Bowel sounds present. EXTREMITIES: No edema, no cyanosis. GENITOURINARY: Smith in place. CENTRAL NERVOUS SYSTEM: Intubated. DERMATOLOGIC: Warm and dry. No generalized rash. LINES: Left-sided PICC line, right out line looks clean. General: Other (Sedated on the vent) Heart: Other (AFIB) Abdomen: Soft Extremities: No cyanosis Skin: No breakdown, No significant lesion Labs Labs: Laboratory Tests Test 01/12/21 17:55 01/13/21 06:08 01/13/21 06:15 01/13/21 08:00 Glucose (Fingerstick) 185 mg/dL (70-99) 182 mg/dL (70-99) White Blood Count 11.0 x10^3/uL (4.0-11.0) Red Blood Count 5.04 x10^6/uL (3.50-5.40) Hemoglobin 14.9 g/dL (12.0-15.5) Hematocrit 45.9 % (36.0-47.0) Mean Corpuscular Volume 91 fL (79-100) Mean Corpuscular Hemoglobin 30 pg (25-35) Mean Corpuscular Hemoglobin Concent 32 g/dL (31-37) Red Cell Distribution Width 14.6 % (11.5-14.5) Platelet Count 179 x10^3/uL (140-400) Neutrophils (%) (Auto) 91 % (31-73) Lymphocytes (%) (Auto) 3 % (24-48) Monocytes (%) (Auto) 6 % (0-9) Eosinophils (%) (Auto) 0 % (0-3) Basophils (%) (Auto) 0 % (0-3) Neutrophils # (Auto) 10.1 x10^3/uL (1.8-7.7) Lymphocytes # (Auto) 0.3 x10^3/uL (1.0-4.8) Monocytes # (Auto) 0.6 x10^3/uL (0.0-1.1) Eosinophils # (Auto) 0.0 x10^3/uL (0.0-0.7) Basophils # (Auto) 0.0 x10^3/uL (0.0-0.2) Segmented Neutrophils % 96 % (35-66) Lymphocytes % 2 % (24-48) Monocytes % 2 % (0-10) Platelet Estimate Adequate (ADEQUATE) Sodium Level 142 mmol/L (136-145) Potassium Level 4.1 mmol/L (3.5-5.1) Chloride Level 111 mmol/L (98-107) Carbon Dioxide Level 23 mmol/L (21-32) Anion Gap 8 (6-14) Blood Urea Nitrogen 35 mg/dL (7-20) Creatinine 0.9 mg/dL (0.6-1.0) Estimated GFR (Cockcroft-Gault) 61.7 Glucose Level 204 mg/dL (70-99) Calcium Level 7.8 mg/dL (8.5-10.1) O2 Saturation 89 % (92-99) Arterial Blood pH 7.41 (7.35-7.45) Arterial Blood pCO2 at Patient Temp 38 mmHg (35-46) Arterial Blood pO2 at Patient Temp 58 mmHg (65-108) Arterial Blood HCO3 23 mmol/L (21-28) Arterial Blood Base Excess -1 mmol/L (-3-3) FiO2 75/vent Assessment and Plan Assessmemt and Plan Problems Medical Problems: (1) Person under investigation for COVID-19 Status: Acute (2) Respiratory failure with hypoxia Status: Acute Assessment Fulminant respiratory failure secondary to COVID-19 requiring intubation A-fib with RVR Hypertension Asthma Chronic anticoagulation Arrhythmias Arthritis Obesity Acute on chronic systolic and diastolic heart failure Fevers Plan ICU monitoring Vent weaning Covid protocol IV antibiotics IV steroids IV remdesivir IV doxycycline Vitamins and minerals Beta agonist Aspirin Trend labs DVT prophylaxis Full code Home meds Prognosis extremely guarded Appreciate subspecialist input CC time 35 minutes Comment Review of Relevant I have reviewed the following items pepe (where applicable) has been applied. Justifications for Admission Other Justification KRISTOPHER GONZALES III DO Jan 13, 2021 12:19
[2021-01-14] VITALS (35 sets, daily range): BP systolic 116–146; BP diastolic 70–85
[2021-01-14] MEDS: PIPERACILLIN/TAZOBACTAM 3.375 GM in IV NORMAL SALINE 50ML 50 ML IV SCH ×4 (00:03→18:24)
[2021-01-14] MEDS: INSULIN LISPRO 300 UNITS/3 ML VIAL. SQ SCH ×4 (00:10→18:36)
--- NOTE | 2021-01-14 05:35 | PDOC ---
PULMONARY PROGRESS NOTES DATE: 01/14/21 TIME: 05:35 Subjective Patient currently on assist control ventilation, peep 9, fio2 80%, minimal ett secretion sedated on versed fentanyl Vitals Vital Signs Date Time Temp Pulse Resp B/P (MAP) Pulse Ox O2 Delivery O2 Flow Rate FiO2 01/14/21 04:00 Mechanical Ventilator 01/14/21 04:00 01/14/21 04:00 99.2 104 26 96 99.2 01/13/21 21:07 40.0 Comments visual exam done due to covid 19 on vent sedated NC AT RRR no accessory muscle use abd obese no leg edema Labs Laboratory Tests Test 01/12/21 05:52 01/12/21 08:29 01/12/21 11:52 01/12/21 17:55 Glucose (Fingerstick) 230 mg/dL (70-99) 217 mg/dL (70-99) 185 mg/dL (70-99) O2 Saturation 96 % (92-99) Arterial Blood pH 7.42 (7.35-7.45) Arterial Blood pCO2 at Patient Temp 35 mmHg (35-46) Arterial Blood pO2 at Patient Temp 78 mmHg (65-108) Arterial Blood HCO3 22 mmol/L (21-28) Arterial Blood Base Excess -2 mmol/L (-3-3) FiO2 80 vent Test 01/13/21 06:08 01/13/21 06:15 01/13/21 08:00 01/13/21 14:36 Glucose (Fingerstick) 182 mg/dL (70-99) 224 mg/dL (70-99) White Blood Count 11.0 x10^3/uL (4.0-11.0) Red Blood Count 5.04 x10^6/uL (3.50-5.40) Hemoglobin 14.9 g/dL (12.0-15.5) Hematocrit 45.9 % (36.0-47.0) Mean Corpuscular Volume 91 fL (79-100) Mean Corpuscular Hemoglobin 30 pg (25-35) Mean Corpuscular Hemoglobin Concent 32 g/dL (31-37) Red Cell Distribution Width 14.6 % (11.5-14.5) Platelet Count 179 x10^3/uL (140-400) Neutrophils (%) (Auto) 91 % (31-73) Lymphocytes (%) (Auto) 3 % (24-48) Monocytes (%) (Auto) 6 % (0-9) Eosinophils (%) (Auto) 0 % (0-3) Basophils (%) (Auto) 0 % (0-3) Neutrophils # (Auto) 10.1 x10^3/uL (1.8-7.7) Lymphocytes # (Auto) 0.3 x10^3/uL (1.0-4.8) Monocytes # (Auto) 0.6 x10^3/uL (0.0-1.1) Eosinophils # (Auto) 0.0 x10^3/uL (0.0-0.7) Basophils # (Auto) 0.0 x10^3/uL (0.0-0.2) Segmented Neutrophils % 96 % (35-66) Lymphocytes % 2 % (24-48) Monocytes % 2 % (0-10) Platelet Estimate Adequate (ADEQUATE) Sodium Level 142 mmol/L (136-145) Potassium Level 4.1 mmol/L (3.5-5.1) Chloride Level 111 mmol/L (98-107) Carbon Dioxide Level 23 mmol/L (21-32) Anion Gap 8 (6-14) Blood Urea Nitrogen 35 mg/dL (7-20) Creatinine 0.9 mg/dL (0.6-1.0) Estimated GFR (Cockcroft-Gault) 61.7 Glucose Level 204 mg/dL (70-99) Calcium Level 7.8 mg/dL (8.5-10.1) O2 Saturation 89 % (92-99) Arterial Blood pH 7.41 (7.35-7.45) Arterial Blood pCO2 at Patient Temp 38 mmHg (35-46) Arterial Blood pO2 at Patient Temp 58 mmHg (65-108) Arterial Blood HCO3 23 mmol/L (21-28) Arterial Blood Base Excess -1 mmol/L (-3-3) FiO2 75/vent Test 01/13/21 17:42 01/14/21 00:09 Glucose (Fingerstick) 215 mg/dL (70-99) 212 mg/dL (70-99) Laboratory Tests Test 01/13/21 06:08 01/13/21 06:15 01/13/21 08:00 01/13/21 14:36 Glucose (Fingerstick) 182 mg/dL (70-99) 224 mg/dL (70-99) White Blood Count 11.0 x10^3/uL (4.0-11.0) Red Blood Count 5.04 x10^6/uL (3.50-5.40) Hemoglobin 14.9 g/dL (12.0-15.5) Hematocrit 45.9 % (36.0-47.0) Mean Corpuscular Volume 91 fL (79-100) Mean Corpuscular Hemoglobin 30 pg (25-35) Mean Corpuscular Hemoglobin Concent 32 g/dL (31-37) Red Cell Distribution Width 14.6 % (11.5-14.5) Platelet Count 179 x10^3/uL (140-400) Neutrophils (%) (Auto) 91 % (31-73) Lymphocytes (%) (Auto) 3 % (24-48) Monocytes (%) (Auto) 6 % (0-9) Eosinophils (%) (Auto) 0 % (0-3) Basophils (%) (Auto) 0 % (0-3) Neutrophils # (Auto) 10.1 x10^3/uL (1.8-7.7) Lymphocytes # (Auto) 0.3 x10^3/uL (1.0-4.8) Monocytes # (Auto) 0.6 x10^3/uL (0.0-1.1) Eosinophils # (Auto) 0.0 x10^3/uL (0.0-0.7) Basophils # (Auto) 0.0 x10^3/uL (0.0-0.2) Segmented Neutrophils % 96 % (35-66) Lymphocytes % 2 % (24-48) Monocytes % 2 % (0-10) Platelet Estimate Adequate (ADEQUATE) Sodium Level 142 mmol/L (136-145) Potassium Level 4.1 mmol/L (3.5-5.1) Chloride Level 111 mmol/L (98-107) Carbon Dioxide Level 23 mmol/L (21-32) Anion Gap 8 (6-14) Blood Urea Nitrogen 35 mg/dL (7-20) Creatinine 0.9 mg/dL (0.6-1.0) Estimated GFR (Cockcroft-Gault) 61.7 Glucose Level 204 mg/dL (70-99) Calcium Level 7.8 mg/dL (8.5-10.1) O2 Saturation 89 % (92-99) Arterial Blood pH 7.41 (7.35-7.45) Arterial Blood pCO2 at Patient Temp 38 mmHg (35-46) Arterial Blood pO2 at Patient Temp 58 mmHg (65-108) Arterial Blood HCO3 23 mmol/L (21-28) Arterial Blood Base Excess -1 mmol/L (-3-3) FiO2 75/vent Test 01/13/21 17:42 01/14/21 00:09 Glucose (Fingerstick) 215 mg/dL (70-99) 212 mg/dL (70-99) Medications Active Scripts Medications Dose Route/Sig Max Daily Dose Days Date Category Augmentin 500-125 Tablet (Amoxicillin/Potassium Clav) 1 Each Tablet 1 Tab PO BID 7 10/03/19 Rx Benzonatate 100 Mg Capsule 100 Mg PO [id number] 10/03/19 Rx Proair Hfa (Albuterol Sulfate) 8.5 Gm Hfa.aer.ad 2.5 Mg NEB PRN Q4HRS PRN 30 10/03/19 Rx Digoxin 125 Mcg Tablet 125 Mcg PO DAILY 10/02/19 Reported Furosemide 20 Mg Tablet 1 Tab PO DAILY 10/02/19 Reported [Diltiazem Hcl] 240 MG Cap.er.24h 300 Mg PO DAILY 30 10/03/18 Rx Eliquis (Apixaban) 5 Mg Tablet 5 Mg PO BID MDD 5 30 10/03/18 Rx Tramadol-Acetaminophn 37.5-325 (Tramadol Hcl/Acetaminophen) 1 Each Tablet 1 Tab PO Q6H 07/14/16 Rx No Known Medications Prior To Admisstion (Info) Each 1 Each 04/26/15 Reported Comments cxr 01/13 reviewed, Continued presence of diffuse bilateral lung opacities but with some interval improvement evident. Electronically signed by: Lakshmi Cason MD (01/13/2021 6:14 AM) [facility] Imp[facility] . IMPRESSION: 1. Acute hypoxemic respiratory failure.due to severe covid 19 viral pneumonia/ ARDS 2. Abnormal x-ray compatible with a viral pneumonia, mild improvement 01/13 3. Obesity. prob jas 4. Acute on chronic diastolic heart failure. 5. Possible bacterial pneumonia. 6. Atrial fibrillation with rapid ventricular response. 7. History of tobacco dependent, suspect chronic obstructive pulmonary disease. 8. SARS Covid 2+ compatible with COVID-19 9. Fever secondary to above, resolved Plan . 01/14 cont vent support setting reviewed, 02 titration as tolerated Patient intubated on 01/07 AC mode ABG reviewed I:E. ratio to 1-1 , PEEP of 9 Continue current support Started on remdesivir 01/07 IV SOLUMEDROL Follow cardiology input Empiric antibiotics Follow RASS score for sedation discussed w rn critically ill cc time 30 min no overlap Updated 01/13 Patient intubated on 01/07 AC mode ABG noted, reduce FIO2 80%, I:E. ratio to 1-1 , PEEP of 9 Continue current support Started on remdesivir 01/07 IV SOLUMEDROL Follow cardiology input Empiric antibiotics Follow RASS score for sedation Total cumulative critical care time from 9:15 AM to 9:45 AM Updated 01/12 Patient intubated on 01/07 AC mode ABG noted, reduce FIO2 75%, I:E. ratio to 1-1 , reduce PEEP to 9 Continue current support Started on remdesivir 01/07 IV SOLUMEDROL Follow cardiology input Empiric antibiotics Follow RASS score for sedation Total cumulative critical care time from 9:15 AM to 9:50 AM Updated 01/11 Patient intubated on 01/07 AC mode ABG noted, increased FIO2 80%, I:E. ratio to 1-1 ,10 OF PEEP not much room to wean today Continue current support Started on remdesivir 01/07 IV SOLUMEDROL Follow cardiology input Empiric antibiotics Follow RASS score for sedation Total cumulative critical care time from 9:15 AM to 9:50 AM Updated 01/10 Patient intubated on 01/07 AC mode ABG noted, increase FIO2 80%, I:E. ratio to 1-1 ,10 OF PEEP Continue current support Started on remdesivir 01/07 IV SOLUMEDROL Follow cardiology input Empiric antibiotics Follow RASS score for sedation Total cumulative critical care time from 9:15 AM to 9:50 AM BALBIR BALLESTEROS MD Jan 14, 2021 05:35
[2021-01-14 06:49] LABS: BASO % 0 % (0-3); EOS % 0 % (0-3); HEMOGLOBIN 14.8 g/dL (12.0-15.5); LYMPH # 0.3 x10^3/uL (1.0-4.8); LYMPH % 3 % (24-48); MEAN CORPUSCULAR HEMOGLOBIN 30 pg (25-35); MEAN CORPUSCULAR HGB CONC 33 g/dL (31-37); MEAN CORPUSCULAR VOLUME 91 fL (79-100); MONO # 0.2 x10^3/uL (0.0-1.1); MONO % 2 % (0-9); NEUT # 8.8 x10^3/uL (1.8-7.7); NEUT % 95 % (31-73); PLATELET COUNT 153 x10^3/uL (140-400); RED BLOOD COUNT 4.96 x10^6/uL (3.50-5.40); RED CELL DISTRIBUTION WIDTH 14.8 % (11.5-14.5); WHITE BLOOD COUNT 9.3 x10^3/uL (4.0-11.0)
[2021-01-14 08:23] LABS: BASE EXCESS ABG -3 mmol/L (-3-3); HCO3 ABG 21 mmol/L (21-28); PCO2 ABG 34 mmHg (35-46); PO2 ABG 82 mmHg (65-108); SAT O2 ABG 96 % (92-99)
[2021-01-14] MEDS: APIXABAN 5 MG TABLET. PO SCH ×2 (08:36→20:28)
[2021-01-14] MEDS: METOPROLOL TART IMMED RELEASE 25 MG TABLET. PO SCH ×2 (08:36→20:29)
[2021-01-14] MEDS: FAMOTIDINE 20 MG/2 ML VIAL IVP SCH (08:37)
[2021-01-14] MEDS: methylPREDNISolone SOD SUCC PF 125 MG/2 ML VIAL. IV SCH ×2 (08:37→20:29)
[2021-01-14] MEDS: MULTIVITAMINS,THERAPEUTIC 5 ML ORAL LIQUID. FT SCH (08:37)
--- NOTE | 2021-01-14 10:55 | PDOC ---
Infectious Disease Note Subjective: Subjective Intubated/sedated Vital Signs: Vital Signs Vital Signs Date Time Temp Pulse Resp B/P (MAP) Pulse Ox O2 Delivery O2 Flow Rate FiO2 01/14/21 10:00 104 26 120/70 (87) 93 Ventilator 01/14/21 08:00 99.7 99.7 01/13/21 21:07 40.0 Physical Exam: PHYSICAL EXAM Visual exam done General intubated/sedated, comfortable Heart regular rhythm Extremities trace edema Medications: Inpatient Meds: Medications reviewed. Labs: Lab Laboratory Tests Test 01/13/21 14:36 01/13/21 17:42 01/14/21 00:09 01/14/21 05:40 Glucose (Fingerstick) 224 mg/dL (70-99) 215 mg/dL (70-99) 212 mg/dL (70-99) White Blood Count 9.3 x10^3/uL (4.0-11.0) Red Blood Count 4.96 x10^6/uL (3.50-5.40) Hemoglobin 14.8 g/dL (12.0-15.5) Hematocrit 45.0 % (36.0-47.0) Mean Corpuscular Volume 91 fL (79-100) Mean Corpuscular Hemoglobin 30 pg (25-35) Mean Corpuscular Hemoglobin Concent 33 g/dL (31-37) Red Cell Distribution Width 14.8 % (11.5-14.5) Platelet Count 153 x10^3/uL (140-400) Neutrophils (%) (Auto) 95 % (31-73) Lymphocytes (%) (Auto) 3 % (24-48) Monocytes (%) (Auto) 2 % (0-9) Eosinophils (%) (Auto) 0 % (0-3) Basophils (%) (Auto) 0 % (0-3) Neutrophils # (Auto) 8.8 x10^3/uL (1.8-7.7) Lymphocytes # (Auto) 0.3 x10^3/uL (1.0-4.8) Monocytes # (Auto) 0.2 x10^3/uL (0.0-1.1) Eosinophils # (Auto) 0.0 x10^3/uL (0.0-0.7) Basophils # (Auto) 0.0 x10^3/uL (0.0-0.2) Test 01/14/21 05:44 Glucose (Fingerstick) 209 mg/dL (70-99) Objective: Assessment: 1. COVID-19 pneumonia. Present on admission. 2. Acute hypoxic respiratory failure. Suspected bacterial pneumonia. 3. Bacteremia, 2/4 bottles present on admission, Staph epidermidis, Staph hominis. Likely contaminant. Repeat blood cultures negative so far. 4. Obesity. 5. Acute on chronic systolic and diastolic heart failure. 6. Atrial fibrillation with rapid ventricular response. 7. History of tobacco dependence. 8. Mild thrombocytopenia. improved 9. Elevated D-dimer. 10. Hypertension. Plan: Plan of Care 1. Continue supportive care. 2. S/P remdesivir ,on steroids per primary team 3. Cont Zyvox and Zosyn. January 10 4. Monitor labs and cultures. Critically ill. Discussed with ADRIÁN BLANCA MD Jan 14, 2021 10:55
[2021-01-14] MEDS: MIDAZOLAM 100mg/100ml NS BAG 100 ML IV PRN (12:18)
[2021-01-14 12:20] LABS: FIO2 ABG 80% VENT
--- NOTE | 2021-01-14 15:08 | PDOC ---
GENERAL General: Patient examined chart reviewed today is hospital day 10 for this patient with acute hypoxic respiratory failure secondary to COVID-19. We appreciate infectious diseases and pulmonary support. Sugar levels are elevated likely due to the steroids. I defer to pulmonary regarding the timing of taper on that. I have added glargine 10 units at bedtime and will titrate as needed. She also has an insulin sliding scale. Continue current management otherwise. Problems: (1) Acute respiratory distress syndrome (ARDS) due to 2019 novel coronavirus (2) COVID-19 (3) Respiratory failure with hypoxia VITAL SIGNS Vital Signs/I&O: Vital Signs Date Time Temp Pulse Resp B/P (MAP) Pulse Ox O2 Delivery O2 Flow Rate FiO2 01/14/21 14:00 106 26 122/74 (90) 92 Ventilator 01/14/21 12:00 99.1 99.1 01/13/21 21:07 40.0 I & O 01/13/21 01/13/21 01/14/21 15:00 23:00 07:00 Intake Total 260 ml 2217 ml 1012 ml Output Total 505 ml 345 ml 510 ml Balance -245 ml 1872 ml 502 ml In general the patient is intubated and sedated she does not awaken for my exam Chest is clear to auscultation anteriorly Heart S1-S2 normal regular rate and rhythm no murmurs or gallops are noted Abdomen is obese soft nontender nondistended no masses organomegaly noted Extremity exam is notable for 2+ edema throughout ALLERGIES Allergies: Allergies Coded Allergies Type Severity Reaction Last Updated Verified No Known Drug Allergies 04/26/15 No MEDS Medications: Current Medications Medications (Trade) Dose Ordered Sig/Amaury Start Time Stop Time Status Last Admin Dose Admin Acetaminophen (Tylenol) 650 mg PRN Q6HRS PRN 01/07/21 16:00 01/07/21 16:51 Albuterol/ Ipratropium (Duoneb) 3 ml RTQID 01/06/21 08:00 01/07/21 07:59 DC Apixaban (Eliquis) 5 mg BID 01/06/21 21:00 01/14/21 08:36 Atropine Sulfate (ATROPINE 0.5mg SYRINGE) 0.5 mg PRN Q5MIN PRN 01/06/21 00:30 Ceftriaxone Sodium (Rocephin) 1 gm Q24H 01/06/21 13:00 01/10/21 09:27 DC 01/09/21 13:12 Dexamethasone Sodium Phosphate (Decadron) 10 mg 1X ONCE 01/05/21 22:30 01/05/21 22:31 DC 01/05/21 21:58 Dexmedetomidine HCl 400 mcg/ Sodium Chloride 100 ml @ 0 mls/hr CONT PRN 01/06/21 00:30 Dextrose (Dextrose 50%-Water Syringe) 12.5 gm PRN Q15MIN PRN 01/07/21 19:15 Diltiazem HCl (Cardizem Iv Push) 20 mg 1X ONCE 01/05/21 22:00 01/05/21 22:01 DC 01/05/21 21:55 Diltiazem HCl 125 mg/Sodium Chloride 125 ml @ 5 mls/hr CONT PRN 01/06/21 08:30 01/06/21 14:09 DC 01/06/21 10:02 Doxycycline Hyclate 100 mg/ Dextrose 100 ml @ 50 mls/hr 1X ONCE 01/06/21 13:00 01/06/21 14:59 DC 01/06/21 13:08 Etomidate (Amidate) 12 mg 1X ONCE 01/07/21 06:45 01/07/21 06:46 DC 01/07/21 06:42 Famotidine (Pepcid Vial) 20 mg DAILY 01/08/21 09:00 01/14/21 08:37 Fentanyl Citrate 30 ml @ 0 mls/hr CONT PRN 01/07/21 05:30 01/14/21 08:30 Fentanyl Citrate (Fentanyl 2ml Vial) 25 mcg PRN Q1HR PRN 01/06/21 00:30 Furosemide (Lasix) 40 mg PRN Q6HRS PRN 01/07/21 09:30 01/07/21 11:13 Info (Anti-Coagulation Monitoring By Pharmacy) 1 each PRN DAILY PRN 01/06/21 13:45 01/13/21 09:38 Insulin Glargine (Lantus Syringe) 10 unit QHS 01/14/21 21:00 Insulin Human Lispro (HumaLOG) 0-9 UNITS Q6HRS 01/12/21 12:00 01/14/21 12:17 Linezolid/Dextrose 300 ml @ 300 mls/hr Q12HR 01/10/21 21:00 01/14/21 08:38 Lorazepam (Ativan Inj) 0.5 mg PRN Q2HRS PRN 01/06/21 00:30 Methylprednisolone Sodium Succinate (SOLU-Medrol 125MG VIAL) 60 mg BID 01/06/21 13:00 01/14/21 08:37 Metoprolol Tartrate (Lopressor Vial) 5 mg PRN Q6HRS PRN 01/06/21 14:00 Metoprolol Tartrate (Lopressor) 25 mg BID 01/06/21 21:00 01/14/21 08:36 Midazolam HCl 100 ml @ 0 mls/hr CONT PRN 01/07/21 05:30 01/14/21 12:18 Midazolam HCl (Versed) 5 mg 1X ONCE 01/06/21 00:30 01/06/21 00:31 DC Multivitamins/ Minerals Therapeutic (Centrum Multivit-Mineral Liq) 5 ml DAILY 01/09/21 09:00 01/14/21 08:37 Norepinephrine Bitartrate 8 mg/ Dextrose 258 ml @ 8.388 mls/ hr CONT PRN 01/07/21 07:00 01/07/21 07:18 Ondansetron HCl (Zofran) 4 mg STK-MED ONCE 01/07/21 10:18 01/07/21 10:18 DC Phenylephrine HCl (Manuel-Synephrine Inj) 10 mg STK-MED ONCE 01/07/21 10:18 01/07/21 10:18 DC Piperacillin Sod/ Tazobactam Sod 3.375 gm/Sodium Chloride 50 ml @ 100 mls/hr Q6HRS 01/10/21 12:00 01/14/21 12:18 Potassium Phosphate 10 mmol/ Sodium Chloride 103.3333 ml @ 51.667 m... Q2H 01/08/21 14:00 01/08/21 17:59 DC 01/08/21 16:01 Propofol (Diprivan) 200 mg STK-MED ONCE 01/07/21 10:18 01/07/21 10:18 DC Remdesivir 100 mg/ Sodium Chloride 230 ml @ 460 mls/hr Q24H 01/08/21 09:00 01/11/21 09:29 DC 01/11/21 09:02 Remdesivir 200 mg/ Sodium Chloride 210 ml @ 210 mls/hr 1X ONCE 01/07/21 11:00 01/07/21 11:59 DC 01/07/21 15:15 Sevoflurane (Ultane) 90 ml STK-MED ONCE 01/07/21 10:18 01/07/21 10:18 DC Sodium Chloride 1,000 ml @ 75 mls/hr [id number] 01/07/21 09:30 01/13/21 12:21 DC 01/12/21 09:30 Sterile Water (WATER for RESP) 1,000 ml CONT PRN 01/06/21 16:45 Succinylcholine Chloride (Anectine) 100 mg 1X ONCE 01/07/21 06:45 01/07/21 06:46 DC 01/07/21 06:43 Vancomycin HCl (Vanco Per Pharmacy) 1 each PRN DAILY PRN 01/07/21 09:30 01/10/21 09:31 DC 01/09/21 17:00 Vancomycin HCl (Vancomycin Trough Level) 1 each 1X ONCE 01/11/21 04:30 01/11/21 04:31 Cancel Vancomycin HCl 1.25 gm/Sodium Chloride 250 ml @ 167 mls/hr Q12H 01/10/21 05:00 01/10/21 09:27 DC 01/10/21 05:55 Vancomycin HCl 2 gm/Sodium Chloride 500 ml @ 250 mls/hr 1X ONCE 01/07/21 10:00 01/07/21 11:59 DC 01/07/21 16:49 LAB Lab: Laboratory Tests Test 01/13/21 17:42 01/14/21 00:09 01/14/21 05:40 01/14/21 05:44 Glucose (Fingerstick) 215 mg/dL (70-99) H 212 mg/dL (70-99) H 209 mg/dL (70-99) H White Blood Count 9.3 x10^3/uL (4.0-11.0) Red Blood Count 4.96 x10^6/uL (3.50-5.40) Hemoglobin 14.8 g/dL (12.0-15.5) Hematocrit 45.0 % (36.0-47.0) Mean Corpuscular Volume 91 fL (79-100) Mean Corpuscular Hemoglobin 30 pg (25-35) Mean Corpuscular Hemoglobin Concent 33 g/dL (31-37) Red Cell Distribution Width 14.8 % (11.5-14.5) H Platelet Count 153 x10^3/uL (140-400) Neutrophils (%) (Auto) 95 % (31-73) H Lymphocytes (%) (Auto) 3 % (24-48) L Monocytes (%) (Auto) 2 % (0-9) Eosinophils (%) (Auto) 0 % (0-3) Basophils (%) (Auto) 0 % (0-3) Neutrophils # (Auto) 8.8 x10^3/uL (1.8-7.7) H Lymphocytes # (Auto) 0.3 x10^3/uL (1.0-4.8) L Monocytes # (Auto) 0.2 x10^3/uL (0.0-1.1) Eosinophils # (Auto) 0.0 x10^3/uL (0.0-0.7) Basophils # (Auto) 0.0 x10^3/uL (0.0-0.2) Test 01/14/21 09:30 01/14/21 12:12 O2 Saturation 96 % (92-99) Arterial Blood pH 7.41 (7.35-7.45) Arterial Blood pCO2 at Patient Temp 34 mmHg (35-46) L Arterial Blood pO2 at Patient Temp 82 mmHg (65-108) Arterial Blood HCO3 21 mmol/L (21-28) Arterial Blood Base Excess -3 mmol/L (-3-3) FiO2 80% vent Glucose (Fingerstick) 237 mg/dL (70-99) H Laboratory Tests 01/14/21 05:40 ASSESSMENT & PLAN A&P Plan as noted above This note was created using [employer] and may have omissions and/or errors due to the nature of real-time voice wind technician. Justifications for Admission Other Justification MICHELLE BA MD Jan 14, 2021 15:08
[2021-01-14] MEDS: METOPROLOL IV PUSH 5 MG/5 ML VIAL. IVP PRN (17:19)
[2021-01-14] MEDS: INSULIN GLARGINE SYRINGE. SQ SCH (20:51)
[2021-01-15] VITALS (35 sets, daily range): BP systolic 75–154; BP diastolic 55–100
[2021-01-15] MEDS: INSULIN LISPRO 300 UNITS/3 ML VIAL. SQ SCH ×4 (00:29→17:51)
[2021-01-15] MEDS: PIPERACILLIN/TAZOBACTAM 3.375 GM in IV NORMAL SALINE 50ML 50 ML IV SCH ×5 (00:33→23:59)
--- NOTE | 2021-01-15 05:57 | PDOC ---
PULMONARY PROGRESS NOTES DATE: 01/15/21 TIME: 05:57 Subjective Patient currently on assist control ventilation, peep 8, fio2 75%, minimal ett secretion sedated on versed fentanyl Vitals Vital Signs Date Time Temp Pulse Resp B/P (MAP) Pulse Ox O2 Delivery O2 Flow Rate FiO2 01/15/21 05:15 26 Ventilator 01/15/21 05:00 102 146/82 (103) 94 01/15/21 04:00 98.2 98.2 Comments visual exam done due to covid 19 on vent sedated NC AT RRR no accessory muscle use abd obese no leg edema Labs Laboratory Tests Test 01/13/21 06:08 01/13/21 06:15 01/13/21 08:00 01/13/21 14:36 Glucose (Fingerstick) 182 mg/dL (70-99) 224 mg/dL (70-99) White Blood Count 11.0 x10^3/uL (4.0-11.0) Red Blood Count 5.04 x10^6/uL (3.50-5.40) Hemoglobin 14.9 g/dL (12.0-15.5) Hematocrit 45.9 % (36.0-47.0) Mean Corpuscular Volume 91 fL (79-100) Mean Corpuscular Hemoglobin 30 pg (25-35) Mean Corpuscular Hemoglobin Concent 32 g/dL (31-37) Red Cell Distribution Width 14.6 % (11.5-14.5) Platelet Count 179 x10^3/uL (140-400) Neutrophils (%) (Auto) 91 % (31-73) Lymphocytes (%) (Auto) 3 % (24-48) Monocytes (%) (Auto) 6 % (0-9) Eosinophils (%) (Auto) 0 % (0-3) Basophils (%) (Auto) 0 % (0-3) Neutrophils # (Auto) 10.1 x10^3/uL (1.8-7.7) Lymphocytes # (Auto) 0.3 x10^3/uL (1.0-4.8) Monocytes # (Auto) 0.6 x10^3/uL (0.0-1.1) Eosinophils # (Auto) 0.0 x10^3/uL (0.0-0.7) Basophils # (Auto) 0.0 x10^3/uL (0.0-0.2) Segmented Neutrophils % 96 % (35-66) Lymphocytes % 2 % (24-48) Monocytes % 2 % (0-10) Platelet Estimate Adequate (ADEQUATE) Sodium Level 142 mmol/L (136-145) Potassium Level 4.1 mmol/L (3.5-5.1) Chloride Level 111 mmol/L (98-107) Carbon Dioxide Level 23 mmol/L (21-32) Anion Gap 8 (6-14) Blood Urea Nitrogen 35 mg/dL (7-20) Creatinine 0.9 mg/dL (0.6-1.0) Estimated GFR (Cockcroft-Gault) 61.7 Glucose Level 204 mg/dL (70-99) Calcium Level 7.8 mg/dL (8.5-10.1) O2 Saturation 89 % (92-99) Arterial Blood pH 7.41 (7.35-7.45) Arterial Blood pCO2 at Patient Temp 38 mmHg (35-46) Arterial Blood pO2 at Patient Temp 58 mmHg (65-108) Arterial Blood HCO3 23 mmol/L (21-28) Arterial Blood Base Excess -1 mmol/L (-3-3) FiO2 75/vent Test 01/13/21 17:42 01/14/21 00:09 01/14/21 05:40 01/14/21 05:44 Glucose (Fingerstick) 215 mg/dL (70-99) 212 mg/dL (70-99) 209 mg/dL (70-99) White Blood Count 9.3 x10^3/uL (4.0-11.0) Red Blood Count 4.96 x10^6/uL (3.50-5.40) Hemoglobin 14.8 g/dL (12.0-15.5) Hematocrit 45.0 % (36.0-47.0) Mean Corpuscular Volume 91 fL (79-100) Mean Corpuscular Hemoglobin 30 pg (25-35) Mean Corpuscular Hemoglobin Concent 33 g/dL (31-37) Red Cell Distribution Width 14.8 % (11.5-14.5) Platelet Count 153 x10^3/uL (140-400) Neutrophils (%) (Auto) 95 % (31-73) Lymphocytes (%) (Auto) 3 % (24-48) Monocytes (%) (Auto) 2 % (0-9) Eosinophils (%) (Auto) 0 % (0-3) Basophils (%) (Auto) 0 % (0-3) Neutrophils # (Auto) 8.8 x10^3/uL (1.8-7.7) Lymphocytes # (Auto) 0.3 x10^3/uL (1.0-4.8) Monocytes # (Auto) 0.2 x10^3/uL (0.0-1.1) Eosinophils # (Auto) 0.0 x10^3/uL (0.0-0.7) Basophils # (Auto) 0.0 x10^3/uL (0.0-0.2) Test 01/14/21 09:30 01/14/21 12:12 01/14/21 18:32 01/15/21 00:39 O2 Saturation 96 % (92-99) Arterial Blood pH 7.41 (7.35-7.45) Arterial Blood pCO2 at Patient Temp 34 mmHg (35-46) Arterial Blood pO2 at Patient Temp 82 mmHg (65-108) Arterial Blood HCO3 21 mmol/L (21-28) Arterial Blood Base Excess -3 mmol/L (-3-3) FiO2 80% vent Glucose (Fingerstick) 237 mg/dL (70-99) 225 mg/dL (70-99) 262 mg/dL (70-99) Laboratory Tests Test 01/14/21 09:30 01/14/21 12:12 01/14/21 18:32 01/15/21 00:39 O2 Saturation 96 % (92-99) Arterial Blood pH 7.41 (7.35-7.45) Arterial Blood pCO2 at Patient Temp 34 mmHg (35-46) Arterial Blood pO2 at Patient Temp 82 mmHg (65-108) Arterial Blood HCO3 21 mmol/L (21-28) Arterial Blood Base Excess -3 mmol/L (-3-3) FiO2 80% vent Glucose (Fingerstick) 237 mg/dL (70-99) 225 mg/dL (70-99) 262 mg/dL (70-99) Medications Active Scripts Medications Dose Route/Sig Max Daily Dose Days Date Category Augmentin 500-125 Tablet (Amoxicillin/Potassium Clav) 1 Each Tablet 1 Tab PO BID 7 10/03/19 Rx Benzonatate 100 Mg Capsule 100 Mg PO [id number] 10/03/19 Rx Proair Hfa (Albuterol Sulfate) 8.5 Gm Hfa.aer.ad 2.5 Mg NEB PRN Q4HRS PRN 30 10/03/19 Rx Digoxin 125 Mcg Tablet 125 Mcg PO DAILY 10/02/19 Reported Furosemide 20 Mg Tablet 1 Tab PO DAILY 10/02/19 Reported [Diltiazem Hcl] 240 MG Cap.er.24h 300 Mg PO DAILY 30 10/03/18 Rx Eliquis (Apixaban) 5 Mg Tablet 5 Mg PO BID MDD 5 30 10/03/18 Rx Tramadol-Acetaminophn 37.5-325 (Tramadol Hcl/Acetaminophen) 1 Each Tablet 1 Tab PO Q6H 07/14/16 Rx No Known Medications Prior To Admisstion (Info) Each 1 Each MC 04/26/15 Reported Comments cxr 01/13 reviewed, Continued presence of diffuse bilateral lung opacities but with some interval improvement evident. Electronically signed by: Lakshmi Cason MD (01/13/2021 6:14 AM) [facility] Impression . IMPRESSION: 1. Acute hypoxemic respiratory failure.due to severe covid 19 viral pneumonia/ ARDS 2. Abnormal x-ray compatible with a viral pneumonia, mild improvement 01/13 3. Obesity. prob jas 4. Acute on chronic diastolic heart failure. 5. Possible bacterial pneumonia. 6. Atrial fibrillation with rapid ventricular response. 7. History of tobacco dependent, suspect chronic obstructive pulmonary disease. 8. SARS Covid 2+ compatible with COVID-19 9. Fever secondary to above, resolved Plan . 01/15 cont vent support setting reviewed, 02 titration as tolerated Patient intubated on 01/07 AC mode ABG reviewed I:E. ratio to 1-1 , PEEP of 8 Continue current support Started on remdesivir 01/07 change IV SOLUMEDROL to 40 bid Follow cardiology input Empiric antibiotics Follow RASS score for sedation on eliquid pepcid for stress ulcer prophylaxis discussed w rn critically ill cc time 30 min no overlap 01/14 cont vent support setting reviewed, 02 titration as tolerated Patient intubated on 01/07 AC mode ABG reviewed I:E. ratio to 1-1 , PEEP of 9 Continue current support Started on remdesivir 01/07 IV SOLUMEDROL Follow cardiology input Empiric antibiotics Follow RASS score for sedation discussed w rn critically ill cc time 30 min no overlap Updated 01/13 Patient intubated on 01/07 AC mode ABG noted, reduce FIO2 80%, I:E. ratio to 1-1 , PEEP of 9 Continue current support Started on remdesivir 01/07 IV SOLUMEDROL Follow cardiology input Empiric antibiotics Follow RASS score for sedation Total cumulative critical care time from 9:15 AM to 9:45 AM Updated 01/12 Patient intubated on 01/07 AC mode ABG noted, reduce FIO2 75%, I:E. ratio to 1-1 , reduce PEEP to 9 Continue current support Started on remdesivir 01/07 IV SOLUMEDROL Follow cardiology input Empiric antibiotics Follow RASS score for sedation Total cumulative critical care time from 9:15 AM to 9:50 AM Updated 01/11 Patient intubated on 01/07 AC mode ABG noted, increased FIO2 80%, I:E. ratio to 1-1 ,10 OF PEEP not much room to wean today Continue current support Started on remdesivir 01/07 IV SOLUMEDROL Follow cardiology input Empiric antibiotics Follow RASS score for sedation Total cumulative critical care time from 9:15 AM to 9:50 AM Updated 01/10 Patient intubated on 01/07 AC mode ABG noted, increase FIO2 80%, I:E. ratio to 1-1 ,10 OF PEEP Continue current support Started on remdesivir 01/07 IV SOLUMEDROL Follow cardiology input Empiric antibiotics Follow RASS score for sedation Total cumulative critical care time from 9:15 AM to 9:50 AM BALBIR BALLESTEROS MD Jan 15, 2021 05:57
[2021-01-15 06:38] LABS: ALBUMIN 1.5 g/dL (3.4-5.0); ALBUMIN/GLOBULIN RATIO 0.5 (1.0-1.7); CALCIUM 7.4 mg/dL (8.5-10.1); GFR 54.7; POTASSIUM 4.3 mmol/L (3.5-5.1); TOTAL BILIRUBIN 1.1 mg/dL (0.2-1.0); TOTAL PROTEIN 4.3 g/dL (6.4-8.2)
[2021-01-15 06:59] LABS: BASO % 0 % (0-3); EOS % 0 % (0-3); HEMATOCRIT 45.4 % (36.0-47.0); HEMOGLOBIN 14.5 g/dL (12.0-15.5); LYMPH # 0.4 x10^3/uL (1.0-4.8); LYMPH % 4 % (24-48); MEAN CORPUSCULAR HEMOGLOBIN 29 pg (25-35); MEAN CORPUSCULAR HGB CONC 32 g/dL (31-37); MEAN CORPUSCULAR VOLUME 91 fL (79-100); MONO # 0.4 x10^3/uL (0.0-1.1); MONO % 4 % (0-9); NEUT # 9.6 x10^3/uL (1.8-7.7); NEUT % 92 % (31-73); PLATELET COUNT 126 x10^3/uL (140-400); RED BLOOD COUNT 4.97 x10^6/uL (3.50-5.40); WHITE BLOOD COUNT 10.5 x10^3/uL (4.0-11.0)
[2021-01-15] MEDS: FUROSEMIDE 40 MG/4 ML VIAL. IVP PRN (07:12)
[2021-01-15 08:22] LABS: BASE EXCESS ABG 0 mmol/L (-3-3); HCO3 ABG 23 mmol/L (21-28); PCO2 ABG 35 mmHg (35-46); PO2 ABG 69 mmHg (65-108); SAT O2 ABG 94 % (92-99)
[2021-01-15] MEDS: METOPROLOL TART IMMED RELEASE 25 MG TABLET. PO SCH ×2 (08:41→20:38)
[2021-01-15] MEDS: methylPREDNISolone SOD SUCC PF 125 MG/2 ML VIAL. IV SCH (08:41)
[2021-01-15] MEDS: APIXABAN 5 MG TABLET. PO SCH ×2 (08:41→20:38)
[2021-01-15] MEDS: MULTIVITAMINS,THERAPEUTIC 5 ML ORAL LIQUID. FT SCH (08:41)
[2021-01-15] MEDS: FAMOTIDINE 20 MG/2 ML VIAL IVP SCH (08:44)
--- NOTE | 2021-01-15 10:21 | PDOC ---
Infectious Disease Note Subjective: Subjective Intubated/sedated Patient was tachycardic per RN this morning Received IV Lasix Vital Signs: Vital Signs Vital Signs Date Time Temp Pulse Resp B/P (MAP) Pulse Ox O2 Delivery O2 Flow Rate FiO2 01/15/21 10:00 100 26 134/76 (95) 97 Ventilator 01/15/21 08:00 98.4 98.4 Physical Exam: PHYSICAL EXAM Visual exam done General intubated/sedated, comfortable Heart regular rhythm Extremities trace edema Medications: Inpatient Meds: Medications reviewed. Labs: Lab Laboratory Tests Test 01/14/21 12:12 01/14/21 18:32 01/15/21 00:39 01/15/21 06:00 Glucose (Fingerstick) 237 mg/dL (70-99) 225 mg/dL (70-99) 262 mg/dL (70-99) White Blood Count 10.5 x10^3/uL (4.0-11.0) Red Blood Count 4.97 x10^6/uL (3.50-5.40) Hemoglobin 14.5 g/dL (12.0-15.5) Hematocrit 45.4 % (36.0-47.0) Mean Corpuscular Volume 91 fL (79-100) Mean Corpuscular Hemoglobin 29 pg (25-35) Mean Corpuscular Hemoglobin Concent 32 g/dL (31-37) Red Cell Distribution Width 15.0 % (11.5-14.5) Platelet Count 126 x10^3/uL (140-400) Neutrophils (%) (Auto) 92 % (31-73) Lymphocytes (%) (Auto) 4 % (24-48) Monocytes (%) (Auto) 4 % (0-9) Eosinophils (%) (Auto) 0 % (0-3) Basophils (%) (Auto) 0 % (0-3) Neutrophils # (Auto) 9.6 x10^3/uL (1.8-7.7) Lymphocytes # (Auto) 0.4 x10^3/uL (1.0-4.8) Monocytes # (Auto) 0.4 x10^3/uL (0.0-1.1) Eosinophils # (Auto) 0.0 x10^3/uL (0.0-0.7) Basophils # (Auto) 0.0 x10^3/uL (0.0-0.2) Sodium Level 146 mmol/L (136-145) Potassium Level 4.3 mmol/L (3.5-5.1) Chloride Level 110 mmol/L (98-107) Carbon Dioxide Level 26 mmol/L (21-32) Anion Gap 10 (6-14) Blood Urea Nitrogen 41 mg/dL (7-20) Creatinine 1.0 mg/dL (0.6-1.0) Estimated GFR (Cockcroft-Gault) 54.7 BUN/Creatinine Ratio 41 (6-20) Glucose Level 243 mg/dL (70-99) Calcium Level 7.4 mg/dL (8.5-10.1) Total Bilirubin 1.1 mg/dL (0.2-1.0) Aspartate Amino Transf (AST/SGOT) 15 U/L (15-37) Alanine Aminotransferase (ALT/SGPT) 31 U/L (14-59) Alkaline Phosphatase 83 U/L (46-116) Total Protein 4.3 g/dL (6.4-8.2) Albumin 1.5 g/dL (3.4-5.0) Albumin/Globulin Ratio 0.5 (1.0-1.7) Test 01/15/21 06:02 Glucose (Fingerstick) 253 mg/dL (70-99) Objective: Assessment: 1. COVID-19 pneumonia. Present on admission. 2. Acute hypoxic respiratory failure. Suspected bacterial pneumonia. 3. Bacteremia, 2/4 bottles present on admission, Staph epidermidis, Staph hominis. Likely contaminant. Repeat blood cultures negative so far. 4. Obesity. 5. Acute on chronic systolic and diastolic heart failure. 6. Atrial fibrillation with rapid ventricular response. 7. History of tobacco dependence. 8. Mild thrombocytopenia. improved 9. Elevated D-dimer. 10. Hypertension. Plan: Plan of Care 1. Continue supportive care. 2. S/P remdesivir ,on steroids per primary team 3. Cont Zyvox and Zosyn. January 10, will de-escalate soon 4. Monitor labs and cultures. Critically ill. Discussed with ADRIÁN BLANCA MD Jan 15, 2021 10:21
[2021-01-15] MEDS: MIDAZOLAM 100mg/100ml NS BAG 100 ML IV PRN (11:04)
[2021-01-15 14:36] LABS: FIO2 ABG 75% VENT
[2021-01-15] MEDS: methylPREDNISolone SOD SUCC PF 40 MG/ML VIAL. IV SCH (20:38)
[2021-01-15] MEDS: INSULIN GLARGINE SYRINGE. SQ SCH (20:39)
[2021-01-16] VITALS (26 sets, daily range): BP systolic 90–135; BP diastolic 61–84
[2021-01-16] MEDS: INSULIN LISPRO 300 UNITS/3 ML VIAL. SQ SCH ×4 (00:06→18:26)
[2021-01-16] MEDS: METOPROLOL IV PUSH 5 MG/5 ML VIAL. IVP PRN (03:40)
[2021-01-16] MEDS: PIPERACILLIN/TAZOBACTAM 3.375 GM in IV NORMAL SALINE 50ML 50 ML IV SCH ×4 (05:37→23:52)
[2021-01-16 05:49] LABS: BASO % 0 % (0-3); EOS % 0 % (0-3); HEMATOCRIT 43.9 % (36.0-47.0); HEMOGLOBIN 13.9 g/dL (12.0-15.5); LYMPH # 0.4 x10^3/uL (1.0-4.8); LYMPH % 3 % (24-48); MEAN CORPUSCULAR HEMOGLOBIN 29 pg (25-35); MEAN CORPUSCULAR HGB CONC 32 g/dL (31-37); MEAN CORPUSCULAR VOLUME 91 fL (79-100); MONO # 0.4 x10^3/uL (0.0-1.1); MONO % 3 % (0-9); NEUT # 13.1 x10^3/uL (1.8-7.7); NEUT % 94 % (31-73); PLATELET COUNT 125 x10^3/uL (140-400); RED CELL DISTRIBUTION WIDTH 14.6 % (11.5-14.5)
--- NOTE | 2021-01-16 06:22 | RAD ---
AP chest x-ray HISTORY: Respiratory failure. Covid pneumonia. COMPARISON: Chest x-ray January 13, 2021 FINDINGS: Endotracheal tube tip 2 cm above the moni. Nasogastric tube extends to the abdomen. Left PICC line tip radiographic region SVC stable. Cardiomegaly stable. No pneumothorax. Pulmonary interst itial and alveolar infiltrates again demonstrated which are globally stable, due to different patient positioning between studies there is a differential appearance of the lower lobe opacities, accounti ng for this, they are grossly stable. IMPRESSION: Lines and tubes as described above. Pulmonary infiltrates are stable. Cardiomegaly is sta ble. Electronically signed by: Abhay Rutledge MD (01/16/2021 6:19 AM) [facility]
[2021-01-16] MEDS: MIDAZOLAM 100mg/100ml NS BAG 100 ML IV PRN (07:42)
--- NOTE | 2021-01-16 08:34 | PDOC ---
Infectious Disease Note Subjective: Subjective Intubated/sedated FiO2 at 75% Discussed with nursing staff Vital Signs: Vital Signs Vital Signs Date Time Temp Pulse Resp B/P (MAP) Pulse Ox O2 Delivery O2 Flow Rate FiO2 01/16/21 07:33 98.3 113 22 101/72 (82) 97 Ventilator 98.3 Physical Exam: PHYSICAL EXAM Visual exam done General intubated/sedated, comfortable Heart regular rhythm Extremities trace edema Medications: Inpatient Meds: Medications reviewed. Labs: Lab Laboratory Tests Test 01/15/21 08:45 01/15/21 12:23 01/15/21 17:39 01/16/21 00:05 O2 Saturation 94 % (92-99) Arterial Blood pH 7.44 (7.35-7.45) Arterial Blood pCO2 at Patient Temp 35 mmHg (35-46) Arterial Blood pO2 at Patient Temp 69 mmHg (65-108) Arterial Blood HCO3 23 mmol/L (21-28) Arterial Blood Base Excess 0 mmol/L (-3-3) FiO2 75% vent Glucose (Fingerstick) 260 mg/dL (70-99) 270 mg/dL (70-99) 253 mg/dL (70-99) Test 01/16/21 05:30 01/16/21 05:33 White Blood Count 14.0 x10^3/uL (4.0-11.0) Red Blood Count 4.80 x10^6/uL (3.50-5.40) Hemoglobin 13.9 g/dL (12.0-15.5) Hematocrit 43.9 % (36.0-47.0) Mean Corpuscular Volume 91 fL (79-100) Mean Corpuscular Hemoglobin 29 pg (25-35) Mean Corpuscular Hemoglobin Concent 32 g/dL (31-37) Red Cell Distribution Width 14.6 % (11.5-14.5) Platelet Count 125 x10^3/uL (140-400) Neutrophils (%) (Auto) 94 % (31-73) Lymphocytes (%) (Auto) 3 % (24-48) Monocytes (%) (Auto) 3 % (0-9) Eosinophils (%) (Auto) 0 % (0-3) Basophils (%) (Auto) 0 % (0-3) Neutrophils # (Auto) 13.1 x10^3/uL (1.8-7.7) Lymphocytes # (Auto) 0.4 x10^3/uL (1.0-4.8) Monocytes # (Auto) 0.4 x10^3/uL (0.0-1.1) Eosinophils # (Auto) 0.0 x10^3/uL (0.0-0.7) Basophils # (Auto) 0.0 x10^3/uL (0.0-0.2) Glucose (Fingerstick) 218 mg/dL (70-99) Objective: Assessment: 1. COVID-19 pneumonia. Present on admission. 2. Acute hypoxic respiratory failure. Suspected bacterial pneumonia. 3. Bacteremia, 2/4 bottles present on admission, Staph epidermidis, Staph hominis. Likely contaminant. Repeat blood cultures negative so far. 4. Obesity. 5. Acute on chronic systolic and diastolic heart failure. 6. Atrial fibrillation with rapid ventricular response. 7. History of tobacco dependence. 8. Mild thrombocytopenia. improved 9. Elevated D-dimer. 10. Hypertension. Plan: Plan of Care 1. Continue supportive care. 2. S/P remdesivir ,on steroids per primary team 3. Cont Zyvox and Zosyn. January 10, will de-escalate soon 4. Monitor labs and cultures. Critically ill. Discussed with ADRIÁN BLANCA MD Jan 16, 2021 08:34
[2021-01-16 09:11] LABS: BASE EXCESS ABG -1 mmol/L (-3-3); HCO3 ABG 23 mmol/L (21-28); PCO2 ABG 36 mmHg (35-46); PO2 ABG 80 mmHg (65-108); SAT O2 ABG 96 % (92-99)
[2021-01-16 09:13] LABS: FIO2 ABG 75
--- NOTE | 2021-01-16 09:31 | PDOC ---
PULMONARY PROGRESS NOTES DATE: 01/16/21 TIME: 09:30 Subjective No overnight events. Currently on assist control ventilation 75%, 8 of PEEP. Vitals Vital Signs Date Time Temp Pulse Resp B/P (MAP) Pulse Ox O2 Delivery O2 Flow Rate FiO2 01/16/21 08:20 95 Ventilator 01/16/21 07:33 98.3 113 22 101/72 (82) 98.3 Comments visual exam done due to covid 19 on vent sedated NC AT RRR no accessory muscle use abd obese no leg edema Labs Laboratory Tests Test 01/14/21 12:12 01/14/21 18:32 01/15/21 00:39 01/15/21 06:00 Glucose (Fingerstick) 237 mg/dL (70-99) 225 mg/dL (70-99) 262 mg/dL (70-99) White Blood Count 10.5 x10^3/uL (4.0-11.0) Red Blood Count 4.97 x10^6/uL (3.50-5.40) Hemoglobin 14.5 g/dL (12.0-15.5) Hematocrit 45.4 % (36.0-47.0) Mean Corpuscular Volume 91 fL (79-100) Mean Corpuscular Hemoglobin 29 pg (25-35) Mean Corpuscular Hemoglobin Concent 32 g/dL (31-37) Red Cell Distribution Width 15.0 % (11.5-14.5) Platelet Count 126 x10^3/uL (140-400) Neutrophils (%) (Auto) 92 % (31-73) Lymphocytes (%) (Auto) 4 % (24-48) Monocytes (%) (Auto) 4 % (0-9) Eosinophils (%) (Auto) 0 % (0-3) Basophils (%) (Auto) 0 % (0-3) Neutrophils # (Auto) 9.6 x10^3/uL (1.8-7.7) Lymphocytes # (Auto) 0.4 x10^3/uL (1.0-4.8) Monocytes # (Auto) 0.4 x10^3/uL (0.0-1.1) Eosinophils # (Auto) 0.0 x10^3/uL (0.0-0.7) Basophils # (Auto) 0.0 x10^3/uL (0.0-0.2) Sodium Level 146 mmol/L (136-145) Potassium Level 4.3 mmol/L (3.5-5.1) Chloride Level 110 mmol/L (98-107) Carbon Dioxide Level 26 mmol/L (21-32) Anion Gap 10 (6-14) Blood Urea Nitrogen 41 mg/dL (7-20) Creatinine 1.0 mg/dL (0.6-1.0) Estimated GFR (Cockcroft-Gault) 54.7 BUN/Creatinine Ratio 41 (6-20) Glucose Level 243 mg/dL (70-99) Calcium Level 7.4 mg/dL (8.5-10.1) Total Bilirubin 1.1 mg/dL (0.2-1.0) Aspartate Amino Transf (AST/SGOT) 15 U/L (15-37) Alanine Aminotransferase (ALT/SGPT) 31 U/L (14-59) Alkaline Phosphatase 83 U/L (46-116) Total Protein 4.3 g/dL (6.4-8.2) Albumin 1.5 g/dL (3.4-5.0) Albumin/Globulin Ratio 0.5 (1.0-1.7) Test 01/15/21 06:02 01/15/21 08:45 01/15/21 12:23 01/15/21 17:39 Glucose (Fingerstick) 253 mg/dL (70-99) 260 mg/dL (70-99) 270 mg/dL (70-99) O2 Saturation 94 % (92-99) Arterial Blood pH 7.44 (7.35-7.45) Arterial Blood pCO2 at Patient Temp 35 mmHg (35-46) Arterial Blood pO2 at Patient Temp 69 mmHg (65-108) Arterial Blood HCO3 23 mmol/L (21-28) Arterial Blood Base Excess 0 mmol/L (-3-3) FiO2 75% vent Test 01/16/21 00:05 01/16/21 05:30 01/16/21 05:33 01/16/21 08:20 Glucose (Fingerstick) 253 mg/dL (70-99) 218 mg/dL (70-99) White Blood Count 14.0 x10^3/uL (4.0-11.0) Red Blood Count 4.80 x10^6/uL (3.50-5.40) Hemoglobin 13.9 g/dL (12.0-15.5) Hematocrit 43.9 % (36.0-47.0) Mean Corpuscular Volume 91 fL (79-100) Mean Corpuscular Hemoglobin 29 pg (25-35) Mean Corpuscular Hemoglobin Concent 32 g/dL (31-37) Red Cell Distribution Width 14.6 % (11.5-14.5) Platelet Count 125 x10^3/uL (140-400) Neutrophils (%) (Auto) 94 % (31-73) Lymphocytes (%) (Auto) 3 % (24-48) Monocytes (%) (Auto) 3 % (0-9) Eosinophils (%) (Auto) 0 % (0-3) Basophils (%) (Auto) 0 % (0-3) Neutrophils # (Auto) 13.1 x10^3/uL (1.8-7.7) Lymphocytes # (Auto) 0.4 x10^3/uL (1.0-4.8) Monocytes # (Auto) 0.4 x10^3/uL (0.0-1.1) Eosinophils # (Auto) 0.0 x10^3/uL (0.0-0.7) Basophils # (Auto) 0.0 x10^3/uL (0.0-0.2) O2 Saturation 96 % (92-99) Arterial Blood pH 7.42 (7.35-7.45) Arterial Blood pCO2 at Patient Temp 36 mmHg (35-46) Arterial Blood pO2 at Patient Temp 80 mmHg (65-108) Arterial Blood HCO3 23 mmol/L (21-28) Arterial Blood Base Excess -1 mmol/L (-3-3) FiO2 75 Laboratory Tests Test 01/15/21 12:23 01/15/21 17:39 01/16/21 00:05 01/16/21 05:30 Glucose (Fingerstick) 260 mg/dL (70-99) 270 mg/dL (70-99) 253 mg/dL (70-99) White Blood Count 14.0 x10^3/uL (4.0-11.0) Red Blood Count 4.80 x10^6/uL (3.50-5.40) Hemoglobin 13.9 g/dL (12.0-15.5) Hematocrit 43.9 % (36.0-47.0) Mean Corpuscular Volume 91 fL (79-100) Mean Corpuscular Hemoglobin 29 pg (25-35) Mean Corpuscular Hemoglobin Concent 32 g/dL (31-37) Red Cell Distribution Width 14.6 % (11.5-14.5) Platelet Count 125 x10^3/uL (140-400) Neutrophils (%) (Auto) 94 % (31-73) Lymphocytes (%) (Auto) 3 % (24-48) Monocytes (%) (Auto) 3 % (0-9) Eosinophils (%) (Auto) 0 % (0-3) Basophils (%) (Auto) 0 % (0-3) Neutrophils # (Auto) 13.1 x10^3/uL (1.8-7.7) Lymphocytes # (Auto) 0.4 x10^3/uL (1.0-4.8) Monocytes # (Auto) 0.4 x10^3/uL (0.0-1.1) Eosinophils # (Auto) 0.0 x10^3/uL (0.0-0.7) Basophils # (Auto) 0.0 x10^3/uL (0.0-0.2) Test 01/16/21 05:33 01/16/21 08:20 Glucose (Fingerstick) 218 mg/dL (70-99) O2 Saturation 96 % (92-99) Arterial Blood pH 7.42 (7.35-7.45) Arterial Blood pCO2 at Patient Temp 36 mmHg (35-46) Arterial Blood pO2 at Patient Temp 80 mmHg (65-108) Arterial Blood HCO3 23 mmol/L (21-28) Arterial Blood Base Excess -1 mmol/L (-3-3) FiO2 75 Medications Active Scripts Medications Dose Route/Sig Max Daily Dose Days Date Category Augmentin 500-125 Tablet (Amoxicillin/Potassium Clav) 1 Each Tablet 1 Tab PO BID 7 10/03/19 Rx Benzonatate 100 Mg Capsule 100 Mg PO [id number] 10/03/19 Rx Proair Hfa (Albuterol Sulfate) 8.5 Gm Hfa.aer.ad 2.5 Mg NEB PRN Q4HRS PRN 30 10/03/19 Rx Digoxin 125 Mcg Tablet 125 Mcg PO DAILY 10/02/19 Reported Furosemide 20 Mg Tablet 1 Tab PO DAILY 10/02/19 Reported [Diltiazem Hcl] 240 MG Cap.er.24h 300 Mg PO DAILY 30 10/03/18 Rx Eliquis (Apixaban) 5 Mg Tablet 5 Mg PO BID MDD 5 30 10/03/18 Rx Tramadol-Acetaminophn 37.5-325 (Tramadol Hcl/Acetaminophen) 1 Each Tablet 1 Tab PO Q6H 07/14/16 Rx No Known Medications Prior To Admisstion (Info) Each 1 Each 04/26/15 Reported Comments cxr 01/13 reviewed, Continued presence of diffuse bilateral lung opacities but with some interval improvement evident. Electronically signed by: Lakshmi Cason MD (01/13/2021 6:14 AM) [facility] Impression . IMPRESSION: 1. Acute hypoxemic respiratory failure.due to severe covid 19 viral pneumonia/ ARDS 2. Abnormal x-ray compatible with a viral pneumonia, mild improvement 01/13 3. Obesity. prob jas 4. Acute on chronic diastolic heart failure. 5. Possible bacterial pneumonia. 6. Atrial fibrillation with rapid ventricular response. 7. History of tobacco dependent, suspect chronic obstructive pulmonary disease. 8. SARS Covid 2+ compatible with COVID-19 9. Fever secondary to above, resolved Plan . Updated 01/16 Continue current settings ABG and labs noted Patient currently on Solu-Medrol Follow cardiology input Empiric antibiotics On Eliquis Follow RASS score for sedation Discussed with Ayana Calderon [phone] Answered all questions, family does not wish patient to undergo tracheotomy I recommend that we continue aggressive care for approximately 21 to 28 days, if no improvement by then, extubated and allow natural I went over the current CODE STATUS, partial, I recommend the patient be full DNR, family agrees, Updated DNR status We will continue current care for now. Total cumulative critical care time of approximately 30 to 35 minutes with no overlap 01/15 cont vent support setting reviewed, 02 titration as tolerated Patient intubated on 01/07 AC mode ABG reviewed I:E. ratio to 1-1 , PEEP of 8 Continue current support Started on remdesivir 01/07 change IV SOLUMEDROL to 40 bid Follow cardiology input Empiric antibiotics Follow RASS score for sedation on eliquid pepcid for stress ulcer prophylaxis discussed w rn critically ill cc time 30 min no overlap 01/14 cont vent support setting reviewed, 02 titration as tolerated Patient intubated on 01/07 AC mode ABG reviewed I:E. ratio to 1-1 , PEEP of 9 Continue current support Started on remdesivir 01/07 IV SOLUMEDROL Follow cardiology input Empiric antibiotics Follow RASS score for sedation discussed w rn critically ill cc time 30 min no overlap Updated 01/13 Patient intubated on 01/07 AC mode ABG noted, reduce FIO2 80%, I:E. ratio to 1-1 , PEEP of 9 Continue current support Started on remdesivir 01/07 IV SOLUMEDROL Follow cardiology input Empiric antibiotics Follow RASS score for sedation Total cumulative critical care time from 9:15 AM to 9:45 AM BINDU GRIJALVA MD Jan 16, 2021 09:31
[2021-01-16] MEDS: MULTIVITAMINS,THERAPEUTIC 5 ML ORAL LIQUID. FT SCH (09:42)
[2021-01-16] MEDS: APIXABAN 5 MG TABLET. PO SCH ×2 (09:43→20:39)
[2021-01-16] MEDS: METOPROLOL TART IMMED RELEASE 25 MG TABLET. PO SCH ×2 (09:43→20:38)
[2021-01-16] MEDS: FAMOTIDINE 20 MG/2 ML VIAL IVP SCH (09:43)
[2021-01-16] MEDS: methylPREDNISolone SOD SUCC PF 40 MG/ML VIAL. IV SCH ×2 (09:43→20:38)
[2021-01-16 09:53] LABS: ALBUMIN 1.2 g/dL (3.4-5.0); ALBUMIN/GLOBULIN RATIO 0.4 (1.0-1.7); CALCIUM 7.7 mg/dL (8.5-10.1); CREATININE 0.8 mg/dL (0.6-1.0); GFR 70.7; POTASSIUM 4.2 mmol/L (3.5-5.1); TOTAL BILIRUBIN 0.9 mg/dL (0.2-1.0); TOTAL PROTEIN 4.4 g/dL (6.4-8.2)
--- NOTE | 2021-01-16 10:12 | PDOC ---
CARDIOLOGY PROGRESS NOTE SUBJECTIVE: No acute events overnight. Remains intubated and sedated. OBJECTIVE: Vital Signs/I&O: Vital Signs Date Time Temp Pulse Resp B/P (MAP) Pulse Ox O2 Delivery O2 Flow Rate FiO2 01/16/21 09:43 130 111/73 01/16/21 09:00 22 97 Ventilator 01/16/21 07:33 98.3 98.3 I & O 01/15/21 01/15/21 01/16/21 15:01 23:01 07:01 Intake Total 984 ml 717 ml 1467 ml Output Total 1850 ml 525 ml 385 ml Balance -866 ml 192 ml 1082 ml Objective: Exam deferred due to covid precautions. CURRENT MEDICATIONS: Metoprolol 25mg p.o bid eliquis 5mg p.o bid DIAGNOSTIC TESTING: No new CV testing labs reviewed. ASSESSMENT: 1. Acute hypoxic resp failure 2. Chronic atrial fibrillation 3. Chronic diastolic HF PLAN: 1. Continue low dose metoprolol and eliquis. 2. Supportive care. Justicifation of Admission Dx: Justifications for Admission: Justification of Admission Dx: Yes CHF: Cardiac Arrhythmias JESUS COOPER MD Jan 16, 2021 10:12
--- NOTE | 2021-01-16 13:32 | PDOC ---
[employer] PROGRESS NOTE Date of Service DOS: DATE: 01/16/21 TIME: 13:24 Chief Complaint Chief Complaint Fulminant respiratory failure secondary to COVID-19 requiring intubation Bacteremia positive for staph epidermidis and staph hominis repeat negative blood cultures Morbid obesity Acute on chronic CHF A. fib with RVR History of hypertension Asthma Chronic anticoagulation Arrhythmias Arthritis History of Present Illness History of Present Illness 01/16/2021 No acute events overnight. Patient currently on vent settings of 22/450/70 5%/PEEP of 8. Currently on Zyvox and Zosyn. Will de-escalate soon per ID. White count today is 14,000. Platelets are low at 125.> 50% time spent in patient chart, labs, and imaging review and in discussion with RN and SW 01/13/2021 Patient seen and examined in the [place] [address] ICU Her blood gases are not as good today She still requiring mechanical ventilation AC/26/450/80 percent with 9 of PEEP Sedated with fentanyl Versed Receiving IV Zyvox currently Has an art line Has a Smith to bedside drainage Discussed with RN Discussed with Dr. Petty I called her [id number] and explained the situation and educated her about vent weaning per her request Discussed with case management Chart reviewed She remains critically ill 01/12/2021 Patient seen and examined in the [place] [address] ICU She still requires mechanical ventilation AC/26/450/80 percent with 10 of PEEP Sedated with Versed and fentanyl Has an art line with blood pressure 137/75 Smith to bedside drainage JOHN hose in place OG running at 40 cc an hour Discussed with RN Discussed with case management Chart reviewed She remains critically ill 01/11/2021 Patient seen and examined in the [place] [address] ICU She still requires mechanical ventilation AC/26/450/80 percent with 10 of PEEP OG running at 40 cc an hour Has mitts on for patient safety Smith to bedside drainage Chart reviewed Discussed with case management Discussed with RN She remains critically ill 01/10/2021 Patient seen and examined in the [place] [address] ICU She is still mechanically ventilated AC/26/450/70 percent with 10 of PEEP On IV Zosyn and Zyvox Sedated Discussed with RN Discussed with case management Chart reviewed She remains very critically ill 01/09/2021 Patient seen and examined in the [place] [address] ICU She remains ventilated AC/26/450/70 percent with 10 of PEEP She is DNR but chemical code still Sedated with fentanyl and Versed Has an art line in place Smith to bedside drainage SCDs on OG at 40 cc an hour Discussed with RN Discussed with case management She remains critically ill Chart reviewed 01/08/2021 Patient seen and examined in the [place] [address] ICU She is in respiratory isolation On the vent AC//1 100% FiO2 with 12 of PEEP He has SCDs on Has Smith to bedside drainage Sedated with fentanyl Versed OG feeds running at 40 cc an hour Has an art line Discussed with RN Chart reviewed She remains critically ill 01/07/2021 Patient seen and examined in the [place] [address] ICU She had to be intubated this morning She is currently on assist-control/ with 100% FiO2 and 10 of PEEP Has SCDs in Smith to bedside drainage Sedated with fentanyl Versed and also on IV doxycycline OG feeds running at 20 cc an hour Chart reviewed Discussed with RN She remains critically ill Vitals/I&O Vitals/I&O: Vital Signs Date Time Temp Pulse Resp B/P (MAP) Pulse Ox O2 Delivery O2 Flow Rate FiO2 01/16/21 12:52 116 28 129/80 (96) 95 Ventilator 01/16/21 12:44 97.8 40.0 97.8 I & O 01/15/21 01/15/21 01/16/21 15:00 23:00 07:00 Intake Total 984 ml 717 ml 1467 ml Output Total 1850 ml 525 ml 385 ml Balance -866 ml 192 ml 1082 ml Physical Exam Physical Exam: Visual exam done General intubated/sedated, comfortable Heart regular rhythm Extremities trace edema General: Other (Sedated on the vent) Heart: Other (AFIB) Abdomen: Soft Extremities: No cyanosis Skin: No breakdown, No significant lesion Labs Labs: Laboratory Tests Test 01/15/21 17:39 01/16/21 00:05 01/16/21 05:30 01/16/21 05:33 Glucose (Fingerstick) 270 mg/dL (70-99) 253 mg/dL (70-99) 218 mg/dL (70-99) White Blood Count 14.0 x10^3/uL (4.0-11.0) Red Blood Count 4.80 x10^6/uL (3.50-5.40) Hemoglobin 13.9 g/dL (12.0-15.5) Hematocrit 43.9 % (36.0-47.0) Mean Corpuscular Volume 91 fL (79-100) Mean Corpuscular Hemoglobin 29 pg (25-35) Mean Corpuscular Hemoglobin Concent 32 g/dL (31-37) Red Cell Distribution Width 14.6 % (11.5-14.5) Platelet Count 125 x10^3/uL (140-400) Neutrophils (%) (Auto) 94 % (31-73) Lymphocytes (%) (Auto) 3 % (24-48) Monocytes (%) (Auto) 3 % (0-9) Eosinophils (%) (Auto) 0 % (0-3) Basophils (%) (Auto) 0 % (0-3) Neutrophils # (Auto) 13.1 x10^3/uL (1.8-7.7) Lymphocytes # (Auto) 0.4 x10^3/uL (1.0-4.8) Monocytes # (Auto) 0.4 x10^3/uL (0.0-1.1) Eosinophils # (Auto) 0.0 x10^3/uL (0.0-0.7) Basophils # (Auto) 0.0 x10^3/uL (0.0-0.2) Test 01/16/21 08:20 01/16/21 09:00 01/16/21 12:40 O2 Saturation 96 % (92-99) Arterial Blood pH 7.42 (7.35-7.45) Arterial Blood pCO2 at Patient Temp 36 mmHg (35-46) Arterial Blood pO2 at Patient Temp 80 mmHg (65-108) Arterial Blood HCO3 23 mmol/L (21-28) Arterial Blood Base Excess -1 mmol/L (-3-3) FiO2 75 Sodium Level 141 mmol/L (136-145) Potassium Level 4.2 mmol/L (3.5-5.1) Chloride Level 110 mmol/L (98-107) Carbon Dioxide Level 22 mmol/L (21-32) Anion Gap 9 (6-14) Blood Urea Nitrogen 47 mg/dL (7-20) Creatinine 0.8 mg/dL (0.6-1.0) Estimated GFR (Cockcroft-Gault) 70.7 BUN/Creatinine Ratio 59 (6-20) Glucose Level 249 mg/dL (70-99) Calcium Level 7.7 mg/dL (8.5-10.1) Total Bilirubin 0.9 mg/dL (0.2-1.0) Aspartate Amino Transf (AST/SGOT) 19 U/L (15-37) Alanine Aminotransferase (ALT/SGPT) 33 U/L (14-59) Alkaline Phosphatase 81 U/L (46-116) Total Protein 4.4 g/dL (6.4-8.2) Albumin 1.2 g/dL (3.4-5.0) Albumin/Globulin Ratio 0.4 (1.0-1.7) Glucose (Fingerstick) 289 mg/dL (70-99) Assessment and Plan Assessmemt and Plan Problems Medical Problems: (1) Person under investigation for COVID-19 Status: Acute (2) Respiratory failure with hypoxia Status: Acute Comment Review of Relevant I have reviewed the following items pepe (where applicable) has been applied. Medications: Current Medications Medications (Trade) Dose Ordered Sig/Amaury Route PRN Reason Start Time Stop Time Status Last Admin Dose Admin Methylprednisolone Sodium Succinate (SOLU-Medrol 40MG VIAL) 40 mg BID IV 01/15/21 21:00 01/16/21 09:43 Justifications for Admission Other Justification MADIHA MIGUEL MD Jan 16, 2021 13:31
[2021-01-16] MEDS: INSULIN GLARGINE SYRINGE. SQ SCH (20:39)
[2021-01-17] VITALS (24 sets, daily range): BP systolic 76–112; BP diastolic 52–75
[2021-01-17] MEDS: MIDAZOLAM 100mg/100ml NS BAG 100 ML IV PRN ×2 (02:28→23:35)
[2021-01-17] MEDS: PIPERACILLIN/TAZOBACTAM 3.375 GM in IV NORMAL SALINE 50ML 50 ML IV SCH ×4 (06:00→23:31)
[2021-01-17] MEDS: INSULIN LISPRO 300 UNITS/3 ML VIAL. SQ SCH ×5 (06:30→23:39)
[2021-01-17] MEDS: METOPROLOL IV PUSH 5 MG/5 ML VIAL. IVP PRN (06:31)
[2021-01-17 06:49] LABS: BASO # 0.1 x10^3/uL (0.0-0.2); BASO % 0 % (0-3); EOS % 0 % (0-3); HEMATOCRIT 42.4 % (36.0-47.0); HEMOGLOBIN 13.6 g/dL (12.0-15.5); LYMPH # 0.3 x10^3/uL (1.0-4.8); LYMPH % 2 % (24-48); MEAN CORPUSCULAR HEMOGLOBIN 29 pg (25-35); MEAN CORPUSCULAR HGB CONC 32 g/dL (31-37); MEAN CORPUSCULAR VOLUME 91 fL (79-100); MONO # 0.8 x10^3/uL (0.0-1.1); MONO % 5 % (0-9); NEUT # 16.8 x10^3/uL (1.8-7.7); NEUT % 93 % (31-73); PLATELET COUNT 119 x10^3/uL (140-400); RED BLOOD COUNT 4.66 x10^6/uL (3.50-5.40); RED CELL DISTRIBUTION WIDTH 14.7 % (11.5-14.5)
--- NOTE | 2021-01-17 07:38 | PDOC ---
Infectious Disease Note Subjective: Subjective Intubated/sedated FiO2 at 65% Blood pressure running on the lower side Tachycardic Not requiring pressors at this time Afebrile Discussed with nursing staff Vital Signs: Vital Signs Vital Signs Date Time Temp Pulse Resp B/P (MAP) Pulse Ox O2 Delivery O2 Flow Rate FiO2 01/17/21 07:23 98.4 128 22 76/64 (68) 93 Ventilator 98.4 01/17/21 03:03 40.0 Physical Exam: PHYSICAL EXAM Visual exam done General intubated Heart tachycardia Smith in place Extremities trace edema Medications: Inpatient Meds: Medications reviewed. Labs: Lab Laboratory Tests Test 01/16/21 08:20 01/16/21 09:00 01/16/21 12:40 01/16/21 17:11 O2 Saturation 96 % (92-99) Arterial Blood pH 7.42 (7.35-7.45) Arterial Blood pCO2 at Patient Temp 36 mmHg (35-46) Arterial Blood pO2 at Patient Temp 80 mmHg (65-108) Arterial Blood HCO3 23 mmol/L (21-28) Arterial Blood Base Excess -1 mmol/L (-3-3) FiO2 75 Sodium Level 141 mmol/L (136-145) Potassium Level 4.2 mmol/L (3.5-5.1) Chloride Level 110 mmol/L (98-107) Carbon Dioxide Level 22 mmol/L (21-32) Anion Gap 9 (6-14) Blood Urea Nitrogen 47 mg/dL (7-20) Creatinine 0.8 mg/dL (0.6-1.0) Estimated GFR (Cockcroft-Gault) 70.7 BUN/Creatinine Ratio 59 (6-20) Glucose Level 249 mg/dL (70-99) Calcium Level 7.7 mg/dL (8.5-10.1) Total Bilirubin 0.9 mg/dL (0.2-1.0) Aspartate Amino Transf (AST/SGOT) 19 U/L (15-37) Alanine Aminotransferase (ALT/SGPT) 33 U/L (14-59) Alkaline Phosphatase 81 U/L (46-116) Total Protein 4.4 g/dL (6.4-8.2) Albumin 1.2 g/dL (3.4-5.0) Albumin/Globulin Ratio 0.4 (1.0-1.7) Glucose (Fingerstick) 289 mg/dL (70-99) 277 mg/dL (70-99) Test 01/17/21 06:15 01/17/21 06:22 White Blood Count 18.0 x10^3/uL (4.0-11.0) Red Blood Count 4.66 x10^6/uL (3.50-5.40) Hemoglobin 13.6 g/dL (12.0-15.5) Hematocrit 42.4 % (36.0-47.0) Mean Corpuscular Volume 91 fL (79-100) Mean Corpuscular Hemoglobin 29 pg (25-35) Mean Corpuscular Hemoglobin Concent 32 g/dL (31-37) Red Cell Distribution Width 14.7 % (11.5-14.5) Platelet Count 119 x10^3/uL (140-400) Neutrophils (%) (Auto) 93 % (31-73) Lymphocytes (%) (Auto) 2 % (24-48) Monocytes (%) (Auto) 5 % (0-9) Eosinophils (%) (Auto) 0 % (0-3) Basophils (%) (Auto) 0 % (0-3) Neutrophils # (Auto) 16.8 x10^3/uL (1.8-7.7) Lymphocytes # (Auto) 0.3 x10^3/uL (1.0-4.8) Monocytes # (Auto) 0.8 x10^3/uL (0.0-1.1) Eosinophils # (Auto) 0.0 x10^3/uL (0.0-0.7) Basophils # (Auto) 0.1 x10^3/uL (0.0-0.2) Glucose (Fingerstick) 217 mg/dL (70-99) Objective: Assessment: 1. COVID-19 pneumonia. Present on admission. 2. Acute hypoxic respiratory failure. Suspected bacterial pneumonia. 3. Bacteremia, 2/4 bottles present on admission, Staph epidermidis, Staph hominis. Likely contaminant. Repeat blood cultures negative so far. 4. Obesity. 5. Acute on chronic systolic and diastolic heart failure. 6. Atrial fibrillation with rapid ventricular response. 7. History of tobacco dependence. 8. Mild thrombocytopenia. improved 9. Elevated D-dimer. 10. Hypertension. Plan: Plan of Care 1. Continue supportive care. 2. S/P remdesivir ,on steroids per primary team 3. Cont Zyvox and Zosyn. January 10 4. Monitor labs and cultures. Critically ill. Discussed with ADRIÁN BLANCA MD Jan 17, 2021 07:38
[2021-01-17 08:30] LABS: BASE EXCESS ABG -1 mmol/L (-3-3); HCO3 ABG 24 mmol/L (21-28); PCO2 ABG 39 mmHg (35-46); PO2 ABG 65 mmHg (65-108); SAT O2 ABG 91 % (92-99)
[2021-01-17 08:32] LABS: FIO2 ABG 65
[2021-01-17] MEDS: FAMOTIDINE 20 MG/2 ML VIAL IVP SCH (08:42)
[2021-01-17] MEDS: APIXABAN 5 MG TABLET. PO SCH ×2 (08:42→20:56)
[2021-01-17] MEDS: METOPROLOL TART IMMED RELEASE 25 MG TABLET. PO SCH ×2 (08:43→20:50)
[2021-01-17] MEDS: methylPREDNISolone SOD SUCC PF 40 MG/ML VIAL. IV SCH ×2 (08:43→20:56)
[2021-01-17] MEDS: MULTIVITAMINS,THERAPEUTIC 5 ML ORAL LIQUID. FT SCH (08:43)
[2021-01-17] MEDS ORDERED: DIGOXIN IV 500 MCG/2 ML AMPUL. IV ONE (08:45)
--- NOTE | 2021-01-17 09:31 | PDOC ---
PULMONARY PROGRESS NOTES DATE: 01/17/21 TIME: 09:31 Subjective Patient currently on 65% FiO2 8 of PEEP Blood pressure noted No other overnight events, no fever Vitals Vital Signs Date Time Temp Pulse Resp B/P (MAP) Pulse Ox O2 Delivery O2 Flow Rate FiO2 01/17/21 09:07 113 22 112/72 (85) 92 Ventilator 01/17/21 07:23 98.4 98.4 01/17/21 03:03 40.0 Comments visual exam done due to covid 19 on vent sedated NC AT RRR no accessory muscle use abd obese no leg edema Labs Laboratory Tests Test 01/15/21 12:23 01/15/21 17:39 01/16/21 00:05 01/16/21 05:30 Glucose (Fingerstick) 260 mg/dL (70-99) 270 mg/dL (70-99) 253 mg/dL (70-99) White Blood Count 14.0 x10^3/uL (4.0-11.0) Red Blood Count 4.80 x10^6/uL (3.50-5.40) Hemoglobin 13.9 g/dL (12.0-15.5) Hematocrit 43.9 % (36.0-47.0) Mean Corpuscular Volume 91 fL (79-100) Mean Corpuscular Hemoglobin 29 pg (25-35) Mean Corpuscular Hemoglobin Concent 32 g/dL (31-37) Red Cell Distribution Width 14.6 % (11.5-14.5) Platelet Count 125 x10^3/uL (140-400) Neutrophils (%) (Auto) 94 % (31-73) Lymphocytes (%) (Auto) 3 % (24-48) Monocytes (%) (Auto) 3 % (0-9) Eosinophils (%) (Auto) 0 % (0-3) Basophils (%) (Auto) 0 % (0-3) Neutrophils # (Auto) 13.1 x10^3/uL (1.8-7.7) Lymphocytes # (Auto) 0.4 x10^3/uL (1.0-4.8) Monocytes # (Auto) 0.4 x10^3/uL (0.0-1.1) Eosinophils # (Auto) 0.0 x10^3/uL (0.0-0.7) Basophils # (Auto) 0.0 x10^3/uL (0.0-0.2) Test 01/16/21 05:33 01/16/21 08:20 01/16/21 09:00 01/16/21 12:40 Glucose (Fingerstick) 218 mg/dL (70-99) 289 mg/dL (70-99) O2 Saturation 96 % (92-99) Arterial Blood pH 7.42 (7.35-7.45) Arterial Blood pCO2 at Patient Temp 36 mmHg (35-46) Arterial Blood pO2 at Patient Temp 80 mmHg (65-108) Arterial Blood HCO3 23 mmol/L (21-28) Arterial Blood Base Excess -1 mmol/L (-3-3) FiO2 75 Sodium Level 141 mmol/L (136-145) Potassium Level 4.2 mmol/L (3.5-5.1) Chloride Level 110 mmol/L (98-107) Carbon Dioxide Level 22 mmol/L (21-32) Anion Gap 9 (6-14) Blood Urea Nitrogen 47 mg/dL (7-20) Creatinine 0.8 mg/dL (0.6-1.0) Estimated GFR (Cockcroft-Gault) 70.7 BUN/Creatinine Ratio 59 (6-20) Glucose Level 249 mg/dL (70-99) Calcium Level 7.7 mg/dL (8.5-10.1) Total Bilirubin 0.9 mg/dL (0.2-1.0) Aspartate Amino Transf (AST/SGOT) 19 U/L (15-37) Alanine Aminotransferase (ALT/SGPT) 33 U/L (14-59) Alkaline Phosphatase 81 U/L (46-116) Total Protein 4.4 g/dL (6.4-8.2) Albumin 1.2 g/dL (3.4-5.0) Albumin/Globulin Ratio 0.4 (1.0-1.7) Test 01/16/21 17:11 01/17/21 06:15 01/17/21 06:22 01/17/21 08:00 Glucose (Fingerstick) 277 mg/dL (70-99) 217 mg/dL (70-99) White Blood Count 18.0 x10^3/uL (4.0-11.0) Red Blood Count 4.66 x10^6/uL (3.50-5.40) Hemoglobin 13.6 g/dL (12.0-15.5) Hematocrit 42.4 % (36.0-47.0) Mean Corpuscular Volume 91 fL (79-100) Mean Corpuscular Hemoglobin 29 pg (25-35) Mean Corpuscular Hemoglobin Concent 32 g/dL (31-37) Red Cell Distribution Width 14.7 % (11.5-14.5) Platelet Count 119 x10^3/uL (140-400) Neutrophils (%) (Auto) 93 % (31-73) Lymphocytes (%) (Auto) 2 % (24-48) Monocytes (%) (Auto) 5 % (0-9) Eosinophils (%) (Auto) 0 % (0-3) Basophils (%) (Auto) 0 % (0-3) Neutrophils # (Auto) 16.8 x10^3/uL (1.8-7.7) Lymphocytes # (Auto) 0.3 x10^3/uL (1.0-4.8) Monocytes # (Auto) 0.8 x10^3/uL (0.0-1.1) Eosinophils # (Auto) 0.0 x10^3/uL (0.0-0.7) Basophils # (Auto) 0.1 x10^3/uL (0.0-0.2) O2 Saturation 91 % (92-99) Arterial Blood pH 7.41 (7.35-7.45) Arterial Blood pCO2 at Patient Temp 39 mmHg (35-46) Arterial Blood pO2 at Patient Temp 65 mmHg (65-108) Arterial Blood HCO3 24 mmol/L (21-28) Arterial Blood Base Excess -1 mmol/L (-3-3) FiO2 65 Laboratory Tests Test 01/16/21 12:40 01/16/21 17:11 01/17/21 06:15 01/17/21 06:22 Glucose (Fingerstick) 289 mg/dL (70-99) 277 mg/dL (70-99) 217 mg/dL (70-99) White Blood Count 18.0 x10^3/uL (4.0-11.0) Red Blood Count 4.66 x10^6/uL (3.50-5.40) Hemoglobin 13.6 g/dL (12.0-15.5) Hematocrit 42.4 % (36.0-47.0) Mean Corpuscular Volume 91 fL (79-100) Mean Corpuscular Hemoglobin 29 pg (25-35) Mean Corpuscular Hemoglobin Concent 32 g/dL (31-37) Red Cell Distribution Width 14.7 % (11.5-14.5) Platelet Count 119 x10^3/uL (140-400) Neutrophils (%) (Auto) 93 % (31-73) Lymphocytes (%) (Auto) 2 % (24-48) Monocytes (%) (Auto) 5 % (0-9) Eosinophils (%) (Auto) 0 % (0-3) Basophils (%) (Auto) 0 % (0-3) Neutrophils # (Auto) 16.8 x10^3/uL (1.8-7.7) Lymphocytes # (Auto) 0.3 x10^3/uL (1.0-4.8) Monocytes # (Auto) 0.8 x10^3/uL (0.0-1.1) Eosinophils # (Auto) 0.0 x10^3/uL (0.0-0.7) Basophils # (Auto) 0.1 x10^3/uL (0.0-0.2) Test 01/17/21 08:00 O2 Saturation 91 % (92-99) Arterial Blood pH 7.41 (7.35-7.45) Arterial Blood pCO2 at Patient Temp 39 mmHg (35-46) Arterial Blood pO2 at Patient Temp 65 mmHg (65-108) Arterial Blood HCO3 24 mmol/L (21-28) Arterial Blood Base Excess -1 mmol/L (-3-3) FiO2 65 Medications Active Scripts Medications Dose Route/Sig Max Daily Dose Days Date Category Augmentin 500-125 Tablet (Amoxicillin/Potassium Clav) 1 Each Tablet 1 Tab PO BID 7 10/03/19 Rx Benzonatate 100 Mg Capsule 100 Mg PO [id number] 10/03/19 Rx Proair Hfa (Albuterol Sulfate) 8.5 Gm Hfa.aer.ad 2.5 Mg NEB PRN Q4HRS PRN 30 10/03/19 Rx Digoxin 125 Mcg Tablet 125 Mcg PO DAILY 10/02/19 Reported Furosemide 20 Mg Tablet 1 Tab PO DAILY 10/02/19 Reported [Diltiazem Hcl] 240 MG Cap.er.24h 300 Mg PO DAILY 30 10/03/18 Rx Eliquis (Apixaban) 5 Mg Tablet 5 Mg PO BID MDD 5 30 10/03/18 Rx Tramadol-Acetaminophn 37.5-325 (Tramadol Hcl/Acetaminophen) 1 Each Tablet 1 Tab PO Q6H 07/14/16 Rx No Known Medications Prior To Admisstion (Info) Each 1 Each 04/26/15 Reported Comments cxr 01/13 reviewed, Continued presence of diffuse bilateral lung opacities but with some interval improvement evident. Electronically signed by: Lakshmi Cason MD (01/13/2021 6:14 AM) [facility] Impression . IMPRESSION: 1. Acute hypoxemic respiratory failure.due to severe covid 19 viral pneumonia/ ARDS 2. Abnormal x-ray compatible with a viral pneumonia, mild improvement 01/13 3. Obesity. prob jas 4. Acute on chronic diastolic heart failure. 5. Possible bacterial pneumonia. 6. Atrial fibrillation with rapid ventricular response. 7. History of tobacco dependent, suspect chronic obstructive pulmonary disease. 8. SARS Covid 2+ compatible with COVID-19 9. Fever secondary to above, resolved Plan . Updated 01/17 Continue weaning oxygen, if continues to improve will decrease PEEP ABG and labs noted Patient currently on Solu-Medrol Antibiotics per ID Solu-Medrol 40 IV twice daily Monitor blood sugars Enteral nutrition DVT GI prophylaxis See note from 01/16, spoke with family, patient family does not wish to proceed with tracheotomy Total cumulative critical care time of 30 to 35 minutes with no overlap Updated 01/16 Continue current settings ABG and labs noted Patient currently on Solu-Medrol Follow cardiology input Empiric antibiotics On Eliquis Follow RASS score for sedation Discussed with Ayana Calderon [phone] Answered all questions, family does not wish patient to undergo tracheotomy I recommend that we continue aggressive care for approximately 21 to 28 days, if no improvement by then, extubated and allow natural I went over the current CODE STATUS, partial, I recommend the patient be full DNR, family agrees, Updated DNR status We will continue current care for now. Total cumulative critical care time of approximately 30 to 35 minutes with no overlap 01/15 cont vent support setting reviewed, 02 titration as tolerated Patient intubated on 01/07 AC mode ABG reviewed I:E. ratio to 1-1 , PEEP of 8 Continue current support Started on remdesivir 01/07 change IV SOLUMEDROL to 40 bid Follow cardiology input Empiric antibiotics Follow RASS score for sedation on eliquid pepcid for stress ulcer prophylaxis discussed w rn critically ill cc time 30 min no overlap 01/14 cont vent support setting reviewed, 02 titration as tolerated Patient intubated on 01/07 AC mode ABG reviewed I:E. ratio to 1-1 , PEEP of 9 Continue current support Started on remdesivir 01/07 IV SOLUMEDROL Follow cardiology input Empiric antibiotics Follow RASS score for sedation discussed w rn critically ill cc time 30 min no overlap Updated 01/13 Patient intubated on 01/07 AC mode ABG noted, reduce FIO2 80%, I:E. ratio to 1-1 , PEEP of 9 Continue current support Started on remdesivir 01/07 IV SOLUMEDROL Follow cardiology input Empiric antibiotics Follow RASS score for sedation Total cumulative critical care time from 9:15 AM to 9:45 AM BINDU GRIJALVA MD Jan 17, 2021 09:31
--- NOTE | 2021-01-17 11:21 | PDOC ---
[employer] PROGRESS NOTE Date of Service DOS: DATE: 01/17/21 TIME: 11:11 Chief Complaint Chief Complaint Fulminant respiratory failure secondary to COVID-19 requiring intubation Bacteremia positive for staph epidermidis and staph hominis repeat negative blood cultures Morbid obesity Acute on chronic CHF A. fib with RVR History of hypertension Asthma Chronic anticoagulation Arrhythmias Arthritis History of Present Illness History of Present Illness 01/17/2021 No acute events overnight. Afebrile. Vent settings of 22/450/65/8. WBC trending upwards to 18,000. No changes from ID at this time. > 50% time spent in patient chart, labs, and imaging review and in discussion with RN and SW 01/16/2021 No acute events overnight. Patient currently on vent settings of 22/450/75%/PEE P of 8. Currently on Zyvox and Zosyn. Will de-escalate soon per ID. White count today is 14,000. Platelets are low at 125.> 50% time spent in patient chart, labs, and imaging review and in discussion with RN and SW 01/13/2021 Patient seen and examined in the [place] [address] ICU Her blood gases are not as good today She still requiring mechanical ventilation AC/26/450/80 percent with 9 of PEEP Sedated with fentanyl Versed Receiving IV Zyvox currently Has an art line Has a Smith to bedside drainage Discussed with RN Discussed with Dr. Petty I called her [id number] and explained the situation and educated her about vent weaning per her request Discussed with case management Chart reviewed She remains critically ill 01/12/2021 Patient seen and examined in the [place] [address] ICU She still requires mechanical ventilation AC/26/450/80 percent with 10 of PEEP Sedated with Versed and fentanyl Has an art line with blood pressure 137/75 Smith to bedside drainage JOHN hose in place OG running at 40 cc an hour Discussed with RN Discussed with case management Chart reviewed She remains critically ill 01/11/2021 Patient seen and examined in the [place] [address] ICU She still requires mechanical ventilation AC/26/450/80 percent with 10 of PEEP OG running at 40 cc an hour Has mitts on for patient safety Smith to bedside drainage Chart reviewed Discussed with case management Discussed with RN She remains critically ill 01/10/2021 Patient seen and examined in the [place] [address] ICU She is still mechanically ventilated AC/26/450/70 percent with 10 of PEEP On IV Zosyn and Zyvox Sedated Discussed with RN Discussed with case management Chart reviewed She remains very critically ill 01/09/2021 Patient seen and examined in the [facility] [address] ICU She remains ventilated AC/26/450/70 percent with 10 of PEEP She is DNR but chemical code still Sedated with fentanyl and Versed Has an art line in place Smith to bedside drainage SCDs on OG at 40 cc an hour Discussed with RN Discussed with case management She remains critically ill Chart reviewed 01/08/2021 Patient seen and examined in the [facility] [address] ICU She is in respiratory isolation On the vent AC//1 100% FiO2 with 12 of PEEP He has SCDs on Has Smith to bedside drainage Sedated with fentanyl Versed OG feeds running at 40 cc an hour Has an art line Discussed with RN Chart reviewed She remains critically ill 01/07/2021 Patient seen and examined in the [facility] [address] ICU She had to be intubated this morning She is currently on assist-control/ with 100% FiO2 and 10 of PEEP Has SCDs in Smith to bedside drainage Sedated with fentanyl Versed and also on IV doxycycline OG feeds running at 20 cc an hour Chart reviewed Discussed with RN She remains critically ill Vitals/I&O Vitals/I&O: Vital Signs Date Time Temp Pulse Resp B/P (MAP) Pulse Ox O2 Delivery O2 Flow Rate FiO2 01/17/21 11:06 107 22 100/66 (77) 92 Ventilator 01/17/21 07:23 98.4 98.4 01/17/21 03:03 40.0 I & O 01/16/21 01/16/21 01/17/21 15:00 23:00 07:00 Intake Total 200 ml 929 ml 1286 ml Output Total 525 ml 1450 ml 400 ml Balance -325 ml -521 ml 886 ml Physical Exam Physical Exam: Visual exam done General intubated Heart tachycardia Smith in place Extremities trace edema General: Other (Sedated on the vent) Heart: Other (AFIB) Abdomen: Soft Extremities: No cyanosis Skin: No breakdown, No significant lesion Labs Labs: Laboratory Tests Test 01/16/21 12:40 01/16/21 17:11 01/17/21 06:15 01/17/21 06:22 Glucose (Fingerstick) 289 mg/dL (70-99) 277 mg/dL (70-99) 217 mg/dL (70-99) White Blood Count 18.0 x10^3/uL (4.0-11.0) Red Blood Count 4.66 x10^6/uL (3.50-5.40) Hemoglobin 13.6 g/dL (12.0-15.5) Hematocrit 42.4 % (36.0-47.0) Mean Corpuscular Volume 91 fL (79-100) Mean Corpuscular Hemoglobin 29 pg (25-35) Mean Corpuscular Hemoglobin Concent 32 g/dL (31-37) Red Cell Distribution Width 14.7 % (11.5-14.5) Platelet Count 119 x10^3/uL (140-400) Neutrophils (%) (Auto) 93 % (31-73) Lymphocytes (%) (Auto) 2 % (24-48) Monocytes (%) (Auto) 5 % (0-9) Eosinophils (%) (Auto) 0 % (0-3) Basophils (%) (Auto) 0 % (0-3) Neutrophils # (Auto) 16.8 x10^3/uL (1.8-7.7) Lymphocytes # (Auto) 0.3 x10^3/uL (1.0-4.8) Monocytes # (Auto) 0.8 x10^3/uL (0.0-1.1) Eosinophils # (Auto) 0.0 x10^3/uL (0.0-0.7) Basophils # (Auto) 0.1 x10^3/uL (0.0-0.2) Test 01/17/21 08:00 O2 Saturation 91 % (92-99) Arterial Blood pH 7.41 (7.35-7.45) Arterial Blood pCO2 at Patient Temp 39 mmHg (35-46) Arterial Blood pO2 at Patient Temp 65 mmHg (65-108) Arterial Blood HCO3 24 mmol/L (21-28) Arterial Blood Base Excess -1 mmol/L (-3-3) FiO2 65 Assessment and Plan Assessmemt and Plan Problems Medical Problems: (1) Person under investigation for COVID-19 Status: Acute (2) Respiratory failure with hypoxia Status: Acute Comment Review of Relevant I have reviewed the following items pepe (where applicable) has been applied. Medications: Current Medications Medications (Trade) Dose Ordered Sig/Amaury Route PRN Reason Start Time Stop Time Status Last Admin Dose Admin Digoxin (Lanoxin) 500 mcg 1X ONCE IV 01/17/21 08:45 01/17/21 08:46 DC 01/17/21 08:42 Justifications for Admission Other Justification MADIHA MIGUEL MD Jan 17, 2021 11:20
[2021-01-17] MEDS: MINERAL OIL/PETROLATUM,WHITE OPHTH OINT 3.5GM TUBE. OU PRN (17:38)
[2021-01-17] MEDS: INSULIN GLARGINE SYRINGE. SQ SCH (20:56)
[2021-01-18] VITALS (18 sets, daily range): BP systolic 84–126; BP diastolic 58–75
--- NOTE | 2021-01-18 04:42 | RAD ---
AP chest x-ray HISTORY: Elevated pneumonia, respiratory failure, ARDS. COMPARISON: Chest x-ray January 14, 2021 FINDINGS: Endotracheal tube tip 2 cm above the moni. Nasogastric tube extends to the abdomen. Left PICC line tip right paratracheal mediastinum presumed at the SVC, exact anatomic localization is limi danitza given patient rotation on the image. Cardiomegaly stable. No pneumothorax. There may be small ple ural effusions along the diaphragms blunting the angles which have developed. Diffuse pulmonary inter stitial and alveolar infiltrates are stable likely edema. IMPRESSION: Lines and tubes as described above. Diffuse pulmonary infiltrates which are likely edema, stable. Development of small pleural effusions along the diaphragms. Electronically signed by: Abhay Rutledge MD (01/18/2021 4:39 AM) [facility]
[2021-01-18] MEDS: METOPROLOL IV PUSH 5 MG/5 ML VIAL. IVP PRN (05:05)
[2021-01-18] MEDS: PIPERACILLIN/TAZOBACTAM 3.375 GM in IV NORMAL SALINE 50ML 50 ML IV SCH (06:04)
[2021-01-18] MEDS: INSULIN LISPRO 300 UNITS/3 ML VIAL. SQ SCH ×3 (06:05→17:58)
[2021-01-18 06:14] LABS: BASO # 0.1 x10^3/uL (0.0-0.2); BASO % 0 % (0-3); EOS % 0 % (0-3); HEMATOCRIT 41.7 % (36.0-47.0); HEMOGLOBIN 13.3 g/dL (12.0-15.5); LYMPH # 0.6 x10^3/uL (1.0-4.8); LYMPH % 3 % (24-48); MEAN CORPUSCULAR HEMOGLOBIN 29 pg (25-35); MEAN CORPUSCULAR HGB CONC 32 g/dL (31-37); MEAN CORPUSCULAR VOLUME 91 fL (79-100); MONO % 5 % (0-9); NEUT # 20.3 x10^3/uL (1.8-7.7); NEUT % 93 % (31-73); PLATELET COUNT 101 x10^3/uL (140-400); RED BLOOD COUNT 4.58 x10^6/uL (3.50-5.40); RED CELL DISTRIBUTION WIDTH 14.1 % (11.5-14.5)
[2021-01-18 06:40] LABS: ALBUMIN 1.6 g/dL (3.4-5.0); ALBUMIN/GLOBULIN RATIO 0.6 (1.0-1.7); CALCIUM 7.6 mg/dL (8.5-10.1); CREATININE 1.3 mg/dL (0.6-1.0); GFR 40.4; POTASSIUM 4.8 mmol/L (3.5-5.1); TOTAL PROTEIN 4.3 g/dL (6.4-8.2)
[2021-01-18 08:04] LABS: BASE EXCESS ABG -2 mmol/L (-3-3); HCO3 ABG 23 mmol/L (21-28); PCO2 ABG 38 mmHg (35-46); PO2 ABG 57 mmHg (65-108); SAT O2 ABG 89 % (92-99)
[2021-01-18 08:07] LABS: FIO2 ABG 65% VENT
--- NOTE | 2021-01-18 08:24 | PDOC ---
PULMONARY PROGRESS NOTES DATE: 01/18/21 TIME: 08:24 Subjective No overnight events. Currently on 65% FiO2 8 of PEEP Afebrile Vitals Vital Signs Date Time Temp Pulse Resp B/P (MAP) Pulse Ox O2 Delivery O2 Flow Rate FiO2 01/18/21 08:07 119 24 111/60 (77) 91 Ventilator 01/18/21 07:20 98.6 98.6 01/18/21 00:13 40.0 Comments visual exam done due to covid 19 on vent sedated NC AT RRR no accessory muscle use abd obese no leg edema Labs Laboratory Tests Test 01/16/21 09:00 01/16/21 12:40 01/16/21 17:11 01/17/21 06:15 Sodium Level 141 mmol/L (136-145) Potassium Level 4.2 mmol/L (3.5-5.1) Chloride Level 110 mmol/L (98-107) Carbon Dioxide Level 22 mmol/L (21-32) Anion Gap 9 (6-14) Blood Urea Nitrogen 47 mg/dL (7-20) Creatinine 0.8 mg/dL (0.6-1.0) Estimated GFR (Cockcroft-Gault) 70.7 BUN/Creatinine Ratio 59 (6-20) Glucose Level 249 mg/dL (70-99) Calcium Level 7.7 mg/dL (8.5-10.1) Total Bilirubin 0.9 mg/dL (0.2-1.0) Aspartate Amino Transf (AST/SGOT) 19 U/L (15-37) Alanine Aminotransferase (ALT/SGPT) 33 U/L (14-59) Alkaline Phosphatase 81 U/L (46-116) Total Protein 4.4 g/dL (6.4-8.2) Albumin 1.2 g/dL (3.4-5.0) Albumin/Globulin Ratio 0.4 (1.0-1.7) Glucose (Fingerstick) 289 mg/dL (70-99) 277 mg/dL (70-99) White Blood Count 18.0 x10^3/uL (4.0-11.0) Red Blood Count 4.66 x10^6/uL (3.50-5.40) Hemoglobin 13.6 g/dL (12.0-15.5) Hematocrit 42.4 % (36.0-47.0) Mean Corpuscular Volume 91 fL (79-100) Mean Corpuscular Hemoglobin 29 pg (25-35) Mean Corpuscular Hemoglobin Concent 32 g/dL (31-37) Red Cell Distribution Width 14.7 % (11.5-14.5) Platelet Count 119 x10^3/uL (140-400) Neutrophils (%) (Auto) 93 % (31-73) Lymphocytes (%) (Auto) 2 % (24-48) Monocytes (%) (Auto) 5 % (0-9) Eosinophils (%) (Auto) 0 % (0-3) Basophils (%) (Auto) 0 % (0-3) Neutrophils # (Auto) 16.8 x10^3/uL (1.8-7.7) Lymphocytes # (Auto) 0.3 x10^3/uL (1.0-4.8) Monocytes # (Auto) 0.8 x10^3/uL (0.0-1.1) Eosinophils # (Auto) 0.0 x10^3/uL (0.0-0.7) Basophils # (Auto) 0.1 x10^3/uL (0.0-0.2) Test 01/17/21 06:22 01/17/21 08:00 01/17/21 17:36 01/17/21 20:53 Glucose (Fingerstick) 217 mg/dL (70-99) 206 mg/dL (70-99) 207 mg/dL (70-99) O2 Saturation 91 % (92-99) Arterial Blood pH 7.41 (7.35-7.45) Arterial Blood pCO2 at Patient Temp 39 mmHg (35-46) Arterial Blood pO2 at Patient Temp 65 mmHg (65-108) Arterial Blood HCO3 24 mmol/L (21-28) Arterial Blood Base Excess -1 mmol/L (-3-3) FiO2 65 Test 01/17/21 23:37 01/18/21 06:00 01/18/21 06:04 01/18/21 08:00 Glucose (Fingerstick) 203 mg/dL (70-99) 172 mg/dL (70-99) White Blood Count 22.0 x10^3/uL (4.0-11.0) Red Blood Count 4.58 x10^6/uL (3.50-5.40) Hemoglobin 13.3 g/dL (12.0-15.5) Hematocrit 41.7 % (36.0-47.0) Mean Corpuscular Volume 91 fL (79-100) Mean Corpuscular Hemoglobin 29 pg (25-35) Mean Corpuscular Hemoglobin Concent 32 g/dL (31-37) Red Cell Distribution Width 14.1 % (11.5-14.5) Platelet Count 101 x10^3/uL (140-400) Neutrophils (%) (Auto) 93 % (31-73) Lymphocytes (%) (Auto) 3 % (24-48) Monocytes (%) (Auto) 5 % (0-9) Eosinophils (%) (Auto) 0 % (0-3) Basophils (%) (Auto) 0 % (0-3) Neutrophils # (Auto) 20.3 x10^3/uL (1.8-7.7) Lymphocytes # (Auto) 0.6 x10^3/uL (1.0-4.8) Monocytes # (Auto) 1.0 x10^3/uL (0.0-1.1) Eosinophils # (Auto) 0.0 x10^3/uL (0.0-0.7) Basophils # (Auto) 0.1 x10^3/uL (0.0-0.2) Sodium Level 147 mmol/L (136-145) Potassium Level 4.8 mmol/L (3.5-5.1) Chloride Level 112 mmol/L (98-107) Carbon Dioxide Level 28 mmol/L (21-32) Anion Gap 7 (6-14) Blood Urea Nitrogen 64 mg/dL (7-20) Creatinine 1.3 mg/dL (0.6-1.0) Estimated GFR (Cockcroft-Gault) 40.4 BUN/Creatinine Ratio 49 (6-20) Glucose Level 160 mg/dL (70-99) Calcium Level 7.6 mg/dL (8.5-10.1) Total Bilirubin 1.0 mg/dL (0.2-1.0) Aspartate Amino Transf (AST/SGOT) 27 U/L (15-37) Alanine Aminotransferase (ALT/SGPT) 45 U/L (14-59) Alkaline Phosphatase 76 U/L (46-116) Total Protein 4.3 g/dL (6.4-8.2) Albumin 1.6 g/dL (3.4-5.0) Albumin/Globulin Ratio 0.6 (1.0-1.7) O2 Saturation 89 % (92-99) Arterial Blood pH 7.40 (7.35-7.45) Arterial Blood pCO2 at Patient Temp 38 mmHg (35-46) Arterial Blood pO2 at Patient Temp 57 mmHg (65-108) Arterial Blood HCO3 23 mmol/L (21-28) Arterial Blood Base Excess -2 mmol/L (-3-3) FiO2 65% vent Laboratory Tests Test 01/17/21 17:36 01/17/21 20:53 01/17/21 23:37 01/18/21 06:00 Glucose (Fingerstick) 206 mg/dL (70-99) 207 mg/dL (70-99) 203 mg/dL (70-99) White Blood Count 22.0 x10^3/uL (4.0-11.0) Red Blood Count 4.58 x10^6/uL (3.50-5.40) Hemoglobin 13.3 g/dL (12.0-15.5) Hematocrit 41.7 % (36.0-47.0) Mean Corpuscular Volume 91 fL (79-100) Mean Corpuscular Hemoglobin 29 pg (25-35) Mean Corpuscular Hemoglobin Concent 32 g/dL (31-37) Red Cell Distribution Width 14.1 % (11.5-14.5) Platelet Count 101 x10^3/uL (140-400) Neutrophils (%) (Auto) 93 % (31-73) Lymphocytes (%) (Auto) 3 % (24-48) Monocytes (%) (Auto) 5 % (0-9) Eosinophils (%) (Auto) 0 % (0-3) Basophils (%) (Auto) 0 % (0-3) Neutrophils # (Auto) 20.3 x10^3/uL (1.8-7.7) Lymphocytes # (Auto) 0.6 x10^3/uL (1.0-4.8) Monocytes # (Auto) 1.0 x10^3/uL (0.0-1.1) Eosinophils # (Auto) 0.0 x10^3/uL (0.0-0.7) Basophils # (Auto) 0.1 x10^3/uL (0.0-0.2) Sodium Level 147 mmol/L (136-145) Potassium Level 4.8 mmol/L (3.5-5.1) Chloride Level 112 mmol/L (98-107) Carbon Dioxide Level 28 mmol/L (21-32) Anion Gap 7 (6-14) Blood Urea Nitrogen 64 mg/dL (7-20) Creatinine 1.3 mg/dL (0.6-1.0) Estimated GFR (Cockcroft-Gault) 40.4 BUN/Creatinine Ratio 49 (6-20) Glucose Level 160 mg/dL (70-99) Calcium Level 7.6 mg/dL (8.5-10.1) Total Bilirubin 1.0 mg/dL (0.2-1.0) Aspartate Amino Transf (AST/SGOT) 27 U/L (15-37) Alanine Aminotransferase (ALT/SGPT) 45 U/L (14-59) Alkaline Phosphatase 76 U/L (46-116) Total Protein 4.3 g/dL (6.4-8.2) Albumin 1.6 g/dL (3.4-5.0) Albumin/Globulin Ratio 0.6 (1.0-1.7) Test 01/18/21 06:04 01/18/21 08:00 Glucose (Fingerstick) 172 mg/dL (70-99) O2 Saturation 89 % (92-99) Arterial Blood pH 7.40 (7.35-7.45) Arterial Blood pCO2 at Patient Temp 38 mmHg (35-46) Arterial Blood pO2 at Patient Temp 57 mmHg (65-108) Arterial Blood HCO3 23 mmol/L (21-28) Arterial Blood Base Excess -2 mmol/L (-3-3) FiO2 65% vent Medications Active Scripts Medications Dose Route/Sig Max Daily Dose Days Date Category Augmentin 500-125 Tablet (Amoxicillin/Potassium Clav) 1 Each Tablet 1 Tab PO BID 7 10/03/19 Rx Benzonatate 100 Mg Capsule 100 Mg PO [id number] 10/03/19 Rx Proair Hfa (Albuterol Sulfate) 8.5 Gm Hfa.aer.ad 2.5 Mg NEB PRN Q4HRS PRN 30 10/03/19 Rx Digoxin 125 Mcg Tablet 125 Mcg PO DAILY 10/02/19 Reported Furosemide 20 Mg Tablet 1 Tab PO DAILY 10/02/19 Reported [Diltiazem Hcl] 240 MG Cap.er.24h 300 Mg PO DAILY 30 10/03/18 Rx Eliquis (Apixaban) 5 Mg Tablet 5 Mg PO BID MDD 5 30 10/03/18 Rx Tramadol-Acetaminophn 37.5-325 (Tramadol Hcl/Acetaminophen) 1 Each Tablet 1 Tab PO Q6H 07/14/16 Rx No Known Medications Prior To Admisstion (Info) Each 1 Each 04/26/15 Reported Comments cxr 01/13 reviewed, Continued presence of diffuse bilateral lung opacities but with some interval improvement evident. Electronically signed by: Lakshmi Cason MD (01/13/2021 6:14 AM) [facility] Impression . IMPRESSION: 1. Acute hypoxemic respiratory failure.due to severe covid 19 viral pneumonia/ ARDS 2. Abnormal x-ray compatible with a viral pneumonia, mild improvement 01/13 3. Obesity. prob jas 4. Acute on chronic diastolic heart failure. 5. Possible bacterial pneumonia. 6. Atrial fibrillation with rapid ventricular response. 7. History of tobacco dependent, suspect chronic obstructive pulmonary disease. 8. SARS Covid 2+ compatible with COVID-19 9. Fever secondary to above, resolved Plan . Updated 01/18 Labs reviewed, chest x-ray reviewed, diffuse infiltrates no significant change possible small effusions ABG noted, no room for weaning Continue Solu-Medrol Antibiotics per ID Enteral nutrition Monitor blood sugars Total cumulative critical care time of approximately 30 minutes reviewing data, labs, chest x-ray, discussion with RT and RN, formulating a plan. Updated 01/17 Continue weaning oxygen, if continues to improve will decrease PEEP ABG and labs noted Patient currently on Solu-Medrol Antibiotics per ID Solu-Medrol 40 IV twice daily Monitor blood sugars Enteral nutrition DVT GI prophylaxis See note from 01/16, spoke with family, patient family does not wish to proceed with tracheotomy Total cumulative critical care time of 30 to 35 minutes with no overlap Updated 01/16 Continue current settings ABG and labs noted Patient currently on Solu-Medrol Follow cardiology input Empiric antibiotics On Eliquis Follow RASS score for sedation Discussed with Ayana Calderon [phone] Answered all questions, family does not wish patient to undergo tracheotomy I recommend that we continue aggressive care for approximately 21 to 28 days, if no improvement by then, extubated and allow natural I went over the current CODE STATUS, partial, I recommend the patient be full DNR, family agrees, Updated DNR status We will continue current care for now. Total cumulative critical care time of approximately 30 to 35 minutes with no overlap 01/15 cont vent support setting reviewed, 02 titration as tolerated Patient intubated on 01/07 AC mode ABG reviewed I:E. ratio to 1-1 , PEEP of 8 Continue current support Started on remdesivir 01/07 change IV SOLUMEDROL to 40 bid Follow cardiology input Empiric antibiotics Follow RASS score for sedation on eliquid pepcid for stress ulcer prophylaxis discussed w rn critically ill cc time 30 min no overlap 01/14 cont vent support setting reviewed, 02 titration as tolerated Patient intubated on 01/07 AC mode ABG reviewed I:E. ratio to 1-1 , PEEP of 9 Continue current support Started on remdesivir 01/07 IV SOLUMEDROL Follow cardiology input Empiric antibiotics Follow RASS score for sedation discussed w rn critically ill cc time 30 min no overlap Updated 01/13 Patient intubated on 01/07 AC mode ABG noted, reduce FIO2 80%, I:E. ratio to 1-1 , PEEP of 9 Continue current support Started on remdesivir 01/07 IV SOLUMEDROL Follow cardiology input Empiric antibiotics Follow RASS score for sedation Total cumulative critical care time from 9:15 AM to 9:45 AM BINDU GRIJALVA MD Jan 18, 2021 08:24
[2021-01-18] MEDS: METOPROLOL TART IMMED RELEASE 25 MG TABLET. PO SCH (09:00)
[2021-01-18] MEDS: FAMOTIDINE 20 MG/2 ML VIAL IVP SCH (09:29)
[2021-01-18] MEDS: MULTIVITAMINS,THERAPEUTIC 5 ML ORAL LIQUID. FT SCH (09:29)
[2021-01-18] MEDS: APIXABAN 5 MG TABLET. PO SCH (09:29)
[2021-01-18] MEDS: methylPREDNISolone SOD SUCC PF 40 MG/ML VIAL. IV SCH (09:29)
[2021-01-18] MEDS ORDERED: DIGOXIN IV 500 MCG/2 ML AMPUL. IV ONE ×2 (10:00→17:00)
--- NOTE | 2021-01-18 10:40 | PDOC ---
Infectious Disease Note Subjective: Subjective Intubated/sedated Tachycardic Not requiring pressors at this time Afebrile Discussed with nursing staff Vital Signs: Vital Signs Vital Signs Date Time Temp Pulse Resp B/P (MAP) Pulse Ox O2 Delivery O2 Flow Rate FiO2 01/18/21 10:37 25 92 01/18/21 10:03 126 108/75 (86) Ventilator 01/18/21 07:20 98.6 98.6 01/18/21 00:13 40.0 Physical Exam: PHYSICAL EXAM Visual exam done due to COVID-19 pandemic General intubated Heart tachycardia Smith in place Extremities trace edema Medications: Inpatient Meds: Medications reviewed. Labs: Lab Laboratory Tests Test 01/17/21 17:36 01/17/21 20:53 01/17/21 23:37 01/18/21 06:00 Glucose (Fingerstick) 206 mg/dL (70-99) 207 mg/dL (70-99) 203 mg/dL (70-99) White Blood Count 22.0 x10^3/uL (4.0-11.0) Red Blood Count 4.58 x10^6/uL (3.50-5.40) Hemoglobin 13.3 g/dL (12.0-15.5) Hematocrit 41.7 % (36.0-47.0) Mean Corpuscular Volume 91 fL (79-100) Mean Corpuscular Hemoglobin 29 pg (25-35) Mean Corpuscular Hemoglobin Concent 32 g/dL (31-37) Red Cell Distribution Width 14.1 % (11.5-14.5) Platelet Count 101 x10^3/uL (140-400) Neutrophils (%) (Auto) 93 % (31-73) Lymphocytes (%) (Auto) 3 % (24-48) Monocytes (%) (Auto) 5 % (0-9) Eosinophils (%) (Auto) 0 % (0-3) Basophils (%) (Auto) 0 % (0-3) Neutrophils # (Auto) 20.3 x10^3/uL (1.8-7.7) Lymphocytes # (Auto) 0.6 x10^3/uL (1.0-4.8) Monocytes # (Auto) 1.0 x10^3/uL (0.0-1.1) Eosinophils # (Auto) 0.0 x10^3/uL (0.0-0.7) Basophils # (Auto) 0.1 x10^3/uL (0.0-0.2) Sodium Level 147 mmol/L (136-145) Potassium Level 4.8 mmol/L (3.5-5.1) Chloride Level 112 mmol/L (98-107) Carbon Dioxide Level 28 mmol/L (21-32) Anion Gap 7 (6-14) Blood Urea Nitrogen 64 mg/dL (7-20) Creatinine 1.3 mg/dL (0.6-1.0) Estimated GFR (Cockcroft-Gault) 40.4 BUN/Creatinine Ratio 49 (6-20) Glucose Level 160 mg/dL (70-99) Calcium Level 7.6 mg/dL (8.5-10.1) Total Bilirubin 1.0 mg/dL (0.2-1.0) Aspartate Amino Transf (AST/SGOT) 27 U/L (15-37) Alanine Aminotransferase (ALT/SGPT) 45 U/L (14-59) Alkaline Phosphatase 76 U/L (46-116) Total Protein 4.3 g/dL (6.4-8.2) Albumin 1.6 g/dL (3.4-5.0) Albumin/Globulin Ratio 0.6 (1.0-1.7) Test 01/18/21 06:04 01/18/21 08:00 Glucose (Fingerstick) 172 mg/dL (70-99) O2 Saturation 89 % (92-99) Arterial Blood pH 7.40 (7.35-7.45) Arterial Blood pCO2 at Patient Temp 38 mmHg (35-46) Arterial Blood pO2 at Patient Temp 57 mmHg (65-108) Arterial Blood HCO3 23 mmol/L (21-28) Arterial Blood Base Excess -2 mmol/L (-3-3) FiO2 65% vent Objective: Assessment: 1. COVID-19 pneumonia. Present on admission. 2. Acute hypoxic respiratory failure. Suspected bacterial pneumonia. 3. Bacteremia, 2/4 bottles present on admission, Staph epidermidis, Staph hominis. Likely contaminant. Repeat blood cultures negative so far. 4. Obesity. 5. Acute on chronic systolic and diastolic heart failure. 6. Atrial fibrillation with rapid ventricular response. 7. History of tobacco dependence. 8. Mild thrombocytopenia. improved 9. Elevated D-dimer. 10. Hypertension. 11. Leukocytosis on steroids Plan: Plan of Care 1. Continue supportive care. 2. S/P remdesivir ,on steroids per primary team 3.DC Zyvox and Zosyn. Critically ill. Discussed with ADRIÁN BLANCA MD Jan 18, 2021 10:40
--- NOTE | 2021-01-18 11:55 | PDOC ---
CARDIO Progress Notes Date and Time Date of Service 01/18/21 Time of Evaluation 1150 Subjective Subjective: Other (intubated) Vitals Vitals Vital Signs Date Time Temp Pulse Resp B/P (MAP) Pulse Ox O2 Delivery O2 Flow Rate FiO2 01/18/21 11:03 120 25 100/68 (79) 92 Ventilator 01/18/21 07:20 98.6 98.6 01/18/21 00:13 40.0 Weight Weight [ ] Input and Output Intake and Output Intake and Output 01/18/21 07:00 Intake Total 2861 ml Output Total 2175 ml Balance 686 ml IV Total 890 ml Tube Feeding 1471 ml Blood Product 100 ml Other 400 ml Output Urine Total 1375 ml Stool Total 800 ml Gastric Drainage Total 0 ml Laboratory Labs Laboratory Tests Test 01/17/21 17:36 01/17/21 20:53 01/17/21 23:37 01/18/21 06:00 Glucose (Fingerstick) 206 mg/dL (70-99) 207 mg/dL (70-99) 203 mg/dL (70-99) White Blood Count 22.0 x10^3/uL (4.0-11.0) Red Blood Count 4.58 x10^6/uL (3.50-5.40) Hemoglobin 13.3 g/dL (12.0-15.5) Hematocrit 41.7 % (36.0-47.0) Mean Corpuscular Volume 91 fL (79-100) Mean Corpuscular Hemoglobin 29 pg (25-35) Mean Corpuscular Hemoglobin Concent 32 g/dL (31-37) Red Cell Distribution Width 14.1 % (11.5-14.5) Platelet Count 101 x10^3/uL (140-400) Neutrophils (%) (Auto) 93 % (31-73) Lymphocytes (%) (Auto) 3 % (24-48) Monocytes (%) (Auto) 5 % (0-9) Eosinophils (%) (Auto) 0 % (0-3) Basophils (%) (Auto) 0 % (0-3) Neutrophils # (Auto) 20.3 x10^3/uL (1.8-7.7) Lymphocytes # (Auto) 0.6 x10^3/uL (1.0-4.8) Monocytes # (Auto) 1.0 x10^3/uL (0.0-1.1) Eosinophils # (Auto) 0.0 x10^3/uL (0.0-0.7) Basophils # (Auto) 0.1 x10^3/uL (0.0-0.2) Sodium Level 147 mmol/L (136-145) Potassium Level 4.8 mmol/L (3.5-5.1) Chloride Level 112 mmol/L (98-107) Carbon Dioxide Level 28 mmol/L (21-32) Anion Gap 7 (6-14) Blood Urea Nitrogen 64 mg/dL (7-20) Creatinine 1.3 mg/dL (0.6-1.0) Estimated GFR (Cockcroft-Gault) 40.4 BUN/Creatinine Ratio 49 (6-20) Glucose Level 160 mg/dL (70-99) Calcium Level 7.6 mg/dL (8.5-10.1) Total Bilirubin 1.0 mg/dL (0.2-1.0) Aspartate Amino Transf (AST/SGOT) 27 U/L (15-37) Alanine Aminotransferase (ALT/SGPT) 45 U/L (14-59) Alkaline Phosphatase 76 U/L (46-116) Total Protein 4.3 g/dL (6.4-8.2) Albumin 1.6 g/dL (3.4-5.0) Albumin/Globulin Ratio 0.6 (1.0-1.7) Test 01/18/21 06:04 01/18/21 08:00 Glucose (Fingerstick) 172 mg/dL (70-99) O2 Saturation 89 % (92-99) Arterial Blood pH 7.40 (7.35-7.45) Arterial Blood pCO2 at Patient Temp 38 mmHg (35-46) Arterial Blood pO2 at Patient Temp 57 mmHg (65-108) Arterial Blood HCO3 23 mmol/L (21-28) Arterial Blood Base Excess -2 mmol/L (-3-3) FiO2 65% vent Microbiology Micro Microbiology 01/06/21 Blood Culture - Final, Complete NO GROWTH AFTER 5 DAYS Physical Exam HEENT: Neck Supple W Full Motion Chest: Symmetric LUNGS: Other (intubated with vent) Heart: irregularly irregular (AFIB) Abdomen: Other (nondistended ) Extremities: No Edema Neurology: other (sedated) Assessment Assessment 1. Acute respiratory failure: covid-19 pneumonia 2. Persistent AFIB with RVR: recent MCOT with 100% burden. RVR this morning 3. Sepsis/fever 4. JUSTINE: prerenal 5. Acute diastolic CHF: compensated 6. HTN: low end 7. Mild troponin elevation: suspect demand mediated, type 2 8. Obesity Recommendations Continue metoprolol for rate control as BP allows IV Dig x1 now Add scheduled digoxin for rate control Eliquis for stroke prevention Outpt echo once recovered from COVID Ongoing pulmonary optimization, covid-19 treatment Lasix PRN Supportive care Justicifation of Admission Dx: Justifications for Admission: Justification of Admission Dx: Yes CHF: Cardiac Arrhythmias NESSA CHIN APRN Jan 18, 2021 11:55
[2021-01-18] MEDS: MINERAL OIL/PETROLATUM,WHITE OPHTH OINT 3.5GM TUBE. OU PRN (12:51)
--- NOTE | 2021-01-18 14:04 | PDOC ---
[employer] PROGRESS NOTE Date of Service DOS: DATE: 01/18/21 TIME: 14:00 Chief Complaint Chief Complaint Fulminant respiratory failure secondary to COVID-19 requiring intubation Bacteremia positive for staph epidermidis and staph hominis repeat negative blood cultures Morbid obesity Acute on chronic CHF A. fib with RVR History of hypertension Asthma Chronic anticoagulation Arrhythmias Arthritis History of Present Illness History of Present Illness 01/18/2021 No acute events overnight. Afebrile. Currently on 22/454/65 4/8 for vent settings. WBC trending upwards from 18-22. ABG 7.4/30 84/57/23. Patient will likely need to increase FiO2 on the vent will defer this to pulmonology. Patient consistently has elevated heart rate to 130s with history of A. fib. Digoxin was given yesterday with some improvement. I believe that she may be a little bit dry intravascularly but she does have anasarca with significant third spacing. We will judiciously give 250 NS bolus and she usually responds appropriately. Will defer atrial fibrillation management to cardiology. Patient's chart, labs, images were reviewed and discussed with RN. Prognosis is poor. Family does not want tracheostomy. 01/17/2021 No acute events overnight. Afebrile. Vent settings of 22/450/65/8. WBC trending upwards to 18,000. No changes from ID at this time. > 50% time spent in patient chart, labs, and imaging review and in discussion with RN and SW 01/16/2021 No acute events overnight. Patient currently on vent settings of 22/450/75%/PEEP of 8. Currently on Zyvox and Zosyn. Will de-escalate soon per ID. White count today is 14,000. Platelets are low at 125.> 50% time spent in patient chart, labs, and imaging review and in discussion with RN and SW 01/13/2021 Patient seen and examined in the COVID-19 ICU Her blood gases are not as good today She still requiring mechanical ventilation AC/26/450/80 percent with 9 of PEEP Sedated with fentanyl Versed Receiving IV Zyvox currently Has an art line Has a Smith to bedside drainage Discussed with RN Discussed with Dr. Petty I called her [id number] and explained the situation and educated her about vent weaning per her request Discussed with case management Chart reviewed She remains critically ill 01/12/2021 Patient seen and examined in the [place] [address] ICU She still requires mechanical ventilation AC/26/450/80 percent with 10 of PEEP Sedated with Versed and fentanyl Has an art line with blood pressure 137/75 Smith to bedside drainage JOHN hose in place OG running at 40 cc an hour Discussed with RN Discussed with case management Chart reviewed She remains critically ill 01/11/2021 Patient seen and examined in the [place] [address] ICU She still requires mechanical ventilation AC/26/450/80 percent with 10 of PEEP OG running at 40 cc an hour Has mitts on for patient safety Smith to bedside drainage Chart reviewed Discussed with case management Discussed with RN She remains critically ill 01/10/2021 Patient seen and examined in the [place] [address] ICU She is still mechanically ventilated AC/26/450/70 percent with 10 of PEEP On IV Zosyn and Zyvox Sedated Discussed with RN Discussed with case management Chart reviewed She remains very critically ill 01/09/2021 Patient seen and examined in the [place] [address] ICU She remains ventilated AC/26/450/70 percent with 10 of PEEP She is DNR but chemical code still Sedated with fentanyl and Versed Has an art line in place Smith to bedside drainage SCDs on OG at 40 cc an hour Discussed with RN Discussed with case management She remains critically ill Chart reviewed 01/08/2021 Patient seen and examined in the [place] [address] ICU She is in respiratory isolation On the vent AC//450/1 100% FiO2 with 12 of PEEP He has SCDs on Has Smith to bedside drainage Sedated with fentanyl Versed OG feeds running at 40 cc an hour Has an art line Discussed with RN Chart reviewed She remains critically ill 01/07/2021 Patient seen and examined in the [place] [address] ICU She had to be intubated this morning She is currently on assist-control/26/450 with 100% FiO2 and 10 of PEEP Has SCDs in Smith to bedside drainage Sedated with fentanyl Versed and also on IV doxycycline OG feeds running at 20 cc an hour Chart reviewed Discussed with RN She remains critically ill Vitals/I&O Vitals/I&O: Vital Signs Date Time Temp Pulse Resp B/P (MAP) Pulse Ox O2 Delivery O2 Flow Rate FiO2 01/18/21 13:21 109 25 101/70 (80) 89 Ventilator 01/18/21 12:00 98.9 98.9 01/18/21 11:07 40.0 I & O 01/17/21 01/17/21 01/18/21 15:00 23:00 07:00 Intake Total 550 ml 1144 ml 1167 ml Output Total 550 ml 1275 ml 350 ml Balance 0 ml -131 ml 817 ml Physical Exam Physical Exam: Visual exam done due to COVID-19 pandemic General intubated Heart tachycardia Smith in place Extremities trace edema General: Other (Sedated on the vent) Heart: Other (AFIB) Abdomen: Soft Extremities: No cyanosis Skin: No breakdown, No significant lesion Labs Labs: Laboratory Tests Test 01/17/21 17:36 01/17/21 20:53 01/17/21 23:37 01/18/21 06:00 Glucose (Fingerstick) 206 mg/dL (70-99) 207 mg/dL (70-99) 203 mg/dL (70-99) White Blood Count 22.0 x10^3/uL (4.0-11.0) Red Blood Count 4.58 x10^6/uL (3.50-5.40) Hemoglobin 13.3 g/dL (12.0-15.5) Hematocrit 41.7 % (36.0-47.0) Mean Corpuscular Volume 91 fL (79-100) Mean Corpuscular Hemoglobin 29 pg (25-35) Mean Corpuscular Hemoglobin Concent 32 g/dL (31-37) Red Cell Distribution Width 14.1 % (11.5-14.5) Platelet Count 101 x10^3/uL (140-400) Neutrophils (%) (Auto) 93 % (31-73) Lymphocytes (%) (Auto) 3 % (24-48) Monocytes (%) (Auto) 5 % (0-9) Eosinophils (%) (Auto) 0 % (0-3) Basophils (%) (Auto) 0 % (0-3) Neutrophils # (Auto) 20.3 x10^3/uL (1.8-7.7) Lymphocytes # (Auto) 0.6 x10^3/uL (1.0-4.8) Monocytes # (Auto) 1.0 x10^3/uL (0.0-1.1) Eosinophils # (Auto) 0.0 x10^3/uL (0.0-0.7) Basophils # (Auto) 0.1 x10^3/uL (0.0-0.2) Sodium Level 147 mmol/L (136-145) Potassium Level 4.8 mmol/L (3.5-5.1) Chloride Level 112 mmol/L (98-107) Carbon Dioxide Level 28 mmol/L (21-32) Anion Gap 7 (6-14) Blood Urea Nitrogen 64 mg/dL (7-20) Creatinine 1.3 mg/dL (0.6-1.0) Estimated GFR (Cockcroft-Gault) 40.4 BUN/Creatinine Ratio 49 (6-20) Glucose Level 160 mg/dL (70-99) Calcium Level 7.6 mg/dL (8.5-10.1) Total Bilirubin 1.0 mg/dL (0.2-1.0) Aspartate Amino Transf (AST/SGOT) 27 U/L (15-37) Alanine Aminotransferase (ALT/SGPT) 45 U/L (14-59) Alkaline Phosphatase 76 U/L (46-116) Total Protein 4.3 g/dL (6.4-8.2) Albumin 1.6 g/dL (3.4-5.0) Albumin/Globulin Ratio 0.6 (1.0-1.7) Test 01/18/21 06:04 01/18/21 08:00 01/18/21 12:39 Glucose (Fingerstick) 172 mg/dL (70-99) 187 mg/dL (70-99) O2 Saturation 89 % (92-99) Arterial Blood pH 7.40 (7.35-7.45) Arterial Blood pCO2 at Patient Temp 38 mmHg (35-46) Arterial Blood pO2 at Patient Temp 57 mmHg (65-108) Arterial Blood HCO3 23 mmol/L (21-28) Arterial Blood Base Excess -2 mmol/L (-3-3) FiO2 65% vent Assessment and Plan Assessmemt and Plan Problems Medical Problems: (1) Person under investigation for COVID-19 Status: Acute (2) Respiratory failure with hypoxia Status: Acute Comment Review of Relevant I have reviewed the following items pepe (where applicable) has been applied. Medications: Current Medications Medications (Trade) Dose Ordered Sig/Amaury Route PRN Reason Start Time Stop Time Status Last Admin Dose Admin Multi-Ingred Cream/Lotion/Oil/ Oint (Artificial Tears Eye Ointment) 1 sherrill PRN Q1HR PRN OU DRY EYE 01/17/21 17:30 01/18/21 12:51 Digoxin (Lanoxin) 250 mcg 1X ONCE IV 01/18/21 10:00 01/18/21 10:01 DC 01/18/21 10:01 Justifications for Admission Other Justification MADIHA MIGUEL MD Jan 18, 2021 14:04
[2021-01-18] MEDS: FUROSEMIDE 40 MG/4 ML VIAL. IVP PRN (15:43)
[2021-01-18] MEDS ORDERED: VECURONIUM BOLUS 10 MG VIAL. IV PRN (18:00)
[2021-01-18] MEDS ORDERED: NOREPINEPHRINE VIAL 8 MG in IV DEXTROSE 5% 250 ML IV PRN (18:45)
--- NOTE | 2021-01-18 19:00 | EKG ---
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 : 1950 Requested By: KRISTOPHER GONZALES Order Number: [id number] Reading MD: Measurements Intervals [place] Rate: 78 P: [place]: QRS: 87 QRSD: 114 T: 116 QT: 308 QTc: 354 Interpretive Statements IRREGULAR RHYTHM, NO P-WAVE FOUND R-S TRANSITION ZONE IN V LEADS DISPLACED TO THE LEFT INCOMPLETE RIGHT BUNDLE BRANCH BLOCK CONSIDER LEFT VENTRICULAR HYPERTROPHY ST & T ABNORMALITY, CONSIDER HIGH LATERAL ISCHEMIA OR LEFT VENTRICULAR STRAIN ABNORMAL ECG RI6.02 Compared to ECG 01/05/2021 21:24:05 Incomplete right bundle-branch block now present T-wave abnormality still present Possible ischemia still present
[2021-01-19] MEDS ORDERED: DIGOXIN IV 500 MCG/2 ML AMPUL. IV SCH (09:00)
== END 2021-01-18 23:22 | DRG 870 ==
LOC: ER 21:12 → 1 WEST ICU 22:40
PROVIDERS: ADMIT Internal Medicine; ATTEND Internal Medicine
PROC: 5A09457 Assistance with Respiratory Ventilation, 24-96 Consecutive Hours, Continuous Positive Airway Pressure (ICD-10-PCS; 2021-01-05)
PROC: 5A1955Z Respiratory Ventilation, Greater than 96 Consecutive Hours (ICD-10-PCS; principal; 2021-01-07)
PROC: 0BH17EZ Insertion of Endotracheal Airway into Trachea, Via Natural or Artificial Opening (ICD-10-PCS; 2021-01-07)
PROC: 02HV33Z Insertion of Infusion Device into Superior Vena Cava, Percutaneous Approach (ICD-10-PCS; 2021-01-07)
PROC: XW033E5 Introduction of Remdesivir Anti-infective into Peripheral Vein, Percutaneous Approach, New Technology Group 5 (ICD-10-PCS; 2021-01-07)
DX: A41.9 Sepsis, unspecified organism (principal); U07.1 COVID-19; I50.43 Acute on chronic combined systolic (congestive) and diastolic (congestive) heart failure; I21.A1 Myocardial infarction type 2; J80 Acute respiratory distress syndrome; J12.82 Pneumonia due to coronavirus disease 2019; I48.19 Other persistent atrial fibrillation; N12 Tubulo-interstitial nephritis, not specified as acute or chronic; N17.9 Acute kidney failure, unspecified; Z68.41 Body mass index [BMI] 40.0-44.9, adult; D69.6 Thrombocytopenia, unspecified; E66.9 Obesity, unspecified; F17.200 Nicotine dependence, unspecified, uncomplicated; I11.0 Hypertensive heart disease with heart failure; J45.909 Unspecified asthma, uncomplicated; M19.90 Unspecified osteoarthritis, unspecified site; Z66 Do not resuscitate; G47.30 Sleep apnea, unspecified; S53.409A Unspecified sprain of unspecified elbow, initial encounter; X58.XXXA Exposure to other specified factors, initial encounter; Y93.89 Activity, other specified; Y92.89 Other specified places as the place of occurrence of the external cause; Z78.9 Other specified health status; Z79.01 Long term (current) use of anticoagulants; Z82.49 Family history of ischemic heart disease and other diseases of the circulatory system; Y99.8 Other external cause status
CPT/HCPCS: 36415; 36569; 36600; 71045; 74018; 80048; 80053; 80202; 81001; 82565; 82805; 82962; 83605; 83735; 83880; 84100; 84484; 85007; 85025; 85379; 87040; 87077; 87205; 93005; 94002; 94003; 94640; 94660; 96365; 96366; 96375; 96376; 99292; J0330; J0696; J1100; J1160; J1815; J1940; J2020; J2250; J2370; J2405; J2543; J2704; J2920; J2930; J3010; J3370; J3490; J7030; J7040; J7050; J7060; U0003; 99291-25; G0378